=== PATIENT | female | born 1960 | race Hispanic/Latino ===

== ENCOUNTER 2017-12-25 17:50 | Emergency (ER) | payer BC ==
[2017-12-25 19:09] LABS: Absolute Lymphocytes (CBC) 2.1 K/uL (0.7-4.9); Absolute Monocytes 0.5 K/uL (0.1-1.3); Absolute Neutrophil 4.4 K/uL (1.8-8.0); Basophils % 0.9 % (0-1.3); Eosinophils % 3.2 % (0-4.4); Hematocrit 40.1 % (36.0-45.0); MCH 27.9 pg (27.0-35.0); MCV 84.3 fL (80-100); MPV 7.4 fL (7.6-11.3); Monocytes % 6.6 % (3.3-12.3); RBC Red Blood Cell Count 4.76 M/uL (3.86-4.86)
[2017-12-25 19:12] LABS: Protime INR 1.01
[2017-12-25 19:27] LABS: Barbiturates NEGATIVE (NEGATIVE); Benzodiazepines NEGATIVE (NEGATIVE); Cocaine NEGATIVE (NEGATIVE); METHAMPHETAM NEGATIVE (NEGATIVE); Methadone NEGATIVE (NEGATIVE); Opiates NEGATIVE (NEGATIVE); Phencyclidine NEGATIVE (NEGATIVE); THC Cannibis NEGATIVE (NEGATIVE)
[2017-12-25 19:30] LABS: ALT/SGPT 34 U/L (12-78); AST/SGOT 34 U/L (15-37); Albumin 3.7 g/dL (3.4-5.0); Alcohol Serum/Plasma < 3 mg/dL (<3); Alkaline Phosphatase 169 U/L (45-117); BUN Blood Urea Nitrogen 13 mg/dL (7-18); Bicarbonate 25 mmol/L (21-32); Bilirubin Direct < 0.1 mg/dL (0-0.2); Bilirubin Total 0.3 mg/dL (0.2-1.0); Glucose Level 145 mg/dL (74-106); Protein, Total 7.4 g/dL (6.4-8.2); Sodium Level 142 mmol/L (136-145)
[2017-12-25 21:43] LABS: Urine Blood NEGATIVE (NEG); Urine Glucose NEGATIVE (NEG); Urine Protein NEGATIVE (NEG)
--- NOTE | 2017-12-25 22:18 | ER ---
Nurse's Notes [facility] Name: Venice Beltran Age: 57 yrs Sex: Female : 1960 Arrival Date: 12/25/2017 Time: 17:54 Bed 15 Private MD: Kelby Isbell R Diagnosis: Suicide attempt Presentation: 12/25 18:21 Presenting complaint: Patient states: "I took 20, Ambien 10mg since midnight. I just aj wanted to go to sleep. I took myself off my Geodon this week and it gave me insomnia." Patient reports seeing monsters in the tile and gutierres. Patient reports that she was not taking the medication with the intent to kill herself, but that she was okay with dying if she did. Transition of care: patient was not received from another setting of care. Onset of symptoms was December 25, 2017. Risk Assessment: Do you want to hurt yourself or someone else? Patient reports no desire to harm self or others. Initial Sepsis Screen: Does the patient meet any 2 criteria? No. Patient's initial sepsis screen is negative. Does the patient have a suspected source of infection? No. Patient's initial sepsis screen is negative. Care prior to arrival: None. 18:21 Method Of Arrival: Ambulatory aj 18:21 Acuity: JOSE ANGEL 2 aj 18:31 Note Poison control contacted. Instructed to tox work up and observe for 4-6 hours aj after last ingestion (approx 1630 this afternoon). Risk of hypotension and drowsiness. Triage Assessment: 18:28 General: Appears in no apparent distress. comfortable, Behavior is calm, cooperative, aj appropriate for age. Pain: Denies pain. Neuro: Level of Consciousness is awake, alert, obeys commands, Oriented to person, place, time, situation, Appropriate for age Director Of Catering Sales are equal bilaterally Moves all extremities. Full function Gait is steady, Speech is normal, Facial symmetry appears normal, Pupils are PERRLA. Respiratory: Airway is patent Respiratory effort is even, unlabored, Respiratory pattern is regular, symmetrical. GI: No signs and/or symptoms were reported involving the gastrointestinal system. Derm: Skin is intact, is healthy with good turgor, Skin is pink, warm \\T\\ dry. normal. Historical: - Allergies: 18:28 No Known Allergies; aj - Home Meds: 18:28 Cymbalta 60 mg oral cpDR 1 cap once daily [Active]; Adderall XR Oral [Active]; Crestor aj oral oral [Active]; - PMHx: 18:28 Depression; Bipolar disorder; ptsd; aj - PSHx: 18:28 lap band; ; Cholecystectomy; aj - Immunization history:: Adult Immunizations up to date. - Social history:: Smoking status: Patient/guardian denies using tobacco. - Ebola Screening: : Patient negative for fever greater than or equal to 101.5 degrees Fahrenheit, and additional compatible Ebola Virus Disease symptoms Patient denies exposure to infectious person Patient denies travel to an Ebola-affected area in the 21 days before illness onset No symptoms or risks identified at this time. Screenin:37 Abuse screen: Denies threats or abuse. Denies injuries from another. Nutritional aj screening: No deficits noted. Tuberculosis screening: No symptoms or risk factors identified. Fall Risk None identified. Assessment: 19:28 Reassessment: Patient appears in no apparent distress at this time. pt asking for food, ak1 pt informed of wait for food for smokehouse worker to bring something to ER. pt is asking to be discharged, pt informed the ERP will be in to speak with her shortly. 19:32 Reassessment: Mental Health deputy being contacted by Ty angelo . ak1 21:44 Reassessment: Mental Health at bedside with ERP to place prison warrant on pt. pt ak1 informed of prison warrant placed and the wait for acceptance to psychiatric facility. 21:58 Reassessment: Reassessment: nurse [facility] nurse with [facility]. ak1 22:52 Reassessment: poison control file number is: [id number]. ak1 Psych: 18:38 Subjective: Patient's mood is sad, Hallucinations are visual, Having thoughts of Denies aj taking medication with intentions to kill herself, but reports that she knew she may from taking that much medication "and I was okay with it.". Objective: Patient is cooperative, Speech is normal, Affect is appropriate. Interventions: Removed personal items and placed in bag. Patient placed in hospital gown. Suicide Risk Assessment: Sad Person Scale: Sex of patient: Female: Score 0 points. Age of patient: Score 0 point if patient falls outside of specified age parameters. Depression: Score 1 point if signs of depression are present. Previous Attempt: Score 1 point if patient has previously attempted suicide. Substance Abuse: Score 0 point if patient does not abuse alcohol or drugs. Rational Thinking: Score 0 point if patient has rational thinking. Social Support: Score 0 if social support is present/available. Organized Plan: Score 0 if patient did not have an organized plan in place. Relationship: Score 0 point if patient has a spouse or domestic partner. Chronic Sickness: Score 0 point if patient does not have a chronic illness, debilitating, or severe disorder. Pt denies substance abuse. 19:27 Safety Checks: Personal items have been removed. Door is open. Visitors are present. ak1 Commitment:. Overdose: 18:32 Patient took Ambien 10mg X 20 between 0000 and 1630 today. Overdose occurred more than aj 10 hours ago. Vital Signs: 18:28 BP 137 / 92; Pulse 107; Resp 20; Temp 98.4; Pulse Ox 96% on R/A; Weight 87.09 kg; aj Height 5 ft. 3 in. (160.02 cm); 22:55 BP 118 / 78; Pulse 99; Resp 18 S; Pulse Ox 95% on R/A; jd3 18:28 Body Mass Index 34.01 (87.09 kg, 160.02 cm) aj ED Course: 17:54 Patient arrived in ED. sb2 17:54 Kelby Isbell MD is Private Physician. sb2 18:07 Joseph Fischer MD is Attending Physician. ps1 18:20 Patty Chairez, CHACHO is Primary Nurse. aj 18:25 Triage completed. aj 18:28 Arm band placed on left wrist. Patient placed in an exam room. aj 18:51 Inserted saline lock: 20 gauge in right forearm, using aseptic technique. Blood aj collected. 19:15 Safety checks: Items removed: yes. Door open/sign placed on door: yes. Family/friend oe present: no. Sitter present: Yes. 19:27 Patient has correct armband on for positive identification. Placed in gown. Bed in low ak1 position. Call light in reach. Adult w/ patient. 19:27 No provider procedures requiring assistance completed. ak1 19:30 Safety checks: Items removed: yes. Door open/sign placed on door: yes. Family/friend oe present: yes. Family/friends encouraged to stay with patient. Sitter present: Yes. 19:45 Safety checks: Items removed: yes. Door open/sign placed on door: yes. Family/friend oe present: yes. Family/friends encouraged to stay with patient. Sitter present: Yes. 19:59 notified [facility], will call back. rg2 20:00 Safety checks: Items removed: yes. Door open/sign placed on door: yes. Family/friend mw2 present: yes. Sitter present: Yes. 20:15 Safety checks: Items removed: yes. Door open/sign placed on door: yes. Family/friend mw2 present: yes. Sitter present: Yes. 20:30 Safety checks: Items removed: yes. Door open/sign placed on door: yes. Family/friend oe present: yes. Sitter present: Yes. 20:45 Safety checks: Items removed: yes. Door open/sign placed on door: yes. Family/friend oe present: yes. Sitter present: Yes. 21:00 Safety checks: Items removed: yes. Door open/sign placed on door: yes. Family/friend oe present: no. Sitter present: Yes. 21:15 Safety checks: Items removed: yes. Door open/sign placed on door: yes. Family/friend oe present: yes. Sitter present: Yes. 21:30 Safety checks: Items removed: yes. Door open/sign placed on door: yes. Family/friend oe present: no. Sitter present: Yes. 21:45 Safety checks: Items removed: yes. Door open/sign placed on door: yes. Family/friend oe present: no. Sitter present: Yes. 22:00 Safety checks: Items removed: yes. Door open/sign placed on door: yes. Family/friend oe present: no. Sitter present: Yes. 22:15 Safety checks: Items removed: yes. Door open/sign placed on door: yes. Family/friend oe present: no. Sitter present: Yes. 22:30 Safety checks: Items removed: yes. Door open/sign placed on door: yes. Family/friend oe present: no. Sitter present: Yes. 22:45 Safety checks: Items removed: yes. Door open/sign placed on door: yes. Family/friend oe present: no. Sitter present: Yes. 23:00 Safety checks: Items removed: yes. Door open/sign placed on door: yes. Family/friend oe present: no. Sitter present: Yes. 23:09 IV discontinued, intact, bleeding controlled, No redness/swelling at site. Pressure jd3 dressing applied. 23:15 Safety checks: Items removed: yes. Door open/sign placed on door: yes. Family/friend oe present: no. Sitter present: Yes. Administered Medications: No medications were administered Outcome: 22:01 Condition: stable ak1 22:01 Instructed on the need for transfer. 22:18 ER care complete, transfer ordered by . 23:26 Transferred by ground EMS Transfer form completed. Note: report given to [facility] ak1 23:28 Patient left the ED. ak1 Signatures: Carolyne Church rg2 Patty Chairez RN RN aj Krenek, Amber, RN RN ak1 Troy Garcia Gregory, MD MD gs Davies, Jonathon, RN RN jd3 Singer, Phillip, MD MD ps1 Billeau, Sheri 2 Jalen Godinez mw2 Corrections: (The following items were deleted from the chart) 20:46 20:32 Safety checks: Items removed: yes. Door open/sign placed on door: yes. oe Family/friend present: yes. Sitter present: Yes. oe 21:23 21:06 Safety checks: Items removed: yes. Door open/sign placed on door: yes. oe Family/friend present: yes. Sitter present: Yes. oe 22:01 21:58 Reassessment: ak1 ak1 23:09 23:08 BP 118 / 78; Pulse 99bpm; Resp 18bpm; Spontaneous; Pulse Ox 95% RA; jd3 jd3 23:11 22:26 Safety checks: Items removed: yes. Door open/sign placed on door: yes. oe Family/friend present: no. Sitter present: Yes. oe
--- NOTE | 2017-12-25 22:18 | EDPHYS ---
Physician Documentation [facility] Name: Venice Beltran Age: 57 yrs Sex: Female : 1960 Arrival Date: 12/25/2017 Time: 17:54 Bed 15 Private MD: Kelby Isbell R ED Physician Joseph Fischer HPI: 12/25 18:23 This 57 yrs old Female presents to ER via Unassigned with complaints of ps1 Possible Overdose. 18:23 patient states that she has a long history of psych problems. She stopped taking her ps1 geodon and had a bad day yesterday because she was scrapbooking over her estranged daughter. She states that she wanted to go to sleep and she took ambien. They are prescribed from Dr. Bishop in [place]. She reportedly took 20 ambien over the course of several hours from 10pm until 4pm. She is alert and providing a history. She states that she was not attempting to commit suicide however she was lassies faire about if she did in her sleep. On discussion with her she has been upset about not being invited to a birthday republican for her granddaughter and her ex was. She has acted out before in the past like this when it has come to family strife. She has been hospitalized before in the past, she states 10 years ago in [place] and that was not her first admission for psychiatric complaints. . Historical: - Allergies: 18:28 No Known Allergies; aj - Home Meds: 18:28 Cymbalta 60 mg oral cpDR 1 cap once daily [Active]; Adderall XR Oral [Active]; Crestor aj oral oral [Active]; - PMHx: 18:28 Depression; Bipolar disorder; ptsd; aj - PSHx: 18:28 lap band; ; Cholecystectomy; aj - Immunization history:: Adult Immunizations up to date. - Social history:: Smoking status: Patient/guardian denies using tobacco. - Ebola Screening: : Patient negative for fever greater than or equal to 101.5 degrees Fahrenheit, and additional compatible Ebola Virus Disease symptoms Patient denies exposure to infectious person Patient denies travel to an Ebola-affected area in the 21 days before illness onset No symptoms or risks identified at this time. ROS: 18:23 Unable to obtain ROS due to patient presenting with psychiatric complaints. . ps1 Exam: 18:23 Constitutional: This is a well developed, well nourished patient who is awake, alert, ps1 and in no acute distress. Head/Face: Normocephalic, atraumatic. Chest/axilla: Normal chest wall appearance and motion. Nontender with no deformity. No lesions are appreciated. Cardiovascular: Regular rate and rhythm. No gallops, murmurs, or rubs. Normal PMI, no JVD. No pulse deficits. Respiratory: Lungs have equal breath sounds bilaterally, clear to auscultation and percussion. No rales, rhonchi or wheezes noted. No increased work of breathing, no retractions or nasal flaring. Abdomen/GI: Soft, non-tender, with normal bowel sounds. No distension or tympany. No guarding or rebound. No evidence of tenderness throughout. 18:23 Psych: Behavior/mood is cooperative, depressed, Affect is flat, Oriented to person, place, time, Delusions/hallucinations are present and described as auditory as radio or static voices and visual with forms on the wall. . Vital Signs: 18:28 BP 137 / 92; Pulse 107; Resp 20; Temp 98.4; Pulse Ox 96% on R/A; Weight 87.09 kg; aj Height 5 ft. 3 in. (160.02 cm); 22:55 BP 118 / 78; Pulse 99; Resp 18 S; Pulse Ox 95% on R/A; jd3 18:28 Body Mass Index 34.01 (87.09 kg, 160.02 cm) aj MDM: 18:50 Patient medically screened. ps1 21:52 Data reviewed: vital signs, nurses notes, lab test result(s), and as a result, I will ps1 transfer patient to [facility]. After further discussion with myself, RN, and MHO patient verbalized intent to commit suicide with prescriptions and then during the interview with the MHO she verbalized, I wish the doctor would have just discharged me so I could have actually just gone and killed myself. . 12/25 18:43 Order name: Acetaminophen; Complete Time: 19:31 ps1 12/25 18:43 Order name: Basic Metabolic Panel; Complete Time: 19:31 ps1 12/25 18:43 Order name: CBC with Diff; Complete Time: 19:31 ps1 12/25 18:43 Order name: ETOH Level; Complete Time: 19:31 ps1 12/25 18:43 Order name: Hepatic Function; Complete Time: 19:31 ps1 12/25 18:43 Order name: PT-INR; Complete Time: 19:31 ps1 12/25 18:43 Order name: Ptt, Activated; Complete Time: 19:31 ps1 12/25 18:43 Order name: Salicylate; Complete Time: 19:31 ps1 12/25 18:43 Order name: Urine Drug Screen; Complete Time: 19: ps1 12/25 18:43 Order name: EKG; Complete Time: 18:43 ps1 12/25 18:43 Order name: EKG - Nurse/Tech; Complete Time: 19:25 ps1 12/25 18:43 Order name: IV Saline Lock; Complete Time: 19:24 ps1 12/25 18:43 Order name: Labs collected and sent; Complete Time: 19:24 ps1 12/25 21:06 Order name: Urine Dipstick--Ancillary (enter results); Complete Time: 21:51 [facility] 12/25 18:43 Order name: Urine Dipstick-Ancillary (obtain specimen); Complete Time: 19:25 ps1 Administered Medications: No medications were administered Disposition: 12/25/17 22:18 Transfer ordered to Psych Facility. Diagnosis is Suicide attempt. - Reason for transfer: Higher level of care. - Accepting physician is [facility]. - Condition is Stable. - Problem is new. - Symptoms are resolved. Signatures: Dispatcher [employer] Patty Hager RN RN aj Krenek, Amber, RN RN ak1 José England MD MD Joseph Fischer MD MD ps1 Corrections: (The following items were deleted from the chart) 23:28 22:18 12/25/2017 22:18 Transfer ordered to Psych Facility. Diagnosis is Suicide ak1 attempt. Reason for transfer: Higher level of care. Accepting physician is [facility]. Condition is Stable. Problem is new. Symptoms are resolved.
[2017-12-26 01:29] VITALS: TEMP 98.4
[2017-12-26 01:30] VITALS: BP 118/78; O2SAT 95
--- NOTE | 2017-12-26 07:49 | EKG ---
Test Date: 2017-12-25 Test Time: 18:41:34 Bleach Chlorinator: CORI MEASUREMENT RESULTS: Intervals: Rate: 102 IA: 136 QRSD: 80 QT: 338 QTc: 440 [place]: P: 39 IA: 136 QRS: 3 T: 11 INTERPRETIVE STATEMENTS: Sinus tachycardia Nonspecific ST abnormality Abnormal ECG Compared to ECG 12/30/2015 14:50:41 ST (T wave) deviation now present Sinus bradycardia no longer present Left ventricular hypertrophy no longer present Electronically Signed On 12-26-17 07:49:34 CDT by Jorge Ricardo
== END 2017-12-25 23:28 ==
LOC: ER 17:50
DX: T42.6X2A Poisoning by other antiepileptic and sedative-hypnotic drugs, intentional self-harm, initial encounter (principal); F32.9 Major depressive disorder, single episode, unspecified; F43.10 Post-traumatic stress disorder, unspecified
CPT/HCPCS: 36415; 80048; 80076; 80307; 80320; 80329; 81003; 85025; 85610; 85730; 93005; 99285

== ENCOUNTER 2019-04-06 12:25 | Emergency (ER) | payer BC ==
[2019-04-06] MEDS ORDERED: MECLIZINE HCL 12.5 MG TAB ONE (13:31)
--- NOTE | 2019-04-06 13:58 | RAD REPORT ---
EXAM DESCRIPTION: CT - Head Brain Wo Cont - 04/06/2019 1:48 pm CLINICAL HISTORY: vertigo Headache, drowsiness COMPARISON: CTFACIAL BONES W MPR dated 11/29/2014; HEAD BRAIN W O CONTRAST dated 02/12/2012 TECHNIQUE: All CT scans are performed using dose optimization technique as appropriate and may inclu de automated exposure control or mA/KV adjustment according to patient size. FINDINGS: No intracranial hemorrhage, hydrocephalus or extra-axial fluid collection.Mild generalized brain atrophy.No areas of brain edema or evidence of midline shift. Right maxillary is opacified. The paranasal sinuses and mastoids are otherwise clear. The calvarium i s intact. IMPRESSION: No acute intracranial abnormality. Right maxillary chronic sinus opacification.
--- NOTE | 2019-04-06 14:09 | RAD REPORT ---
EXAM DESCRIPTION: RAD - Chest Single View - 04/06/2019 2:04 pm CLINICAL HISTORY: CHEST PAIN Chest pain. COMPARISON: Abdomen 1 View (KUB) dated 01/30/2019; Chest Pa And Lat (2 Views) dated 06/17/2016; CHEST P A AND LAT 2 VIEW dated 05/07/2015; CHEST SINGLE VIEW dated 03/21/2015 FINDINGS: Portable technique limits examination quality. The lungs are grossly clear. The heart is normal in size. No displaced fractures. IMPRESSION: No acute intrathoracic process suspected.
--- NOTE | 2019-04-06 14:19 | EKG ---
Test Date: 2019-04-06 Test Time: 13:38:12 Drink Box Mechanic: YASH MEASUREMENT RESULTS: Intervals: Rate: 78 MN: 150 QRSD: 82 QT: 396 QTc: 451 [place]: P: 43 MN: 150 QRS: -1 T: 20 INTERPRETIVE STATEMENTS: Normal sinus rhythm Minimal voltage criteria for LVH, may be normal variant Borderline ECG Compared to ECG 12/25/2017 18:41:34 Left ventricular hypertrophy now present Sinus tachycardia no longer present ST (T wave) deviation no longer present Electronically Signed On 04-06-19 14:19:09 MANAGER EMS by Ramy [place]
[2019-04-06 14:36] LABS: Absolute Lymphocytes (CBC) 2.3 K/uL (0.7-4.9); Basophils % 1.1 % (0-1.3); Hematocrit 39.3 % (36.0-45.0); Lymphocytes % 35.2 % (15.3-44.8); MPV 7.8 fL (7.6-11.3); RBC Red Blood Cell Count 4.86 M/uL (3.86-4.86)
[2019-04-06 14:37] LABS: Protime INR 1.09
[2019-04-06 14:49] LABS: ALT/SGPT 21 U/L (12-78); AST/SGOT 16 U/L (15-37); Alkaline Phosphatase 161 U/L (45-117); BUN Blood Urea Nitrogen 19 mg/dL (7-18); Bicarbonate 26 mmol/L (21-32); Bilirubin Direct 0.1 mg/dL (0-0.2); Bilirubin Total 0.3 mg/dL (0.2-1.0); Glucose Level 75 mg/dL (74-106); Magnesium 2.5 mg/dL (1.8-2.4); NT PRO-BNP 15 pg/mL (<125); Potassium 3.9 mmol/L (3.5-5.1); Protein, Total 7.7 g/dL (6.4-8.2); Sodium Level 138 mmol/L (136-145); Troponin (Emerg Dept Use Only) < 0.02 ng/mL (0.0-0.045)
--- NOTE | 2019-04-06 15:10 | EDPHYS ---
Physician Documentation [facility] Name: Venice Beltran Age: 58 yrs Sex: Female : 1960 Arrival Date: 04/06/2019 Time: 12:28 Bed 20 Private MD: Kelby Isbell R ED Physician Andre Denny HPI: 04/06 13:38 This 58 yrs old Female presents to ER via Wheelchair with complaints of pm1 Vertigo. 13:38 The patient presents with vertigo. Onset: The symptoms/episode began/occurred this pm1 morning. Context: occurred at home, occurred while the patient was rolling over in bed to the left side and felt sensation that she rolling like a log down a hill. just prior to the episode the patient experienced no apparent symptoms. Modifying factors: The symptoms are alleviated by holding head still, the symptoms are aggravated by movement of head, changing position. Associated signs and symptoms: The patient has no apparent associated signs or symptoms, Pertinent negatives: abdominal pain, chest pain, focal weakness, headache, numbness, shortness of breath, vomiting. Severity of symptoms: in the emergency department the symptoms have resolved. The patient has experienced similar episodes in the past, multiple times, and the symptoms today are exactly the same, to previous vertigo. Historical: - Allergies: 12:58 No Known Allergies; iw - Home Meds: 13:19 atorvastatin 10 mg oral tab [Active]; zolpidem 10 mg Oral tab [Active]; metformin 500 em mg Oral tr24 [Active]; ropinirole 1 mg oral tab [Active]; hydroxyzine HCl 50 mg Oral tab [Active]; Vraylar 9 mg oral cap [Active]; glimepiride 1 mg Oral tab [Active]; Cymbalta 60 mg oral cpDR [Active]; - PMHx: 12:56 Bipolar disorder; Depression; PTSD; iw 12:58 Diabetes - NIDDM; iw - PSHx: 12:56 lap band; ; Cholecystectomy; iw 12:58 neck; Knee surgery; partial hystrerectomy; iw - Immunization history:: Adult Immunizations up to date. - Social history:: Smoking status: Patient uses tobacco products, smokes one pack cigarettes per day. - Ebola Screening: : Patient negative for fever greater than or equal to 101.5 degrees Fahrenheit, and additional compatible Ebola Virus Disease symptoms Patient denies exposure to infectious person Patient denies travel to an Ebola-affected area in the 21 days before illness onset No symptoms or risks identified at this time. ROS: 13:38 Constitutional: Negative for fever, chills, and weight loss, Eyes: Negative for injury, pm1 pain, redness, and discharge, ENT: Negative for injury, pain, and discharge, Neck: Negative for injury, pain, and swelling, Cardiovascular: Negative for chest pain, palpitations, and edema, Respiratory: Negative for shortness of breath, cough, wheezing, and pleuritic chest pain, Abdomen/GI: Negative for abdominal pain, nausea, vomiting, diarrhea, and constipation, Back: Negative for injury and pain, : Negative for injury, bleeding, discharge, and swelling, MS/Extremity: Negative for injury and deformity, Skin: Negative for injury, rash, and discoloration. 13:38 Neuro: Positive for dizziness, Negative for headache, numbness, weakness. Exam: 13:38 Constitutional: This is a well developed, well nourished patient who is awake, alert, pm1 and in no acute distress. Head/Face: Normocephalic, atraumatic. Eyes: Pupils equal round and reactive to light, extra-ocular motions intact. Lids and lashes normal. Conjunctiva and sclera are non-icteric and not injected. Cornea within normal limits. Periorbital areas with no swelling, redness, or edema. ENT: Nares patent. No nasal discharge, no septal abnormalities noted. Tympanic membranes are normal and external auditory canals are clear. Oropharynx with no redness, swelling, or masses, exudates, or evidence of obstruction, uvula midline. Mucous membranes moist. Neck: Trachea midline, no thyromegaly or masses palpated, and no cervical lymphadenopathy. Supple, full range of motion without nuchal rigidity, or vertebral point tenderness. No Meningismus. Chest/axilla: Normal chest wall appearance and motion. Nontender with no deformity. No lesions are appreciated. Cardiovascular: Regular rate and rhythm with a normal S1 and S2. No gallops, murmurs, or rubs. Normal PMI, no JVD. No pulse deficits. Respiratory: Lungs have equal breath sounds bilaterally, clear to auscultation and percussion. No rales, rhonchi or wheezes noted. No increased work of breathing, no retractions or nasal flaring. Abdomen/GI: Soft, non-tender, with normal bowel sounds. No distension or tympany. No guarding or rebound. No evidence of tenderness throughout. Back: No spinal tenderness. No costovertebral tenderness. Full range of motion. Skin: Warm, dry with normal turgor. Normal color with no rashes, no lesions, and no evidence of cellulitis. MS/ Extremity: Pulses equal, no cyanosis. Neurovascular intact. Full, normal range of motion. 13:38 Neuro: Orientation: is normal, Mentation: is normal, Motor: is normal, moves all fours, Gait: is steady, at a normal pace, without difficulty. Vital Signs: 12:58 BP 105 / 67; Pulse 84; Resp 16; Temp 98.9; Pulse Ox 98% on R/A; Weight 81.65 kg; Height iw 5 ft. 4 in. (162.56 cm); 14:13 BP 99 / 75; Pulse 83; Resp 16; Pulse Ox 99% on R/A; Pain 0/10; em 15:21 BP 102 / 68; Pulse 79; Resp 16; Pulse Ox 99% on R/A; em 12:58 Body Mass Index 30.90 (81.65 kg, 162.56 cm) iw MDM: 13:27 Patient medically screened. pm1 15:08 Data reviewed: vital signs. Data interpreted: Pulse oximetry: on room air is 99 %. pm1 Interpretation: normal. Counseling: I had a detailed discussion with the patient and/or guardian regarding: the historical points, exam findings, and any diagnostic results supporting the discharge/admit diagnosis, lab results, radiology results, the need for outpatient follow up, to return to the emergency department if symptoms worsen or persist or if there are any questions or concerns that arise at home. 04/06 13:26 Order name: Basic Metabolic Panel; Complete Time: 15:00 pm1 04/06 13:26 Order name: CBC with Diff; Complete Time: 14:46 pm1 04/06 13:26 Order name: LFT's; Complete Time: 15:00 pm1 04/06 13:26 Order name: Magnesium; Complete Time: 15:00 pm1 04/06 13:26 Order name: NT PRO-BNP; Complete Time: 15:00 pm1 04/06 13:26 Order name: PT-INR; Complete Time: 15:08 pm1 04/06 13:26 Order name: Troponin (emerg Dept Use Only); Complete Time: 15:00 pm1 04/06 13:26 Order name: XRAY Chest (1 view); Complete Time: 14:15 pm1 04/06 13:26 Order name: EKG; Complete Time: 13:28 pm1 04/06 13:26 Order name: Cardiac monitoring; Complete Time: 13:27 pm1 04/06 13:26 Order name: EKG - Nurse/Tech; Complete Time: 13:49 pm1 04/06 13:26 Order name: IV Saline Lock; Complete Time: 14:14 pm1 04/06 13:26 Order name: CT Head Brain wo Cont; Complete Time: 14:15 pm1 04/06 13:26 Order name: Labs collected and sent; Complete Time: 13:27 pm1 04/06 13:26 Order name: O2 Per Protocol; Complete Time: 13:27 pm1 04/06 13:26 Order name: O2 Sat Monitoring; Complete Time: 13:27 pm1 Administered Medications: 13:33 Drug: Meclizine 50 mg Route: PO; em 14:45 Follow up: Response: No adverse reaction; Marked relief of symptoms em Disposition: 16:42 Co-signature as Attending Physician, Andre Denny MD I agree with the assessment and kdr plan of care. Disposition: 04/06/19 15:09 Discharged to Home. Impression: Benign paroxysmal vertigo. - Condition is Stable. - Discharge Instructions: Benign Positional Vertigo. - Prescriptions for Meclizine 25 mg Oral Tablet - take 1 tablet by ORAL route every 8 hours As needed; 30 tablet. - Medication Reconciliation Form, Thank You Letter, Antibiotic Education, Prescription Opioid Use form. - Follow up: Emergency Department; When: As needed; Reason: Worsening of condition. Follow up: Private Physician; When: 2 - 3 days; Reason: Recheck today's complaints, Continuance of care, Re-evaluation by your physician. - Problem is new. - Symptoms have improved. Signatures: Dispatcher [employer] Andre Quintana MD MD kdr Alfredo Brooks, DATA REPORTING ANALYST DATA REPORTING ANALYST em Sonia Howell RN Marino Miller, INTERLOCKER INTERLOCKER pm1 Corrections: (The following items were deleted from the chart) 15:26 15:09 04/06/2019 15:09 Discharged to Home. Impression: Benign paroxysmal vertigo. em Condition is Stable. Forms are Medication Reconciliation Form, Thank You Letter, Antibiotic Education, Prescription Opioid Use. Follow up: Emergency Department; When: As needed; Reason: Worsening of condition. Follow up: Private Physician; When: 2 - 3 days; Reason: Recheck today's complaints, Continuance of care, Re-evaluation by your physician. Problem is new. Symptoms have improved. pm1
--- NOTE | 2019-04-06 15:10 | ER ---
Nurse's Notes [facility] Name: Venice Beltran Age: 58 yrs Sex: Female : 1960 Arrival Date: 04/06/2019 Time: 12:28 Bed 20 Private MD: Kelby Isbell R Diagnosis: Benign paroxysmal vertigo Presentation: 04/06 12:54 Presenting complaint: Patient states: dizziness for about 6 weeks, getting worse, has iw not seen doctor yet, dizziness is worse in morning, lasts all day, worse when lying down. Transition of care: patient was not received from another setting of care. Onset of symptoms was January 2019. Risk Assessment: Do you want to hurt yourself or someone else? Patient reports no desire to harm self or others. Initial Sepsis Screen: Does the patient meet any 2 criteria? No. Patient's initial sepsis screen is negative. Does the patient have a suspected source of infection? No. Patient's initial sepsis screen is negative. Care prior to arrival: None. 12:54 Method Of Arrival: Wheelchair iw 12:54 Acuity: JOSE ANGEL 3 iw 12:56 Note pt also states she has been waking up and feeling like her arms and legs are iw shaking, and her mouth is open, that started 3 months ago. Historical: - Allergies: 12:58 No Known Allergies; iw - Home Meds: 13:19 atorvastatin 10 mg oral tab [Active]; zolpidem 10 mg Oral tab [Active]; metformin 500 em mg Oral tr24 [Active]; ropinirole 1 mg oral tab [Active]; hydroxyzine HCl 50 mg Oral tab [Active]; Vraylar 9 mg oral cap [Active]; glimepiride 1 mg Oral tab [Active]; Cymbalta 60 mg oral cpDR [Active]; - PMHx: 12:56 Bipolar disorder; Depression; PTSD; iw 12:58 Diabetes - NIDDM; iw - PSHx: 12:56 lap band; ; Cholecystectomy; iw 12:58 neck; Knee surgery; partial hystrerectomy; iw - Immunization history:: Adult Immunizations up to date. - Social history:: Smoking status: Patient uses tobacco products, smokes one pack cigarettes per day. - Ebola Screening: : Patient negative for fever greater than or equal to 101.5 degrees Fahrenheit, and additional compatible Ebola Virus Disease symptoms Patient denies exposure to infectious person Patient denies travel to an Ebola-affected area in the 21 days before illness onset No symptoms or risks identified at this time. Screenin:15 Abuse screen: Denies threats or abuse. Nutritional screening: No deficits noted. em Tuberculosis screening: No symptoms or risk factors identified. Fall Risk Secondary diagnosis (15 points) dizziness. Gait- Weak (10 pts.). Total Siu Fall Scale indicates Low Risk Score (25-44 pts). Side Rails Up X 2 Placed close to Nursing Station Frequent Obs/Assesments occuring Family Present and informed to notify staff if they need to leave bedside. Assessment: 13:15 General: Appears in no apparent distress. comfortable, well groomed, well developed, em well nourished, Behavior is calm, cooperative, Reports reports dizziness for about 6 weeks Denies. Pain: Denies pain. Neuro: Level of Consciousness is awake, alert, obeys commands, Oriented to person, place, time, situation, Appropriate for age Rotary Helper are equal bilaterally Speech is normal, Facial symmetry appears normal, Reports dizziness, Denies headache. Cardiovascular: Capillary refill < 3 seconds Patient's skin is warm and dry. Respiratory: Airway is patent Respiratory effort is even, unlabored, Respiratory pattern is regular, symmetrical. GI: Reports nausea, Patient currently denies vomiting. Derm: Skin is intact, is healthy with good turgor, Skin is pink, warm \T\ dry. Musculoskeletal: Capillary refill < 3 seconds, Range of motion: intact in all extremities. 13:45 Reassessment: Patient appears in no apparent distress at this time. wheeled to CT via em wheelchair. 14:45 Reassessment: Patient appears in no apparent distress at this time. Patient and/or em family updated on plan of care and expected duration. Pain level reassessed. Patient is alert, oriented x 3, equal unlabored respirations, skin warm/dry/pink. rates dizziness 2/10 Patient states symptoms have improved. Vital Signs: 12:58 BP 105 / 67; Pulse 84; Resp 16; Temp 98.9; Pulse Ox 98% on R/A; Weight 81.65 kg; Height iw 5 ft. 4 in. (162.56 cm); 14:13 BP 99 / 75; Pulse 83; Resp 16; Pulse Ox 99% on R/A; Pain 0/10; em 15:21 BP 102 / 68; Pulse 79; Resp 16; Pulse Ox 99% on R/A; em 12:58 Body Mass Index 30.90 (81.65 kg, 162.56 cm) ED Course: 12:28 Patient arrived in ED. mr 12:29 Kelby Isbell MD is Private Physician. mr 12:56 Triage completed. iw 12:58 Arm band placed on. iw 13:02 Alfredo Brooks LVN is Primary Nurse. em 13:06 Marino Rios NP is PHCP. pm1 13:06 Andre Denny MD is Attending Physician. pm1 13:24 Patient has correct armband on for positive identification. Placed in gown. Bed in low em position. Call light in reach. Adult w/ patient. Pulse ox on. NIBP on. 13:40 EKG done, by ED staff, reviewed by Marino Rios NP. dh3 13:49 CT Head Brain wo Cont In Process Unspecified. EDMS 13:49 CT completed. Patient tolerated procedure well. Patient moved back from CT. bq 14:04 XRAY Chest (1 view) In Process Unspecified. EDMS 14:14 Initial lab(s) drawn, by me, sent to lab. Inserted saline lock: 20 gauge in right lt1 antecubital area, using aseptic technique. 15:19 No provider procedures requiring assistance completed. IV discontinued, intact, em bleeding controlled, No redness/swelling at site. Pressure dressing applied. Administered Medications: 13:33 Drug: Meclizine 50 mg Route: PO; em 14:45 Follow up: Response: No adverse reaction; Marked relief of symptoms em Outcome: 15:09 Discharge ordered by . pm1 15:19 Discharged to home ambulatory, with family. em 15:19 Condition: good 15:19 Discharge instructions given to patient, family, Instructed on discharge instructions, follow up and referral plans. medication usage, Demonstrated understanding of instructions, follow-up care, medications, Prescriptions given X 1. 15:26 Patient left the ED. em Signatures: Dispatcher [employer] EDIL Myriam Meza Betty Alfredo Brooks LVN COMMERCIAL CARPENTER em Sonia Howell RN RN iw Marino Rios, TREE PRUNER TREE PRUNER pm1 Jaylyn Montejonna dh3 Jara, Jamila lt1
[2019-04-06 15:42] VITALS: TEMP 98.9
[2019-04-06 15:43] VITALS: O2SAT 99
[2019-04-06 15:45] VITALS: BP 102/68
== END 2019-04-06 15:26 | disposition home or self-care (01) ==
LOC: ER 12:25
DX: H81.10 Benign paroxysmal vertigo, unspecified ear (principal); F31.9 Bipolar disorder, unspecified; F43.10 Post-traumatic stress disorder, unspecified; E11.9 Type 2 diabetes mellitus without complications
CPT/HCPCS: 36415; 70450; 71045; 80048; 80076; 83735; 83880; 84484; 85025; 85610; 93005; 99284; J8597

== ENCOUNTER 2021-03-17 07:24 | Emergency (ER) | payer OTHER ==
[2021-03-17] MEDS ORDERED: INSULIN -REGULAR HUMAN 50 UNIT/0.5 ML ML ONE ×2 (07:40→08:28)
[2021-03-17] MEDS ORDERED: NA CHLORIDE 0.9% 1,000 ML ONE (07:40)
[2021-03-17 08:08] LABS: Absolute Lymphocytes (CBC) 1.3 K/uL (0.7-4.9); Basophils % 0.6 % (0-1.3); Hematocrit 39.5 % (36.0-45.0); MPV 8.6 fL (7.6-11.3); RBC Red Blood Cell Count 4.65 M/uL (3.86-4.86)
[2021-03-17 08:21] LABS: BUN Blood Urea Nitrogen 18 mg/dL (7-18); Bicarbonate 23 mmol/L (21-32); Sodium Level 130 mmol/L (136-145)
[2021-03-17 08:22] LABS: Potassium 4.4 mmol/L (3.5-5.1)
[2021-03-17 08:24] LABS: Glucose Level 613 mg/dL (74-106)
[2021-03-17 08:51] LABS: Urine Blood Trace-intact (Negative); Urine Glucose 2+ (Negative); Urine Protein Negative (Negative)
[2021-03-17 09:51] LABS: Urine Bacteria <20 /HPF (<20); Urine RBC <5 /HPF (NONE SEEN)
--- NOTE | 2021-03-17 10:28 | ER ---
Nurse's Notes [facility] Name: Venice Beltran Age: 60 yrs Sex: Female : 1960 Arrival Date: 03/17/2021 Time: 07:26 Bed 5 Private MD: Kelby Isbell R Diagnosis: Hyperglycemia, unspecified;Dehydration Presentation: 03/17 07:37 Chief complaint: Patient states: High blood sugar for 1 month. Has been seeing Dr. ana Isbell for this. Had blood drawn yesterday, blood sugar over 500, was told to come to ED. Also reports "yeast infection". Coronavirus screen: Vaccine status: Patient reports receiving the 2nd dose of the covid vaccine. Client denies travel out of the [place] in the last 14 days. At this time, the client does not indicate any symptoms associated with coronavirus-19. Ebola Screen: Patient denies travel to an Ebola-affected area in the 21 days before illness onset. Initial Sepsis Screen: Does the patient meet any 2 criteria? RR > 20 per min. No. Patient's initial sepsis screen is negative. Does the patient have a suspected source of infection? No. Patient's initial sepsis screen is negative. Risk Assessment: Do you want to hurt yourself or someone else? Patient reports no desire to harm self or others. Onset of symptoms was February 14, 2021. 07:37 Method Of Arrival: Ambulatory [facility] 07:37 Acuity: JOSE ANGEL 2 ll1 Historical: - Allergies: 07:34 No Known Drug Allergies; tw2 - Home Meds: 08:02 Adderall XR 20 mg oral cp24 1 cap once daily [Active]; duloxetine 80 mg oral 1 cap 2 tw2 times per day [Active]; glimepiride 2 mg Oral tab 1 tab two times a day [Active]; zolpidem 10 mg Oral tab [Active]; propranolol 40 mg Oral tab 1 tab 2 times per day [Active]; Geodon 80 mg oral cap 1 cap 2 times per day [Active]; clonidine HCl 0.1 mg Oral tab 1 tab once daily [Active]; clonidine HCl 0.2 mg Oral tab 1 tab once daily [Active]; - PMHx: 07:36 Bipolar disorder; Depression; Diabetes - NIDDM; PTSD; Hypercholesterolemia; ll1 Hypertensive disorder; - PSHx: 07:36 section; Cholecystectomy; knee and neck SX; partial hyst; ll1 - Immunization history:: Client reports receiving the 2nd dose of the Covid vaccine. - Social history:: Smoking status: Patient denies any tobacco usage or history of. - Family history:: not pertinent. - Hospitalizations: : No recent hospitalization is reported. Screenin:34 Abuse screen: Denies threats or abuse. Nutritional screening: No deficits noted. tw2 Tuberculosis screening: No symptoms or risk factors identified. Fall Risk None identified. Assessment: 08:01 General: Appears in no apparent distress. well groomed, Behavior is calm, cooperative, tw2 appropriate for age. Pain: Denies pain. Neuro: Level of Consciousness is awake, alert, obeys commands, Oriented to person, place, time, situation. Cardiovascular: Patient's skin is warm and dry. Respiratory: Airway is patent Respiratory effort is even, unlabored, Respiratory pattern is regular, symmetrical. GI: No signs and/or symptoms were reported involving the gastrointestinal system. GI:. : No signs and/or symptoms were reported regarding the genitourinary system. EENT:. EENT: Reports increased thirst. Musculoskeletal: Range of motion: intact in all extremities. 08:54 Reassessment: Patient appears in no apparent distress at this time. No changes from tw2 previously documented assessment. Patient and/or family updated on plan of care and expected duration. Pain level reassessed. Patient is alert, oriented x 3, equal unlabored respirations, skin warm/dry/pink. 09:36 Reassessment: Patient appears in no apparent distress at this time. No changes from tw2 previously documented assessment. Patient and/or family updated on plan of care and expected duration. Pain level reassessed. Patient is alert, oriented x 3, equal unlabored respirations, skin warm/dry/pink. Vital Signs: 07:37 BP 105 / 53; Pulse 69; Resp 18; Pulse Ox 95% on R/A; tw2 07:37 BP 105 / 53; Pulse 87; Resp 22; Temp 97.6; Pulse Ox 97% on R/A; Weight 83.01 kg; Height ll1 5 ft. 3 in. (160.02 cm); Pain 0/10; 08:48 BP 119 / 74; Pulse 86; Resp 17; Pulse Ox 100% on R/A; ap3 09:36 BP 121 / 89; Pulse 94; Resp 19; Pulse Ox 95% on R/A; tw2 10:11 BP 119 / 78; Pulse 83; Pulse Ox 95% on R/A; ap3 07:37 Body Mass Index 32.42 (83.01 kg, 160.02 cm) ll1 ED Course: 07:26 Patient arrived in ED. as 07:26 Kelby Isbell MD is Private Physician. as 07:27 Jimmy Beltran MD is Attending Physician. rn 07:32 Tiffanie Rankin RN is Primary Nurse. tw2 07:34 Bed in low position. Call light in reach. Pulse ox on. NIBP on. tw2 07:34 Arm band placed on. tw2 07:36 Patient placed in an exam room, on a stretcher. ll1 07:40 Triage completed. ll1 07:49 EKG done, by ED staff, reviewed by Jimmy Beltran MD. em1 07:59 Inserted saline lock: 20 gauge in right forearm, using aseptic technique. Blood tw2 collected. 08:49 ED physician to see patient. ap3 08:54 Urine Microscopic Only Sent. tw2 10:27 Kelby Isbell MD is Referral Physician. rn 10:48 No provider procedures requiring assistance completed. IV discontinued, intact, ap3 bleeding controlled, No redness/swelling at site. Pressure dressing applied. Administered Medications: 07:59 Drug: NS 0.9% 1000 ml Route: IV; Rate: 1000 ml; Site: right forearm; tw2 10:49 Follow up: IV Status: Completed infusion; IV Intake: 1000ml ap3 08:00 Drug: Insulin Regular Human 10 units {Co-Signature: shravan (Patty Ely RN).} Route: tw2 Sub-Q; Site: right upper arm; 10:49 Follow up: Response: No adverse reaction; Blood sugar is lowered ap3 08:31 Drug: Insulin Regular Human 5 units {Co-Signature: shravan (Patty Ely RN).} Route: tw2 IVP; Site: right forearm; 10:49 Follow up: Response: No adverse reaction; Blood sugar is lowered ap3 Point of Care Testing: Blood Glucose: 09:35 Blood Glucose: 357 mg/dL; tw2 09:35 provider notified tw2 Ranges: Intake: 10:49 IV: 1000ml; Total: 1000ml. ap3 Outcome: 10:27 Discharge ordered by . rn 10:48 Discharged to home ambulatory. ap3 10:48 Condition: good 10:48 Discharge instructions given to patient, Instructed on discharge instructions, follow up and referral plans. Demonstrated understanding of instructions, follow-up care. 10:48 Patient left the ED. ap3 Signatures: Diana Simeon Roman, MD MD rn Blanco, Daljit Tiffanie Villalpando RN RN tw2 Patty Ely RN RN ap3 Ana Nunez RN RN 1 Patty Ely RN ap3 Corrections: (The following items were deleted from the chart) 08:11 07:36 Allergies: No Known Drug Allergies; ll1 tw2
--- NOTE | 2021-03-17 10:28 | EDPHYS ---
Physician Documentation [facility] Name: Venice Beltran Age: 60 yrs Sex: Female : 1960 Arrival Date: 03/17/2021 Time: 07:26 Bed 5 Private MD: Kelby Isbell R ED Physician Jimmy Beltran HPI: 03/17 08:02 This 60 yrs old Female presents to ER via Ambulatory with complaints of High rn Blood Sugar - >500. 08:02 The patient or guardian reports hyperglycemia, that was potentially precipitated by no rn particular event. Onset: The symptoms/episode began/occurred 1 month(s) ago. Associated signs and symptoms: Pertinent positives: polydipsia, polyuria, Pertinent negatives: decreased urine output, seizure activity, Current symptoms: In the emergency department the patient's symptoms are unchanged from the initial presentation. The patient has experienced similar episodes in the past. The patient has been recently seen by a physician:. Patient reports high blood sugar for the last month. Sees Dr. Isbell, was taken off of Metformin a while back and placed on glimepiride. Just started insulin yesterday. Sent for routine blood work and was told to come in this morning for blood sugar greater than 500. Patient reports otherwise feels okay other than fatigue and increased urination and thirst. Denies any fever. Denies any strokelike symptoms. Denies chest pain. No abdominal pain or vomiting.. Historical: - Allergies: 07:34 No Known Drug Allergies; tw2 - Home Meds: 08:02 Adderall XR 20 mg oral cp24 1 cap once daily [Active]; duloxetine 80 mg oral 1 cap 2 tw2 times per day [Active]; glimepiride 2 mg Oral tab 1 tab two times a day [Active]; zolpidem 10 mg Oral tab [Active]; propranolol 40 mg Oral tab 1 tab 2 times per day [Active]; Geodon 80 mg oral cap 1 cap 2 times per day [Active]; clonidine HCl 0.1 mg Oral tab 1 tab once daily [Active]; clonidine HCl 0.2 mg Oral tab 1 tab once daily [Active]; - PMHx: 07:36 Bipolar disorder; Depression; Diabetes - NIDDM; PTSD; Hypercholesterolemia; ll1 Hypertensive disorder; - PSHx: 07:36 section; Cholecystectomy; knee and neck SX; partial hyst; ll1 - Immunization history:: Client reports receiving the 2nd dose of the Covid vaccine. - Social history:: Smoking status: Patient denies any tobacco usage or history of. - Family history:: not pertinent. - Hospitalizations: : No recent hospitalization is reported. ROS: 08:02 Constitutional: Negative for fever, chills, and weight loss, Eyes: Negative for injury, rn pain, redness, and discharge, ENT: Negative for injury, pain, and discharge, Neck: Negative for injury, pain, and swelling, Cardiovascular: Negative for chest pain, palpitations, and edema, Respiratory: Negative for shortness of breath, cough, wheezing, and pleuritic chest pain, Abdomen/GI: Negative for abdominal pain, nausea, vomiting, diarrhea, and constipation, Back: Negative for injury and pain, : Negative for injury, bleeding, discharge, and swelling, MS/Extremity: Negative for injury and deformity, Skin: Negative for injury, rash, and discoloration, Neuro: Negative for headache, numbness, tingling, and seizure, Endocrine: Negative for neck swelling, polyphagia, and marked weight changes. Exam: 07:48 ECG was reviewed by the Attending Physician. rn 08:02 Constitutional: This is a well developed, well nourished patient who is awake, alert, rn and in no acute distress. Ambulatory to room without difficulty or requiring assistance Head/Face: Normocephalic, atraumatic. Eyes: Periorbital areas with no swelling, redness, or edema. ENT: Dry mucous membranes Cardiovascular: Regular rate and rhythm. No pulse deficits. Respiratory: Mild tachypnea, no retractions, speaking full sentences Abdomen/GI: Soft, non-tender Skin: Warm, dry MS/ Extremity: Pulses equal, no cyanosis. Neuro: Awake and alert, GCS 15, oriented to person, place, time, and situation. Cranial nerves II-XII grossly intact. Motor strength 5/5 in all extremities. Sensory grossly intact. Cerebellar exam normal. Normal gait. Vital Signs: 07:37 BP 105 / 53; Pulse 69; Resp 18; Pulse Ox 95% on R/A; tw2 07:37 BP 105 / 53; Pulse 87; Resp 22; Temp 97.6; Pulse Ox 97% on R/A; Weight 83.01 kg; Height ll1 5 ft. 3 in. (160.02 cm); Pain 0/10; 08:48 BP 119 / 74; Pulse 86; Resp 17; Pulse Ox 100% on R/A; ap3 09:36 BP 121 / 89; Pulse 94; Resp 19; Pulse Ox 95% on R/A; tw2 10:11 BP 119 / 78; Pulse 83; Pulse Ox 95% on R/A; ap3 07:37 Body Mass Index 32.42 (83.01 kg, 160.02 cm) ll1 MDM: 07:27 Patient medically screened. rn 10:25 Differential diagnosis: diabetes insipidus, DKA, hyperglycemia. Data reviewed: vital rn signs, nurses notes, lab test result(s), EKG, and as a result, I will discharge patient. 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 Interpretation: normal. Counseling: I had a detailed discussion with the patient and/or guardian regarding: the historical points, exam findings, and any diagnostic results supporting the discharge/admit diagnosis, lab results, the need for outpatient follow up, to return to the emergency department if symptoms worsen or persist or if there are any questions or concerns that arise at home. Response to treatment: the patient's symptoms have markedly improved after treatment, and as a result, I will discharge patient. Special discussion: I discussed with the patient/guardian in detail that at this point there is no indication for admission to the hospital. It is understood, however, that if the symptoms persist or worsen the patient needs to return immediately for re-evaluation. Based on the history and exam findings, there is no indication for further emergent testing or inpatient evaluation. I discussed with the patient/guardian the need to see the primary care provider for further evaluation of the symptoms. ED course: Patient with hyperglycemia, no acidosis. Otherwise stable and normal vital signs. Already initiated on insulin yesterday, glucose down to 325 here. Will DC home with close PCP follow-up for diabetes management as no emergent indication for admission found today. Patient feels well and is more hydrated. Return precautions given and understood.. 03/17 07:35 Order name: CBC with Diff; Complete Time: 08:37 rn 03/17 07:35 Order name: Basic Metabolic Panel; Complete Time: 08:37 rn 03/17 07:35 Order name: Ketone, Serum; Complete Time: 08:37 rn 03/17 07:35 Order name: Osmolality, Serum; Complete Time: 08:43 rn 03/17 07:35 Order name: Urine Microscopic Only; Complete Time: 09:59 rn 03/17 07:43 Order name: Glucose, Ancillary Testing EDVA 03/17 07:35 Order name: IV Start; Complete Time: 08:01 rn 03/17 07:35 Order name: EKG; Complete Time: 07:36 rn 03/17 08:51 Order name: Urine Dipstick-Ancillary; Complete Time: 09:31 EDMS 03/17 09:46 Order name: Glucose, Ancillary Testing; Complete Time: 09:59 [facility]VA 03/17 10:32 Order name: Glucose, Ancillary Testing [facility] 03/17 07:35 Order name: Urine Dipstick-Ancillary (obtain specimen); Complete Time: 08:54 rn 03/17 07:35 Order name: EKG - Nurse/Tech; Complete Time: 07:49 rn EC:48 Rate is 81 beats/min. Rhythm is regular. QRS [place] is Normal. [place] interval is normal. QRS rn interval is normal. QT interval is normal. No Q waves. T waves are Normal. No ST changes noted. Clinical impression: Normal ECG. Interpreted by me. Reviewed by me. Administered Medications: 07:59 Drug: NS 0.9% 1000 ml Route: IV; Rate: 1000 ml; Site: right forearm; tw 10:49 Follow up: IV Status: Completed infusion; IV Intake: 1000ml ap3 08:00 Drug: Insulin Regular Human 10 units {Co-Signature: ap3 (Patty Ely RN).} Route: tw2 Sub-Q; Site: right upper arm; 10:49 Follow up: Response: No adverse reaction; Blood sugar is lowered ap3 08:31 Drug: Insulin Regular Human 5 units {Co-Signature: ap3 (Patty lEy RN).} Route: tw2 IVP; Site: right forearm; 10:49 Follow up: Response: No adverse reaction; Blood sugar is lowered ap3 Point of Care Testing: Blood Glucose: 09:35 Blood Glucose: 357 mg/dL; tw2 09:35 provider notified tw2 Ranges: Critical Glucose Levels:Adult <50 mg/dl or >400 mg/dl <40 mg/dl or >180 mg/dl Disposition Summary: 03/17/21 10:27 Discharge Ordered Location: Home rn Problem: new rn Symptoms: have improved rn Condition: Stable rn Diagnosis - Hyperglycemia, unspecified rn - Dehydration rn Followup: rn - With: Kelby Isbell MD - When: 1 - 2 days - Reason: Recheck today's complaints, Re-evaluation by your physician Discharge Instructions: - Dehydration, Adult rn - Hyperglycemia rn - Discharge Summary Sheet tw2 - Blood Glucose Monitoring, Adult rn Forms: - Medication Reconciliation Form rn - Thank You Letter rn - SBAR form tw2 - Antibiotic video editing intern - Prescription Opioid Use rn Signatures: Dispatcher [employer] Jimmy Garcia MD MD rn Wise, Tara, RN RN tw2 Ana Nunez RN RN 1 Patty Ely RN ap3 Patty Ely RN ap3 Corrections: (The following items were deleted from the chart) 08:11 07:36 Allergies: No Known Drug Allergies; ll1 tw2
[2021-03-17 10:59] VITALS: TEMP 97.6
[2021-03-17 11:01] VITALS: O2SAT 95
[2021-03-17 11:03] VITALS: BP 119/78
== END 2021-03-17 10:48 | disposition home or self-care (01) ==
LOC: ER 07:24
DX: E11.65 Type 2 diabetes mellitus with hyperglycemia (principal); E86.0 Dehydration; F31.9 Bipolar disorder, unspecified; I10 Essential (primary) hypertension; Z79.4 Long term (current) use of insulin
CPT/HCPCS: 96361; 93005; 85025; 80048; 36415; 82010; 82947 ×3; 83930; 96372; 96374; 99284; J7030; 81003; 81015

== ENCOUNTER 2022-09-28 12:27 | Emergency (ER) | payer OTHER ==
--- OUTSIDE RECORDS SUMMARY | 2022-09-28 12:37 | XMS REPORT | Continuity of Care Document ---
:1960 Author Organization [facility] t Address [address] [place] [address] [place] [id number] Care Team Providers Name Role Phone Mary MUÑOZ, Kelby Martinez Primary Care Physician [phone] KE ALEXANDER Attending Clinician Unavailable Lab, Ang - Db Attending Clinician Unavailable Unknown, Attending Attending Clinician Unavailable UNKNOWN, ATTENDING Attending Clinician Unavailable Ke Alexander MD Attending Clinician Doctor Unassigned, [place] Attending Clinician Unavailable Armaan Garcia MD Attending Clinician ARMAAN GARCIA Attending Clinician Unavailable Whitley Farrar Attending Clinician Ariel Inman Attending Clinician AKILAH RICHARDSON Attending Clinician Unavailable WHITLEY KATE Attending Clinician Unavailable Bartolo Thomas NP Attending Clinician BARTOLO THOMAS Attending Clinician Unavailable Dominic Martin Attending Clinician Armaan Coello Attending Clinician Jose Gaston Admitting Clinician Payers Payer Name Policy Type Policy Number Effective Date Expiration Date S ource Problems Condition Condition Condition Status Onset Resolution Last Treating Co mments Source Name Details Category Date Date Treatment Clinician Date Encounter Encounter Disease Active Uni vers for for 09-13 [place]ate for for Branch malignant malignant neoplasm neoplasm of breast of breast Decreased Decreased Disease Active Uni vers libido libido 5-02 ity of 00:00: [place] [facility] Uncontroll Uncontroll Disease Active U nivers ed type 2 ed type 2 2-25 ity of diabetes diabetes 00:00: [place] mellitus mellitus 00 Medica l with with Branch hyperglyce hyperglyce anirudh anirudh Dyslipidem Dyslipidem Disease Active U nivers ia ia 2-25 ity of 00:00: [place] [facility] Acquired Acquired Disease Active Unive rs hypothyroi hypothyroi 2-25 it y of dism dism 00:00: [place] [facility] FOLLOW UP FOLLOW UP Diagnosis Active 2014-12-04 Memoria Active 12-01 09:20:00 l 12/01/2014 00:00: Kobi catalan [address] SYNCOPE SYNCOPE Diagnosis Active 2014-11-29 Memoria Active 11-29 11:28:00 l 11/29/2014 00:00: Kobi catalan [address] Depression Depressio Problem Resolve 2021-06-06 Memoria - motion n - motion d 23:18:57 l (qualifier (qualifier He rmann value) value) Resolved Problem 06/06/2021 [facility] Hyperlipid Hyperlipi Problem Active 2022-04-18 Memoria emia demia 12:36:16 l (disorder) (disorder) He rmann Active Problem 04/18/2022 [facility] Depressive Depressiv Problem Active 2022-04-18 Memoria disorder e disorder 12:36:16 l (disorder) (disorder) He rmann Active Problem 04/18/2022 [facility] Hallucinat Hallucina Problem Active 2022-04-18 Memoria ions tions 12:36:16 l (finding) (finding) Herm case Active Problem 04/18/2022 [facility] Seizure Seizure Problem Active 2022-04-18 Me moria (finding) (finding) 12:36:16 l Active Fabricio Problem 04/18/2022 [facility] Tremor Tremor Problem Active 2022-04-18 Mem oria (finding) (finding) 12:36:16 l Active Fabricio Problem 04/18/2022 [facility] Diabetes Diabetes Problem Active 2022-04-18 Memoria mellitus mellitus 12:36:16 l type 2 type 2 [place] (disorder) (disorder) Active Problem 04/18/2022 [facility] Ulnar Ulnar Problem Active 2022-04-18 Memor ia neuropathy neuropathy 12:36:16 l (disorder) (disorder) He rmann Active Problem 04/18/2022 [facility] [place] History of Past Illness Condition Condition Condition Status Onset Resolution Last Treating Co mments Source Name Details Category Date Date Treatment Clinician Date Discharge Discharge Problem 2014-12-02 2014-12-02 Memoria Diagnosis: Diagnosis: 11-29 01:10:55 01:10:55 l Lip Lip 05:00: [place] laceration laceration 00 11/29/2014 5 [facility] Discharge Discharge Problem 2014-12-02 2014-12-02 Memoria Diagnosis: Diagnosis: 11-29 01:10:55 01:10:55 l Syncope Syncope 05:00: [place] 11/29/2014 5 [facility] Discharge Discharge Problem 2014-12-02 2014-12-02 Memoria Diagnosis: Diagnosis: 11-29 01:10:55 01:10:55 l Nasal Nasal 05:00: [place] fracture fracture 00 11/29/2014 5 [facility] Allergies, Adverse Reactions, Alerts Allergy Allergy Status Severity Reaction(s) Onset Inactive Treating Comm ents Source Name Type Date Date Clinician No Known No Known Active Memori a Medicati Medicati l on on [place] Allergie Allergie s s NO KNOWN Drug Active Univers ALLERGIE Class ity of S [facility] Social History Social Habit Start Date Stop Date Quantity Comments Source History of tobacco Cigarette Smoker [facility] use [facility] Exposure to 2022-08-27 2022-09-[address] [facility] [place]-CoV-2 (event) 00:00:00 11:01:00 [facility] Alcohol intake 2022-09-06 2022-09-06 .14 /d [facility] 00:00:00 00:00:00 [facility] Tobacco use and 2022-04-13 2022-04-13 Smokeless Universit y of exposure 00:00:00 00:00:00 tobacco non-user [facility] smoked 2022-04-13 2022-04-13 Univers ity of current (pack per 00:00:00 00:00:00 [facility] ) - Reported Branch Sex [birth year] At [birth year] Universit y of 00:00:00 00:00:00 [facility] Smoking Status Start Date Stop Date Source Tobacco smoking status 2022-03-24 14:10:02 2022-03-24 14:10:02 leonel Regalado Social History 2014-11-29 15:54:16 [facility] Medications Ordered Filled Start Stop Current Ordering Indication Dosage Frequency Signature Comments Components Source Medication Medication Date Date Medication? Clinician (SIG) Name Name insulin Yes [id number] Take 50 Un joel glargine 4-25 units SQ ity of U-300 conc 00:00: daily [place] (TOUJEO MAX 00 E11.65 Medica l U-300 [place] SOLOSTAR) 300 unit/mL (3 mL) InPn insulin Yes [id number] 15U inject 15 Univers lispro 4-25 Units ity of (HUMALOG 00:00: [place] 00 skin in Medical INSULIN) the Branch 100 unit/mL morning pen and 15 injector Units at noon and 15 Units in the evening. inject before meals. metformin Yes [id number] 1500mg Take 2 Univers ER 750 mg 4-25 tablets by ity of 24 hr 00:00: mouth [place] tablet 00 daily with Medical breakfast. Branch levothyroxi Yes [id number] 50ug Take 1 Univers ne 50 mcg 4-25 tablet by ity o f tablet 00:00: mouth [place] 00 every Medical morning. Branch semaglutide Yes [id number] 2mg inject 2 Univers (OZEMPIC) 2 4-25 mg under ity of mg/dose (8 00:00: the skin [place] mg/3 mL) 00 weekly. Medical PnIj Branch flash Yes [id number] 1{kit} 1 Kit Univ ers glucose 4-25 every 14 ity of sensor 00:00: (fourteen) (FREESTYLE 00 days. Medical LASHAY 2 E11.65 Branch SENSOR) Kit insulin Yes [id number] Take 50 Un joel glargine 4-25 units SQ ity of U-300 conc 00:00: daily [place] (TOUJEO MAX 00 E11.65 Medica l U-300 Branch SOLOSTAR) 300 unit/mL (3 mL) InPn insulin Yes [id number] 15U inject 15 Univers lispro 4-25 Units ity of (HUMALOG 00:00: [place] 00 skin in Medical INSULIN) the Branch 100 unit/mL morning pen and 15 injector Units at noon and 15 Units in the evening. inject before meals. metformin Yes [id number] 1500mg Take 2 Univers ER 750 mg 4-25 tablets by ity of 24 hr 00:00: mouth [place] tablet 00 daily with Medical breakfast. Branch levothyroxi Yes [id number] 50ug Take 1 Univers ne 50 mcg 4-25 tablet by ity o f tablet 00:00: mouth [place] 00 every Medical morning. Branch semaglutide Yes [id number] 2mg inject 2 Univers (OZEMPIC) 2 4-25 mg under ity of mg/dose (8 00:00: the skin [place] mg/3 mL) 00 weekly. Medical PnIj Branch flash Yes [id number] 1{kit} 1 Kit Univ ers glucose 4-25 every 14 ity of sensor 00:00: (fourteen) [place] (FREESTYLE days. Medical LASHAY 2 E11.65 Branch SENSOR) Kit insulin Yes [id number] Take 50 Un joel glargine 4-25 units SQ ity of U-300 conc 00:00: daily [place] (TOUJEO MAX 00 E11.65 Medica l U-300 Branch SOLOSTAR) 300 unit/mL (3 mL) InPn insulin Yes [id number] 15U inject 15 Univers lispro 4-25 Units ity of (HUMALOG 00:00: [place] 00 skin in Medical INSULIN) the Branch 100 unit/mL morning pen and 15 injector Units at noon and 15 Units in the evening. inject before meals. metformin Yes [id number] 1500mg Take 2 Univers ER 750 mg 4-25 tablets by ity of 24 hr 00:00: mouth [place] tablet 00 daily with Medical breakfast. Branch levothyroxi Yes [id number] 50ug Take 1 Univers ne 50 mcg 4-25 tablet by ity o f tablet 00:00: mouth [place] 00 every Medical morning. Branch semaglutide Yes [id number] 2mg inject 2 Univers (OZEMPIC) 2 4-25 mg under ity of mg/dose (8 00:00: the skin [place] mg/3 mL) 00 weekly. Medical PnIj Branch flash Yes [id number] 1{kit} 1 Kit Univ ers glucose 4-25 every 14 ity of sensor 00:00: (fourteen) [place] (FREESTYLE 00 days. Medical LASHAY 2 E11.65 Branch SENSOR) Kit insulin 2021-05 Yes [id number] 15U inject 15 Univers lispro 1-22 Units ity of (HUMALOG 00:00: [place] skin in Medical INSULIN) the Branch 100 unit/mL morning pen and 15 injector Units at noon and 15 Units in the evening. inject before meals. insulin 2021-05 Yes [id number] Take 50 Un joel glargine 1-22 units SQ ity of U-300 conc 00:00: daily [place] (TOUJEO MAX 00 E11.65 Medica l U-300 Branch SOLOSTAR) 300 unit/mL (3 mL) InPn fluconazole 2021-05 Yes [id number] Take 1 Univers (DIFLUCAN) 1-22 tablet ity of 150 mg 00:00: today and [place] tablet 00 second Medical tablet in Branch three days. semaglutide 2021-05 Yes [id number] 1mg inject 1 Univers (OZEMPIC) 1 1-22 mg under ity of mg/dose (4 00:00: the skin [place] mg/3 mL) 00 weekly. Medical PnIj Branch Insulin 2021-05 Yes [id number] Use as Uni vers [place], 1-22 directed ity of Disposable, 00:00: 4X per day [place] (PEN 00 E11.65 Medical NEEDLE) 32 Branch gauge x 5/32" Ndle flash 2021-05 Yes [id number] 1{kit} 1 Kit Univ ers glucose 1-22 every 14 ity of sensor 00:00: (fourteen) [place] (FREESTYLE 00 days. Medical LASHAY 2 E11.65 Branch SENSOR) Kit metformin 2021-05 Yes [id number] 1500mg Take 2 Univers ER 750 mg 1-22 tablets by ity of 24 hr 00:00: mouth [place] tablet 00 daily with Medical breakfast. Branch insulin 2021-05 Yes [id number] 15U inject 15 Univers lispro 1-22 Units ity of (HUMALOG 00:00: [place] 00 skin in Medical INSULIN) the Branch 100 unit/mL morning pen and 15 injector Units at noon and 15 Units in the evening. inject before meals. insulin 2021-05 Yes [id number] Take 50 Un joel glargine 1-22 units SQ ity of U-300 conc 00:00: daily [place] (TOUJEO MAX 00 E11.65 Medica l U-300 Branch SOLOSTAR) 300 unit/mL (3 mL) InPn fluconazole 2021-05 Yes [id number] Take 1 Univers (DIFLUCAN) 1-22 tablet ity of 150 mg 00:00: today and [place] tablet 00 second Medical tablet in Branch three days. semaglutide 2021-05 Yes [id number] 1mg inject 1 Univers (OZEMPIC) 1 1-22 mg under ity of mg/dose (4 00:00: the skin [place] mg/3 mL) 00 weekly. Medical PnIj Branch Insulin 2021-05 Yes [id number] Use as Uni vers [place], 1-22 directed ity of Disposable, 00:00: 4X per day [place] (PEN 00 E11.65 Medical NEEDLE) 32 Branch gauge x 5/32" Ndle flash 2021-05 Yes [id number] 1{kit} 1 Kit Univ ers glucose 1-22 every 14 ity of sensor 00:00: (fourteen) [place] (FREESTYLE 00 days. Medical LASHAY 2 E11.65 Branch SENSOR) Kit metformin 2021-05 Yes [id number] 1500mg Take 2 Univers ER 750 mg 1-22 tablets by ity of 24 hr 00:00: mouth [place] tablet 00 daily with Medical breakfast. Branch insulin 2021-05 Yes [id number] 15U inject 15 Univers lispro 1-22 Units ity of (HUMALOG 00:00: [place] 00 skin in Medical INSULIN) the Branch 100 unit/mL morning pen and 15 injector Units at noon and 15 Units in the evening. inject before meals. insulin 2021-05 Yes [id number] Take 50 Un joel glargine 1-22 units SQ ity of U-300 conc 00:00: daily [place] (TOUJEO MAX 00 E11.65 Medica l U-300 Branch SOLOSTAR) 300 unit/mL (3 mL) InPn fluconazole 2021-05 Yes [id number] Take 1 Univers (DIFLUCAN) 1-22 tablet ity of 150 mg 00:00: today and [place] tablet 00 second Medical tablet in Branch three days. semaglutide 2021-05 Yes [id number] 1mg inject 1 Univers (OZEMPIC) 1 1-22 mg under ity of mg/dose (4 00:00: the skin [place] mg/3 mL) 00 weekly. Medical PnIj Branch Insulin 2021-05 Yes [id number] Use as Uni vers [place], 1-22 directed ity of Disposable, 00:00: 4X per day [place] (PEN 00 E11.65 Medical NEEDLE) 32 Branch gauge x 5/32" Ndle flash 2021-05 Yes [id number] 1{kit} 1 Kit Univ ers glucose 1-22 every 14 ity of sensor 00:00: (fourteen) [place] (FREESTYLE 00 days. Medical LASHAY 2 E11.65 Branch SENSOR) Kit metformin 2021-05 Yes [id number] 1500mg Take 2 Univers ER 750 mg 1-22 tablets by ity of 24 hr 00:00: mouth [place] tablet 00 daily with Medical breakfast. Branch insulin 2021-05 Yes [id number] 15U inject 15 Univers lispro 1-22 Units ity of (HUMALOG 00:00: [place] 00 skin in Medical INSULIN) the Branch 100 unit/mL morning pen and 15 injector Units at noon and 15 Units in the evening. inject before meals. insulin 2021-05 Yes [id number] Take 50 Un joel glargine 1-22 units SQ ity of U-300 conc 00:00: daily [place] (TOUJEO MAX 00 E11.65 Medica l U-300 Branch SOLOSTAR) 300 unit/mL (3 mL) InPn fluconazole 2021-05 Yes [id number] Take 1 Univers (DIFLUCAN) 1-22 tablet ity of 150 mg 00:00: today and [place] tablet 00 second Medical tablet in Branch three days. semaglutide 2021-05 Yes [id number] 1mg inject 1 Univers (OZEMPIC) 1 1-22 mg under ity of mg/dose (4 00:00: the skin [place] mg/3 mL) 00 weekly. Medical PnIj Branch Insulin 2021-05 Yes [id number] Use as Uni vers [place], 1-22 directed ity of Disposable, 00:00: 4X per day [place] (PEN 00 E11.65 Medical NEEDLE) 32 Branch gauge x 5/32" Ndle flash 2021-05 Yes [id number] 1{kit} 1 Kit Univ ers glucose 1-22 every 14 ity of sensor 00:00: (fourteen) [place] (FREESTYLE 00 days. Medical LASHAY 2 E11.65 Branch SENSOR) Kit metformin 2021-05 Yes [id number] 1500mg Take 2 Univers ER 750 mg 1-22 tablets by ity of 24 hr 00:00: mouth [place] tablet 00 daily with Medical breakfast. Branch insulin 2021-05 Yes [id number] 15U inject 15 Univers lispro 1-22 Units ity of (HUMALOG 00:00: [place] 00 skin in Medical INSULIN) the Branch 100 unit/mL morning pen and 15 injector Units at noon and 15 Units in the evening. inject before meals. insulin 2021-05 Yes [id number] Take 50 Un joel glargine 1-22 units SQ ity of U-300 conc 00:00: daily [place] (TOUJEO MAX 00 E11.65 Medica l U-300 Branch SOLOSTAR) 300 unit/mL (3 mL) InPn fluconazole 2021-05 Yes [id number] Take 1 Univers (DIFLUCAN) 1-22 tablet ity of 150 mg 00:00: today and [place] tablet 00 second Medical tablet in Branch three days. semaglutide 2021-05 Yes [id number] 1mg inject 1 Univers (OZEMPIC) 1 1-22 mg under ity of mg/dose (4 00:00: the skin [place] mg/3 mL) 00 weekly. Medical PnIj Branch Insulin 2021-05 Yes [id number] Use as Uni vers [place], 1-22 directed ity of Disposable, 00:00: 4X per day [place] (PEN 00 E11.65 Medical NEEDLE) 32 Branch gauge x 5/32" Ndle flash 2021-05 Yes [id number] 1{kit} 1 Kit Univ ers glucose 1-22 every 14 ity of sensor 00:00: (fourteen) [place] (FREESTYLE 00 days. Medical LASHAY 2 E11.65 Branch SENSOR) Kit metformin 2021-05 Yes [id number] 1500mg Take 2 Univers ER 750 mg 1-22 tablets by ity of 24 hr 00:00: mouth [place] tablet 00 daily with Medical breakfast. Branch insulin 2021-05 Yes [id number] 15U inject 15 Univers lispro 1-22 Units ity of (HUMALOG 00:00: [place] 00 skin in Medical INSULIN) the Branch 100 unit/mL morning pen and 15 injector Units at noon and 15 Units in the evening. inject before meals. insulin 2021-05 Yes [id number] Take 50 Un joel glargine 1-22 units SQ ity of U-300 conc 00:00: daily [place] (TOUJEO MAX 00 E11.65 Medica l U-300 Branch SOLOSTAR) 300 unit/mL (3 mL) InPn fluconazole 2021-05 Yes [id number] Take 1 Univers (DIFLUCAN) 1-22 tablet ity of 150 mg 00:00: today and [place] tablet 00 second Medical tablet in Branch three days. semaglutide 2021-05 Yes [id number] 1mg inject 1 Univers (OZEMPIC) 1 1-22 mg under ity of mg/dose (4 00:00: the skin [place] mg/3 mL) 00 weekly. Medical PnIj Branch Insulin 2021-05 Yes [id number] Use as Uni vers [place], 1-22 directed ity of Disposable, 00:00: 4X per day [place] (PEN 00 E11.65 Medical NEEDLE) 32 Branch gauge x 5/32" Ndle flash 2021-05 Yes [id number] 1{kit} 1 Kit Univ ers glucose 1-22 every 14 ity of sensor 00:00: (fourteen) [place] (FREESTYLE 00 days. Medical LASHAY 2 E11.65 Branch SENSOR) Kit metformin 2021-05 Yes [id number] 1500mg Take 2 Univers ER 750 mg 1-22 tablets by ity of 24 hr 00:00: mouth [place] tablet 00 daily with Medical breakfast. Branch insulin 2021-05 Yes [id number] 15U inject 15 Univers lispro 1-22 Units ity of (HUMALOG 00:00: [place] 00 skin in Medical INSULIN) the Branch 100 unit/mL morning pen and 15 injector Units at noon and 15 Units in the evening. inject before meals. insulin 2021-05 Yes [id number] Take 50 Un joel glargine 1-22 units SQ ity of U-300 conc 00:00: daily [place] (TOUJEO MAX 00 E11.65 Medica l U-300 Branch SOLOSTAR) 300 unit/mL (3 mL) InPn fluconazole 2021-05 Yes [id number] Take 1 Univers (DIFLUCAN) 1-22 tablet ity of 150 mg 00:00: today and [place] tablet 00 second Medical tablet in Branch three days. semaglutide 2021-05 Yes [id number] 1mg inject 1 Univers (OZEMPIC) 1 1-22 mg under ity of mg/dose (4 00:00: the skin [place] mg/3 mL) 00 weekly. Medical PnIj Branch Insulin 2021-05 Yes [id number] Use as Uni vers [place], 1-22 directed ity of Disposable, 00:00: 4X per day [place] (PEN 00 E11.65 Medical NEEDLE) 32 Branch gauge x 5/32" Ndle flash 2021-05 Yes [id number] 1{kit} 1 Kit Univ ers glucose 1-22 every 14 ity of sensor 00:00: (fourteen) [place] (FREESTYLE 00 days. Medical LASHAY 2 E11.65 Branch SENSOR) Kit metformin 2021-05 Yes [id number] 1500mg Take 2 Univers ER 750 mg 1-22 tablets by ity of 24 hr 00:00: mouth [place] tablet 00 daily with Medical breakfast. Branch insulin 2021-05 Yes [id number] 15U inject 15 Univers lispro 1-22 Units ity of (HUMALOG 00:00: [place] 00 skin in Medical INSULIN) the Branch 100 unit/mL morning pen and 15 injector Units at noon and 15 Units in the evening. inject before meals. insulin 2021-05 Yes [id number] Take 50 Un joel glargine 1-22 units SQ ity of U-300 conc 00:00: daily [place] (TOUJEO MAX 00 E11.65 Medica l U-300 [place] SOLOSTAR) 300 unit/mL (3 mL) InPn fluconazole 2021-05 Yes [id number] Take 1 Univers (DIFLUCAN) 1-22 tablet ity of 150 mg 00:00: today and [place] tablet 00 second Medical tablet in Branch three days. semaglutide 2021-05 Yes [id number] 1mg inject 1 Univers (OZEMPIC) 1 1-22 mg under ity of mg/dose (4 00:00: the skin [place] mg/3 mL) 00 weekly. Medical PnIj Branch Insulin 2021-05 Yes [id number] Use as Uni vers [place], 1-22 directed ity of Disposable, 00:00: 4X per day [place] (PEN 00 E11.65 Medical NEEDLE) 32 Branch gauge x 5/32" Ndle flash 2021-05 Yes [id number] 1{kit} 1 Kit Univ ers glucose 1-22 every 14 ity of sensor 00:00: (fourteen) [place] (FREESTYLE 00 days. Medical LASHAY 2 E11.65 Branch SENSOR) Kit metformin 2021-05 Yes [id number] 1500mg Take 2 Univers ER 750 mg 1-22 tablets by ity of 24 hr 00:00: mouth [place] tablet 00 daily with Medical breakfast. Branch insulin 2021-05 Yes [id number] 15U inject 15 Univers lispro 1-22 Units ity of (HUMALOG 00:00: [place] 00 skin in Medical INSULIN) the Branch 100 unit/mL morning pen and 15 injector Units at noon and 15 Units in the evening. inject before meals. insulin 2021-05 Yes [id number] Take 50 Un ojel glargine 1-22 units SQ ity of U-300 conc 00:00: daily [place] (TOUJEO MAX 00 E11.65 Medica l U-300 [place] SOLOSTAR) 300 unit/mL (3 mL) InPn fluconazole 2021-05 Yes [id number] Take 1 Univers (DIFLUCAN) 1-22 tablet ity of 150 mg 00:00: today and [place] tablet 00 second Medical tablet in Branch three days. semaglutide 2021-05 Yes [id number] 1mg inject 1 Univers (OZEMPIC) 1 1-22 mg under ity of mg/dose (4 00:00: the skin [place] mg/3 mL) 00 weekly. Medical PnIj Branch Insulin 2021-05 Yes [id number] Use as Uni vers [place], 1-22 directed ity of Disposable, 00:00: 4X per day [place] (PEN 00 E11.65 Medical NEEDLE) 32 Branch gauge x 5/32" Ndle flash 2021-05 Yes [id number] 1{kit} 1 Kit Univ ers glucose 1-22 every 14 ity of sensor 00:00: (fourteen) [place] (FREESTYLE 00 days. Medical LASHAY 2 E11.65 Branch SENSOR) Kit metformin 2021-05 Yes [id number] 1500mg Take 2 Univers ER 750 mg 1-22 tablets by ity of 24 hr 00:00: mouth [place] tablet 00 daily with Medical breakfast. Branch insulin 2021-05 Yes [id number] 15U inject 15 Univers lispro 1-22 Units ity of (HUMALOG 00:00: [place] 00 skin in Medical INSULIN) the Branch 100 unit/mL morning pen and 15 injector Units at noon and 15 Units in the evening. inject before meals. insulin 2021-05 Yes [id number] Take 50 Un joel glargine 1-22 units SQ ity of U-300 conc 00:00: daily [place] (TOUJEO MAX 00 E11.65 Medica l U-300 Branch SOLOSTAR) 300 unit/mL (3 mL) InPn fluconazole 2021-05 Yes [id number] Take 1 Univers (DIFLUCAN) 1-22 tablet ity of 150 mg 00:00: today and [place] tablet 00 second Medical tablet in Branch three days. semaglutide 2021-05 Yes [id number] 1mg inject 1 Univers (OZEMPIC) 1 1-22 mg under ity of mg/dose (4 00:00: the skin [place] mg/3 mL) 00 weekly. Medical PnIj Branch Insulin 2021-05 Yes [id number] Use as Uni vers [place], 1-22 directed ity of Disposable, 00:00: 4X per day [place] (PEN 00 E11.65 Medical NEEDLE) 32 Branch gauge x 5/32" Ndle flash 2021-05 Yes [id number] 1{kit} 1 Kit Univ ers glucose 1-22 every 14 ity of sensor 00:00: (fourteen) [place] (FREESTYLE 00 days. Medical LASHAY 2 E11.65 Branch SENSOR) Kit metformin 2021-05 Yes [id number] 1500mg Take 2 Univers ER 750 mg 1-22 tablets by ity of 24 hr 00:00: mouth [place] tablet 00 daily with Medical breakfast. Branch fluconazole 2021-05 Yes [id number] Take 1 Univers (DIFLUCAN) 1-22 tablet ity of 150 mg 00:00: today and [place] tablet 00 second Medical tablet in Branch three days. Insulin 2021-05 Yes [id number] Use as Uni vers [place], 1-22 directed ity of Disposable, 00:00: 4X per day [place] (PEN 00 E11.65 Medical NEEDLE) 32 Branch gauge x 5/32" Ndle fluconazole 2021-05 Yes [id number] Take 1 Univers (DIFLUCAN) 1-22 tablet ity of 150 mg 00:00: today and [place] tablet 00 second Medical tablet in Branch three days. Insulin 2021-05 Yes [id number] Use as Uni vers [place], 1-22 directed ity of Disposable, 00:00: 4X per day [place] (PEN 00 E11.65 Medical NEEDLE) 32 Branch gauge x 5/32" Ndle fluconazole 2021-05 Yes [id number] Take 1 Univers (DIFLUCAN) 1-22 tablet ity of 150 mg 00:00: today and [place] tablet 00 second Medical tablet in Branch three days. Insulin 2021-05 Yes [id number] Use as Uni vers [place], 1-22 directed ity of Disposable, 00:00: 4X per day [place] (PEN 00 E11.65 Medical NEEDLE) 32 Branch gauge x 5/32" Ndle semaglutide 2021-05 Yes 1mg inject 1 Un joel (OZEMPIC) 1 1-12 mg under ity of mg/dose (4 00:00: the skin [place] mg/3 mL) 00 weekly. Medical PnIj Branch semaglutide 2021-05 1mg inject 1 U nivers (OZEMPIC) 1 1-12 11-22 mg under ity of mg/dose (4 00:00: 00:00 [place] skin [place] mg/3 mL) 00 :00 weekly. Medical PnIj Branch semaglutide 2021-05- No 1mg inject 1 U nivers (OZEMPIC) 1 1-12 11-22 mg under ity of mg/dose (4 00:00: 00:00 [place] mg/3 mL) 00 :00 weekly. Medical PnIj Branch Farxiga 2021-05 Yes TAKE 1 Memor ia mg oral 1-10 TABLET BY l tablet 14:33: MOUTH IN [place] 00 THE MORNING [facility] 2021-05 Yes TAKE 1 Memor ia mg oral 1-10 TABLET BY l tablet 14:33: MOUTH IN [place] 00 [facility] TA[facility] 1 Memor ia mg oral 1-10 TABLET BY l tablet 14:33: MOUTH IN [place] 00 THE MORNING dapaglifloz 2021-05 Yes [id number] 10mg Take 1 Univers in 10 mg 1-02 tablet by ity of tablet 00:00: mouth in [place] 00 the Medical morning. Branch dapaglifloz 2021-05 Yes [id number] 10mg Take 1 [facility] in 10 mg 1-02 tablet by ity of tablet 00:00: mouth in [place] 00 the Medical morning. Branch dapaglifloz 2021-05 Yes [id number] 10mg Take 1 [facility] in 10 mg 1-02 tablet by ity of tablet 00:00: mouth in [place] 00 the Medical morning. Branch dapaglifloz 2021-05 Yes [id number] 10mg Take 1 [facility] in 10 mg 1-02 tablet by ity of tablet 00:00: mouth in [place] 00 the Medical morning. Branch dapaglifloz 2021-05- No [id number] 10mg Take 1 [facility] in 10 mg 1-02 11-22 tablet by ity o f tablet 00:00: 00:00 mouth in [place] 00 :00 the Medical morning. Branch dapaglifloz 2021-05- No [id number] 10mg Take 1 [facility] in 10 mg 1-02 11-22 tablet by ity o f tablet 00:00: 00:00 mouth in [place] 00 :00 the Medical morning. Branch LINZESS 290 2021-05 Yes 1{capsu Take 1 U nivers mcg Cap 0-31 le} capsule by ity of 00:00: mouth [place] 00 daily. Medical Branch LINZESS 290 2021-05 Yes 1{capsu Take 1 U nivers mcg Cap 0-31 le} capsule by ity of 00:00: mouth [place] 00 daily. Medical Branch [facility] 290 2021-05 Yes 1{capsu Take 1 U nivers mcg Cap 0-31 le} capsule by ity of 00:00: mouth [place] 00 daily. Medical Branch [facility] 290 2021-05 Yes 1{capsu Take 1 U nivers mcg Cap 0-31 le} capsule by ity of 00:00: mouth [place] 00 daily. Medical Branch LINZESS 290 2021-05 Yes 1{capsu Take 1 U nivers mcg Cap 0-31 le} capsule by ity of 00:00: mouth [place] 00 daily. Medical Branch [facility] 290 2021-05 Yes 1{capsu Take 1 U nivers mcg Cap 0-31 le} capsule by ity of 00:00: mouth [place] 00 daily. Medical Branch [facility] 290 2021-05 Yes 1{capsu Take 1 U nivers mcg Cap 0-31 le} capsule by ity of 00:00: mouth [place] 00 daily. Medical Branch [facility] 290 2021-05 Yes 1{capsu Take 1 U nivers mcg Cap 0-31 le} capsule by ity of 00:00: mouth [place] 00 daily. Medical Branch [facility] 290 2021-05 Yes 1{capsu Take 1 U nivers mcg Cap 0-31 le} capsule by ity of 00:00: mouth [place] 00 daily. Medical Branch [facility] 290 2021-05 Yes 1{capsu Take 1 U nivers mcg Cap 0-31 le} capsule by ity of 00:00: mouth [place] 00 daily. Medical Branch semaglutide 2021-05 Yes 1mg inject 1 [facility] jo[facility] (OZEMPIC) 1 0-14 mg under ity of mg/dose (4 00:00: the skin [place] mg/3 mL) 00 weekly. Medical PnIj Branch semaglutide 2021-05 Yes 1mg inject 1 [facility] (OZEMPIC) 1 0-14 mg under ity of mg/dose (4 00:00: the skin [place] mg/3 mL) 00 weekly. Medical PnIj Branch semaglutide 2021-05 Yes 1mg inject 1 [facility] (OZEMPIC) 1 0-14 mg under ity of mg/dose (4 00:00: the skin [place] mg/3 mL) [address] [facility] semaglutide 2021-05 Yes 1mg inject 1 [facility] (OZEMPIC) 1 0-14 mg under ity of mg/dose (4 00:00: the skin [place] mg/3 mL) [address] [facility] semaglutide 2021-05 Yes 1mg inject 1 [facility] (OZEMPIC) 1 0-14 mg under ity of mg/dose (4 00:00: the skin [place] mg/3 mL) [address] [facility] semaglutide 2021-05 Yes 1mg inject 1 [facility] (OZEMPIC) 1 0-14 mg under ity of mg/dose (4 00:00: the skin [place] mg/3 mL) [address] [facility] semaglutide 2021-05 Yes 1mg inject 1 [facility] (OZEMPIC) 1 0-14 mg under ity of mg/dose (4 00:00: the skin [place] mg/3 mL) [address] [facility] semaglutide 2021-05- 1mg inject 1 U nivers (OZEMPIC) 1 0-14 11-12 mg under ity of mg/dose (4 00:00: 00:00 the skin [place] mg/3 mL) 00 :[address] [facility] fluconazole Yes [id number] Take 1 U nivers (DIFLUCAN) 9-27 tablet ity of 150 mg 00:00: today and [place] tablet 00 second Medical tablet on Branch day 3 fluconazole Yes [id number] Take 1 U nivers (DIFLUCAN) 9-27 tablet ity of 150 mg 00:00: today and [place] tablet 00 second Medical tablet on Branch day 3 fluconazole 2021- Yes [id number] Take 1 U nivers (DIFLUCAN) 9-27 tablet ity of 150 mg 00:00: today and [place] tablet 00 second Medical tablet on Branch day 3 fluconazole 2021-0 Yes [id number] Take 1 U nivers (DIFLUCAN) 9-27 tablet ity of 150 mg 00:00: today and [place] tablet 00 second Medical tablet on Branch day 3 fluconazole 2021- Yes [id number] Take 1 U nivers (DIFLUCAN) 9-27 tablet ity of 150 mg 00:00: today and [place] tablet 00 second Medical tablet on Branch day 3 fluconazole 0 Yes [id number] Take 1 U nivers (DIFLUCAN) 9-27 tablet ity of 150 mg 00:00: today and [place] tablet 00 second Medical tablet on Branch day 3 fluconazole 2021-0 Yes [id number] Take 1 U nivers (DIFLUCAN) 9-27 tablet ity of 150 mg 00:00: today and [place] tablet 00 second Medical tablet on Branch day 3 fluconazole 2021-0 Yes [id number] Take 1 U nivers (DIFLUCAN) 9-27 tablet ity of 150 mg 00:00: today and [place] tablet 00 second Medical tablet on Branch day 3 fluconazole 0 Yes [id number] Take 1 U nivers (DIFLUCAN) 9-27 tablet ity of 150 mg 00:00: today and [place] tablet 00 second Medical tablet on Branch day 3 fluconazole 2021-0 2021- No [id number] Take 1 [facility] (DIFLUCAN) 9-10 04-22 tablet ity of 150 mg 00:00: 00:00 today and [place] tablet 00 :00 second Medical tablet on Branch day 3 fluconazole 2021-0 2- No [id number] Take 1 [facility] (DIFLUCAN) 9-27 11-22 tablet ity of 150 mg 00:00: 00:00 today and [place] tablet 00 :00 second Medical tablet on Branch day 3 dapaglifloz 2021-0 Yes [id number] 10mg Take 1 [facility] in 10 mg 9-19 tablet by ity of tablet 00:00: mouth in [place] 00 the Medical morning. [place] dapaglifloz 0 Yes [id number] 10mg Take 1 [facility] in 10 mg 9-19 tablet by ity of tablet 00:00: mouth in [place] 00 the Medical morning. Branch dapaglifloz 2021-0 Yes [id number] 10mg Take 1 [facility] in 10 mg 9-19 tablet by ity of tablet 00:00: mouth in [place] 00 the Medical morning. [place] dapaglifloz 0 Yes [id number] 10mg Take 1 [facility] in 10 mg 9-19 tablet by ity of tablet 00:00: mouth in [place] 00 the Medical morning. Branch dapaglifloz 0 Yes [id number] 10mg Take 1 [facility] in 10 mg 9-19 tablet by ity of tablet 00:00: mouth in [place] 00 the Medical morning. Branch dapaglifloz 2021-0 Yes [id number] 10mg Take 1 [facility] in 10 mg 9-19 tablet by ity of tablet 00:00: mouth in [place] 00 the Medical morning. Branch dapaglifloz 2021-0 Yes [id number] 10mg Take 1 [facility] in 10 mg 9-19 tablet by ity of tablet 00:00: mouth in [place] 00 the Medical morning. Branch dapaglifloz 2021-0 2- No [id number] 10mg Take 1 [facility] in 10 mg 9-19 11-02 tablet by ity o f tablet 00:00: 00:00 mouth in [place] 00 :00 the Medical morning. Branch levothyroxi 2021-0 Yes [id number] 50ug Take 1 [facility] ne 50 mcg 7-26 tablet by ity o f tablet 00:00: mouth [place] 00 every Medical morning. Branch levothyroxi 2021-0 Yes [id number] 50ug Take 1 [facility] ne 50 mcg 7-26 tablet by ity o f tablet 00:00: mouth [place] 00 every Medical morning. Branch levothyroxi 2021-0 Yes [id number] 50ug Take 1 [facility] ne 50 mcg 7-26 tablet by ity o f tablet 00:00: mouth [place] 00 every Medical morning. Branch levothyroxi 2021-0 Yes [id number] 50ug Take 1 [facility] ne 50 mcg 7-26 tablet by ity o f tablet 00:00: mouth [place] 00 every Medical morning. Branch levothyroxi 2021-0 Yes [id number] 50ug Take 1 [facility] ne 50 mcg 7-26 tablet by ity o f tablet 00:00: mouth [place] 00 every Medical morning. Branch levothyroxi 2021-0 Yes [id number] 50ug Take 1 [facility] ne 50 mcg 7-26 tablet by ity o f tablet 00:00: mouth [place] 00 every Medical morning. Branch levothyroxi 2021-0 Yes [id number] 50ug Take 1 [facility] ne 50 mcg 7-26 tablet by ity o f tablet 00:00: mouth [place] 00 every Medical morning. Branch levothyroxi 2021-0 Yes [id number] 50ug Take 1 [facility] ne 50 mcg 7-26 tablet by ity o f tablet 00:00: mouth [place] 00 every Medical morning. Branch levothyroxi 2021-0 Yes [id number] 50ug Take 1 [facility] ne 50 mcg 7-26 tablet by ity o f tablet 00:00: mouth [place] 00 every Medical morning. Branch levothyroxi 2021-0 Yes [id number] 50ug Take 1 [facility] ne 50 mcg 7-26 tablet by ity o f tablet 00:00: mouth [place] 00 every Medical morning. Branch levothyroxi 2021-0 Yes [id number] 50ug Take 1 [facility] ne 50 mcg 7-26 tablet by ity o f tablet 00:00: mouth [place] 00 every Medical morning. Branch levothyroxi 2021-0 Yes [id number] 50ug Take 1 [facility] ne 50 mcg 7-26 tablet by ity o f tablet 00:00: mouth [place] 00 every Medical morning. Branch levothyroxi 2021-0 Yes [id number] 50ug Take 1 [facility] ne 50 mcg 7-26 tablet by ity o f tablet 00:00: mouth [place] 00 every Medical morning. Branch levothyroxi 2021-0 Yes [id number] 50ug Take 1 [facility] ne 50 mcg 7-26 tablet by ity o f tablet 00:00: mouth [place] 00 every Medical morning. Branch levothyroxi 2021-0 Yes [id number] 50ug Take 1 [facility] ne 50 mcg 7-26 tablet by ity o f tablet 00:00: mouth [place] 00 every Medical morning. Branch levothyroxi 2021-0 Yes [id number] 50ug Take 1 [facility] ne 50 mcg 7-26 tablet by ity o f tablet 00:00: mouth [place] 00 every Medical morning. Branch levothyroxi 2021-0 Yes [id number] 50ug Take 1 [facility] ne 50 mcg 7-26 tablet by ity o f tablet 00:00: mouth [place] 00 every Medical morning. Branch semaglutide 2021-0 Yes 1mg inject 1 [facility] (OZEMPIC) 1 7-26 mg under ity of mg/dose (4 00:00: the skin [place] mg/3 mL) 00 weekly. Medical PnIj Branch levothyroxi 2021-0 Yes [id number] 50ug Take 1 [facility] ne 50 mcg 7-26 tablet by ity o f tablet 00:00: mouth [place] 00 every Medical morning. Branch semaglutide 2022-0 Yes 1mg inject 1 [facility] (OZEMPIC) 1 7-26 mg under ity of mg/dose (4 00:00: the skin [place] mg/3 mL) 00 weekly. Medical PnIj Branch levothyroxi 2021-0 Yes [id number] 50ug Take 1 [facility] ne 50 mcg 7-26 tablet by ity o f tablet 00:00: mouth [place] 00 every Medical morning. Branch semaglutide 2-0 Yes 1mg inject 1 [facility] (OZEMPIC) 1 7-26 mg under ity of mg/dose (4 00:00: the skin [place] mg/3 mL) 00 weekly. Medical PnIj Branch levothyroxi 2021-0 Yes [id number] 50ug Take 1 [facility] ne 50 mcg 7-26 tablet by ity o f tablet 00:00: mouth [place] 00 every Medical morning. Branch semaglutide 2-0 Yes 1mg inject 1 [facility] (OZEMPIC) 1 7-26 mg under ity of mg/dose (4 00:00: the skin [place] mg/3 mL) 00 weekly. Medical PnIj Branch levothyroxi 2021-0 Yes [id number] 50ug Take 1 [facility] ne 50 mcg 7-26 tablet by ity o f tablet 00:00: mouth [place] 00 every Medical morning. Branch semaglutide 2-0 Yes 1mg inject 1 [facility] (OZEMPIC) 1 7-26 mg under ity of mg/dose (4 00:00: the skin [place] mg/3 mL) 00 weekly. Medical PnIj Branch levothyroxi 2-0 Yes [id number] 50ug Take 1 [facility] ne 50 mcg 7-26 tablet by ity o f tablet 00:00: mouth [place] 00 every Medical morning. Branch semaglutide 2-0 Yes 1mg inject 1 [facility] (OZEMPIC) 1 7-26 mg under ity of mg/dose (4 00:00: the skin [place] mg/3 mL) 00 weekly. Medical PnIj Branch levothyroxi 2-0 Yes [id number] 50ug Take 1 [facility] ne 50 mcg 7-26 tablet by ity o f tablet 00:00: mouth [place] 00 every Medical morning. Branch semaglutide 2022-0 Yes 1mg inject 1 [facility] (OZEMPIC) 1 7-26 mg under ity of mg/dose (4 00:00: the skin [place] mg/3 mL) 00 weekly. Medical PnIj Branch levothyroxi 2021-0 Yes [id number] 50ug Take 1 [facility] ne 50 mcg 7-26 tablet by ity o f tablet 00:00: mouth [place] 00 every Medical morning. Branch semaglutide 0 Yes 1mg inject 1 [facility] (OZEMPIC) 1 7-26 mg under ity of mg/dose (4 00:00: the skin [place] mg/3 mL) 00 weekly. Medical PnIj Branch levothyroxi 2021-0 Yes [id number] 50ug Take 1 [facility] ne 50 mcg 7-26 tablet by ity o f tablet 00:00: mouth [place] 00 every Medical morning. Branch levothyroxi 0 Yes [id number] 50ug Take 1 [facility] ne 50 mcg 7-26 tablet by ity o f tablet 00:00: mouth [place] 00 every Medical morning. Branch levothyroxi 0 Yes [id number] 50ug Take 1 [facility] ne 50 mcg 7-26 tablet by ity o f tablet 00:00: mouth [place] 00 every Medical morning. Branch semaglutide 2021- No 1mg inject 1 U nivers (OZEMPIC) 1 7-26 10-14 mg under ity of mg/dose (4 00:00: 00:00 the skin [place] mg/3 mL) 00 :00 weekly. Medical PnIj Branch flash Yes [id number] 1{each} Apply 1 U nivers glucose 7-22 Each to ity of sensor 00:00: skin every [place] (FREESTYLE 00 14 Medical LASHAY 2 (fourteen) Branch SENSOR) Kit days. Dx E11.65 atorvastati Yes [id number] 10mg Take 1 [facility] n 10 mg 7-22 tablet by ity of tablet 00:00: mouth in [place] 00 the Medical morning. Branch insulin 0 Yes [id number] Take 45 [facility] glargine 7-22 units SQ ity of U-300 conc 00:00: daily [place] (TOUJEO MAX 00 E11.65 Medica l U-300 Branch SOLOSTAR) 300 unit/mL (3 mL) InPn insulin Yes [id number] 15U inject 15 [facility] lispro 7-22 Units ity of (HUMALOG 00:00: [place] KWIKPEN 00 skin in Medical INSULIN) the Branch 100 unit/mL morning pen and 15 injector Units at noon and 15 Units in the evening. inject before meals. fluconazole Yes [id number] Take 1 [facility] (DIFLUCAN) 7-22 tablet ity of 150 mg 00:00: today and [place] tablet 00 second Medical tablet in Branch three days. flash Yes [id number] 1{each} Apply 1 U nivers glucose 7-22 Each to ity of sensor 00:00: skin every [place] (FREESTYLE 00 14 Medical LASHAY 2 (fourteen) Branch SENSOR) Kit days. Dx E11.65 atorvastati Yes [id number] 10mg Take 1 [facility] n 10 mg 7-22 tablet by ity of tablet 00:00: mouth in [place] 00 the Medical morning. Branch insulin Yes [id number] Take 45 [facility] glargine 7-22 units SQ ity of U-300 conc 00:00: daily [place] (TOUJEO MAX 00 E11.65 Medica l U-300 Branch SOLOSTAR) 300 unit/mL (3 mL) InPn insulin Yes [id number] 15U inject 15 [facility] lispro 7-22 Units ity of (HUMALOG 00:00: [place] KW[place] 00 skin in Medical INSULIN) the Branch 100 unit/mL morning pen and 15 injector Units at noon and 15 Units in the evening. inject before meals. fluconazole Yes [id number] Take 1 [facility] (DIFLUCAN) 7-22 tablet ity of 150 mg 00:00: today and [place] tablet 00 second Medical tablet in Branch three days. flash Yes [id number] 1{each} Apply 1 U nivers glucose 7-22 Each to ity of sensor 00:00: skin every [place] (FREESTYLE 00 14 Medical LASHAY 2 (fourteen) Branch SENSOR) Kit days. Dx E11.65 atorvastati Yes [id number] 10mg Take 1 [facility] n 10 mg 7-22 tablet by ity of tablet 00:00: mouth in [place] 00 the Medical morning. Branch insulin Yes [id number] Take 45 [facility] glargine 7-22 units SQ ity of U-300 conc 00:00: daily [place] (TOUJEO MAX 00 E11.65 Medica l U-300 Branch SOLOSTAR) 300 unit/mL (3 mL) InPn insulin Yes [id number] 15U inject 15 [facility] lispro 7-22 Units ity of (HUMALOG 00:00: under [place] KW[place]PEN 00 skin in Medical INSULIN) the Branch 100 unit/mL morning pen and 15 injector Units at noon and 15 Units in the evening. inject before meals. fluconazole Yes [id number] Take 1 [facility] (DIFLUCAN) 7-22 tablet ity of 150 mg 00:00: today and [place] tablet 00 second Medical tablet in Branch three days. flash Yes [id number] 1{each} Apply 1 U nivers glucose 7-22 Each to ity of sensor 00:00: skin every [place] (FREESTYLE 00 14 Medical LASHAY 2 (fourteen) Branch SENSOR) Kit days. Dx E11.65 atorvastati Yes [id number] 10mg Take 1 [facility] n 10 mg 7-22 tablet by ity of tablet 00:00: mouth in [place] 00 the Medical morning. Branch insulin Yes [id number] Take 45 [facility] glargine 7-22 units SQ ity of U-300 conc 00:00: daily [place] (TOUJEO MAX 00 E11.65 Medica l U-300 Branch SOLOSTAR) 300 unit/mL (3 mL) InPn insulin Yes [id number] 15U inject 15 [facility] lispro 7-22 Units ity of (HUMALOG 00:00: under [place] KW[place]PEN 00 skin in Medical INSULIN) the Branch 100 unit/mL morning pen and 15 injector Units at noon and 15 Units in the evening. inject before meals. fluconazole Yes [id number] Take 1 [facility] (DIFLUCAN) 7-22 tablet ity of 150 mg 00:00: today and [place] tablet 00 second Medical tablet in Branch three days. flash Yes [id number] 1{each} Apply 1 U nivers glucose 7-22 Each to ity of sensor 00:00: skin every [place] (FREESTYLE 00 14 Medical LASHAY 2 (fourteen) Branch SENSOR) Kit days. Dx E11.65 atorvastati Yes [id number] 10mg Take 1 [facility] n 10 mg 7-22 tablet by ity of tablet 00:00: mouth in [place] 00 the Medical morning. Branch insulin Yes [id number] Take 45 [facility] glargine 7-22 units SQ ity of U-300 conc 00:00: daily [place] (TOUJEO MAX E11.65 Medica l U-300 Branch SOLOSTAR) 300 unit/mL (3 mL) InPn insulin Yes [id number] 15U inject 15 [facility] lispro 7-22 Units ity of (HUMALOG 00:00: under [place] KW[place]EN 00 skin in Medical INSULIN) the Branch 100 unit/mL morning pen and 15 injector Units at noon and 15 Units in the evening. inject before meals. fluconazole Yes [id number] Take 1 [facility] (DIFLUCAN) 7-22 tablet ity of 150 mg 00:00: today and [place] tablet 00 second Medical tablet in Branch three days. flash Yes [id number] 1{each} Apply 1 U nivers glucose 7-22 Each to ity of sensor 00:00: skin every [place] (FREESTYLE 00 14 Medical LASHAY 2 (fourteen) Branch SENSOR) Kit days. Dx E11.65 atorvastati Yes [id number] 10mg Take 1 [facility] n 10 mg 7-22 tablet by ity of tablet 00:00: mouth in [place] 00 the Medical morning. Branch insulin Yes [id number] Take 45 [facility] glargine 7-22 units SQ ity of U-300 conc 00:00: daily [place] (TOUJEO MAX E11.65 Medica l U-300 Branch SOLOSTAR) 300 unit/mL (3 mL) InPn insulin Yes [id number] 15U inject 15 [facility] lispro 7-22 Units ity of (HUMALOG 00:00: [place] 00 skin in Medical INSULIN) the Branch 100 unit/mL morning pen and 15 injector Units at noon and 15 Units in the evening. inject before meals. fluconazole Yes [id number] Take 1 [facility] (DIFLUCAN) 7-22 tablet ity of 150 mg 00:00: today and [place] tablet 00 second Medical tablet in [place] three days. atorvastati 2021-0 Yes [id number] 10mg Take 1 [facility] n 10 mg 7-22 tablet by ity of tablet 00:00: mouth in [place] 00 the Medical morning. [place] atorvastati 2021-0 Yes [id number] 10mg Take 1 [facility] n 10 mg 7-22 tablet by ity of tablet 00:00: mouth in [place] 00 the Medical morning. [place] atorvastati 2021-0 Yes [id number] 10mg Take 1 [facility] n 10 mg 7-22 tablet by ity of tablet 00:00: mouth in [place] 00 the Medical morning. [place] atorvastati 0 Yes [id number] 10mg Take 1 [facility] n 10 mg 7-22 tablet by ity of tablet 00:00: mouth in [place] 00 the Medical morning. [place] atorvastati 0 Yes [id number] 10mg Take 1 [facility] n 10 mg 7-22 tablet by ity of tablet 00:00: mouth in [place] 00 the Medical morning. [place] atorvastati 0 Yes [id number] 10mg Take 1 [facility] n 10 mg 7-22 tablet by ity of tablet 00:00: mouth in [place] 00 the Medical morning. [place] atorvastati 0 Yes [id number] 10mg Take 1 [facility] n 10 mg 7-22 tablet by ity of tablet 00:00: mouth in [place] 00 the Medical morning. [place] atorvastati 2021-0 Yes [id number] 10mg Take 1 [facility] n 10 mg 7-22 tablet by ity of tablet 00:00: mouth in [place] 00 the Medical morning. [place] atorvastati 2021-0 Yes [id number] 10mg Take 1 [facility] n 10 mg 7-22 tablet by ity of tablet 00:00: mouth in [place] 00 the Medical morning. [place] atorvastati 2021-0 Yes [id number] 10mg Take 1 [facility] n 10 mg 7-22 tablet by ity of tablet 00:00: mouth in [place] 00 the Medical morning. [place] atorvastati 2021-0 Yes [id number] 10mg Take 1 [facility] n 10 mg 7-22 tablet by ity of tablet 00:00: mouth in [place] 00 the Medical morning. Branch atorvastati Yes [id number] 10mg Take 1 [facility] n 10 mg 7-22 tablet by ity of tablet 00:00: mouth in [place] 00 the morning. Branch atorvastati Yes [id number] 10mg Take 1 [facility] n 10 mg 7-22 tablet by ity of tablet 00:00: mouth in [place] 00 the morning. Branch atorvastati Yes [id number] 10mg Take 1 [facility] n 10 mg 7-22 tablet by ity of tablet 00:00: mouth in [place] 00 the morning. Branch flash Yes [id number] 1{each} Apply 1 U nivers glucose 7-22 Each to ity of sensor 00:00: skin every (FREESTYLE 00 14 Medical LASHAY 2 (fourteen) Branch SENSOR) Kit days. Dx E11.65 atorvastati Yes [id number] 10mg Take 1 [facility] n 10 mg 7-22 tablet by ity of tablet 00:00: mouth in [place] the morning. Branch insulin Yes [id number] Take 45 [facility] glargine 7-22 units SQ ity of U-300 conc 00:00: daily [place] (TOUJEO MAX 00 E11.65 Medica l U-300 Branch SOLOSTAR) 300 unit/mL (3 mL) InPn insulin Yes [id number] 15U inject 15 [facility] lispro 7-22 Units ity of (HUMALOG 00:00: [place] 00 skin in Medical INSULIN) the [place] 100 unit/mL morning pen and 15 injector Units at noon and 15 Units in the evening. inject before meals. fluconazole Yes [id number] Take 1 [facility] (DIFLUCAN) 7-22 tablet ity of 150 mg 00:00: today and [place] tablet 00 second Medical tablet in Branch three days. flash Yes [id number] 1{each} Apply 1 U nivers glucose 7-22 Each to ity of sensor 00:00: skin every [place] (FREESTYLE 00 14 Medical LASHAY 2 (fourteen) Branch SENSOR) Kit days. Dx E11.65 atorvastati Yes [id number] 10mg Take 1 [facility] n 10 mg 7-22 tablet by ity of tablet 00:00: mouth in [place] 00 the Medical morning. Branch insulin Yes [id number] Take 45 [facility] glargine 7-22 units SQ ity of U-300 conc 00:00: daily [place] (TOUJEO MAX 00 E11.65 Medica l U-300 Branch SOLOSTAR) 300 unit/mL (3 mL) InPn insulin Yes [id number] 15U inject 15 [facility] lispro 7-22 Units ity of (HUMALOG 00:00: under [place] 00 skin in Medical INSULIN) the Branch 100 unit/mL morning pen and 15 injector Units at noon and 15 Units in the evening. inject before meals. fluconazole Yes [id number] Take 1 [facility] (DIFLUCAN) 7-22 tablet ity of 150 mg 00:00: today and [place] tablet 00 second Medical tablet in Branch three days. flash Yes [id number] 1{each} Apply 1 U nivers glucose 7-22 Each to ity of sensor 00:00: skin every [place] (FREESTYLE 00 14 Medical LASHAY 2 (fourteen) Branch SENSOR) Kit days. Dx E11.65 atorvastati Yes [id number] 10mg Take 1 [facility] n 10 mg 7-22 tablet by ity of tablet 00:00: mouth in [place] 00 the Medical morning. Branch insulin Yes [id number] Take 45 [facility] glargine 7-22 units SQ ity of U-300 conc 00:00: daily [place] (TOUJEO MAX 00 E11.65 Medica l U-300 Branch SOLOSTAR) 300 unit/mL (3 mL) InPn insulin Yes [id number] 15U inject 15 [facility] lispro 7-22 Units ity of (HUMALOG 00:00: under [place] 00 skin in Medical INSULIN) the Branch 100 unit/mL morning pen and 15 injector Units at noon and 15 Units in the evening. inject before meals. fluconazole Yes [id number] Take 1 [facility] (DIFLUCAN) 7-22 tablet ity of 150 mg 00:00: today and [place] tablet 00 second Medical tablet in Branch three days. flash Yes [id number] 1{each} Apply 1 U nivers glucose 7-22 Each to ity of sensor 00:00: skin every (FREESTYLE 00 14 Medical LASHAY 2 (fourteen) Branch SENSOR) Kit days. Dx E11.65 atorvastati 0 Yes [id number] 10mg Take 1 [facility] n 10 mg 7-22 tablet by ity of tablet 00:00: mouth in [place] 00 the Medical morning. Branch insulin Yes [id number] Take 45 [facility] glargine 7-22 units SQ ity of U-300 conc 00:00: daily [place] (TOUJEO MAX 00 E11.65 Medica l U-300 Branch SOLOSTAR) 300 unit/mL (3 mL) InPn insulin Yes [id number] 15U inject 15 [facility] lispro 7-22 Units ity of (HUMALOG 00:00: under [place] K[place] 00 skin in Medical INSULIN) the Branch 100 unit/mL morning pen and 15 injector Units at noon and 15 Units in the evening. inject before meals. fluconazole Yes [id number] Take 1 [facility] (DIFLUCAN) 7-22 tablet ity of 150 mg 00:00: today and [place] tablet 00 second Medical tablet in Branch three days. flash Yes [id number] 1{each} Apply 1 U nivers glucose 7-22 Each to ity of sensor 00:00: skin every (FREESTYLE 00 14 Medical LASHAY 2 (fourteen) Branch SENSOR) Kit days. Dx E11.65 atorvastati 0 Yes [id number] 10mg Take 1 [facility] n 10 mg 7-22 tablet by ity of tablet 00:00: mouth in [place] 00 the Medical morning. Branch insulin Yes [id number] Take 45 [facility] glargine 7-22 units SQ ity of U-300 conc 00:00: daily [place] (TOUJEO MAX 00 E11.65 Medica l U-300 Branch SOLOSTAR) 300 unit/mL (3 mL) InPn insulin Yes [id number] 15U inject 15 [facility] lispro 7-22 Units ity of (HUMALOG 00:00: under [place]IKPEN 00 skin in Medical INSULIN) the Branch 100 unit/mL morning pen and 15 injector Units at noon and 15 Units in the evening. inject before meals. fluconazole Yes [id number] Take 1 [facility] (DIFLUCAN) 7-22 tablet ity of 150 mg 00:00: today and [place] tablet 00 second Medical tablet in Branch three days. flash Yes [id number] 1{each} Apply 1 U nivers glucose 7-22 Each to ity of sensor 00:00: skin every (FREESTYLE 00 14 Medical LASHAY 2 (fourteen) Branch SENSOR) Kit days. Dx E11.65 atorvastati Yes [id number] 10mg Take 1 [facility] n 10 mg 7-22 tablet by ity of tablet 00:00: mouth in [place] 00 the Medical morning. Branch insulin Yes [id number] Take 45 Un joel glargine 7-22 units SQ ity of U-300 conc 00:00: daily [place] (TOUJEO MAX 00 E11.65 Medica l U-300 Branch SOLOSTAR) 300 unit/mL (3 mL) InPn insulin Yes [id number] 15U inject 15 [facility] lispro 7-22 Units ity of (HUMALOG 00:00: [place] skin in Medical INSULIN) the Branch 100 unit/mL morning pen and 15 injector Units at noon and 15 Units in the evening. inject before meals. fluconazole Yes [id number] Take 1 [facility] (DIFLUCAN) 7-22 tablet ity of 150 mg 00:00: today and [place] tablet 00 second Medical tablet in Branch three days. flash Yes [id number] 1{each} Apply 1 U nivers glucose 7-22 Each to ity of sensor 00:00: skin every [place] (FREESTYLE 00 14 Medical LASHAY 2 (fourteen) Branch SENSOR) Kit days. Dx E11.65 atorvastati Yes [id number] 10mg Take 1 [facility] n 10 mg 7-22 tablet by ity of tablet 00:00: mouth in [place] 00 the Medical morning. Branch insulin Yes [id number] Take 45 Un joel glargine 7-22 units SQ ity of U-300 conc 00:00: daily [place] (TOUJEO MAX 00 E11.65 Medica l U-300 Branch SOLOSTAR) 300 unit/mL (3 mL) InPn insulin Yes [id number] 15U inject 15 [facility] lispro 7-22 Units ity of (HUMALOG 00:00: [place] skin in Medical INSULIN) the Branch 100 unit/mL morning pen and 15 injector Units at noon and 15 Units in the evening. inject before meals. fluconazole Yes [id number] Take 1 [facility] (DIFLUCAN) 7-22 tablet ity of 150 mg 00:00: today and [place] tablet 00 second Medical tablet in Branch three days. flash Yes [id number] 1{each} Apply 1 U nivers glucose 7-22 Each to ity of sensor 00:00: skin every (FREESTYLE 00 14 Medical LASHAY 2 (fourteen) Branch SENSOR) Kit days. Dx E11.65 atorvastati Yes [id number] 10mg Take 1 [facility] n 10 mg 7-22 tablet by ity of tablet 00:00: mouth in [place] 00 the Medical morning. Branch insulin Yes [id number] Take 45 Un joel glargine 7-22 units SQ ity of U-300 conc 00:00: daily [place] (TOUJEO MAX 00 E11.65 Medica l U-300 Branch SOLOSTAR) 300 unit/mL (3 mL) InPn insulin Yes [id number] 15U inject 15 [facility] lispro 7-22 Units ity of (HUMALOG 00:00: [place] skin in Medical INSULIN) the Branch 100 unit/mL morning pen and 15 injector Units at noon and 15 Units in the evening. inject before meals. fluconazole Yes [id number] Take 1 [facility] (DIFLUCAN) 7-22 tablet ity of 150 mg 00:00: today and [place] tablet 00 second Medical tablet in Branch three days. flash Yes [id number] 1{each} Apply 1 U nivers glucose 7-22 Each to ity of sensor 00:00: skin every [place] (FREESTYLE 00 14 Medical LASHAY 2 (fourteen) Branch SENSOR) Kit days. Dx E11.65 atorvastati Yes [id number] 10mg Take 1 [facility] n 10 mg 7-22 tablet by ity of tablet 00:00: mouth in [place] 00 the Medical morning. Branch insulin Yes [id number] Take 45 Un joel glargine 7-22 units SQ ity of U-300 conc 00:00: daily [place] (TOUJEO MAX 00 E11.65 Medica l U-300 Branch SOLOSTAR) 300 unit/mL (3 mL) InPn insulin Yes [id number] 15U inject 15 [facility] lispro 7-22 Units ity of (HUMALOG 00:00: [place] skin in Medical INSULIN) the Branch 100 unit/mL morning pen and 15 injector Units at noon and 15 Units in the evening. inject before meals. fluconazole Yes [id number] Take 1 [facility] (DIFLUCAN) 7-22 tablet ity of 150 mg 00:00: today and [place] tablet 00 second Medical tablet in Branch three days. flash Yes [id number] 1{each} Apply 1 U nivers glucose 7-22 Each to ity of sensor 00:00: skin every [place] (FREESTYLE 00 14 Medical LASHAY 2 (fourteen) Branch SENSOR) Kit days. Dx E11.65 atorvastati Yes [id number] 10mg Take 1 [facility] n 10 mg 7-22 tablet by ity of tablet 00:00: mouth in [place] 00 the Medical morning. Branch insulin Yes [id number] Take 45 Un joel glargine 7-22 units SQ ity of U-300 conc 00:00: daily [place] (TOUJEO MAX 00 E11.65 Medica l U-300 Branch SOLOSTAR) 300 unit/mL (3 mL) InPn insulin Yes [id number] 15U inject 15 [facility] lispro 7-22 Units ity of (HUMALOG 00:00: [place] skin in Medical INSULIN) the Branch 100 unit/mL morning pen and 15 injector Units at noon and 15 Units in the evening. inject before meals. fluconazole Yes [id number] Take 1 [facility] (DIFLUCAN) 7-22 tablet ity of 150 mg 00:00: today and [place] tablet 00 second Medical tablet in Branch three days. flash 2021- No [id number] 1{each} Apply 1 [facility] glucose -05 04- Each to ity of sensor 00:00: 00:[place] (FREESTYLE 00 :00 14 Medical LASHAY 2 (fourteen) Branch SENSOR) Kit days. Dx E11.65 insulin 2021- No [id number] Take 45 U nivers glargine 7-22 11-22 units SQ ity of U-300 conc 00:00: 00:00 daily [place] (TOUJEO MAX 00 :00 E11.65 Medica l U-300 Branch SOLOSTAR) 300 unit/mL (3 mL) InPn insulin 2021- No [id number] 15U inject 15 [facility] lispro -05 04-22 Units ity of (HUMALOG 00:00: 00:00 under the [place] KWIKPEN 00 :00 skin in Medical INSULIN) the Branch 100 unit/mL morning pen and 15 injector Units at noon and 15 Units in the evening. inject before meals. fluconazole 2021- No [id number] Take 1 [facility] (DIFLUCAN) 12-03- tablet ity of 150 mg 00:00: 00:00 today and [place] tablet 00 :00 second Medical tablet in Branch three days. flash 2021- No [id number] 1{each} Apply 1 [facility] glucose 12-03- Each to ity of sensor 00:00: 00:[place] (FREESTYLE 00 :00 14 Medical LASHAY 2 (fourteen) Branch SENSOR) Kit days. Dx E11.65 insulin 2021- No [id number] Take 45 U nivers glargine 7-22 11-22 units SQ ity of U-300 conc 00:00: 00:00 daily [place] (TOUJEO MAX 00 :00 E11.65 Medica l U-300 Branch SOLOSTAR) 300 unit/mL (3 mL) InPn insulin 2021- No [id number] 15U inject 15 [facility] lispro 7-22 11-22 Units ity of (HUMALOG 00:00: 00:00 under the [place] KWIKPEN 00 :00 skin in Medical INSULIN) the Branch 100 unit/mL morning pen and 15 injector Units at noon and 15 Units in the evening. inject before meals. fluconazole 2021- No [id number] Take 1 [facility] (DIFLUCAN) 12-03 tablet ity of 150 mg 00:00: 00:00 today and [place] tablet 00 :00 second Medical tablet in Branch three days. zolpidem 10 Yes 10mg Take 10 mg [facility] mg tablet 4-28 by mouth ity of 00:00: at [place] [address] bedtime. [facility] Branch zolpidem 10 Yes 10mg Take 10 mg [facility] mg tablet 4-28 by mouth ity of 00:00: at [place] [address] bedtime. [facility] zolpidem 10 Yes 10mg Take 10 mg [facility] mg tablet 4-28 by mouth ity of 00:00: at [place] [address] bedtime. [facility] zolpidem 10 Yes 10mg Take 10 mg [facility] mg tablet 4-28 by mouth ity of 00:00: at [place] [address] bedtime. [facility] zolpidem 10 Yes 10mg Take 10 mg [facility] mg tablet 4-28 by mouth ity of 00:00: at [place] [address] bedtime. [facility] zolpidem 10 Yes 10mg Take 10 mg [facility] mg tablet 4-28 by mouth ity of 00:00: at [place] [address] bedtime. [facility] zolpidem 10 Yes 10mg Take 10 mg [facility] mg tablet 4-28 by mouth ity of 00:00: at [place] [address] bedtime. [facility] zolpidem 10 Yes 10mg Take 10 mg [facility] mg tablet 4-28 by mouth ity of 00:00: at [place] [address] bedtime. [facility] zolpidem 10 Yes 10mg Take 10 mg [facility] mg tablet 4-28 by mouth ity of 00:00: at [place] [address] bedtime. [facility] zolpidem 10 Yes 10mg Take 10 mg [facility] mg tablet 4-28 by mouth ity of 00:00: at [place] [address] bedtime. [facility] zolpidem 10 Yes 10mg Take 10 mg [facility] mg tablet 4-28 by mouth ity of 00:00: at [place] [address] bedtime. [facility] zolpidem 10 Yes 10mg Take 10 mg [facility] mg tablet 4-28 by mouth ity of 00:00: at [place] [address] bedtime. Medical Branch zolpidem 10 Yes 10mg Take 10 mg [facility] mg tablet 4-28 by mouth ity of 00:00: at [place] [address] bedtime. Medical Branch zolpidem 10 Yes 10mg Take 10 mg [facility] mg tablet 4-28 by mouth ity of 00:00: at [place] [address] bedtime. Medical Branch zolpidem 10 0 Yes 10mg Take 10 mg [facility] mg tablet 4-28 by mouth ity of 00:00: at [place] [address] bedtime. Medical Branch zolpidem 10 0 Yes 10mg Take 10 mg [facility] mg tablet 4-28 by mouth ity of 00:00: at [place] [address] bedtime. Medical Branch zolpidem 10 Yes 10mg Take 10 mg [facility] mg tablet 4-28 by mouth ity of 00:00: at [place] [address] bedtime. Medical Branch zolpidem 10 Yes 10mg Take 10 mg [facility] mg tablet 4-28 by mouth ity of 00:00: at [place] [address] bedtime. Medical Branch zolpidem 10 Yes 10mg Take 10 mg [facility] mg tablet 4-28 by mouth ity of 00:00: at [place] [address] bedtime. Medical Branch zolpidem 10 Yes 10mg Take 10 mg [facility] mg tablet 4-28 by mouth ity of 00:00: at [place] [address] bedtime. Medical Branch zolpidem 10 Yes 10mg Take 10 mg [facility] mg tablet 4-28 by mouth ity of 00:00: at [place] [address] bedtime. Medical Branch zolpidem 10 0 Yes 10mg Take 10 mg [facility] mg tablet 4-28 by mouth ity of 00:00: at [place] [address] bedtime. Medical Branch zolpidem 10 0 Yes 10mg Take 10 mg [facility] mg tablet 4-28 by mouth ity of 00:00: at [place] [address] bedtime. Medical Branch zolpidem 10 0 Yes 10mg Take 10 mg [facility] mg tablet 4-28 by mouth ity of 00:00: at [place] [address] bedtime. Medical Branch zolpidem 10 0 Yes 10mg Take 10 mg [facility] mg tablet 4-28 by mouth ity of 00:00: at [place] bedtime. Medical Branch zolpidem 10 Yes 10mg Take 10 mg [facility] mg tablet 4-28 by mouth ity of 00:00: at [place] bedtime. Medical Branch zolpidem 10 Yes 10mg Take 10 mg [facility] mg tablet 4-28 by mouth ity of 00:00: at [place] bedtime. Medical Branch zolpidem 10 Yes 10mg Take 10 mg [facility] mg tablet 4-28 by mouth ity of 00:00: at [place] bedtime. Medical Branch zolpidem 10 Yes 10mg Take 10 mg [facility] mg tablet 4-28 by mouth ity of 00:00: at [place] bedtime. Medical Branch zolpidem 10 Yes 10mg Take 10 mg [facility] mg tablet 4-28 by mouth ity of 00:00: at [place] bedtime. Medical Branch REXULTI 2 Yes 1{tbl} Take 1 Univ ers mg Tab 4-11 tablet by ity of 00:00: mouth 00 daily. Medical Branch REXULTI 2 Yes 1{tbl} Take 1 Univ ers mg Tab 4-11 tablet by ity of 00:00: mouth 00 daily. Medical Branch REXULTI 2 Yes 1{tbl} Take 1 Univ ers mg Tab 4-11 tablet by ity of 00:00: mouth 00 daily. Medical Branch REXULTI 2 Yes 1{tbl} Take 1 Univ ers mg Tab 4-11 tablet by ity of 00:00: mouth [place] 00 daily. Medical Branch REXULTI 2 Yes 1{tbl} Take 1 Univ ers mg Tab 4-11 tablet by ity of 00:00: mouth 00 daily. Medical Branch REXULTI 2 Yes 1{tbl} Take 1 Univ ers mg Tab 4-11 tablet by ity of 00:00: mouth [place] 00 daily. Medical Branch REXULTI 2 Yes 1{tbl} Take 1 Univ ers mg Tab 4-11 tablet by ity of 00:00: mouth [place] 00 daily. Medical Branch REXULTI 2 Yes 1{tbl} Take 1 Univ ers mg Tab 4-11 tablet by ity of 00:00: mouth [place] 00 daily. Medical Branch REXULTI 2 Yes 1{tbl} Take 1 Univ ers mg Tab 4-11 tablet by ity of 00:00: mouth [place] 00 daily. Medical Branch REXULTI 2 Yes 1{tbl} Take 1 Univ ers mg Tab 4-11 tablet by ity of 00:00: mouth [place] 00 daily. Medical Branch REXULTI 2 Yes 1{tbl} Take 1 Univ ers mg Tab 4-11 tablet by ity of 00:00: mouth [place] 00 daily. Medical Branch REXULTI 2 Yes 1{tbl} Take 1 Univ ers mg Tab 4-11 tablet by ity of 00:00: mouth [place] 00 daily. Medical Branch REXULTI 2 Yes 1{tbl} Take 1 Univ ers mg Tab 4-11 tablet by ity of 00:00: mouth [place] 00 daily. Medical Branch REXULTI 2 Yes 1{tbl} Take 1 Univ ers mg Tab 4-11 tablet by ity of 00:00: mouth [place] 00 daily. Medical Branch REXULTI 2 Yes 1{tbl} Take 1 Univ ers mg Tab 4-11 tablet by ity of 00:00: mouth [place] 00 daily. Medical Branch REXULTI 2 Yes 1{tbl} Take 1 Univ ers mg Tab 4-11 tablet by ity of 00:00: mouth [place] 00 daily. Medical Branch REXULTI 2 Yes 1{tbl} Take 1 Univ ers mg Tab 4-11 tablet by ity of 00:00: mouth [place] 00 daily. Medical Branch REXULTI 2 Yes 1{tbl} Take 1 Univ ers mg Tab 4-11 tablet by ity of 00:00: mouth [place] 00 daily. Medical Branch REXULTI 2 Yes 1{tbl} Take 1 Univ ers mg Tab 4-11 tablet by ity of 00:00: mouth [place] 00 daily. Medical Branch REXULTI 2 Yes 1{tbl} Take 1 Univ ers mg Tab 4-11 tablet by ity of 00:00: mouth [place] 00 daily. Medical Branch REXULTI 2 Yes 1{tbl} Take 1 Univ ers mg Tab 4-11 tablet by ity of 00:00: mouth [place] 00 daily. Medical Branch REXULTI 2 Yes 1{tbl} Take 1 Univ ers mg Tab 4-11 tablet by ity of 00:00: mouth [place] 00 daily. Medical Branch REXULTI 2 Yes 1{tbl} Take 1 Univ ers mg Tab 4-11 tablet by ity of 00:00: mouth [place] 00 daily. Medical Branch REXULTI 2 Yes 1{tbl} Take 1 Univ ers mg Tab 4-11 tablet by ity of 00:00: mouth [place] 00 daily. Medical Branch REXULTI 2 Yes 1{tbl} Take 1 Univ ers mg Tab 4-11 tablet by ity of 00:00: mouth [place] 00 daily. Medical Branch REXULTI 2 Yes 1{tbl} Take 1 Univ ers mg Tab 4-11 tablet by ity of 00:00: mouth [place] 00 daily. Medical Branch REXULTI 2 Yes 1{tbl} Take 1 Univ ers mg Tab 4-11 tablet by ity of 00:00: mouth [place] 00 daily. Medical Branch REXULTI 2 Yes 1{tbl} Take 1 Univ ers mg Tab 4-11 tablet by ity of 00:00: mouth [place] 00 daily. Medical Branch REXULTI 2 Yes 1{tbl} Take 1 Univ ers mg Tab 4-11 tablet by ity of 00:00: mouth [place] 00 daily. Medical Branch REXULTI 2 Yes 1{tbl} Take 1 Univ ers mg Tab 4-11 tablet by ity of 00:00: mouth [place] 00 daily. Medical Branch ACCU-CHEK Yes [id number] Use as U nivers SOFTCLIX 3-29 directed ity of LANCETS 00:00: TIDAC [place] Misc 00 E11.65 Medical Branch ACCU-CHEK 0 Yes [id number] Use as U nivers GUIDE TEST 3-29 directed ity o f STRIPS 00:00: TIDAC [place] strip 00 E11.65 Medical Branch ACCU-CHEK Yes [id number] Use as U nivers SOFTCLIX 3-29 directed ity of LANCETS 00:00: TIDAC [place] Misc 00 E11.65 Medical Branch ACCU-CHEK 2022-0 Yes [id number] Use as U nivers GUIDE TEST 3-29 directed ity o f STRIPS 00:00: TIDAC [place] strip 00 E11.65 Medical Branch ACCU-CHEK 2022-0 Yes [id number] Use as U nivers SOFTCLIX 3-29 directed ity of LANCETS 00:00: TIDAC [place] Misc 00 E11.65 Medical Branch ACCU-CHEK 2022-0 Yes [id number] Use as U nivers GUIDE TEST 3-29 directed ity o f STRIPS 00:00: TIDAC [place] strip 00 E11.65 Medical Branch ACCU-CHEK 2-0 Yes [id number] Use as U nivers SOFTCLIX 3-29 directed ity of LANCETS 00:00: TIDAC [place] Misc 00 E11.65 Medical Branch ACCU-CHEK 2022-0 Yes [id number] Use as U nivers GUIDE TEST 3-29 directed ity o f STRIPS 00:00: TIDAC [place] strip 00 E11.65 Medical Branch ACCU-CHEK 2-0 Yes [id number] Use as U nivers SOFTCLIX 3-29 directed ity of LANCETS 00:00: TIDAC [place] Misc 00 E11.65 Medical Branch ACCU-CHEK 2022-0 Yes [id number] Use as U nivers GUIDE TEST 3-29 directed ity o f STRIPS 00:00: TIDAC [place] strip 00 E11.65 Medical Branch ACCU-CHEK 2-0 Yes [id number] Use as U nivers SOFTCLIX 3-29 directed ity of LANCETS 00:00: TIDAC [place] Misc 00 E11.65 Medical Branch ACCU-CHEK 2022-0 Yes [id number] Use as U nivers GUIDE TEST 3-29 directed ity o f STRIPS 00:00: TIDAC [place] strip 00 E11.65 Medical Branch ACCU-CHEK 2022-0 Yes [id number] Use as U nivers SOFTCLIX 3-29 directed ity of LANCETS 00:00: TIDAC [place] Misc 00 E11.65 Medical Branch ACCU-CHEK 2022-0 Yes [id number] Use as U nivers SOFTCLIX 3-29 directed ity of LANCETS 00:00: TIDAC [place] Misc 00 E11.65 Medical Branch ACCU-CHEK 2022-0 Yes [id number] Use as U nivers SOFTCLIX 3-29 directed ity of LANCETS 00:00: TIDAC [place] Misc 00 E11.65 Medical Branch ACCU-CHEK 2022-0 Yes [id number] Use as U nivers SOFTCLIX 3-29 directed ity of LANCETS 00:00: TIDAC [place] Misc 00 E11.65 Medical Branch ACCU-CHEK 2022-0 Yes [id number] Use as U nivers SOFTCLIX 3-29 directed ity of LANCETS 00:00: TIDAC [place] Misc 00 E11.65 Medical Branch ACCU-CHEK 2-0 Yes [id number] Use as U nivers SOFTCLIX 3-29 directed ity of LANCETS 00:00: TIDAC [place] Misc 00 E11.65 Medical Branch ACCU-CHEK 2022-0 Yes [id number] Use as U nivers SOFTCLIX 3-29 directed ity of LANCETS 00:00: TIDAC [place] Misc 00 E11.65 Medical Branch ACCU-CHEK 2-0 Yes [id number] Use as U nivers SOFTCLIX 3-29 directed ity of LANCETS 00:00: TIDAC [place] Misc 00 E11.65 Medical Branch ACCU-CHEK 2-0 Yes [id number] Use as U nivers SOFTCLIX 3-29 directed ity of LANCETS 00:00: TIDAC [place] Misc 00 E11.65 Medical Branch ACCU-CHEK 2022-0 Yes [id number] Use as U nivers SOFTCLIX 3-29 directed ity of LANCETS 00:00: TIDAC [place] Misc 00 E11.65 Medical Branch ACCU-CHEK 2022-0 Yes [id number] Use as U nivers SOFTCLIX 3-29 directed ity of LANCETS 00:00: TIDAC [place] Misc 00 E11.65 Medical Branch ACCU-CHEK 2022-0 Yes [id number] Use as U nivers SOFTCLIX 3-29 directed ity of LANCETS 00:00: TIDAC [place] Misc 00 E11.65 Medical Branch ACCU-CHEK 2021-0 Yes [id number] Use as U nivers SOFTCLIX 3-29 directed ity of LANCETS 00:00: TIDAC [place] Misc 00 E11.65 Medical Branch ACCU-CHEK 2021-0 Yes [id number] Use as U nivers SOFTCLIX 3-29 directed ity of LANCETS 00:00: TIDAC [place] Misc 00 E11.65 Medical Branch ACCU-CHEK 2021-0 Yes [id number] Use as U nivers SOFTCLIX 3-29 directed ity of LANCETS 00:00: TIDAC [place] Misc 00 E11.65 Medical Branch ACCU-CHEK 2021-0 Yes [id number] Use as U nivers GUIDE TEST 3-29 directed ity o f STRIPS 00:00: TIDAC [place] strip 00 E11.65 Medical Branch ACCU-CHEK 2021-0 Yes [id number] Use as U nivers SOFTCLIX 3-29 directed ity of LANCETS 00:00: TIDAC [place] Misc 00 E11.65 Medical Branch ACCU-CHEK 2021-0 Yes [id number] Use as U nivers GUIDE TEST 3-29 directed ity o f STRIPS 00:00: TIDAC [place] strip 00 E11.65 Medical Branch ACCU-CHEK 2021-0 Yes [id number] Use as U nivers SOFTCLIX 3-29 directed ity of LANCETS 00:00: TIDAC [place] Misc 00 E11.65 Medical Branch ACCU-CHEK 2021-0 Yes [id number] Use as U nivers GUIDE TEST 3-29 directed ity o f STRIPS 00:00: TIDAC [place] strip 00 E11.65 Medical Branch ACCU-CHEK 2021-0 Yes [id number] Use as U nivers SOFTCLIX 3-29 directed ity of LANCETS 00:00: TIDAC [place] Misc 00 E11.65 Medical Branch ACCU-CHEK 2021-0 Yes [id number] Use as U nivers GUIDE TEST 3-29 directed ity o f STRIPS 00:00: TIDAC [place] strip 00 E11.65 Medical Branch ACCU-CHEK 2021-0 Yes [id number] Use as U nivers SOFTCLIX 3-29 directed ity of LANCETS 00:00: TIDAC [place] Misc 00 E11.65 Medical Branch ACCU-CHEK 2022-0 Yes [id number] Use as U nivers GUIDE TEST 3-29 directed ity o f STRIPS 00:00: TIDAC [place] strip 00 E11.65 Medical Branch ACCU-CHEK 2022-0 Yes [id number] Use as U nivers SOFTCLIX 3-29 directed ity of LANCETS 00:00: TIDAC [place] Misc 00 E11.65 Medical Branch ACCU-CHEK 2022-0 Yes [id number] Use as U nivers GUIDE TEST 3-29 directed ity o f STRIPS 00:00: TIDAC [place] strip 00 E11.65 Medical Branch ACCU-CHEK 2022-0 Yes [id number] Use as U nivers SOFTCLIX 3-29 directed ity of LANCETS 00:00: TIDAC [place] Misc 00 E11.65 Medical Branch ACCU-CHEK 2022-0 Yes [id number] Use as U nivers GUIDE TEST 3-29 directed ity o f STRIPS 00:00: TIDAC [place] strip 00 E11.65 Medical Branch ACCU-CHEK 2022-0 Yes [id number] Use as U nivers SOFTCLIX 3-29 directed ity of LANCETS 00:00: TIDAC [place] Misc 00 E11.65 Medical Branch ACCU-CHEK 2022-0 Yes [id number] Use as U nivers GUIDE TEST 3-29 directed ity o f STRIPS 00:00: TIDAC [place] strip 00 E11.65 Medical Branch ACCU-CHEK 2022-0 Yes [id number] Use as U nivers SOFTCLIX 3-29 directed ity of LANCETS 00:00: TIDAC [place] Misc 00 E11.65 Medical Branch ACCU-CHEK 2022-0 Yes [id number] Use as U nivers GUIDE TEST 3-29 directed ity o f STRIPS 00:00: TIDAC [place] strip 00 E11.65 Medical Branch ACCU-CHEK 2022-0 Yes [id number] Use as U nivers SOFTCLIX 3-29 directed ity of LANCETS 00:00: TIDAC [place] Misc 00 E11.65 Medical Branch ACCU-CHEK 2022-0 Yes [id number] Use as U nivers GUIDE TEST 3-29 directed ity o f STRIPS 00:00: TIDAC [place] strip 00 E11.65 Medical Branch ACCU-CHEK 2021-0 2- No [id number] Use as [facility] GUIDE TEST 08-10 directed ity of STRIPS 00:00: 00:00 TIDAC [place] strip 00 :00 E11.65 Medical Branch ACCU-CHEK 2021-0 2- No [id number] Use as [facility] GUIDE TEST 08-10 directed ity of STRIPS 00:00: 00:00 TIDAC [place] strip 00 :00 E11.65 Medical Branch cloNIDine 2022-0 Yes .2mg Take 0.2 Univ ers 0.2 mg 3-17 mg by ity of tablet 00:00: mouth at [place] bedtime. Medical Branch cloNIDine 2022-0 Yes .2mg Take 0.2 Univ ers 0.2 mg 3-17 mg by ity of tablet 00:00: mouth at [place] bedtime. Medical Branch cloNIDine 2022-0 Yes .2mg Take 0.2 Univ ers 0.2 mg 3-17 mg by ity of tablet 00:00: mouth at [place] bedtime. Medical Branch cloNIDine 2022-0 Yes .2mg Take 0.2 Univ ers 0.2 mg 3-17 mg by ity of tablet 00:00: mouth at [place] [address] bedtime. Medical Branch cloNIDine 2022-0 Yes .2mg Take 0.2 Univ ers 0.2 mg 3-17 mg by ity of tablet 00:00: mouth at [place] [address] bedtime. Medical Branch cloNIDine 2022-0 Yes .2mg Take 0.2 Univ ers 0.2 mg 3-17 mg by ity of tablet 00:00: mouth at [place] [address] bedtime. Medical Branch cloNIDine 2022-0 Yes .2mg Take 0.2 [facility] ers 0.2 mg 3-17 mg by ity of tablet 00:00: mouth at [place] bedtime. Medical Branch cloNIDine 2022-0 Yes .2mg Take 0.2 [facility] ers 0.2 mg 3-17 mg by ity of tablet 00:00: mouth at [place] [address] bedtime. Medical Branch cloNIDine 2022-0 Yes .2mg Take 0.2 Univ ers 0.2 mg 3-17 mg by ity of tablet 00:00: mouth at [place] [address] bedtime. Medical Branch cloNIDine 2022-0 Yes .2mg Take 0.2 Univ ers 0.2 mg 3-17 mg by ity of tablet 00:00: mouth at [place] [address] bedtime. Medical Branch cloNIDine 2022-0 Yes .2mg Take 0.2 [facility] ers 0.2 mg 3-17 mg by ity of tablet 00:00: mouth at [place] bedtime. Medical Branch cloNIDine 2022-0 Yes .2mg Take 0.2 [facility] ers 0.2 mg 3-17 mg by ity of tablet 00:00: mouth at [place] bedtime. Medical Branch cloNIDine 2022-0 Yes .2mg Take 0.2 Univ ers 0.2 mg 3-17 mg by ity of tablet 00:00: mouth at [place] bedtime. Medical Branch cloNIDine 2022-0 Yes .2mg Take 0.2 Univ ers 0.2 mg 3-17 mg by ity of tablet 00:00: mouth at [place] bedtime. Medical Branch cloNIDine 2022-0 Yes .2mg Take 0.2 [facility] ers 0.2 mg 3-17 mg by ity of tablet 00:00: mouth at [place] [address] bedtime. Medical Branch cloNIDine 2-0 Yes .2mg Take 0.2 [facility] ers 0.2 mg 3-17 mg by ity of tablet 00:00: mouth at [place] [address] bedtime. Medical Branch cloNIDine 2-0 Yes .2mg Take 0.2 [facility] ers 0.2 mg 3-17 mg by ity of tablet 00:00: mouth at [place] [address] bedtime. Medical Branch cloNIDine 2022-0 Yes .2mg Take 0.2 [facility] ers 0.2 mg 3-17 mg by ity of tablet 00:00: mouth at [place] [address] bedtime. Medical Branch cloNIDine 2022-0 Yes .2mg Take 0.2 [facility] ers 0.2 mg 3-17 mg by ity of tablet 00:00: mouth at [place] [address] bedtime. Medical Branch cloNIDine 2022-0 Yes .2mg Take 0.2 [facility] ers 0.2 mg 3-17 mg by ity of tablet 00:00: mouth at [place] [address] bedtime. Medical Branch cloNIDine 2022-0 Yes .2mg Take 0.2 [facility] ers 0.2 mg 3-17 mg by ity of tablet 00:00: mouth at [place] [address] bedtime. Medical Branch cloNIDine 2022-0 Yes .2mg Take 0.2 [facility] ers 0.2 mg 3-17 mg by ity of tablet 00:00: mouth at [place] [address] bedtime. Medical Branch cloNIDine 2022-0 Yes .2mg Take 0.2 [facility] ers 0.2 mg 3-17 mg by ity of tablet 00:00: mouth at [place] [address] bedtime. Medical Branch cloNIDine 2022-0 Yes .2mg Take 0.2 [facility] ers 0.2 mg 3-17 mg by ity of tablet 00:00: mouth at [place] [address] bedtime. Medical Branch cloNIDine 2022-0 Yes .2mg Take 0.2 Univ ers 0.2 mg 3-17 mg by ity of tablet 00:00: mouth at [place] [address] bedtime. Medical Branch cloNIDine 2022-0 Yes .2mg Take 0.2 [facility] ers 0.2 mg 3-17 mg by ity of tablet 00:00: mouth at [place] [address] bedtime. Medical Branch cloNIDine 2022-0 Yes .2mg Take 0.2 [facility] ers 0.2 mg 3-17 mg by ity of tablet 00:00: mouth at [place] [address] bedtime. Medical Branch cloNIDine 2022-0 Yes .2mg Take 0.2 Univ ers 0.2 mg 3-17 mg by ity of tablet 00:00: mouth at [place] [address] bedtime. Medical Branch cloNIDine 2022-0 Yes .2mg Take 0.2 Univ ers 0.2 mg 3-17 mg by ity of tablet 00:00: mouth at [place] [address] bedtime. Medical Branch cloNIDine 2022-0 Yes .2mg Take 0.2 Univ ers 0.2 mg 3-17 mg by ity of tablet 00:00: mouth at [place] [address] bedtime. Medical Branch propranoloL 2022-0 Yes TAKE 1 [facility] ers 20 mg 3-06 TABLET BY ity of tablet 00:00: MOUTH [place] TWICE Medical DAILY Branch propranoloL 2022-0 Yes TAKE 1 [facility] ers 20 mg 3-06 TABLET BY ity of tablet 00:00: MOUTH [place] TWICE Medical DAILY Branch propranoloL 2022-0 Yes TAKE 1 [facility] ers 20 mg 3-06 TABLET BY ity of tablet 00:00: MOUTH [place] TWICE Medical DAILY Branch propranoloL 2022-0 Yes TAKE 1 [facility] ers 20 mg 3-06 TABLET BY ity of tablet 00:00: MOUTH [place] TWICE Medical DAILY Branch propranoloL 2022-0 Yes TAKE 1 [facility] ers 20 mg 3-06 TABLET BY ity of tablet 00:00: MOUTH TWICE Medical DAILY Branch propranoloL 2022-0 Yes TAKE 1 [facility] 20 mg 3-06 TABLET BY [facility] tablet 00:00: MOUTH TWICE Medical DAILY Branch propranoloL 2022-0 Yes TAKE 1 [facility] 20 mg 3-06 TABLET BY [facility] of tablet 00:00: MOUTH TWICE Medical DAILY Branch propranoloL 2022-0 Yes TAKE 1 [facility] 20 mg 3-06 TABLET BY [facility] tablet 00:00: MOUTH TWICE Medical DAILY Branch propranoloL 2022-0 Yes TAKE 1 [facility] 20 mg 3-06 TABLET BY [facility] tablet 00:00: MOUTH TWICE Medical DAILY Branch propranoloL 2022-0 Yes TAKE 1 [facility] 20 mg 3-06 TABLET BY [facility] tablet 00:00: MOUTH TWICE Medical DAILY Branch propranoloL 2022-0 Yes TAKE 1 [facility] 20 mg 3-06 TABLET BY [facility] tablet 00:00: MOUTH TWICE Medical DAILY Branch propranoloL 2022-0 Yes TAKE 1 [facility] 20 mg 3-06 TABLET BY [facility] tablet 00:00: MOUTH TWICE Medical DAILY Branch propranoloL 2022-0 Yes TAKE 1 [facility] 20 mg 3-06 TABLET BY [facility] of tablet 00:00: MOUTH TWICE Medical DAILY Branch propranoloL 2022-0 Yes TAKE 1 [facility] 20 mg 3-06 TABLET BY [facility] of tablet 00:00: MOUTH TWICE Medical DAILY Branch propranoloL 2022-0 Yes TAKE 1 [facility] 20 mg 3-06 TABLET BY [facility] of tablet 00:00: MOUTH TWICE Medical DAILY Branch propranoloL 2022-0 Yes TAKE 1 [facility] 20 mg 3-06 TABLET BY [facility] of tablet 00:00: MOUTH TWICE Medical DAILY Branch propranoloL 2022-0 Yes TAKE 1 [facility] 20 mg 3-06 TABLET BY [facility] of tablet 00:00: MOUTH TWICE Medical DAILY Branch propranoloL 2022-0 Yes TAKE 1 [facility] 20 mg 3-06 TABLET BY [facility] of tablet 00:00: MOUTH 00 TWICE Medical DAILY Branch propranoloL 2022-0 Yes TAKE 1 [facility] 20 mg 3-06 TABLET BY [facility] tablet 00:00: MOUTH 00 TWICE Medical DAILY Branch propranoloL 2022-0 Yes TAKE 1 [facility] 20 mg 3-06 TABLET BY [facility] of tablet 00:00: MOUTH 00 TWICE Medical DAILY Branch propranoloL 2022-0 Yes TAKE 1 [facility] 20 mg 3-06 TABLET BY [facility] tablet 00:00: MOUTH [place] 00 TWICE Medical DAILY Branch propranoloL 2022-0 Yes TAKE 1 [facility] 20 mg 3-06 TABLET BY [facility] tablet 00:00: MOUTH [place] 00 TWICE Medical DAILY Branch propranoloL 2022-0 Yes TAKE 1 [facility] 20 mg 3-06 TABLET BY [facility] of tablet 00:00: MOUTH 00 TWICE Medical DAILY Branch propranoloL 2022-0 Yes TAKE 1 [facility] 20 mg 3-06 TABLET BY [facility] tablet 00:00: MOUTH [place] 00 TWICE Medical DAILY Branch propranoloL 2022-0 Yes TAKE 1 [facility] 20 mg 3-06 TABLET BY [facility] tablet 00:00: MOUTH 00 TWICE Medical DAILY Branch propranoloL 2022-0 Yes TAKE 1 [facility] 20 mg 3-06 TABLET BY [facility] tablet 00:00: MOUTH 00 TWICE Medical DAILY Branch propranoloL 2022-0 Yes TAKE 1 [facility] 20 mg 3-06 TABLET BY [facility] of tablet 00:00: MOUTH 00 TWICE Medical DAILY Branch propranoloL 2022-0 Yes TAKE 1 [facility] 20 mg 3-06 TABLET BY [facility] of tablet 00:00: MOUTH 00 TWICE Medical DAILY Branch propranoloL 2022-0 Yes TAKE 1 [facility] 20 mg 3-06 TABLET BY [facility] of tablet 00:00: MOUTH 00 TWICE Medical DAILY Branch propranoloL 2022-0 Yes TAKE 1 [facility] 20 mg 3-06 TABLET BY [facility] of tablet 00:00: MOUTH [place] 00 TWICE Medical DAILY Branch Insulin 2022-0 Yes [id number] Use as [facility] [place], 1-25 directed [facility] of Disposable, 00:00: $X per day [place] (PEN 00 E11.65 Medical NEEDLE) 32 Branch gauge x 5/32" Ndle Insulin 2022-0 Yes [id number] Use as [facility] [place], 1-25 directed it[facility] of Disposable, 00:00: $X per day [place] (PEN 00 E11.65 Medical NEEDLE) 32 Branch gauge x 5/32" Ndle Insulin 2021-0 Yes [id number] Use as [facility] [place], 1-25 directed it[facility] of Disposable, 00:00: $X per day [place] (PEN 00 E11.65 Medical NEEDLE) 32 Branch gauge x 5/32" Ndle Insulin 202-0 Yes [id number] Use as [facility] [place], 1-25 directed ity of Disposable, 00:00: $X per day [place] (PEN 00 E11.65 Medical NEEDLE) 32 Branch gauge x 5/32" Ndle Insulin 2021-0 Yes [id number] Use as [facility] [place], 1-25 directed it[facility] of Disposable, 00:00: $X per day [place] (PEN 00 E11.65 Medical NEEDLE) 32 Branch gauge x 5/32" Ndle Insulin 2021-0 Yes [id number] Use as [facility] [place], 1-25 directed [facility] of Disposable, 00:00: $X per day [place] (PEN E11.65 Medical NEEDLE) 32 Branch gauge x 5/32" Ndle Insulin 2021-0 Yes [id number] Use as [facility] [place], 1-25 directed it[facility] of Disposable, 00:00: $X per day [place] (PEN E11.65 Medical NEEDLE) 32 Branch gauge x 5/32" Ndle Insulin 2021-0 Yes [id number] Use as [facility] [place], 1-25 directed it[facility] of Disposable, 00:00: $X per day [place] (PEN E11.65 Medical NEEDLE) 32 Branch gauge x 5/32" Ndle Insulin 2021-0 Yes [id number] Use as [facility] [place], 1-25 directed ity of Disposable, 00:00: $X per day [place] (PEN E11.65 Medical NEEDLE) 32 Branch gauge x 5/32" Ndle Insulin 2021-0 Yes [id number] Use as [facility] [place], 1-25 directed ity of Disposable, 00:00: $X per day [place] (PEN E11.65 Medical NEEDLE) 32 Branch gauge x 5/32" Ndle Insulin 2021-0 Yes [id number] Use as [facility] [place], 1-25 directed ity of Disposable, 00:00: $X per day [place] (PEN E11.65 Medical NEEDLE) 32 Branch gauge x 5/32" Ndle Insulin 2021-0 Yes [id number] Use as [facility] [place], 1-25 directed ity of Disposable, 00:00: $X per day [place] (PEN 00 E11.65 Medical NEEDLE) 32 Branch gauge x 5/32" Ndle Insulin 2021-0 Yes [id number] Use as [facility] [place], 1-25 directed it[facility] of Disposable, 00:00: $X per day [place] (PEN 00 E11.65 Medical NEEDLE) 32 Branch gauge x 5/32" Ndle Insulin 2021-0 Yes [id number] Use as [facility] [place], 06-08 directed it[facility] of Disposable, 00:00: $X per day [place] (PEN 00 E11.65 Medical NEEDLE) 32 Branch gauge x 5/32" Ndle Insulin 2021-0 Yes [id number] Use as [facility] [place], 06-08 directed ity of Disposable, 00:00: $X per day [place] (PEN 00 E11.65 Medical NEEDLE) 32 Branch gauge x 5/32" Ndle Insulin 2021-0 Yes [id number] Use as [facility] [place], 06-08 directed it[facility] of Disposable, 00:00: $X per day [place] (PEN 00 E11.65 Medical NEEDLE) 32 Branch gauge x 5/32" Ndle Insulin 2021-0 2021- No [id number] Use as [facility] [place], 06-08 directed ity of Disposable, 00:00: 00:00 $X per day [place] (PEN 00 :00 E11.65 Medical NEEDLE) 32 Branch gauge x 5/32" Ndle Insulin 2021-0 2021- No [id number] Use as [facility] [place], 06-08 directed ity of Disposable, 00:00: 00:00 $X per day [place] (PEN 00 :00 E11.65 Medical NEEDLE) 32 Branch gauge x 5/32" Ndle ziprasidone 2-0 Yes TAKE 1 [facility] 80 mg 1-12 CAPSULE BY it[facility] of capsule 00:00: MOUTH [place] 00 TWICE Medical DAILY WITH Branch FOOD ziprasidone 2-0 Yes TAKE 1 [facility] 80 mg 1-12 CAPSULE BY ity of capsule 00:00: MOUTH [place] 00 TWICE Medical DAILY WITH Branch FOOD ziprasidone 2-0 Yes TAKE 1 [facility] 80 mg 1-12 CAPSULE BY ity of capsule 00:00: MOUTH [place] 00 TWICE Medical DAILY WITH Branch FOOD ziprasidone 2-0 Yes TAKE 1 [facility] 80 mg 1-12 CAPSULE BY ity of capsule 00:00: MOUTH [place] 00 TWICE Medical DAILY WITH Branch FOOD ziprasidone 2-0 Yes TAKE 1 [facility] 80 mg 1-12 CAPSULE BY ity of capsule 00:00: MOUTH [place] 00 TWICE Medical DAILY WITH Branch FOOD ziprasidone 2-0 Yes TAKE 1 [facility] 80 mg 1-12 CAPSULE BY ity of capsule 00:00: MOUTH [place] 00 TWICE Medical DAILY WITH Branch FOOD ziprasidone 2022-0 Yes TAKE 1 [facility] 80 mg 1-12 CAPSULE BY ity of capsule 00:00: MOUTH 00 TWICE Medical DAILY WITH Branch FOOD ziprasidone 2022-0 Yes TAKE 1 [facility] 80 mg 1-12 CAPSULE BY it[facility] of capsule 00:00: MOUTH 00 TWICE Medical DAILY WITH Branch FOOD ziprasidone 2022-0 Yes TAKE 1 [facility] 80 mg 1-12 CAPSULE BY it[facility] of capsule 00:00: MOUTH 00 TWICE Medical DAILY WITH Branch FOOD ziprasidone 2022-0 Yes TAKE 1 [facility] 80 mg 1-12 CAPSULE BY it[facility] of capsule 00:00: MOUTH 00 TWICE Medical DAILY WITH Branch FOOD ziprasidone 2022-0 Yes TAKE 1 [facility] 80 mg 1-12 CAPSULE BY it[facility] of capsule 00:00: MOUTH 00 TWICE Medical DAILY WITH Branch FOOD ziprasidone 2022-0 Yes TAKE 1 [facility] 80 mg 1-12 CAPSULE BY ity of capsule 00:00: MOUTH 00 TWICE Medical DAILY WITH Branch FOOD ziprasidone 2022-0 Yes TAKE 1 [facility] 80 mg 1-12 CAPSULE BY ity of capsule 00:00: MOUTH 00 TWICE Medical DAILY WITH Branch FOOD ziprasidone 2022-0 Yes TAKE 1 [facility] 80 mg 1-12 CAPSULE BY ity of capsule 00:00: MOUTH 00 TWICE Medical DAILY WITH Branch FOOD ziprasidone 2022-0 Yes TAKE 1 [facility] 80 mg 1-12 CAPSULE BY ity of capsule 00:00: MOUTH 00 TWICE Medical DAILY WITH Branch FOOD ziprasidone 2022-0 Yes TAKE 1 [facility] 80 mg 1-12 CAPSULE BY ity of capsule 00:00: MOUTH 00 TWICE Medical DAILY WITH Branch FOOD ziprasidone 2022-0 Yes TAKE 1 [facility] 80 mg 1-12 CAPSULE BY ity of capsule 00:00: MOUTH 00 TWICE Medical DAILY WITH Branch FOOD ziprasidone 2022-0 Yes TAKE 1 [facility] 80 mg 1-12 CAPSULE BY ity of capsule 00:00: MOUTH 00 TWICE Medical DAILY WITH Branch FOOD ziprasidone 2022-0 Yes TAKE 1 [facility] 80 mg 1-12 CAPSULE BY ity of capsule 00:00: MOUTH 00 TWICE Medical DAILY WITH Branch FOOD ziprasidone 2022-0 Yes TAKE 1 [facility] 80 mg 1-12 CAPSULE BY ity of capsule 00:00: MOUTH [place] 00 TWICE Medical DAILY WITH Branch FOOD ziprasidone 2022-0 Yes TAKE 1 [facility] 80 mg 1-12 CAPSULE BY ity of capsule 00:00: MOUTH 00 TWICE Medical DAILY WITH Branch FOOD ziprasidone 2-0 Yes TAKE 1 [facility] 80 mg 1-12 CAPSULE BY ity of capsule 00:00: MOUTH 00 TWICE Medical DAILY WITH Branch FOOD ziprasidone 2-0 Yes TAKE 1 [facility] 80 mg 1-12 CAPSULE BY ity of capsule 00:00: MOUTH 00 TWICE Medical DAILY WITH Branch FOOD ziprasidone 2-0 Yes TAKE 1 [facility] 80 mg 1-12 CAPSULE BY ity of capsule 00:00: MOUTH 00 TWICE Medical DAILY WITH Branch FOOD ziprasidone 2-0 Yes TAKE 1 [facility] 80 mg 1-12 CAPSULE BY ity of capsule 00:00: MOUTH 00 TWICE Medical DAILY WITH Branch FOOD ziprasidone 2-0 Yes TAKE 1 [facility] 80 mg 1-12 CAPSULE BY ity of capsule 00:00: MOUTH 00 TWICE Medical DAILY WITH Branch FOOD ziprasidone 2-0 Yes TAKE 1 [facility] 80 mg 1-12 CAPSULE BY ity of capsule 00:00: MOUTH 00 TWICE Medical DAILY WITH Branch FOOD ziprasidone 2-0 Yes TAKE 1 [facility] 80 mg 1-12 CAPSULE BY ity of capsule 00:00: MOUTH 00 TWICE Medical DAILY WITH Branch FOOD ziprasidone 2-0 Yes TAKE 1 [facility] 80 mg 1-12 CAPSULE BY ity of capsule 00:00: MOUTH 00 TWICE Medical DAILY WITH Branch FOOD ziprasidone 2-0 Yes TAKE 1 [facility] 80 mg 1-12 CAPSULE BY ity of capsule 00:00: MOUTH 00 TWICE Medical DAILY WITH Branch FOOD REXULTI 1 2021-0 Yes [facility] mg Tab 1-11 ity of 00:00: 00 Medical Branch clonazePAM 2-0 Yes TAKE 1/2 [facility] 1 mg tablet 1-11 TO 1 ity of 00:00: TABLET BY 00 MOUTH Medical DAILY Branch NEEDED REXULTI 1 2021-0 Yes [facility] mg Tab 1-11 ity of 00:00: [place] 00 Medical Branch clonazePAM 2-0 Yes TAKE 1/2 [facility] vers 1 mg tablet 1-11 TO 1 ity of 00:00: TABLET BY [place] 00 MOUTH Medical DAILY Branch NEEDED REXULTI 1 2022-0 Yes [facility] mg Tab -11 ity of 00:00: [place] [facility] clonazePAM 2022-0 Yes TAKE 1/2 [facility] 1 mg tablet 11 TO 1 ity of 00:00: TABLET BY [place] MOUTH Medical DAILY Branch NEEDED REXULTI 1 2022-0 Yes [facility] mg Tab -11 ity of 00:00: [place] [facility] clonazePAM 2022-0 Yes TAKE 1/2 [facility] 1 mg tablet 05-25 TO 1 ity of 00:00: TABLET BY [place] MOUTH Medical DAILY Branch NEEDED REXULTI 1 2022-0 Yes [facility] mg Tab 11 ity of 00:00: [place] [address] Medical Branch clonazePAM 2022-0 Yes TAKE 1/2 [facility] 1 mg tablet 05-25 TO 1 ity of 00:00: TABLET BY [place] MOUTH Medical DAILY Branch NEEDED REXULTI 1 2022-0 Yes [facility] mg Tab 05-25 ity of 00:00: [place] [address] Medical Branch clonazePAM 2022-0 Yes TAKE 1/2 [facility] vers 1 mg tablet 05-25 TO 1 ity of 00:00: TABLET BY [place] MOUTH Medical DAILY Branch NEEDED clonazePAM 2022-0 Yes TAKE 1/2 [facility] vers 1 mg tablet 05-25 TO 1 ity of 00:00: TABLET BY [place] [address] MOUTH [facility] DAILY Branch NEEDED clonazePAM 2022-0 Yes TAKE 1/2 [facility] vers 1 mg tablet 05-25 TO 1 ity of 00:00: TABLET BY [place] MOUTH Medical DAILY Branch NEEDED clonazePAM 2022-0 Yes TAKE 1/2 [facility] vers 1 mg tablet 05-25 TO 1 ity of 00:00: TABLET BY [place] MOUTH Medical DAILY Branch NEEDED clonazePAM 2022-0 Yes TAKE 1/2 [facility] vers 1 mg tablet 05-25 TO 1 ity of 00:00: TABLET BY [place] MOUTH Medical DAILY Branch NEEDED clonazePAM 2022-0 Yes TAKE 1/2 [facility] vers 1 mg tablet 05-25 TO 1 ity of 00:00: TABLET BY [place] MOUTH Medical DAILY Branch NEEDED clonazePAM 2022-0 Yes TAKE 1/2 [facility] 1 mg tablet 05-25 TO 1 ity of 00:00: TABLET BY [place] MOUTH Medical DAILY Branch NEEDED clonazePAM 2022-0 Yes TAKE 1/2 [facility] 1 mg tablet 1-11 TO 1 ity of 00:00: TABLET BY [place] MOUTH Medical DAILY Branch NEEDED clonazePAM 2022-0 Yes TAKE 1/2 [facility] 1 mg tablet 11 TO 1 ity of 00:00: TABLET BY [place] MOUTH Medical DAILY Branch NEEDED clonazePAM 2022-0 Yes TAKE 1/2 [facility] 1 mg tablet 11 TO 1 ity of 00:00: TABLET BY [place] MOUTH Medical DAILY Branch NEEDED clonazePAM 2022-0 Yes TAKE 1/2 [facility] 1 mg tablet 11 TO 1 ity of 00:00: TABLET BY [place] MOUTH Medical DAILY Branch NEEDED clonazePAM 2022-0 Yes TAKE 1/2 [facility] 1 mg tablet 05-25 TO 1 ity of 00:00: TABLET BY [place] MOUTH Medical DAILY Branch NEEDED clonazePAM 2022-0 Yes TAKE 1/2 [facility] vers 1 mg tablet 05-25 TO 1 ity of 00:00: TABLET BY [place] MOUTH Medical DAILY Branch NEEDED clonazePAM 2022-0 Yes TAKE 1/2 [facility] vers 1 mg tablet 05-25 TO 1 ity of 00:00: TABLET BY [place] MOUTH Medical DAILY Branch NEEDED clonazePAM 2022-0 Yes TAKE 1/2 [facility] 1 mg tablet 05-25 TO 1 ity of 00:00: TABLET BY [place] MOUTH Medical DAILY Branch NEEDED REXULTI 1 2022-0 Yes [facility] mg Tab - ity of 00:00: [place] [address] Medical Branch clonazePAM 2022-0 Yes TAKE 1/2 [facility] vers 1 mg tablet 11 TO 1 ity of 00:00: TABLET BY [place] MOUTH Medical DAILY Branch NEEDED REXULTI 1 2022-0 Yes [facility] mg Tab -11 ity of 00:00: [place] [address] Medical Branch clonazePAM 2022-0 Yes TAKE 1/2 [facility] vers 1 mg tablet 11 TO 1 ity of 00:00: TABLET BY [place] MOUTH Medical DAILY Branch NEEDED REXULTI 1 2022-0 Yes [facility] mg Tab 11 ity of 00:00: [place] [address] Medical Branch clonazePAM 2022-0 Yes TAKE 1/2 [facility] vers 1 mg tablet 11 TO 1 ity of 00:00: TABLET BY [place] MOUTH Medical DAILY Branch NEEDED REXULTI 1 2022-0 Yes [facility] mg Tab -11 ity of 00:00: [place] [address] Medical Branch clonazePAM 2021-0 Yes TAKE 1/2 [facility] vers 1 mg tablet 05-25 TO 1 ity of 00:00: TABLET BY [place] MOUTH Medical DAILY Branch NEEDED REXULTI 1 2021-0 Yes [facility] mg Tab 05-25 ity of 00:00: [place] [address] Medical Branch clonazePAM 2021-0 Yes TAKE 1/2 [facility] 1 mg tablet 05-25 TO 1 ity of 00:00: TABLET BY [place] MOUTH Medical DAILY Branch NEEDED REXULTI 1 2021-0 Yes [facility] mg Tab 05-25 ity of 00:00: [place] [address] Medical Branch clonazePAM 2021-0 Yes TAKE 1/2 [facility] 1 mg tablet 05-25 TO 1 ity of 00:00: TABLET BY [place] MOUTH Medical DAILY Branch NEEDED REXULTI 1 2021-0 Yes [facility] mg Tab 05-25 ity of 00:00: [place] [address] Medical Branch clonazePAM 2021-0 Yes TAKE 1/2 [facility] vers 1 mg tablet 05-25 TO 1 ity of 00:00: TABLET BY [place] MOUTH Medical DAILY Branch NEEDED REXULTI 1 2021-0 Yes [facility] mg Tab 05-25 ity of 00:00: [place] [address] Medical Branch clonazePAM 2021-0 Yes TAKE 1/2 [facility] vers 1 mg tablet 05-25 TO 1 ity of 00:00: TABLET BY [place] MOUTH Medical DAILY Branch NEEDED REXULTI 1 2021-0 Yes Univers mg Tab 05-25 ity of 00:00: [place] [address] Medical Branch clonazePAM 2021-0 Yes TAKE 1/2 [facility] vers 1 mg tablet 05-25 TO 1 ity of 00:00: TABLET BY [place] MOUTH Medical DAILY Branch NEEDED REXULTI 1 2021-0 Yes Univers mg Tab 05-25 ity of 00:00: [place] [address] Medical Branch clonazePAM 2021-0 Yes TAKE 1/2 [facility] vers 1 mg tablet 05-25 TO 1 ity of 00:00: TABLET BY [place] MOUTH Medical DAILY Branch NEEDED REXULTI 1 2021-0 2021- No Univers mg Tab 05-25 ity of 00:00: 00:00 [place] 00 :00 Medical Branch REXULTI 1 2021-0 2021- No [facility] mg Tab 05-25 ity of 00:00: 00:00 [place] 00 :00 Medical Branch buPROPion 2021-0 Yes 150mg Take 150 Uni vers XL 150 mg 1-07 mg by ity of 24 hr 00:00: mouth [place] tablet 00 daily. Medical Branch DULoxetine 2021-0 Yes 120mg Take 120 [facility] 60 mg 1-07 mg by ity of capsule 00:00: mouth [place] 00 daily. Medical Branch buPROPion 2021-0 Yes 150mg Take 150 Uni vers XL 150 mg 1-07 mg by ity of 24 hr 00:00: mouth [place] tablet 00 daily. Medical Branch DULoxetine 2021-0 Yes 120mg Take 120 Un [facility] 60 mg 1-07 mg by ity of capsule 00:00: mouth [place] 00 daily. Medical Branch buPROPion 2021-0 Yes 150mg Take 150 Uni vers XL 150 mg 1-07 mg by ity of 24 hr 00:00: mouth [place] tablet 00 daily. Medical Branch DULoxetine 2021-0 Yes 120mg Take 120 Un jo[facility] 60 mg 1-07 mg by ity of capsule 00:00: mouth [place] 00 daily. Medical Branch buPROPion 2021-0 Yes 150mg Take 150 Uni vers XL 150 mg 1-07 mg by ity of 24 hr 00:00: mouth [place] tablet 00 daily. Medical Branch DULoxetine 2021-0 Yes 120mg Take 120 Un [facility] 60 mg 1-07 mg by ity of capsule 00:00: mouth [place] 00 daily. Medical Branch buPROPion 2021-0 Yes 150mg Take 150 Uni vers XL 150 mg 1-07 mg by ity of 24 hr 00:00: mouth [place] tablet 00 daily. Medical Branch DULoxetine 2-0 Yes 120mg Take 120 Un [facility] 60 mg 1-07 mg by ity of capsule 00:00: mouth [place] 00 daily. Medical Branch buPROPion 2021-0 Yes 150mg Take 150 [facility] vers XL 150 mg 1-07 mg by ity of 24 hr 00:00: mouth [place] tablet 00 daily. Medical Branch DULoxetine 2-0 Yes 120mg Take 120 Un [facility] 60 mg 1-07 mg by ity of capsule 00:00: mouth [place] 00 daily. Medical Branch buPROPion 2-0 Yes 150mg Take 150 [facility] vers XL 150 mg 1-07 mg by ity of 24 hr 00:00: mouth [place] tablet 00 daily. Medical Branch DULoxetine 2021-0 Yes 120mg Take 120 Un [facility] 60 mg 1-07 mg by ity of capsule 00:00: mouth [place] 00 daily. Medical Branch buPROPion 2021-0 Yes 150mg Take 150 Uni vers XL 150 mg 1-07 mg by ity of 24 hr 00:00: mouth [place] tablet 00 daily. Medical Branch DULoxetine 2021-0 Yes 120mg Take 120 Un [facility] 60 mg 1-07 mg by ity of capsule 00:00: mouth [place] 00 daily. Medical Branch buPROPion 2021-0 Yes 150mg Take 150 Uni vers XL 150 mg 1-07 mg by ity of 24 hr 00:00: mouth [place] tablet 00 daily. Medical Branch DULoxetine 2021-0 Yes 120mg Take 120 Un [facility] 60 mg 1-07 mg by ity of capsule 00:00: mouth [place] 00 daily. Medical Branch buPROPion 2021-0 Yes 150mg Take 150 [facility] vers XL 150 mg 1-07 mg by ity of 24 hr 00:00: mouth [place] tablet 00 daily. Medical Branch DULoxetine 2021-0 Yes 120mg Take 120 [facility] 60 mg 1-07 mg by ity of capsule 00:00: mouth [place] 00 daily. Medical Branch buPROPion 2021-0 Yes 150mg Take 150 Uni vers XL 150 mg 1-07 mg by ity of 24 hr 00:00: mouth [place] tablet 00 daily. Medical Branch DULoxetine 2021-0 Yes 120mg Take 120 [facility] 60 mg 1-07 mg by ity of capsule 00:00: mouth [place] 00 daily. Medical Branch buPROPion 2021-0 Yes 150mg Take 150 [facility] vers XL 150 mg 1-07 mg by ity of 24 hr 00:00: mouth [place] tablet 00 daily. Medical Branch DULoxetine 2021-0 Yes 120mg Take 120 [facility] 60 mg 1-07 mg by ity of capsule 00:00: mouth [place] 00 daily. Medical Branch buPROPion 2021-0 Yes 150mg Take 150 Uni vers XL 150 mg 1-07 mg by ity of 24 hr 00:00: mouth [place] tablet 00 daily. Medical Branch DULoxetine 2021-0 Yes 120mg Take 120 Un [facility] 60 mg 1-07 mg by ity of capsule 00:00: mouth [place] 00 daily. Medical Branch buPROPion 2021-0 Yes 150mg Take 150 Uni vers XL 150 mg 1-07 mg by ity of 24 hr 00:00: mouth [place] tablet 00 daily. Medical Branch DULoxetine 2-0 Yes 120mg Take 120 Un [facility] 60 mg 1-07 mg by ity of capsule 00:00: mouth [place] 00 daily. Medical Branch buPROPion 2-0 Yes 150mg Take 150 Uni vers XL 150 mg 1-07 mg by ity of 24 hr 00:00: mouth [place] tablet 00 daily. Medical Branch DULoxetine 2-0 Yes 120mg Take 120 [facility] 60 mg 1-07 mg by ity of capsule 00:00: mouth [place] 00 daily. Medical Branch buPROPion 2-0 Yes 150mg Take 150 [facility] vers XL 150 mg 1-07 mg by ity of 24 hr 00:00: mouth [place] tablet 00 daily. Medical Branch DULoxetine 2-0 Yes 120mg Take 120 [facility] 60 mg 1-07 mg by ity of capsule 00:00: mouth [place] 00 daily. Medical Branch buPROPion 2-0 Yes 150mg Take 150 [facility] vers XL 150 mg 1-07 mg by ity of 24 hr 00:00: mouth [place] tablet 00 daily. Medical Branch DULoxetine 2-0 Yes 120mg Take 120 [facility] 60 mg 1-07 mg by ity of capsule 00:00: mouth [place] 00 daily. Medical Branch buPROPion 2-0 Yes 150mg Take 150 Uni vers XL 150 mg 1-07 mg by ity of 24 hr 00:00: mouth [place] tablet 00 daily. Medical Branch DULoxetine 2-0 Yes 120mg Take 120 [facility] 60 mg 1-07 mg by ity of capsule 00:00: mouth [place] 00 daily. Medical Branch buPROPion 2-0 Yes 150mg Take 150 Uni vers XL 150 mg 1-07 mg by ity of 24 hr 00:00: mouth [place] tablet 00 daily. Medical Branch DULoxetine 2-0 Yes 120mg Take 120 [facility] 60 mg 1-07 mg by ity of capsule 00:00: mouth [place] 00 daily. Medical Branch buPROPion 2-0 Yes 150mg Take 150 Uni vers XL 150 mg 1-07 mg by ity of 24 hr 00:00: mouth [place] tablet 00 daily. Medical Branch DULoxetine 2-0 Yes 120mg Take 120 [facility] 60 mg 1-07 mg by ity of capsule 00:00: mouth [place] 00 daily. Medical Branch buPROPion 2022-0 Yes 150mg Take 150 Uni vers XL 150 mg 1-07 mg by ity of 24 hr 00:00: mouth [place] tablet 00 daily. Medical Branch DULoxetine 2021-0 Yes 120mg Take 120 [facility] 60 mg 1-07 mg by ity of capsule 00:00: mouth [place] 00 daily. Medical Branch buPROPion 2021-0 Yes 150mg Take 150 [facility] vers XL 150 mg 1-07 mg by ity of 24 hr 00:00: mouth [place] tablet 00 daily. Medical Branch DULoxetine 2021-0 Yes 120mg Take 120 [facility] 60 mg 1-07 mg by ity of capsule 00:00: mouth [place] 00 daily. Medical Branch buPROPion 2021-0 Yes 150mg Take 150 Uni vers XL 150 mg 1-07 mg by ity of 24 hr 00:00: mouth [place] tablet 00 daily. [facility] Branch DULoxetine 2021-0 Yes 120mg Take 120 [facility] 60 mg 1-07 mg by ity of capsule 00:00: mouth [place] 00 daily. [facility] Branch buPROPion 2021-0 Yes 150mg Take 150 Uni vers XL 150 mg 1-07 mg by ity of 24 hr 00:00: mouth [place] tablet 00 daily. [facility] Branch DULoxetine 2021-0 Yes 120mg Take 120 [facility] 60 mg 1-07 mg by ity of capsule 00:00: mouth [place] 00 daily. Medical Branch buPROPion 2021-0 Yes 150mg Take 150 Uni vers XL 150 mg 1-07 mg by ity of 24 hr 00:00: mouth [place] tablet 00 daily. Medical Branch DULoxetine 2021-0 Yes 120mg Take 120 [facility] 60 mg 1-07 mg by ity of capsule 00:00: mouth [place] 00 daily. Medical Branch buPROPion 2021-0 Yes 150mg Take 150 Uni vers XL 150 mg 1-07 mg by ity of 24 hr 00:00: mouth [place] tablet 00 daily. Medical Branch DULoxetine 2021-0 Yes 120mg Take 120 [facility] 60 mg 1-07 mg by ity of capsule 00:00: mouth [place] 00 daily. Medical Branch buPROPion 2021-0 Yes 150mg Take 150 [facility] vers XL 150 mg 1-07 mg by ity of 24 hr 00:00: mouth [place] tablet 00 daily. Medical Branch DULoxetine 2021-0 Yes 120mg Take 120 [facility] 60 mg 1-07 mg by ity of capsule 00:00: mouth [place] 00 daily. Medical Branch buPROPion 2-0 Yes 150mg Take 150 Uni vers XL 150 mg 1-07 mg by ity of 24 hr 00:00: mouth [place] tablet 00 daily. Medical Branch DULoxetine 2-0 Yes 120mg Take 120 [facility] 60 mg 1-07 mg by ity of capsule 00:00: mouth [place] 00 daily. Medical Branch buPROPion 2-0 Yes 150mg Take 150 Uni vers XL 150 mg 1-07 mg by ity of 24 hr 00:00: mouth [place] tablet 00 daily. Medical Branch DULoxetine 2-0 Yes 120mg Take 120 [facility] 60 mg 1-07 mg by ity of capsule 00:00: mouth [place] 00 daily. Medical Branch buPROPion 2-0 Yes 150mg Take 150 Uni vers XL 150 mg 1-07 mg by ity of 24 hr 00:00: mouth [place] tablet 00 daily. Medical Branch DULoxetine 2021-0 Yes 120mg Take 120 [facility] 60 mg 1-07 mg by ity of capsule 00:00: mouth [place] 00 daily. Medical Branch cloNIDine 2-0 Yes [facility] 0.1 mg 1-04 ity of tablet 00:00: [place] 00 Medical Branch cloNIDine 2022-0 Yes [facility] 0.1 mg 1-04 ity of tablet 00:00: 00 [facility] Branch cloNIDine 2022-0 Yes [facility] 0.1 mg 1-04 ity of tablet 00:00: [place] 00 Medical Branch cloNIDine 2022-0 Yes [facility] 0.1 mg 1-04 ity of tablet 00:00: 00 [facility] Branch cloNIDine 2022-0 Yes [facility] 0.1 mg 1-04 ity of tablet 00:00: 00 [facility] Branch cloNIDine 2022-0 Yes [facility] 0.1 mg 1-04 ity of tablet 00:00: 00 [facility] Branch cloNIDine 2022-0 Yes [facility] 0.1 mg 1-04 ity of tablet 00:00: 00 [facility] Branch cloNIDine 2022-0 Yes [facility] 0.1 mg 1-04 ity of tablet 00:00: 00 [facility] Branch cloNIDine 2022-0 Yes [facility] 0.1 mg 1-04 ity of tablet 00:00: 00 [facility] Branch cloNIDine 2022-0 Yes [facility] 0.1 mg 1-04 ity of tablet 00:00: [place] [facility] cloNIDine 2022-0 Yes [facility] 0.1 mg 1-04 ity of tablet 00:00: [place] [facility] cloNIDine 2022-0 Yes [facility] 0.1 mg 1-04 ity of tablet 00:00: [place] [facility] cloNIDine 2022-0 Yes [facility] 0.1 mg 1-04 ity of tablet 00:00: [place] [facility] cloNIDine 2022-0 Yes [facility] 0.1 mg 1-04 ity of tablet 00:00: [place] [facility] cloNIDine 2022-0 Yes [facility] 0.1 mg 1-04 ity of tablet 00:00: [facility] cloNIDine 2022-0 Yes [facility] 0.1 mg 1-04 ity of tablet 00:00: [facility] cloNIDine 2022-0 Yes Univers 0.1 mg 1-04 ity of tablet 00:00: [facility] cloNIDine 2022-0 Yes Univers 0.1 mg 1-04 ity of tablet 00:00: [facility] cloNIDine 2022-0 Yes Univers 0.1 mg 1-04 ity of tablet 00:00: [facility] [place] [facility] cloNIDine 2022-0 Yes Univers 0.1 mg 1-04 ity of tablet 00:00: [facility] cloNIDine 2022-0 Yes Univers 0.1 mg 1-04 ity of tablet 00:00: [facility] cloNIDine 2022-0 Yes Univers 0.1 mg 1-04 ity of tablet 00:00: [place] [address] [facility] cloNIDine 2022-0 Yes Univers 0.1 mg 1-04 ity of tablet 00:00: [facility] cloNIDine 2022-0 Yes Univers 0.1 mg 1-04 ity of tablet 00:00: [facility] cloNIDine 2022-0 Yes Univers 0.1 mg 1-04 ity of tablet 00:00: [place] [address] [facility] cloNIDine 2022-0 Yes Univers 0.1 mg 1-04 ity of tablet 00:00: [facility] cloNIDine 2022-0 Yes Univers 0.1 mg 1-04 ity of tablet 00:00: [place] [address] [facility] cloNIDine 2022-0 Yes Univers 0.1 mg 1-04 ity of tablet 00:00: [place] [address] [facility] cloNIDine 2022-0 Yes Univers 0.1 mg 1-04 ity of tablet 00:00: [place] 00 [facility] cloNIDine 2022-0 Yes Univers 0.1 mg 1-04 ity of tablet 00:00: [place] 00 [facility] propranoloL 2021-1 Yes 20mg Take 20 mg Univers 20 mg 2-22 by mouth 2 ity of tablet 00:00: (two) [place] 00 times Medical daily. Branch propranoloL 2021-1 Yes 20mg Take 20 mg [facility] 20 mg 2-22 by mouth 2 ity of tablet 00:00: (two) [place] 00 times Medical daily. Branch propranoloL 2021-1 Yes 20mg Take 20 mg [facility] 20 mg 2-22 by mouth 2 ity of tablet 00:00: (two) [place] 00 times Medical daily. Branch propranoloL 2021-1 Yes 20mg Take 20 mg [facility] 20 mg 2-22 by mouth 2 ity of tablet 00:00: (two) [place] 00 times Medical daily. Branch propranoloL 2021-1 Yes 20mg Take 20 mg [facility] 20 mg 2-22 by mouth 2 ity of tablet 00:00: (two) [place] 00 times Medical daily. Branch propranoloL 2021-1 Yes 20mg Take 20 mg [facility] 20 mg 2-22 by mouth 2 ity of tablet 00:00: (two) [place] 00 times Medical daily. Branch propranoloL 2021-1 Yes 20mg Take 20 mg [facility] 20 mg 2-22 by mouth 2 ity of tablet 00:00: (two) [place] 00 times Medical daily. Branch propranoloL 2021-1 Yes 20mg Take 20 mg [facility] 20 mg 2-22 by mouth 2 ity of tablet 00:00: (two) [place] 00 times Medical daily. Branch propranoloL 2021-1 Yes 20mg Take 20 mg [facility] 20 mg 2-22 by mouth 2 ity of tablet 00:00: (two) [place] 00 times Medical daily. Branch propranoloL 2021-1 Yes 20mg Take 20 mg [facility] 20 mg 2-22 by mouth 2 ity of tablet 00:00: (two) [place] 00 times Medical daily. Branch propranoloL 2021-1 Yes 20mg Take 20 mg [facility] 20 mg 2-22 by mouth 2 ity of tablet 00:00: (two) [place] 00 times Medical daily. Branch propranoloL 2021-1 Yes 20mg Take 20 mg [facility] 20 mg 2-22 by mouth 2 ity of tablet 00:00: (two) [place] 00 times Medical daily. Branch propranoloL 2021-1 Yes 20mg Take 20 mg [facility] 20 mg 2-22 by mouth 2 ity of tablet 00:00: (two) [place] 00 times Medical daily. Branch propranoloL 2021-1 Yes 20mg Take 20 mg [facility] 20 mg 2-22 by mouth 2 ity of tablet 00:00: (two) [place] 00 times Medical daily. Branch propranoloL 2021-1 Yes 20mg Take 20 mg [facility] 20 mg 2-22 by mouth 2 ity of tablet 00:00: (two) [place] 00 times Medical daily. Branch propranoloL 2021-1 Yes 20mg Take 20 mg [facility] 20 mg 2-22 by mouth 2 ity of tablet 00:00: (two) [place] 00 times Medical daily. Branch propranoloL 2021-1 Yes 20mg Take 20 mg [facility] 20 mg 2-22 by mouth 2 ity of tablet 00:00: (two) [place] 00 times Medical daily. Branch propranoloL 2021-1 Yes 20mg Take 20 mg [facility] 20 mg 2-22 by mouth 2 ity of tablet 00:00: (two) [place] 00 times Medical daily. Branch propranoloL 2021-1 Yes 20mg Take 20 mg [facility] 20 mg 2-22 by mouth 2 ity of tablet 00:00: (two) [place] 00 times Medical daily. Branch propranoloL 2021-1 Yes 20mg Take 20 mg [facility] 20 mg 2-22 by mouth 2 ity of tablet 00:00: (two) [place] 00 times Medical daily. Branch propranoloL 2021-1 Yes 20mg Take 20 mg [facility] 20 mg 2-22 by mouth 2 ity of tablet 00:00: (two) [place] 00 times Medical daily. Branch propranoloL 2021-1 Yes 20mg Take 20 mg [facility] 20 mg 2-22 by mouth 2 ity of tablet 00:00: (two) [place] 00 times Medical daily. Branch propranoloL 2021-1 Yes 20mg Take 20 mg [facility] 20 mg 2-22 by mouth 2 ity of tablet 00:00: (two) [place] 00 times Medical daily. Branch propranoloL 2021-1 Yes 20mg Take 20 mg [facility] 20 mg 2-22 by mouth 2 ity of tablet 00:00: (two) [place] 00 times Medical daily. Branch propranoloL 2021-1 Yes 20mg Take 20 mg [facility] 20 mg 2-22 by mouth 2 ity of tablet 00:00: (two) [place] 00 times Medical daily. Branch propranoloL 2021-1 Yes 20mg Take 20 mg [facility] 20 mg 2-22 by mouth 2 ity of tablet 00:00: (two) [place] 00 times Medical daily. Branch propranoloL 2020-05 Yes 20mg Take 20 mg [facility] 20 mg 2-22 by mouth 2 ity of tablet 00:00: (two) [place] 00 times Medical daily. Branch dextroamphe 2020-05 Yes Univer s tamine-amph 1-18 ity of etamine 20 00:00: [place] mg tablet 00 Medical Branch dextroamphe 2020-05 Yes Univer s tamine-amph 1-18 ity of etamine 20 00:00: [place] mg tablet 00 Medical Branch dextroamphe 2020-05 Yes Univer s tamine-amph 1-18 ity of etamine 20 00:00: [place] mg tablet 00 Medical Branch dextroamphe 2020-05 Yes Rheaer s tamine-amph 1-18 ity of etamine 20 00:00: [place] mg tablet 00 Medical Branch dextroamphe 2020-05 Yes Ashish s tamine-amph 1-18 ity of etamine 20 00:00: [place] mg tablet 00 [facility] dextroamphe 2020-05 Yes [facility]ama [facility] tamine-amph 1-18 ity of etamine 20 00:00: [place] mg tablet 00 [facility] Branch dextroamphe 2020-05 Yes Ashish s tamine-amph 1-18 ity of etamine 20 00:00: [place] mg tablet 00 [facility] dextroamphe 2020-05 Yes [facility]ama [facility] tamine-amph 1-18 ity of etamine 20 00:00: [place] mg tablet 00 [facility] Branch dextroamphe 2020-05 Yes [facility]ama s tamine-amph 1-18 ity of etamine 20 00:00: [place] mg tablet 00 Medical Branch dextroamphe 2020-05 Yes [facility]ama s tamine-amph 1-18 ity of etamine 20 00:00: [place] mg tablet 00 [facility] Branch dextroamphe 2020-05 Yes Ashish s tamine-amph 1-18 ity of etamine 20 00:00: [place] mg tablet 00 [facility] Branch dextroamphe 2020-05 Yes Ashish s tamine-amph 1-18 ity of etamine 20 00:00: [place] mg tablet 00 [facility] Branch dextroamphe 2020-05 Yes Univer s tamine-amph 1-18 ity of etamine 20 00:00: [place] mg tablet 00 [facility] Branch dextroamphe 2020-05 Yes Univer s tamine-amph 1-18 ity of etamine 20 00:00: [place] mg tablet 00 [facility] Branch dextroamphe 2020-05 Yes Univer s tamine-amph 1-18 ity of etamine 20 00:00: [place] mg tablet 00 Medical Branch dextroamphe 2020-05 Yes Univer s tamine-amph 1-18 ity of etamine 20 00:00: [place] mg tablet 00 Medical Branch dextroamphe 2020-05 Yes Univer s tamine-amph 1-18 ity of etamine 20 00:00: [place] mg tablet 00 Medical Branch dextroamphe 2020-05 Yes Univer s tamine-amph 1-18 ity of etamine 20 00:00: [place] mg tablet Medical Branch dextroamphe 2020-05 Yes Univer s tamine-amph 1-18 ity of etamine 20 00:00: [place] mg tablet 00 Medical Branch dextroamphe 2020-05 Yes Univer s tamine-amph 1-18 ity of etamine 20 00:00: [place] mg tablet 00 [facility] Branch dextroamphe 2020-05 Yes Univer s tamine-amph 1-18 ity of etamine 20 00:00: [place] mg tablet 00 Medical Branch dextroamphe 2020-05 Yes Univer s tamine-amph 1-18 ity of etamine 20 00:00: [place] mg tablet 00 Medical Branch dextroamphe 2020-05 Yes Univer s tamine-amph 1-18 ity of etamine 20 00:00: [place] mg tablet 00 Medical Branch dextroamphe 2020-05 Yes Univer s tamine-amph 1-18 ity of etamine 20 00:00: [place] mg tablet 00 Medical Branch dextroamphe 2020-05 Yes Univer s tamine-amph 1-18 ity of etamine 20 00:00: [place] mg tablet 00 Medical Branch dextroamphe 2020-05 Yes Univer s tamine-amph 1-18 ity of etamine 20 00:00: [place] mg tablet 00 Medical Branch dextroamphe 2020-05 Yes Univer s tamine-amph 1-18 ity of etamine 20 00:00: [place] mg tablet 00 Medical Branch dextroamphe 2020-05 Yes Univer s tamine-amph 1-18 ity of etamine 20 00:00: [place] mg tablet [facility] dextroamphe 2020-05 Yes Univer s tamine-amph 1-18 ity of etamine 20 00:00: [place] mg tablet [facility] dextroamphe 2020-05 Yes Univer s tamine-amph 1-18 ity of etamine 20 00:00: [place] mg tablet [facility] duloxetine Yes 120 mg, Luis paula 7-21 PO, 0 l 20:06: Refill(s) DULoxetine Yes 120 mg, Luis paula 7-21 PO, 0 l 20:06: Refill(s) duloxetine Yes 120 mg, Luis paula 7-21 PO, 0 l 20:06: Refill(s) duloxetine Yes 120 mg, Luis paula 7-21 PO, 0 l 20:06: Refill(s) DULoxetine Yes 120 mg, Luis paula 7-21 PO, 0 l 20:06: Refill(s) DULoxetine Yes 120 mg, Luis paula 7-21 PO, 0 l 20:06: Refill(s) Clonidine Yes 0.2 mg = 1 Me moria Hydrochlori 7-21 tab, PO, l de 0.2 MG 20:05: BID, 0 Kobi n Oral Tablet Refill(s) cloNIDine Yes 0.2 mg = 1 Me moria 0.2 mg oral 7-21 tab, PO, l tablet 20:05: BID, 0 [place] Refill(s) zolpidem 10 Yes 10 mg = 1 M emoria mg oral 7-21 tab, PO, l tablet 20:05: Bedtime, 0 [place] nn Refill(s) Clonidine Yes 0.2 mg = 1 Me moria Hydrochlori 7-21 tab, PO, l de 0.2 MG 20:05: BID, 0 [place] n Oral Tablet 00 Refill(s) cloNIDine Yes 0.2 mg = 1 Me moria 0.2 mg oral 7-21 tab, PO, l tablet 20:05: BID, 0 [place] 00 Refill(s) zolpidem 10 Yes 10 mg = 1 M emoria mg oral 7-21 tab, PO, l tablet 20:05: Bedtime, 0 [place] Refill(s) Clonidine Yes 0.2 mg = 1 Me moria Hydrochlori 7-21 tab, PO, l de 0.2 MG 20:05: BID, 0 [place] n Oral Tablet 00 Refill(s) zolpidem 10 Yes 10 mg = 1 M emoria mg oral 7-21 tab, PO, l tablet 20:05: Bedtime, 0 [place] Refill(s) cloNIDine Yes 0.2 mg = 1 Me moria 0.2 mg oral 7-21 tab, PO, l tablet 20:05: BID, 0 Refill(s) Metformin Yes 2,000 mg, Mem oria 7-21 PO, 0 l 20:04: Refill(s) Bupropion Yes 150 mg, Memor ia 7-21 PO, 0 l 20:04: Refill(s) metFORMIN Yes 2,000 mg, Mem oria 7-21 PO, 0 l 20:04: Refill(s) buPROPion Yes 150 mg, Memor ia 7-21 PO, 0 l 20:04: Refill(s) Metformin Yes 2,000 mg, Mem oria 7-21 PO, 0 l 20:04: Refill(s) Bupropion Yes 150 mg, Memor ia 7-21 PO, 0 l 20:04: Refill(s) metFORMIN Yes 2,000 mg, Mem oria 7-21 PO, 0 l 20:04: Refill(s) buPROPion Yes 150 mg, Memor ia 7-21 PO, 0 l 20:04: Refill(s) Metformin Yes 2,000 mg, Mem oria 7-21 PO, 0 l 20:04: Refill(s) Bupropion Yes 150 mg, Memor ia 7-21 PO, 0 l 20:04: Refill(s) metFORMIN Yes 2,000 mg, Mem oria 7-21 PO, 0 l 20:04: Refill(s) buPROPion Yes 150 mg, Memor ia 7-21 PO, 0 l 20:04: Refill(s) propranolol Yes 20 mg = 1 M emoria 20 mg oral 7-21 tab, PO, l tablet 20:03: BID, 0 [place] 00 Refill(s) ziprasidone Yes 80 mg = 1 M emoria 80 mg oral 7-21 cap, PO, l capsule 20:03: BID, 0 [place] 00 Refill(s) atorvastati Yes 10 mg = 1 M emoria n 10 mg 7-21 tab, PO, l oral tablet 20:03: Daily, 0 [place] 00 Refill(s) propranolol Yes 20 mg = 1 M emoria 20 mg oral 7-21 tab, PO, l tablet 20:03: BID, 0 [place] 00 Refill(s) ziprasidone Yes 80 mg = 1 M emoria 80 mg oral 7-21 cap, PO, l capsule 20:03: BID, 0 [place] 00 Refill(s) atorvastati Yes 10 mg = 1 M emoria n 10 mg 7-21 tab, PO, l oral tablet 20:03: Daily, 0 [place] 00 Refill(s) propranolol Yes 20 mg = 1 M emoria 20 mg oral 7-21 tab, PO, l tablet 20:03: BID, 0 [place] 00 Refill(s) ziprasidone Yes 80 mg = 1 M emoria 80 mg oral 7-21 cap, PO, l capsule 20:03: BID, 0 [place] 00 Refill(s) atorvastati Yes 10 mg = 1 M emoria n 10 mg 7-21 tab, PO, l oral tablet 20:03: Daily, 0 [place] 00 Refill(s) Acetazolami No 500 mg, Mem oria de - Route: IV, l 14:00: Daily, Dosing Weight 79.545, kg, Start date: 11/30/14 9:00:00, Duration: 30 day, Stop date: 12/29/14 9:00:00 Acetazolami 2015-0 No 500 mg, Mem oria de 11-30 Route: IV, l 14:00: Daily, Dosing Weight 79.545, kg, Start date: 11/30/14 9:00:00, Duration: 30 day, Stop date: 12/29/14 9:00:00 Acetazolami 2015-0 No 500 mg, Mem oria de 11-30 Route: IV, l 14:00: Daily, Dosing Weight 79.545, kg, Start date: 11/30/14 9:00:00, Duration: 30 day, Stop date: 12/29/14 9:00:00 dorzolamide 2014-0 No 1 drp, Luis paula 20 MG/ML / -18 Route: l Timolol 5 22:00: BOTH EYES, He r[place] MG/ML 00 BID, Start Ophthalmic date: Solution 11/29/14 [Cosopt] 17:00:00, Duration: 30 day, Stop date: 12/29/14 9:00:00 dorzolamide 2014-0 No 1 drp, Luis paula 20 MG/ML / -18 Route: l Timolol 5 22:00: BOTH EYES, [place] r[place] MG/ML 00 BID, Start Ophthalmic date: Solution 11/29/14 [Cosopt] 17:00:00, Duration: 30 day, Stop date: 12/29/14 9:00:00 dorzolamide 2015-0 No 1 drp, Luis paula 20 MG/ML / 7-18 Route: l Timolol 5 22:00: BOTH EYES, He r[place] MG/ML 00 BID, Start Ophthalmic date: Solution 11/29/14 [Cosopt] 17:00:00, Duration: 30 day, Stop date: 12/29/14 9:00:00 Brimonidine 2015-0 No 1 drp, Luis paula tartrate 1 7-18 Route: l MG/ML 21:00: BOTH EYES, Kobi n Ophthalmic 00 Q8H, Start Solution date: [Alphagan] 11/29/14 16:00:00, Duration: 30 day, Stop date: 12/29/14 8:00:00 Brimonidine No 1 drp, Luis paula tartrate 1 -18 Route: l MG/ML 21:00: BOTH EYES, Kobi n Ophthalmic 00 Q8H, Start Solution date: [Alphagan] 11/29/14 16:00:00, Duration: 30 day, Stop date: 12/29/14 8:00:00 Brimonidine No 1 drp, Luis paula tartrate 1 -18 Route: l MG/ML 21:00: BOTH EYES, Kobi n Ophthalmic 00 Q8H, Start Solution date: [Alphagan] 11/29/14 16:00:00, Duration: 30 day, Stop date: 12/29/14 8:00:00 Acetaminoph No Notes: Luis paula en 325 MG / 11-29 (Same as: l Hydrocodone 19:57: [place] nn Bitartrate 00 325/5) Do 5 MG Oral not exceed Tablet 4gm/day of [[place] acetaminop 5/325] hen. Acetaminoph No Notes: Luis paula en 325 MG / 18 (Same as: l Hydrocodone 19:57: [place] nn Bitartrate 00 325/5) Do 5 MG Oral not exceed Tablet 4gm/day of [[place] acetaminop 5/325] hen. Acetaminoph No Notes: Luis paula en 325 MG / 18 (Same as: l Hydrocodone 19:57: [place] nn Bitartrate 00 325/5) Do 5 MG Oral not exceed Tablet 4gm/day of [[place] acetaminop 5/325] hen. Acetaminoph No 1 - 2 tab, Memoria en 300 MG / 7-18 PO, Q4H, l Codeine 19:54: PRN Pain, [place] nn Phosphate 00 X 2 day, # 30 MG Oral 20 tab, 0 Tablet Refill(s) [Tylenol with Codeine #3] Acetaminoph No 1 - 2 tab, Memoria en 300 MG / 7-18 PO, Q4H, l Codeine 19:54: PRN Pain, [place] nn Phosphate 00 X 2 day, # 30 MG Oral 20 tab, 0 Tablet Refill(s) [Tylenol with Codeine #3] Acetaminoph No 1 - 2 tab, Memoria en 300 MG / 7-18 PO, Q4H, l Codeine 19:54: PRN Pain, [place] Phosphate 00 X 2 day, # 30 MG Oral 20 tab, 0 Tablet Refill(s) [Tylenol with Codeine #3] bacitracin Yes Special Luis paula zinc 0.5 7-18 Instructio l UNT/MG 19:51: ns: Apply Kobi n Topical 00 a thin Ointment layer to affected area chlorhexidi Yes 0.018 gm = Memoria ne 7-18 15 ml, PO, l gluconate 19:51: BID, # 480 He rmann 1.2 MG/ML 00 ml, 0 Mouthwash Refill(s) chlorhexidi Yes 0.018 gm = Memoria ne topical 7-18 15 ml, PO, l 0.12% 19:51: BID, # 480 Kobi n liquid 00 ml, 0 Refill(s) bacitracin Yes Special Luis paula zinc 0.5 7-18 Instructio l UNT/MG 19:51: ns: Apply Kobi n Topical 00 a thin Ointment layer to affected area chlorhexidi Yes 0.018 gm = Memoria ne 7-18 15 ml, PO, l gluconate 19:51: BID, # 480 He rmann 1.2 MG/ML 00 ml, 0 Mouthwash Refill(s) chlorhexidi Yes 0.018 gm = Memoria ne topical 7-18 15 ml, PO, l 0.12% 19:51: BID, # 480 Kobi n liquid 00 ml, 0 Refill(s) bacitracin Yes Special Luis paula zinc 0.5 7-18 Instructio l UNT/MG 19:51: ns: Apply Kobi n Topical 00 a thin Ointment layer to affected area chlorhexidi Yes 0.018 gm = Memoria ne 7-18 15 ml, PO, l gluconate 19:51: BID, # 480 He r[place] 1.2 MG/ML 00 ml, 0 Mouthwash Refill(s) chlorhexidi Yes 0.018 gm = Memoria ne topical 7-18 15 ml, PO, l 0.12% 19:51: BID, # 480 Kobi n liquid 00 ml, 0 Refill(s) Dilaudid No 1 mg, Memoria 718 Route: l 18:10: IVP, ONCE, [place] Dosing Weight 79.545, kg, Priority: STAT, Start date: 11/29/14 13:10:00, Stop date: 11/29/14 13:10:00 Dilaudid No 1 mg, Memoria 718 Route: l 18:10: IVP, ONCE, [place] Dosing Weight 79.545, kg, Priority: STAT, Start date: 11/29/14 13:10:00, Stop date: 11/29/14 13:10:00 Dilaudid No 1 mg, Memoria 11-29 Route: l 18:10: IVP, ONCE, [place] Dosing Weight 79.545, kg, Priority: STAT, Start date: 11/29/14 13:10:00, Stop date: 11/29/14 13:10:00 Zofran No Notes: Memoria -18 (Same as: l 16:05: Zofran) Fabric[place] 00 MEDICATION WASTE Product Size: 4 mg Product Wasted: ___ mg Zofran No Notes: Memoria -18 (Same as: l 16:05: Zofran) [place]ric[place] 00 MEDICATION WASTE Product Size: 4 mg Product Wasted: ___ mg Zofran No Notes: Memoria 7-18 (Same as: l 16:05: Zofran) [place] 00 MEDICATION WASTE Product Size: 4 mg Product Wasted: ___ mg Morphine No Notes: Memoria 7-18 (Same l 16:04: as:MORPhin [place] 00 e Sulfate) Morphine No Notes: Memoria 7-18 (Same l 16:04: as:MORPhin [place] 00 e Sulfate) Morphine No Notes: Memoria 7-18 (Same l 16:04: as:MORPhin [place] 00 e Sulfate) Sodium No 1,000 mL, Memori a Chloride 7-18 1,000 l 0.154 15:59: ml/hr, Fabricio MEQ/ML 00 Infuse Injectable Over: 1 Solution hr, Route: IV, 1,000, Drug form: INJ, ONCE, Priority: STAT, Dosing Weight 79.545 kg, Start date: 11/29/14 10:59:00, Duration: 1 doses or times, Stop date: 11/29/14 10:59:00 Saline No Notes: Memoria Flush 0.9% 7-18 (Same as: l 15:59: BD [place] 00 Posiflush) Sodium No 1,000 mL, Memori a Chloride 7-18 1,000 l 0.154 15:59: ml/hr, Fabricio MEQ/ML 00 Infuse Injectable Over: 1 Solution hr, Route: IV, 1,000, Drug form: INJ, ONCE, Priority: STAT, Dosing Weight 79.545 kg, Start date: 11/29/14 10:59:00, Duration: 1 doses or times, Stop date: 11/29/14 10:59:00 Saline No Notes: Memoria Flush 0.9% 7-18 (Same as: l 15:59: BD [place] 00 Posiflush) Sodium No 1,000 mL, Memori a Chloride 7-18 1,000 l 0.154 15:59: ml/hr, Fabricio MEQ/ML 00 Infuse Injectable Over: 1 Solution hr, Route: IV, 1,000, Drug form: INJ, ONCE, Priority: STAT, Dosing Weight 79.545 kg, Start date: 11/29/14 10:59:00, Duration: 1 doses or times, Stop date: 11/29/14 10:59:00 Saline No Notes: Memoria Flush 0.9% 7-18 (Same as: l 15:59: BD [place] 00 Posiflush) Immunizations Ordered Filled Immunization Date Status Comments Sour e Immunization Name Name SARS-COV-2 COVID-19 2021-08-22 Completed [facility] [place] VACCINE 00:00:00 [facility] SARS-COV-2 COVID-19 2021-08-22 Completed Unive rsity of PFIZER VACCINE 00:00:00 [facility] SARS-COV-2 COVID-19 2021-08-22 Completed Unive rsity of PFIZER VACCINE 00:00:00 [facility] SARS-COV-2 COVID-19 2021-08-22 Completed Unive rsity of PFIZER VACCINE 00:00:00 [facility] SARS-COV-2 COVID-19 2021-08-22 Completed Unive rsity of PFIZER VACCINE 00:00:00 [facility] SARS-COV-2 COVID-19 2021-08-22 Completed Unive rsity of PFIZER VACCINE 00:00:00 [facility] SARS-COV-2 COVID-19 2021-08-22 Completed Unive rsity of PFIZER VACCINE 00:00:00 [facility] SARS-COV-2 COVID-19 2021-08-22 Completed Unive rsity of PFIZER VACCINE 00:00:00 [facility] SARS-COV-2 COVID-19 2021-08-22 Completed Unive rsity of PFIZER VACCINE 00:00:00 [facility] SARS-COV-2 COVID-19 2021-08-22 Completed Unive rsity of PFIZER VACCINE 00:00:00 [facility] SARS-COV-2 COVID-19 2021-08-22 Completed Unive rsity of PFIZER VACCINE 00:00:00 [facility] SARS-COV-2 COVID-19 2021-08-22 Completed Unive rsity of PFIZER VACCINE 00:00:00 [facility] SARS-COV-2 COVID-19 2021-08-22 Completed Unive rsity of PFIZER VACCINE 00:00:00 [facility] SARS-COV-2 COVID-19 2021-08-22 Completed Unive rsity of PFIZER VACCINE 00:00:00 [facility] SARS-COV-2 COVID-19 2021-08-22 Completed Unive rsity of PFIZER VACCINE 00:00:00 [facility] SARS-COV-2 COVID-19 2021-08-22 Completed Unive rsity of PFIZER VACCINE 00:00:00 [facility] SARS-COV-2 COVID-19 2021-08-22 Completed Unive rsity of PFIZER VACCINE 00:00:00 [place] [facility] SARS-COV-2 COVID-19 2021-08-22 Completed Unive rsity of PFIZER VACCINE 00:00:[address] [place] [facility] SARS-COV-2 COVID-19 2021-08-22 Completed Unive rsity of PFIZER VACCINE 00:00:00 [facility] SARS-COV-2 COVID-19 2021-08-22 Completed Unive rsity of PFIZER VACCINE 00:00:00 [facility] SARS-COV-2 COVID-19 2021-08-22 Completed Unive rsity of PFIZER VACCINE 00:00:00 [facility] SARS-COV-2 COVID-19 2021-08-22 Completed Unive rsity of PFIZER VACCINE 00:00:00 [facility] SARS-COV-2 COVID-19 2021-08-22 Completed Unive rsity of PFIZER VACCINE 00:00:00 [facility] SARS-COV-2 COVID-19 2021-08-22 Completed Unive rsity of PFIZER VACCINE 00:00:00 [facility] SARS-COV-2 COVID-19 2021-08-22 Completed Unive rsity of PFIZER VACCINE 00:00:00 [facility] SARS-COV-2 COVID-19 2021-08-22 Completed Unive rsity of PFIZER VACCINE 00:00:00 [facility] SARS-COV-2 COVID-19 2021-08-22 Completed Unive rsity of PFIZER VACCINE 00:00:00 [facility] SARS-COV-2 COVID-19 2021-08-22 Completed Unive rsity of PFIZER VACCINE 00:00:00 [facility] SARS-COV-2 COVID-19 2021-08-22 Completed Unive rsity of PFIZER VACCINE 00:00:00 [facility] SARS-COV-2 COVID-19 2021-08-22 Completed Unive rsity of PFIZER VACCINE 00:00:00 [facility] SARS-COV-2 COVID-19 2020-07-28 Completed Unive rsity of PFIZER VACCINE 00:00:00 [facility] SARS-COV-2 COVID-19 2020-07-28 Completed Unive rsity of PFIZER VACCINE 00:00:00 [facility] SARS-COV-2 COVID-19 2020-07-28 Completed Unive rsity of PFIZER VACCINE 00:00:00 [facility] SARS-COV-2 COVID-19 2020-07-28 Completed Unive rsity of PFIZER VACCINE 00:00:[address] [place] [facility] SARS-COV-2 COVID-19 2020-07-28 Completed Unive rsity of PFIZER VACCINE 00:00:00 [facility] SARS-COV-2 COVID-19 2020-07-28 Completed Unive rsity of PFIZER VACCINE 00:00:00 [facility] SARS-COV-2 COVID-19 2020-07-28 Completed Unive rsity of PFIZER VACCINE 00:00:00 [facility] SARS-COV-2 COVID-19 2020-07-28 Completed Unive rsity of PFIZER VACCINE 00:00:00 [facility] SARS-COV-2 COVID-19 2020-07-28 Completed Unive rsity of PFIZER VACCINE 00:00:00 [facility] SARS-COV-2 COVID-19 2020-07-28 Completed Unive rsity of PFIZER VACCINE 00:00:00 [facility] SARS-COV-2 COVID-19 2020-07-28 Completed Unive rsity of PFIZER VACCINE 00:00:00 [facility] SARS-COV-2 COVID-19 2020-07-28 Completed Unive rsity of PFIZER VACCINE 00:00:00 [facility] SARS-COV-2 COVID-19 2020-07-28 Completed Unive rsity of PFIZER VACCINE 00:00:00 [facility] SARS-COV-2 COVID-19 2020-07-28 Completed Unive rsity of PFIZER VACCINE 00:00:00 [facility] SARS-COV-2 COVID-19 2020-07-28 Completed Unive rsity of PFIZER VACCINE 00:00:00 [facility] SARS-COV-2 COVID-19 2020-07-28 Completed [facility] PFIZER VACCINE 00:00:00 [facility] SARS-COV-2 COVID-19 2020-07-28 Completed [facility] PFIZER VACCINE 00:00:00 [facility] SARS-COV-2 COVID-19 2020-07-28 Completed [facility] PFIZER VACCINE 00:00:00 [facility] SARS-COV-2 COVID-19 2020-07-28 Completed [facility] PFIZER VACCINE 00:00:00 [facility] SARS-COV-2 COVID-19 2020-07-28 Completed [facility] PFIZER VACCINE 00:00:00 [facility] SARS-COV-2 COVID-19 2020-07-28 Completed [facility] PFIZER VACCINE 00:00:00 [facility] SARS-COV-2 COVID-19 2020-07-28 Completed [facility] PFIZER VACCINE 00:00:00 [facility] SARS-COV-2 COVID-19 2020-07-28 Completed [facility] PFIZER VACCINE 00:00:00 [facility] SARS-COV-2 COVID-19 2020-07-28 Completed Unive rsity of PFIZER VACCINE 00:00:00 [facility] SARS-COV-2 COVID-19 2020-07-28 Completed Unive rsity of PFIZER VACCINE 00:00:00 [facility] SARS-COV-2 COVID-19 2020-07-28 Completed Unive rsity of PFIZER VACCINE 00:00:00 [facility] SARS-COV-2 COVID-19 2020-07-28 Completed Unive rsity of PFIZER VACCINE 00:00:00 [facility] SARS-COV-2 COVID-19 2020-07-28 Completed Unive rsity of PFIZER VACCINE 00:00:00 [facility] SARS-COV-2 COVID-19 2020-07-28 Completed Unive rsity of PFIZER VACCINE 00:00:00 [facility] SARS-COV-2 COVID-19 2020-07-28 Completed Unive rsity of PFIZER VACCINE 00:00:00 [facility] SARS-COV-2 COVID-19 2020-07-07 Completed Unive rsity of PFIZER VACCINE 00:00:00 [facility] SARS-COV-2 COVID-19 2020-07-07 Completed Unive rsity of PFIZER VACCINE 00:00:00 [facility] SARS-COV-2 COVID-19 2020-07-07 Completed Unive rsity of PFIZER VACCINE 00:00:00 [facility] SARS-COV-2 COVID-19 2020-07-07 Completed Unive rsity of PFIZER VACCINE 00:00:00 [facility] SARS-COV-2 COVID-19 2020-07-07 Completed Unive rsity of PFIZER VACCINE 00:00:00 [facility] SARS-COV-2 COVID-19 2020-07-07 Completed Unive rsity of PFIZER VACCINE 00:00:00 [facility] SARS-COV-2 COVID-19 2020-07-07 Completed Unive rsity of PFIZER VACCINE 00:00:00 [facility] SARS-COV-2 COVID-19 2020-07-07 Completed Unive rsity of PFIZER VACCINE 00:00:00 [facility] SARS-COV-2 COVID-19 2020-07-07 Completed Unive rsity of PFIZER VACCINE 00:00:00 [facility] SARS-COV-2 COVID-19 2020-07-07 Completed Unive rsity of PFIZER VACCINE 00:00:00 [facility] SARS-COV-2 COVID-19 2020-07-07 Completed Unive rsity of PFIZER VACCINE 00:00:00 [facility] SARS-COV-2 COVID-19 2020-07-07 Completed Unive rsity of PFIZER VACCINE 00:00:00 [facility] SARS-COV-2 COVID-19 2020-07-07 Completed Unive rsity of PFIZER VACCINE 00:00:00 [facility] SARS-COV-2 COVID-19 2020-07-07 Completed Unive rsity of PFIZER VACCINE 00:00:00 [facility] SARS-COV-2 COVID-19 2020-07-07 Completed Unive rsity of PFIZER VACCINE 00:00:00 [facility] SARS-COV-2 COVID-19 2020-07-07 Completed Unive rsity of PFIZER VACCINE 00:00:00 [facility] SARS-COV-2 COVID-19 2020-07-07 Completed Unive rsity of PFIZER VACCINE 00:00:00 [facility] SARS-COV-2 COVID-19 2020-07-07 Completed Unive rsity of PFIZER VACCINE 00:00:00 [facility] SARS-COV-2 COVID-19 2020-07-07 Completed Unive rsity of PFIZER VACCINE 00:00:00 [facility] SARS-COV-2 COVID-19 2020-07-07 Completed Unive rsity of PFIZER VACCINE 00:00:00 [facility] SARS-COV-2 COVID-19 2020-07-07 Completed Unive rsity of PFIZER VACCINE 00:00:00 [facility] SARS-COV-2 COVID-19 2020-07-07 Completed Unive rsity of PFIZER VACCINE 00:00:00 [facility] SARS-COV-2 COVID-19 2020-07-07 Completed Unive rsity of PFIZER VACCINE 00:00:00 [facility] SARS-COV-2 COVID-19 2020-07-07 Completed Unive rsity of PFIZER VACCINE 00:00:00 [facility] SARS-COV-2 COVID-19 2020-07-07 Completed Unive rsity of PFIZER VACCINE 00:00:00 [facility] SARS-COV-2 COVID-19 2020-07-07 Completed Unive rsity of PFIZER VACCINE 00:00:00 [facility] SARS-COV-2 COVID-19 2020-07-07 Completed Unive rsity of PFIZER VACCINE 00:00:00 [facility] SARS-COV-2 COVID-19 2020-07-07 Completed Unive rsity of PFIZER VACCINE 00:00:00 [facility] SARS-COV-2 COVID-19 2020-07-07 Completed Unive rsity of PFIZER VACCINE 00:00:00 [facility] SARS-COV-2 COVID-19 2020-07-07 Completed Unive rsity of PFIZER VACCINE 00:00:00 [facility] Vital Signs Vital Name Observation Time Observation Value Comments Source Systolic blood 2022-04-13 20:55:00 111 mm[Hg] Univer sity of pressure [facility] Diastolic blood 2022-04-13 20:55:00 68 mm[Hg] Unive rsity of pressure [facility] Heart rate 2022-04-13 20:55:00 92 /min [facility] Body temperature 2022-04-13 20:55:00 36.28 Jaymie [facility] height 2022-04-13 20:55:00 160 cm [facility] Body weight 2022-04-13 20:55:00 88.168 kg [facility] BMI 2022-04-13 20:55:00 34.43 kg/m2 Universi ty [facility] Systolic blood 2022-04-05 19:48:00 111 mm[Hg] Univer sity of pressure [facility] Diastolic blood 2022-04-05 19:48:00 64 mm[Hg] Unive rsity of pressure [facility] Heart rate 2022-04-05 19:48:00 98 /min Universi ty [facility] Body weight 2022-04-05 19:48:00 88.587 kg Universi ty [facility] BMI 2022-04-05 19:48:00 34.60 kg/m2 Universi [facility] Oxygen saturation in 2022-04-05 19:48:00 97 /min [facility] Arterial blood by [facility] Pulse oximetry Branch Body height 2021-12-17 15:06:00 160 cm Universi [facility] Body weight 2021-12-17 15:06:00 [facility]317 [facility] 2021-12-17 15:06:00 34.10 kg/m2 [facility] Systolic (mm Hg) 2022-03-24 14:09:00 Luis [facility] [place] Diastolic (mm Hg) 2022-03-24 14:09:00 Mem o[facility] Heart Rate 2022-03-24 14:09:00 [facility] [place] Height 2022-03-24 14:09:00 5 [ft_i] [facility] [place] Weight 2022-03-24 14:09:00 [facility] BMI Calculated 2022-03-24 14:09:00 Memori [facility] Systolic (mm Hg) 2020-12-02 19:59:00 Luis rial [place] Diastolic (mm Hg) 2020-12-02 19:59:00 Mem orial [place] Heart Rate 2020-12-02 19:59:00 [facility] [place] Respitory Rate 2020-12-02 19:59:00 [facility] Height 2020-12-02 19:59:00 167.64 cm [facility] Weight 2020-12-02 19:59:00 [facility] BMI Calculated 2020-12-02 19:59:00 [facility] [place] Temperature Oral (F) 2014-11-29 20:00:00 98.0 F [facility] Systolic (mm Hg) 2014-11-29 20:00:00 Luis [facility] [place] Diastolic (mm Hg) 2014-11-29 20:00:00 Mem [facility] Respitory Rate 2014-11-29 20:00:00 Memori [facility] [place] Systolic (mm Hg) 2014-11-29 19:00:00 Luis [facility] [place] Diastolic (mm Hg) 2014-11-29 19:00:00 Mem orial [place] Systolic (mm Hg) 2014-11-29 18:00:00 Luis rial [place] Diastolic (mm Hg) 2014-11-29 18:00:00 Mem o[facility] [place] Respitory Rate 2014-11-29 18:00:00 Mem[facility] Respitory Rate 2014-11-29 17:00:00 [facility] [place] BMI Calculated 2014-11-29 15:39:00 Memori [facility] [place] Height 2014-11-29 15:39:00 162.56 cm [facility] [place] Weight 2014-11-29 15:39:00 [facility] [place] Temperature Oral (F) 2014-11-29 15:39:00 98.3 F [facility] [place] Heart Rate 2014-11-29 15:39:00 [facility] [place] Procedures Procedure Date / Time Performing Clinician Source Performed ASSIGNMENT OF BENEFITS 2022-09-06 16:02:54 Doctor Unassigned, Un [facility] Name Medical Branch DISCLOSURE AND CONSENT, 2022-04-13 06:01:00 [facility] [place] [facility] PROCEDURES POCT HEMOGLOBIN A1C TEST 2022-04-05 19:57:00 Ke Alexander Uni [facility] Medical [place] DME/SUPPLY JUSTIFICATION 2022-03-16 05:01:00 Doctor Unassigned, [facility] [place] [facility] DME/SUPPLY JUSTIFICATION 2021-12-13 05:01:00 Doctor Unassigned, [facility] Name Medical Branch Cholecystectomy [facility] section [facility] Kobi n Fusion<sup>1</sup> [facility] case Encounters Start End Encounter Admission Attending Care Care Encounter Source Date/Time Date/Time Type Type Clinicians Facility Department ID 2022-09-27 2022-09-27 Mend Worker Lab, Ang - Db [facility] 1.2.840.1 14 [id number] Univers 10:00:00 10:15:00 Visit Unknown, Attending HEALTH 350.1.13.10 [facility] 4.2.7.2.686 [place] as ALON?BLEA [phone] Ok sarah FELIZ [address] [place] MEDICAL OFFICE [facility] 2022-09-27 2022-09-27 Outpatient R HYACINTH, [facility] [id number] Univers 10:00:00 10:00:00 ATTENDING ity of [facility] 2022-09-27 2022-09-27 Telephone Shahram [facility] 1.2.327.106 [id number] Univers 00:00:00 00:00:00 [facility] HEALTH 350.1.13.10 it y [facility] 4.2.7.2.686 [place] as ALON?BLEA [id number] Ok asrah FELIZ [address] OFFICE [facility] 2022-09-12 2022-09-12 Refill Shahram [facility] 1.2.840.114 [id number] Univers 00:00:00 00:00:00 [facility] 350.1.13.10 it y of [place] 4.2.7.2.686 Buck as ALON?BLEA [phone] Ok sarah FELIZ [address] OFFICE [facility] 2022-09-06 2022-09-06 Outpatient R SHAHRAM [facility] [id number] Univers 11:30:00 11:30:00 [facility] ity [facility] 2022-09-06 2022-09-06 Orders Doctor MASON 1.2.840.114 [id number] Univers 00:00:00 00:00:00 Only Unassigned, WILFREDO 350.1.13.10 ity of [place] [facility] 4.2.7.2.686 [place] as [id number] [address] 2022-04-18 2022-04-18 Telephone Jose [facility] 1.2.786.094 [id number] Univers 00:00:00 00:00:00 Armaan ANN 350.1.13.10 it[place] [phone] Ok sarah MUNOZ 201 [facility] 2022-04-14 2022-04-16 Outside MHIE MNA [id number] Memoria 19:56:14 05:59:59 Medical Neurology 00 l Records Erika Regalado 2022-04-14 2022-04-16 Outside MHIE MNA [id number] Memoria 19:56:14 05:59:59 Medical Neurology 00 l Records Erika Regalado 2022-04-14 2022-04-15 Outpatient MHMISCHER MHMISCHER [id number] 13:56:14 23:59:59 00 2022-04-13 2022-04-13 Outpatient R JOSE [facility] [id number] Univers 14:45:00 15:29:28 ARMAAN linares [facility] 2022-04-13 2022-04-13 Office Jose [facility] 1.2.840.114 [id number] Univers 14:45:00 15:29:28 Visit Armaan ANN 350.1.13.10 ity of CARE 4.2.7.2.686 [place] AT [id number] Ok sarah ELDERZaida 201 [facility] 2022-04-13 2022-04-13 Telephone Jose [facility] 1.2.434.978 [id number] Univers 00:00:00 00:00:00 Armaan SPECIALTY 350.1.13.10 [place] [phone] Ok sarah ALEXANDER 201 [facility] 2022-04-13 2022-04-13 Orders Doctor MARLON 1.2.840.114 [id number] Univers 00:00:00 00:00:00 Only Unassigned, WILFREDO 350.1.13.10 ity of [place] [facility] 4.2.7.2.686 [place] as [id number] [address] 2022-04-05 2022-04-05 Office Shahram [facility] 1.2.840.114 [id number] Univers 14:30:00 14:44:57 Visit [facility] 350.1.13.10 it y of [place] 4.2.7.2.686 Buck as ALON?BLEA [id number] Ok sarah FELIZ [address] [place] MEDICAL OFFICE BUILDING 2022-04-05 2022-04-05 Outpatient R SHAHRAM [facility] [id number] Univers 14:30:00 14:44:57 KE [facility] 2022-04-05 2022-04-05 Ady Alexander [facility] [id number] Univers 00:00:00 00:00:00 [facility] 350.1.13.10 it y of [place] 4.2.7.2.686 [place] as ALON?BLEA [id number] [address] 2022-03-26 2022-03-26 [facility] 1.2.840.114 [id number] Univers 00:00:00 00:00:00 [facility] HEALTH 350.1.13.10 it y of [place] 4.2.7.2.686 [place] as ALON?BLEA [id number] [address] 2022-03-24 2022-03-25 Outpatient nullFlavo MNA [id number] Memoria 14:15:00 05:59:59 r Neurology 04 l Erika Regalado 2022-03-24 2022-03-25 Outpatient nullFlavo MNA [id number] Memoria 14:15:00 05:59:59 r Neurology 04 l Erika Regalado 2022-03-24 2022-03-24 Outpatient Henny, MHMISCHER MHMISCHER [id number] 08:15:00 23:59:59 Ariel 04 [place] 2022-03-24 2022-03-24 Outpatient MHIE MHIE [id number] Memoria 08:15:00 08:15:00 04 boo Regalado 2022-03-24 2022-03-24 Ra [facility] 1.2.840.114 [id number] Univers 00:00:00 00:00:00 [place] HEALTH 350.1.13.10 it y of [place] 4.2.7.2.686 Ubck as ALON?BLEA [id number] [address] 2022-03-17 2022-03-17 aR [facility] 1.2.840.114 [id number] Univers 00:00:00 00:00:00 [place] HEALTH 350.1.13.10 it y of [place] 4.2.7.2.686 [place] as ALON?BLEA [id number] [address] OFFICE [facility] 2022-03-16 2022-03-16 [facility] 1.2.840.114 [id number] Univers 00:00:00 00:00:00 [place] HEALTH 350.1.13.10 it y of [place] 4.2.7.2.686 [place] as ALON?BLEA [id number] [address] OFFICE [facility] 2022-03-16 2022-03-16 Orders Doctor MARLON 1.2.840.114 [id number] Univers 00:00:00 00:00:00 Only Unassigned, WILFREDO 350.1.13.10 ity of [place] [facility] 4.2.7.2.686 [place] as [id number] [address] 2022-03-16 2022-03-16 [facility] 1.2.872.645 [id number] Univers 00:00:00 00:00:00 [place] HEALTH 350.1.13.10 it y of [place] 4.2.7.2.686 Buck as ALON?BLEA [id number] [address] 2022-03-14 2022-03-14 [facility] 1.2.840.114 [id number] Univers 00:00:00 00:00:00 [place] HEALTH 350.1.13.10 it y of [place] 4.2.7.2.686 [place] as ALON?BLEA [id number] [address] 2022-03-04 2022-03-04 Ambulatory nullFlavo MNA [id number] Memoria 18:00:00 18:00:00 Pre-Reg r Neurology 03 l Erika Regalado 2022-03-04 2022-03-04 Ambulatory nullFlavo MNA [id number] Memoria 18:00:00 18:00:00 Pre-Reg r Neurology 03 l Erika Regalado 2022-03-04 2022-03-04 Outpatient [facility]IE IE [id number] 13:00:00 03 boo Regalado 2022-03-04 2022-03-04 Outpatient MICHELLE Inman [facility] [id number] 13:00:00 13:00:00 Ariel Garibay 2022-02-25 2022-02-25 Refill Ramon [facility] 1.2.840.114 [id number] Univers 00:00:00 00:00:00 [place]ALTH 350.1.13.10 it y of [place] 4.2.7.2.686 [place] as ALON?BLEA [id number] [address] 2022-01-31 2022-01-31 Patient Ramon [facility] 1.2.840.114 [id number] Univers 00:00:00 00:00:00 Secure Msg [facility] HEALTH 350.1.13.10 ity of [place] 4.2.7.2.686 [place] as ALON?BLEA [id number] [address] 2021-12-28 2021-12-28 Telephone [facility] 1.2.147.065 [id number] Univers 00:00:00 00:00:00 [facility] [place] 350.1.13.10 it y of [place] 4.2.7.2.686 [place] as ALON?BLEA [id number] [address] 2021-12-23 2021-12-23 Telephone [facility] 1.2.407.220 [id number] Univers 00:00:00 00:00:00 [place] 350.1.13.10 it y of [place] 4.2.7.2.686 Buck as ALON?BLEA [id number] [address] 2021-12-17 2021-12-17 Outpatient Juan RICHARDSON [facility] [id number] Univers 10:00:00 10:51:32 AKILAH linares of [facility] 2021-12-17 2021-12-17 Plug Assembler Najma [facility] 1.2.840.114 [id number] Univers 10:00:00 10:51:32 Visit Akilah MULTISPEC 350.1.13.10 it[place] of [place] [id number] [address] [facility] 2021-12-13 2021-12-13 Telephone Ramon [facility] 1.2.765.976 [id number] Univers 00:00:00 00:00:00 [place] [facility]ALTH 350.1.13.10 it y of [place] 4.2.7.2.686 Buck as ALON?BLEA [phone] [address] MEDICAL OFFICE BUILDING 2021-12-13 2021-12-13 Orders Doctor MARLON 1.2.840.114 [id number] Univers 00:00:00 00:00:00 Only Unassigned, WILFREDO 350.1.13.10 ity of [place] [facility] 4.2.7.2.686 [place] as [id number] [address] 2021-12-10 2021-12-10 Telephone [facility] 1.2.165.679 [id number] Univers 00:00:00 00:00:00 [place] MULTISPEC 350.1.13.10 it[place] of [place] [id number] [address] [facility] 2021-12-09 2021-12-09 Telephone [facility] 1.2.126.842 [id number] Univers 00:00:00 00:00:00 [place] [facility] 350.1.13.10 it y of [place] 4.2.7.2.686 Buck as ALON?BLEA [id number] [address] MEDICAL OFFICE BUILDING 2021-12-07 2021-12-07 Patient Ramon [facility] 1.2.840.114 [id number] Univers 00:00:00 00:00:00 Secure Msg [place] [facility] 350.1.13.10 ity of [place] 4.2.7.2.686 Buck as ALON?BLEA [id number] [address] OFFICE BUILDING 2021-12-06 2021-12-06 Refill [facility] 1.2.840.114 [id number] Univers 00:00:00 00:00:00 [facility] 350.1.13.10 it y of [place] 4.2.7.2.686 Buck as ALON?BLEA [phone] [facility] [address] [place] MEDICAL OFFICE [facility] 2021-12-03 2021-12-03 Mend Worker Lab, Ang - Db [facility] 1.2.840.1 [id number] Univers 12:00:00 12:15:00 [facility] 350.1.13.10 ity of [place] 4.2.7.2.686 Buck as ALON?BLEA [id number] [facility] [address] OFFICE [facility] 2021-12-03 2021-12-03 Office [facility] 1.2.840.114 [id number] Univers 11:30:00 12:02:34 Visit [facility] 350.1.13.10 it y of [place] 4.2.7.2.686 Buck as ALON?BLEA [id number] [address] OFFICE [facility] 2021-12-03 2021-12-03 Outpatient R RAMON [facility] [id number] Univers 11:30:00 12:02:34 [facility] 2021-12-03 2021-12-03 [facility] [id number] Univers 12:00:00 12:00:00 [facility] 2021-11-30 2021-11-30 Outpatient R SHAHRAM [facility] [id number] Univers 13:00:00 13:00:00 [facility] 2021-11-30 2021-11-30 [facility] [id number] Univers 13:00:00 13:00:00 [facility] 2021-10-13 2021-10-13 Telephone [facility] 1.2.742.842 [id number] Univers 00:00:00 00:00:00 [facility] 350.1.13.10 it y of [place] 4.2.7.2.686 Buck as ALON?BLEA [id number] [address] OFFICE [facility] 2021-09-13 2021-09-13 Office Lilliam [facility] 1.2.840.114 [id number] Univers 09:00:00 09:45:38 Visit Bartolo SAINZ 350.1.13.10 it y of [place] [id number] [address] 2021-09-13 2021-09-13 Outpatient R [facility]JOANA [facility] [id number] Univers 09:00:00 09:45:38 FAMILIABARTOLO BERNARD [facility] 2021-09-13 2021-09-13 Outpatient R FAMILIAJOANA [facility] [id number] Univers 09:00:00 09:45:38 [facility] zaida [facility] 2021-09-13 2021-09-13 Outpatient R SUMAAMA [facility] B [id number] Univers 09:00:00 09:00:00 [facility] 2021-09-07 2021-09-07 [facility] [id number] Univers 10:30:00 10:30:00 [facility] 2021-08-10 2021-08-10 [facility] [id number] Univers 11:30:00 12:50:07 [facility] 2021-08-10 2021-08-10 Office [facility] 1.2.840.114 [id number] Univers 11:30:00 12:50:07 [facility] 350.1.13.10 it y of [place] 4.2.7.2.686 Buck as ALON?BLEA [id number] [address] MEDICAL OFFICE [facility] 2021-08-10 2021-08-10 [facility] [id number] Univers 11:30:00 11:30:00 [facility] 2021-08-05 2021-08-05 Telephone [facility] 1.2.633.354 [id number] Univers 00:00:00 00:00:00 [place] [facility] 350.1.13.10 it y of [place] 4.2.7.2.686 Buck as ALON?BLEA [id number] [address] OFFICE [facility] 2021-08-04 2021-08-04 Orders Doctor MARLON 1.2.840.114 [id number] Univers 00:00:00 00:00:00 Only Unassigned, WILFREDO 350.1.13.10 ity of [place] [facility] 4.2.7.2.686 [place] as [id number] [address] 2021-08-02 2021-08-02 Telephone Alexander, [facility] 1.2.411.733 [id number] Univers 00:00:00 00:00:00 [place] [facility] 350.1.13.10 it y of [place] 4.2.7.2.686 Buck as ALON?BLEA [id number] [address] OFFICE [facility] 2021-07-22 2021-07-22 Telephone Alexander, [facility] 1.2.492.208 [id number] Univers 00:00:00 00:00:00 [place] [facility] 350.1.13.10 it y of [place] 4.2.7.2.686 Buck as ALON?BLEA [id number] [address] OFFICE [facility] 2021-07-20 2021-07-20 Telephone Alexander, [facility] 1.2.647.878 [id number] Univers 00:00:00 00:00:00 [facility] 350.1.13.10 [place] [id number] [facility] AND [address] DI[facility]ETES CLINIC 2021-07-13 2021-07-13 Orders Doctor MARLON 1.2.840.114 [id number] Univers 00:00:00 00:00:00 Only Unassigned, WILFREDO 350.1.13.10 ity of [place] [facility] 4.2.7.2.686 Buck as [id number] [facility] [address] [place] 2021-06-22 2021-06-22 Telephone Alexander, [facility] 1.2.290.186 [id number] Univers 00:00:00 00:00:00 [facility] 350.1.13.10 it y of [place] 4.2.7.2.686 Buck as ALON?BLEA [id number] [facility] [address] OFFICE [facility] 2021-06-14 2021-06-14 Telephone [facility] 1.2.400.746 [id number] Univers 00:00:00 00:00:00 [facility] 350.1.13.10 it y of [place] 4.2.7.2.686 Buck as ALON?BLEA [id number] Ok sarah THOMSON [address] OFFICE [facility] 2021-06-09 2021-06-09 Telephone [facility] 1.2.704.618 [id number] Univers 00:00:00 00:00:00 [facility] 350.1.13.10 it [facility] 4.2.7.2.686 Buck as ALON?BLEA [id number] [facility] [address] [facility] 2021-06-08 2021-06-08 Mend Worker Lab, Ang - [facility] 1.2.840.1 [id number] Univers 10:45:00 11:00:00 Visit Shahram [facility] [id number] ity of [place] 4.2.7.2.686 Buck as ALON?BLEA [phone] [facility] [address] [facility] OFFICE [facility] 2021-06-08 2021-06-08 Outpatient R [facility] [id number] Univers 09:30:00 10:38:03 [facility] ity [facility] 2021-06-08 2021-06-08 Orders Doctor MASON [id number] Univers 00:00:00 00:00:00 Only Unassigned, WILFREDO 350.1.13.10 ity of [place] [facility] 4.2.7.2.686 Buck as [phone] [address] 2021-06-04 2021-06-04 Ambulatory nullFlavo MNA [id number] Memoria 22:00:00 22:00:00 Pre-Reg r Neurology 02 l [place] Fabricio 2021-06-042021-06-04 Ambulatory nullFlavo MNA [id number] Memoria 22:00:00 22:00:00 Pre-Reg r Neurology 02 l Erika Regalado 2021-06-04 2021-06-04 Outpatient MHIE MHIE [id number] Memoria 16:00:00 16:00:00 02 boo Regalado 2021-06-04 2021-06-04 Outpatient Henny [facility] [id number] 16:00:00 16:00:00 Ariel 02 [place] 2020-12-02 2020-12-03 Outpatient nullFlavo MNA [id number] Memoria 20:00:00 04:59:59 r Neurology 01 boo Regalado 2020-12-02 2020-12-03 Outpatient nullFlavo MNA [id number] Memoria 20:00:00 04:59:59 r Neurology 01 boo Regalado 2020-12-02 2020-12-02 [id number] 15:00:00 23:59:59 Ariel 01 [place] 2020-12-02 2020-12-02 Outpatient MHIE MHIE [id number] Memoria 15:00:00 15:00:00 01 boo Regalado 2020-11-19 2020-11-19 Ambulatory nullFlavo MNA [id number] Memoria 16:15:00 16:15:00 Pre-Reg r Neurology 00 l Erika Regalado 2020-11-19 2020-11-19 Ambulatory nullFlavo MNA [id number] Memoria 16:15:00 16:15:00 Pre-Reg r Neurology 00 l Erika Regalado 2020-11-19 2020-11-19 [facility] [id number] 11:15:00 11:15:00 Ariel 00 [place] 2018-04-20 2018-04-20 Ambulatory nullFlavo MNA [id number] Memoria 20:30:00 20:30:00 Pre-Reg r Neurology 00 boo Regalado 2018-04-20 2018-04-20 Ambulatory nullFlavo MNA [id number] Memoria 20:30:00 20:30:00 Pre-Reg r Neurology 00 l [place] 2018-04-20 2018-04-20 Outpatient Henny, [facility] [id number] 14:30:00 14:30:00 Arielalvin Garibay 2014-12-02 2014-12-03 Outpatient nullFlavo [facility] [id number] Memoria 15:03:00 04:59:00 r Fabricio 00 [facility] 2014-12-02 2014-12-03 Outpatient nullFlavo [facility] [id number] Memoria 15:03:00 04:59:00 r Fabricio 00 [facility] 2014-12-02 2014-12-02 Outpatient Mario, [facility] [id number] 10:03:00 23:59:00 Dominic 00 Mtan[place] 2014-11-29 2014-11-29 nullFlavo [facility] [id number] Memoria 15:38:00 20:20:00 Emergency r [place] 99 [facility] 2014-11-29 2014-11-29 nullFlavo [facility] [id number] Memoria 15:38:00 20:20:00 Emergency r Fabricio 99 [facility] 2014-11-29 2014-11-29 Outpatient Ostemisty, [facility] [id number] 10:38:00 15:20:00 Armaan Salomon Results Test Description Test Time Test Comments Results Result Comments Source POCT HEMOGLOBIN A1C TEST 2022-04-05 20:02:00 Test Item Value Reference Range Interpretation Comme nts POCT HBA1C (test code = 4548-4) 8.9 % 4-6 A Lab Interpretation (test code = 58076-6) Abnormal [facility] HEMOGLOBIN A1C [id number] 20:02:00 Test Item Value Reference Range Interpretation Comments POCT HBA1C (test code = 4548-4) 8.9 % 4-6 A Lab Interpretation (test code = Abnormal 62167-9) [facility] [id number] 17:59:00 Test Item Value Reference Range Interpretation Comments UA WBC (test code = UA None Seen (11/29/14 WBC) 12:59 PM) [facility]2015-07-18 17:59:00 Test Item Value Reference Range Interpretation Comments UA RBC (test code = 0-2 /HPF See_Comment [Automa meghna message] The UA RBC) system which ge nerated this result tra nsmitted reference range : <=2. The reference range was not used to interpr et this result as amy l/abnormal. [facility] AND [id number] 17:59:00 Test Item Value Reference Range Interpretation Comments UA Bacteria (test code = UA Occasional /HPF Bacteria) [facility] AND [id number] 17:59:00 Test Item Value Reference Range Interpretation Comments UA Mucus (test code = UA Mucus) Few /LPF [facility] AND [id number] 17:59:00 Test Item Value Reference Range Interpretation Comments UA Amorph Telma (test code = Occasional /HPF UA Amorph Telma) [facility] AND [id number] 17:59:00 Test Item Value Reference Range Interpretation Comments UA Sq Epi (test code = UA Sq Epi) Few /LPF [facility] AND [id number] 17:59:00 Test Item Value Reference Range Interpretation Comments UA Turbidity (test code Slight Cloudy = UA Turbidity) (11/29/14 12:59 PM) [facility] AND [id number] 17:59:00 Test Item Value Reference Range Interpretation Comments UA Color (test code = Yellow *NA*(11/29/14 UA Color) 12:59 PM) [facility] AND [id number] 17:59:00 Test Item Value Reference Range Interpretation Comments UA pH (test code = UA pH) 5.0 1 5.0-8.0 [facility] AND [id number] 17:59:00 Test Item Value Reference Range Interpretation Comments UA Spec Grav (test code = UA Spec 1.022 1 Grav) [facility] AND [id number] 17:59:00 Test Item Value Reference Range Interpretation Comments UA Bili (test code = Small *ABN*(11/29/14 UA Bili) 12:59 PM) [facility] AND [id number] 17:59:00 Test Item Value Reference Range Interpretation Comments UA Glucose (test code Negative (11/29/14 12:59 = UA Glucose) PM) [facility] AND [id number] 17:59:00 Test Item Value Reference Range Interpretation Comments UA Protein (test code Negative (11/29/14 12:59 = UA Protein) PM) [facility] AND [id number] 17:59:00 Test Item Value Reference Range Interpretation Comments UA Ketones (test code Negative *NA*(11/29/14 = UA Ketones) 12:59 PM) [facility] AND [id number] 17:59:00 Test Item Value Reference Range Interpretation Comments UA Leuk Est (test Negative (11/29/14 12:59 code = UA Leuk Est) PM) [facility] AND [id number] 17:59:00 Test Item Value Reference Range Interpretation Comments UA Blood (test code = Small *ABN*(11/29/14 UA Blood) 12:59 PM) [facility] AND [id number] 17:59:00 Test Item Value Reference Range Interpretation Comments UA Nitrite (test code Negative (11/29/14 12:59 = UA Nitrite) PM) [facility] AND [id number] 17:59:00 Test Item Value Reference Range Interpretation Comments UA Urobilinogen (test code = UA 0.2 0.1-1.0 Urobilinogen) [facility] AND [id number] 17:59:00 Test Item Value Reference Range Interpretation Comments UA WBC (test code = UA None Seen (11/29/14 WBC) 12:59 PM) [facility] AND [id number] 17:59:00 Test Item Value Reference Range Interpretation Comments UA RBC (test code = 0-2 /HPF See_Comment [Automa meghna message] The UA RBC) system which ge nerated this result tra nsmitted reference range : <=2. The reference range was not used to interpr et this result as amy l/abnormal. [facility] AND [id number] 17:59:00 Test Item Value Reference Range Interpretation Comments UA Bacteria (test code = UA Occasional /HPF Bacteria) [facility] AND [id number] 17:59:00 Test Item Value Reference Range Interpretation Comments UA Mucus (test code = UA Mucus) Few /LPF [facility] AND [id number] 17:59:00 Test Item Value Reference Range Interpretation Comments UA Amorph Telma (test code = Occasional /HPF UA Amorph Telma) [facility] AND [id number] 17:59:00 Test Item Value Reference Range Interpretation Comments UA Sq Epi (test code = UA Sq Epi) Few /LPF [facility] AND [id number] 17:59:00 Test Item Value Reference Range Interpretation Comments UA Turbidity (test code Slight Cloudy = UA Turbidity) (11/29/14 12:59 PM) [facility] AND [id number] 17:59:00 Test Item Value Reference Range Interpretation Comments UA Color (test code = Yellow *NA*(11/29/14 UA Color) 12:59 PM) [facility] AND [id number] 17:59:00 Test Item Value Reference Range Interpretation Comments UA pH (test code = UA pH) 5.0 1 5.0-8.0 [facility] AND [id number] 17:59:00 Test Item Value Reference Range Interpretation Comments UA Spec Grav (test code = UA Spec 1.022 1 Grav) [facility] AND [id number] 17:59:00 Test Item Value Reference Range Interpretation Comments UA Bili (test code = Small *ABN*(11/29/14 UA Bili) 12:59 PM) [facility] AND [id number] 17:59:00 Test Item Value Reference Range Interpretation Comments UA Glucose (test code Negative (11/29/14 12:59 = UA Glucose) PM) [facility] AND [id number] 17:59:00 Test Item Value Reference Range Interpretation Comments UA Protein (test code Negative (11/29/14 12:59 = UA Protein) PM) [facility] AND [id number] 17:59:00 Test Item Value Reference Range Interpretation Comments UA Ketones (test code Negative *NA*(11/29/14 = UA Ketones) 12:59 PM) [facility] AND [id number] 17:59:00 Test Item Value Reference Range Interpretation Comments UA Leuk Est (test Negative (11/29/14 12:59 code = UA Leuk Est) PM) [facility] AND [id number] 17:59:00 Test Item Value Reference Range Interpretation Comments UA Blood (test code = Small *ABN*(11/29/14 UA Blood) 12:59 PM) [facility] [id number] 17:59:00 Test Item Value Reference Range Interpretation Comments UA Nitrite (test code Negative (11/29/14 12:59 = UA Nitrite) PM) [facility] AND [id number] 17:59:00 Test Item Value Reference Range Interpretation Comments UA Urobilinogen (test code = UA 0.2 0.1-1.0 Urobilinogen) [facility] AND [id number] 17:59:00 Test Item Value Reference Range Interpretation Comments UA WBC (test code = UA None Seen (11/29/14 WBC) 12:59 PM) [facility] AND [id number] 17:59:00 Test Item Value Reference Range Interpretation Comments UA RBC (test code = 0-2 /HPF See_Comment [Automa meghna message] The UA RBC) system which ge nerated this result tra nsmitted reference range : <=2. The reference range was not used to interpr et this result as amy l/abnormal. [facility] AND [id number] 17:59:00 Test Item Value Reference Range Interpretation Comments UA Bacteria (test code = UA Occasional /HPF Bacteria) [facility] AND [id number] 17:59:00 Test Item Value Reference Range Interpretation Comments UA Mucus (test code = UA Mucus) Few /LPF [facility] AND [id number] 17:59:00 Test Item Value Reference Range Interpretation Comments UA Amorph Telma (test code = Occasional /HPF UA Amorph Telma) [facility] AND [id number] 17:59:00 Test Item Value Reference Range Interpretation Comments UA Sq Epi (test code = UA Sq Epi) Few /LPF [facility] AND [id number] 17:59:00 Test Item Value Reference Range Interpretation Comments UA Turbidity (test code Slight Cloudy = UA Turbidity) (11/29/14 12:59 PM) [facility] AND [id number] 17:59:00 Test Item Value Reference Range Interpretation Comments UA Color (test code = Yellow *NA*(11/29/14 UA Color) 12:59 PM) [facility] AND [id number] 17:59:00 Test Item Value Reference Range Interpretation Comments UA pH (test code = UA pH) 5.0 1 5.0-8.0 [facility] AND [id number] 17:59:00 Test Item Value Reference Range Interpretation Comments UA Spec Grav (test code = UA Spec 1.022 1 Grav) [facility] AND [id number] 17:59:00 Test Item Value Reference Range Interpretation Comments UA Bili (test code = Small *ABN*(11/29/14 UA Bili) 12:59 PM) [facility] AND [id number] 17:59:00 Test Item Value Reference Range Interpretation Comments UA Glucose (test code Negative (11/29/14 12:59 = UA Glucose) PM) [facility] AND [id number] 17:59:00 Test Item Value Reference Range Interpretation Comments UA Protein (test code Negative (11/29/14 12:59 = UA Protein) PM) [facility] AND [id number] 17:59:00 Test Item Value Reference Range Interpretation Comments UA Ketones (test code Negative *NA*(11/29/14 = UA Ketones) 12:59 PM) [facility] AND [id number] 17:59:00 Test Item Value Reference Range Interpretation Comments UA Leuk Est (test Negative (11/29/14 12:59 code = UA Leuk Est) PM) [facility] AND [id number] 17:59:00 Test Item Value Reference Range Interpretation Comments UA Blood (test code = Small *ABN*(11/29/14 UA Blood) 12:59 PM) [facility] AND [id number] 17:59:00 Test Item Value Reference Range Interpretation Comments UA Nitrite (test code Negative (11/29/14 12:59 = UA Nitrite) PM) [facility] AND [id number] 17:59:00 Test Item Value Reference Range Interpretation Comments UA Urobilinogen (test code = UA 0.2 0.1-1.0 Urobilinogen) [id number] 16:13:00 Test Item Value Reference Range Interpretation Comments Glucose Lvl (test code = Glucose Lvl) 117 70-99 [id number] 16:13:00 Test Item Value Reference Range Interpretation Comments Sodium Lvl (test code = Sodium Lvl) 139 135-145 [id number] 16:13:00 Test Item Value Reference Range Interpretation Comments Chloride Lvl (test code = Chloride Lvl) 104 95-109 [id number] 16:13:00 Test Item Value Reference Range Interpretation Comments Potassium Lvl (test code = Potassium 4.3 3.5-5.1 Lvl) [id number] 16:13:00 Test Item Value Reference Range Interpretation Comments Calcium Lvl (test code = Calcium Lvl) 9.3 8.5-10.5 [id number] 16:13:00 Test Item Value Reference Range Interpretation Comments CO2 (test code = CO2) 26 24-32 [id number] 16:13:00 Test Item Value Reference Range Interpretation Comments eGFR (test code = eGFR) 105 [facility] HospitalQxxvpssYKSJMVMITS5150-74-13 16:13:00 Test Item Value Reference Range Interpretation Comments MPV (test code = MPV) 8.2 7.4-10.4 [facility] HospitalGyzqctqECBSAXTPCQ6952-70-25 16:13:00 Test Item Value Reference Range Interpretation Comments MCHC (test code = MCHC) 32.3 32.0-36.0 [facility] HospitalGcqqwhzCHHATKBAWQ3964-03-27 16:13:00 Test Item Value Reference Range Interpretation Comments Platelet (test code = Platelet) 340 133-450 [facility] Ho[id number] 16:13:00 Test Item Value Reference Range Interpretation Comments RDW (test code = RDW) 16.7 11.5-14.5 [facility] Hos[id number] 16:13:00 Test Item Value Reference Range Interpretation Comments MCV (test code = MCV) 84.6 80.0-98.0 [facility] H[id number] 16:13:00 Test Item Value Reference Range Interpretation Comments Hct (test code = Hct) 39.5 36.0-48.0 [facility] H[id number] 16:13:00 Test Item Value Reference Range Interpretation Comments MCH (test code = MCH) 27.4 pg 27.0-31.0 [facility] HospitalIzdotwbMFVVMJEXMS6898-12-57 16:13:00 Test Item Value Reference Range Interpretation Comments RBC (test code = RBC) 4.66 4.20-5.40 [facility] H[id number] 16:13:00 Test Item Value Reference Range Interpretation Comments Hgb (test code = Hgb) 12.7 12.0-16.0 [facility] Hospit[id number] 16:13:00 Test Item Value Reference Range Interpretation Comments WBC (test code = WBC) 13.4 3.7-10.4 [facility] HospitalFoxsvyxNIJWEQNQKR0858-70-18 16:13:00 Test Item Value Reference Range Interpretation Comments INR (test code = INR) 0.95 0.85-1.17 [facility] Hospit[id number] 16:13:00 Test Item Value Reference Range Interpretation Comments PT (test code = PT) 12.7 s 12.0-14.7 [facility] HospitalCpscldmWJQQXFVSOH2563-55-35 16:13:00 Test Item Value Reference Range Interpretation Comments PTT (test code = PTT) 26.0 s 22.9-35.8 [facility] HospitalZbofdcqDPDOVULUWZ6629-49-93 16:13:00 Test Item Value Reference Range Interpretation Comments Segs-Bands # (test code = Segs-Bands #) 11.4 1.5-8.1 [facility] HospitalBqvjecfMDNTUKSYZO4731-27-21 16:13:00 Test Item Value Reference Range Interpretation Comments Basophils # (test code 0.1 See_Comment [Aut omated message] The = Basophils #) system which generated this result tra nsmitted reference range : <=0.2. The reference r humberto was not used to int erpret this result as normal/abnormal . [facility] H[id number] 16:13:00 Test Item Value Reference Range Interpretation Comments Monocytes # (test code 0.4 See_Comment [Aut omated message] The = Monocytes #) system which generated this result tra nsmitted reference range : <=0.8. The reference r humberto was not used to int erpret this result as normal/abnormal . [facility] Hos[id number] 16:13:00 Test Item Value Reference Range Interpretation Comments Lymphocytes # (test code = Lymphocytes 1.5 1.0-5.5 #) [facility] HospitalNypghynKDZYRIOOJR0506-06-04 16:13:00 Test Item Value Reference Range Interpretation Comments Eosinophils # (test code 0.1 See_Comment [A utomated message] The = Eosinophils #) system [employer] generated this result tra nsmitted reference range : <=0.5. The reference r humberto was not used to int erpret this result as normal/abnormal . [facility] HospitalTggridlZDBUTWBGOG6669-60-66 16:13:00 Test Item Value Reference Range Interpretation Comments PT (test code = PT) 12.7 s 12.0-14.7 [facility] HospitalYcwhxywEINQRHYVGP4217-38-05 16:13:00 Test Item Value Reference Range Interpretation Comments PTT (test code = PTT) 26.0 s 22.9-35.8 [facility] HospitalMynajoiNQUPXJFJAP5446-91-44 16:13:00 Test Item Value Reference Range Interpretation Comments Basophils # (test code 0.1 See_Comment [Aut omated message] The = Basophils #) system which generated this result tra nsmitted reference range : <=0.2. The reference r humberto was not used to int erpret this result as normal/abnormal . [facility] HospitalRjcpxwtXMCPQUBSDR4627-10-09 16:13:00 Test Item Value Reference Range Interpretation Comments Monocytes # (test code 0.4 See_Comment [Aut omated message] The = Monocytes #) system which generated this result tra nsmitted reference range : <=0.8. The reference r humberto was not used to int erpret this result as normal/abnormal . [facility] HospitalJkbwsmkNNPPYCJHJZ4567-04-68 16:13:00 Test Item Value Reference Range Interpretation Comments Lymphocytes # (test code = Lymphocytes 1.5 1.0-5.5 #) [facility] HospitalLzbtahzBACLPALQFD5934-84-96 16:13:00 Test Item Value Reference Range Interpretation Comments Eosinophils # (test code 0.1 See_Comment [A utomated message] The = Eosinophils #) system [employer] generated this result tra nsmitted reference range : <=0.5. The reference r humberto was not used to int erpret this result as normal/abnormal . [facility] HospitalNrlxokfGICOSFEGDR3838-83-78 16:13:00 Test Item Value Reference Range Interpretation Comments Segs-Bands # (test code = Segs-Bands #) 11.4 1.5-8.1 [facility] HospitalAzlvpeyXPSNIKDZIN3433-66-93 16:13:00 Test Item Value Reference Range Interpretation Comments Segs (test code = Segs) 85.1 45.0-75.0 [facility]AlqbjptQEVWIVDYIT6673-03-46 16:13:00 Test Item Value Reference Range Interpretation Comments Lymphocytes (test code = Lymphocytes) 10.8 20.0-40.0 [facility] HospitalKpnchleKIGWRJSJZH7607-71-29 16:13:00 Test Item Value Reference Range Interpretation Comments Monocytes (test code = Monocytes) 3.0 2.0-12.[address] [facility], TxJhjywatZLRKHXGCXO8795-00-82 16:13:00 Test Item Value Reference Range Interpretation Comments Eosinophils (test code = 0.4 See_Comment [A utomated message] The Eosinophils) system which ge nerated this result tra nsmitted reference range : <=4.0. The reference r humberto was not used to int erpret this result as normal/abnormal . [facility] HospitalMbmpusgJTNTSLVREB5630-22-10 16:13:00 Test Item Value Reference Range Interpretation Comments Basophils (test code = 0.7 See_Comment [Aut omated message] The Basophils) system which ge nerated this result tra nsmitted reference range : <=1.0. The reference r humberto was not used to int erpret this result as normal/abnormal . [facility], TxOwwmudhOUKAYCQTMW4080-26-17 16:13:00 Test Item Value Reference Range Interpretation Comments CDC HIV 4th GEN (test Negative (11/29/14 11:13 code = CDC HIV 4th AM) GEN) [facility], TxCARDIAC JEJABKH7452-23-05 16:13:00 Test Item Value Reference Range Interpretation Comments Troponin-I (test code no gt See_Comment [Auto mated message] The = Troponin-I) system which g enerated this result transmit meghna reference range : <=0.40. The reference r humberto was not used to interpr et this result as amy l/abnormal. [facility], TxCARDIAC LHFEOCR2895-23-77 16:13:00 Test Item Value Reference Range Interpretation Comments Total CK (test code = Total CK) 146 12-[address] [facility], Txeegoes [id number] 16:13:00 Test Item Value Reference Range Interpretation Comments Phosphorus (test code = Phosphorus) 3.5 2.5-4.5 [facility]annFORMERLY [facility]ENTERRHZVG7673-06-84 16:13:00 Test Item Value Reference Range Interpretation Comments Magnesium Lvl (test code = Magnesium 2.2 1.8-2.4 Lvl) [facility]KoxvekbEUHLWTYEQYIO5635-18-28 16:13:00 Test Item Value Reference Range Interpretation Comments AGAP (test code = AGAP) 13.3 10.0-20.0 [facility]WdhspsrOESJFMQPTBUC3474-34-73 16:13:00 Test Item Value Reference Range Interpretation Comments Creatinine Lvl (test code = Creatinine 0.6 0.5-1.4 Lvl) [facility]awRmectixMSESIMKNCWPL6176-56-18 16:13:00 Test Item Value Reference Range Interpretation Comments BUN (test code = BUN) 17 7-22 [facility]SiihxngWVXEKULSWLXN3729-88-92 16:13:00 Test Item Value Reference Range Interpretation Comments Glucose Lvl (test code = Glucose Lvl) 117 70-99 [facility]RdaggebCYNUITLUPYOR2907-00-58 16:13:00 Test Item Value Reference Range Interpretation Comments Sodium Lvl (test code = Sodium Lvl) 139 135-145 [facility]MvvaurlFFGQYTTNQSBA0464-13-19 16:13:00 Test Item Value Reference Range Interpretation Comments Chloride Lvl (test code = Chloride Lvl) 104 95-109 [facility]QyunyijNVKAHZGBCPGU0820-81-84 16:13:00 Test Item Value Reference Range Interpretation Comments Potassium Lvl (test code = Potassium 4.3 3.5-5.1 Lvl) [facility]awLtgadjeRQDWRTXEGPNF8231-12-81 16:13:00 Test Item Value Reference Range Interpretation Comments Calcium Lvl (test code = Calcium Lvl) 9.3 8.5-10.5 [facility]QtljqvcDAQSSAFUPYHX5237-27-11 16:13:00 Test Item Value Reference Range Interpretation Comments CO2 (test code = CO2) 26 24-32 [facility]QrqmwxmRDMPLCKKWGUF5538-76-46 16:13:00 Test Item Value Reference Range Interpretation Comments eGFR (test code = eGFR) 105 [facility] HospitalXquxoomXNRGXITCJK6780-86-88 16:13:00 Test Item Value Reference Range Interpretation Comments MPV (test code = MPV) 8.2 7.4-10.4 [facility] HospitalHfbpcqlUIFZRPKRBG4702-42-70 16:13:00 Test Item Value Reference Range Interpretation Comments MCHC (test code = MCHC) 32.3 32.0-36.0 [facility] HospitalHdldsjlSIBORRHKDC1642-70-76 16:13:00 Test Item Value Reference Range Interpretation Comments Platelet (test code = Platelet) 340 133-450 [facility] HospitalFfppipcAOHQPRYRBC2653-22-71 16:13:00 Test Item Value Reference Range Interpretation Comments RDW (test code = RDW) 16.7 11.5-14.5 [facility] HospitalWsuiwydBAVQBXVTTG0627-21-42 16:13:00 Test Item Value Reference Range Interpretation Comments MCV (test code = MCV) 84.6 80.0-98.0 [facility] HospitalQxcjgvbDWTSLAGSTZ5688-26-74 16:13:00 Test Item Value Reference Range Interpretation Comments Hct (test code = Hct) 39.5 36.0-48.0 [facility] HospitalCwrycfcAMWPPHDIUC0665-20-93 16:13:00 Test Item Value Reference Range Interpretation Comments MCH (test code = MCH) 27.4 pg 27.0-31.0 [facility] [id number] 16:13:00 Test Item Value Reference Range Interpretation Comments RBC (test code = RBC) 4.66 4.20-5.40 [facility] Hosp[id number] 16:13:00 Test Item Value Reference Range Interpretation Comments Hgb (test code = Hgb) 12.7 12.0-16.0 [facility] Hos[id number] 16:13:00 Test Item Value Reference Range Interpretation Comments WBC (test code = WBC) 13.4 3.7-10.4 [facility] HospitalXamrtjmZWTYAJHSAW2056-99-74 16:13:00 Test Item Value Reference Range Interpretation Comments INR (test code = INR) 0.95 0.85-1.17 [facility] H[id number] 16:13:00 Test Item Value Reference Range Interpretation Comments Segs (test code = Segs) 85.1 45.0-75.0 [facility] HospitalM[id number] 16:13:00 Test Item Value Reference Range Interpretation Comments Lymphocytes (test code = Lymphocytes) 10.8 20.0-40.0 [facility] H[id number] 16:13:00 Test Item Value Reference Range Interpretation Comments Monocytes (test code = Monocytes) 3.0 2.0-12.0 [place] [id number] 16:13:00 Test Item Value Reference Range Interpretation Comments Eosinophils (test code = 0.4 See_Comment [A utomated message] The Eosinophils) system which ge nerated this result tra nsmitted reference range : <=4.0. The reference r humberto was not used to int erpret this result as normal/abnormal . [facility] Hospit[id number] 16:13:00 Test Item Value Reference Range Interpretation Comments Basophils (test code = 0.7 See_Comment [Aut omated message] The Basophils) system which ge nerated this result tra nsmitted reference range : <=1.0. The reference r humberto was not used to int erpret this result as normal/abnormal . [facility] HospitalUsynlczFKUWBGDLCZ8957-31-15 16:13:00 Test Item Value Reference Range Interpretation Comments CDC HIV 4th GEN (test Negative (11/29/14 11:13 code = CDC HIV 4th AM) GEN) [facility] HospitalEverTrueCARDIAC [id number] 16:13:00 Test Item Value Reference Range Interpretation Comments Troponin-I (test code no gt See_Comment [Auto mated message] The = Troponin-I) system which g enerated this result transmit meghna reference range : <=0.40. The reference r humberto was not used to interpr et this result as amy l/abnormal. [facility] HospitalEverTrueCARDIAC [id number] 16:13:00 Test Item Value Reference Range Interpretation Comments Total CK (test code = Total CK) 146 12-191 [facility] HospitalEverTrueCHEM [id number] 16:13:00 Test Item Value Reference Range Interpretation Comments Phosphorus (test code = Phosphorus) 3.5 2.5-4.5 [facility] HospitalEverTrueCHEM [id number] 16:13:00 Test Item Value Reference Range Interpretation Comments Magnesium Lvl (test code = Magnesium 2.2 1.8-2.4 Lvl) [facility] HospitalFjoiovhPVCBFMRNKQSW5523-26-12 16:13:00 Test Item Value Reference Range Interpretation Comments AGAP (test code = AGAP) 13.3 10.0-20.0 [facility] Hospital[id number] 16:13:00 Test Item Value Reference Range Interpretation Comments Creatinine Lvl (test code = Creatinine 0.6 0.5-1.4 Lvl) [id number] 16:13:00 Test Item Value Reference Range Interpretation Comments BUN (test code = BUN) 17 7-22 [facility]Cfq[id number] 16:13:00 Test Item Value Reference Range Interpretation Comments Glucose Lvl (test code = Glucose Lvl) 117 70-99 [facility]DebswulPFDABGKAGPGR9224-74-71 16:13:00 Test Item Value Reference Range Interpretation Comments Sodium Lvl (test code = Sodium Lvl) 139 135-145 [facility][id number] 16:13:00 Test Item Value Reference Range Interpretation Comments Chloride Lvl (test code = Chloride Lvl) 104 95-109 [facility]NvwmsaqVYMAHEAYBTLR2903-99-05 16:13:00 Test Item Value Reference Range Interpretation Comments Potassium Lvl (test code = Potassium 4.3 3.5-5.1 Lvl) [facility]awHyahofcLUREXBMYBQYD2403-75-09 16:13:00 Test Item Value Reference Range Interpretation Comments Calcium Lvl (test code = Calcium Lvl) 9.3 8.5-10.5 [facility]awUcobbpmNOKKBEUVDDMF4920-17-93 16:13:00 Test Item Value Reference Range Interpretation Comments CO2 (test code = CO2) 26 24-32 [facility][id number] 16:13:00 Test Item Value Reference Range Interpretation Comments eGFR (test code = eGFR) 105 [facility] HospitalRkczfcfXSKJWKAXQC5919-27-44 16:13:00 Test Item Value Reference Range Interpretation Comments MPV (test code = MPV) 8.2 7.4-10.4 [facility] HospitalWmringfTTKGZRZFKR8392-06-46 16:13:00 Test Item Value Reference Range Interpretation Comments MCHC (test code = MCHC) 32.3 32.0-36.0 [facility] HospitalKfkfhdqEKBCQPZIWJ7427-72-63 16:13:00 Test Item Value Reference Range Interpretation Comments Platelet (test code = Platelet) 340 133-450 [facility] HospitalJdsazgbODCJUXIIST4527-50-49 16:13:00 Test Item Value Reference Range Interpretation Comments RDW (test code = RDW) 16.7 11.5-14.5 [facility] H[id number] 16:13:00 Test Item Value Reference Range Interpretation Comments MCV (test code = MCV) 84.6 80.0-98.0 [facility] HospitalWgfafokXLHCNGBJMF5914-43-27 16:13:00 Test Item Value Reference Range Interpretation Comments Hct (test code = Hct) 39.5 36.0-48.0 [facility] HospitalPbkudzbGJRKMHMSBS6579-74-83 16:13:00 Test Item Value Reference Range Interpretation Comments MCH (test code = MCH) 27.4 pg 27.0-31.0 [facility] HospitalGkzbbasNHIPHXSYJV7344-53-96 16:13:00 Test Item Value Reference Range Interpretation Comments RBC (test code = RBC) 4.66 4.20-5.40 [facility] HospitalBubhxdxPSGLFZLQBH3362-00-11 16:13:00 Test Item Value Reference Range Interpretation Comments Hgb (test code = Hgb) 12.7 12.0-16.0 [facility] HospitalKtlehwgWTKKZEFGJZ6101-55-29 16:13:00 Test Item Value Reference Range Interpretation Comments WBC (test code = WBC) 13.4 3.7-10.4 [facility] HospitalXxuodaoCNIFGXHVMZ0427-61-79 16:13:00 Test Item Value Reference Range Interpretation Comments INR (test code = INR) 0.95 0.85-1.17 [facility] Ho[id number] 16:13:00 Test Item Value Reference Range Interpretation Comments PT (test code = PT) 12.7 s 12.0-14.7 [facility] HospitalWitrfgiIPPZXMAQGN8244-52-54 16:13:00 Test Item Value Reference Range Interpretation Comments PTT (test code = PTT) 26.0 s 22.9-35.8 [facility] HospitalAfbnwlkWHWEVIRQSG6312-10-00 16:13:00 Test Item Value Reference Range Interpretation Comments Basophils # (test code 0.1 See_Comment [Aut omated message] The = Basophils #) system which generated this result tra nsmitted reference range : <=0.2. The reference r humberto was not used to int erpret this result as normal/abnormal . [facility] HospitalYytqpzaEOIGHDJROQ9238-56-32 16:13:00 Test Item Value Reference Range Interpretation Comments Monocytes # (test code 0.4 See_Comment [Aut omated message] The = Monocytes #) system which generated this result tra nsmitted reference range : <=0.8. The reference r humberto was not used to int erpret this result as normal/abnormal . [facility] HospitalKyeplutGXMBHWEVIS0020-76-64 16:13:00 Test Item Value Reference Range Interpretation Comments Lymphocytes # (test code = Lymphocytes 1.5 1.0-5.5 #) [facility] HospitalBceibbvCFZZUSKUAC9317-92-02 16:13:00 Test Item Value Reference Range Interpretation Comments Eosinophils # (test code 0.1 See_Comment [A utomated message] The = Eosinophils #) system [facility] h generated this result tra nsmitted reference range : <=0.5. The reference r humberto was not used to int erpret this result as normal/abnormal . [facility] HospitalThqctcrBRYPWNVLIF3842-62-25 16:13:00 Test Item Value Reference Range Interpretation Comments Segs-Bands # (test code = Segs-Bands #) 11.4 1.5-8.1 [facility] HospitalQospjqnBLEYXXIMVZ6723-76-98 16:13:00 Test Item Value Reference Range Interpretation Comments Segs (test code = Segs) 85.1 45.0-75.0 [facility] HospitalSgvhnltNLNWVTQMDA9816-83-35 16:13:00 Test Item Value Reference Range Interpretation Comments Lymphocytes (test code = Lymphocytes) 10.8 20.0-40.0 [facility] HospitalHjlilelKUWPCFYOJQ0386-64-39 16:13:00 Test Item Value Reference Range Interpretation Comments Monocytes (test code = Monocytes) 3.0 2.0-12.0 [facility] HospitalAjzptikSNWPUVDDIQ3465-63-73 16:13:00 Test Item Value Reference Range Interpretation Comments Eosinophils (test code = 0.4 See_Comment [A utomated message] The Eosinophils) system which ge nerated this result tra nsmitted reference range : <=4.0. The reference r humberto was not used to int erpret this result as normal/abnormal . [facility] Hospit[id number] 16:13:00 Test Item Value Reference Range Interpretation Comments Basophils (test code = 0.7 See_Comment [Aut omated message] The Basophils) system which ge nerated this result tra nsmitted reference range : <=1.0. The reference r humberto was not used to int erpret this result as normal/abnormal . [facility] [place], [place]xPonhkpnAFECGGHPSG9089-46-46 16:13:00 Test Item Value Reference Range Interpretation Comments CDC HIV 4th GEN (test Negative (7/18/15 11:13 code = CDC HIV 4th AM) GEN) [facility] HospitalGoodThreadsAC [id number] 16:13:00 Test Item Value Reference Range Interpretation Comments Troponin-I (test code no gt See_Comment [Auto mated message] The = Troponin-I) system which g enerated this result transmit meghna reference range : <=0.40. The reference r humberto was not used to interpr et this result as amy l/abnormal. [facility] [place] [id number] 16:13:00 Test Item Value Reference Range Interpretation Comments Total CK (test code = Total CK) 146 12-191 [facility] HospitalS[facility] Nextel [id number] 16:13:00 Test Item Value Reference Range Interpretation Comments Phosphorus (test code = Phosphorus) 3.5 2.5-4.5 [facility] HospitalS[facility] [id number] 16:13:00 Test Item Value Reference Range Interpretation Comments Magnesium Lvl (test code = Magnesium 2.2 1.8-2.4 Lvl) [facility] Hospital[id number] 16:13:00 Test Item Value Reference Range Interpretation Comments AGAP (test code = AGAP) 13.3 10.0-20.0 [facility] HospitalXhcpneqLVBKKFWJDLUC8176-84-09 16:13:00 Test Item Value Reference Range Interpretation Comments Creatinine Lvl (test code = Creatinine 0.6 0.5-1.4 Lvl) [facility] HospitalYnruuqhUJVIGANRNPAV6243-71-28 16:13:00 Test Item Value Reference Range Interpretation Comments BUN (test code = BUN) 17 7-[address] [facility] [place]
--- NOTE | 2022-09-28 13:29 | RAD REPORT ---
EXAM DESCRIPTION: Charles Single View09/28/2022 1:23 pm CLINICAL HISTORY: SOB COMPARISON: Chest Single View dated 04/06/2019; Abdomen 1 View (KUB) dated 01/30/2019; Chest Pa And L at (2 Views) dated 06/17/2016; CHEST PA AND LAT 2 VIEW dated 05/07/2015 TECHNIQUE: Portable AP view of the chest. FINDINGS: The lungs are clear. No pneumothorax or effusion. The cardiomediastinal contours are unrem arkable. IMPRESSION: No acute cardiopulmonary process.
[2022-09-28] MEDS ORDERED: NA CHLORIDE 0.9% 500 ML ONE (13:30)
[2022-09-28 13:51] LABS: Absolute Lymphocytes (CBC) 2.5 K/uL (0.7-4.9); Hematocrit 42.7 % (36.0-45.0); Lymphocytes % 24.6 % (15.3-44.8); MCV 88.6 fL (80-100); MPV 8.5 fL (7.6-11.3); RBC Red Blood Cell Count 4.83 M/uL (3.86-4.86)
[2022-09-28 14:08] LABS: BUN Blood Urea Nitrogen 17 mg/dL (7-18); Bicarbonate 23 mEq/L (21-32); Glomerular Filtration Rate 56 ml/min (=/>90); Glucose Level 157 mg/dL (74-106); Sodium Level 136 mEq/L (136-145); Troponin High Sensitivity < 3.0 pg/mL (<58.9)
[2022-09-28] MEDS ORDERED: LEVALBUTEROL 1.25 MG/3 ML NEB ONE (14:12)
--- NOTE | 2022-09-28 15:34 | RAD REPORT ---
EXAM DESCRIPTION: CT - Chest For Pe Angio - 09/28/2022 2:34 pm CLINICAL HISTORY: SOB COMPARISON: CTANGIO CHEST FOR PE dated 12/06/2012 TECHNIQUE: Thin axial CT images of the chest were obtained following administration of 100 mL Isovue 370 IV contrast. Multiplanar reconstructions, and maximum intensity projection reconstructions were generated and reviewed. Exam utilizes a protocol for optimal evaluation of pulmonary arterial tree. All CT scans are performed using dose optimization technique as appropriate and may include automated exposure control or mA/KV adjustment according to patient size. FINDINGS: Pulmonary arteries are normal. No emboli or other suspicious finding. No acute or signific ant aorta findings. No mass or infiltrate in the lung parenchyma. Small 3 millimeter nodules in the anterior basal right lower lobe, axial image 76/153, in and in the right middle lobe, axial image 89/153, not exceeding 4 millimeter. These are likely benign. No pleural thickening or pleural effusion. No pneumothorax. No abnormal mediastinal or hilar masses or lymphadenopathy seen. No chest wall mass or abnormal axill iary lymphadenopathy. Gastric band in place. Fatty infiltration the pancreas again seen. IMPRESSION: No evidence of acute central pulmonary emboli. No other acute findings in the chest. .
--- NOTE | 2022-09-28 16:15 | EDPHYS ---
Physician Documentation [facility] Name: Venice Beltran Age: 61 yrs Sex: Female : 1960 Arrival Date: 09/28/2022 Time: 12:27 Bed 20 Private MD: Leanne Alexander ED Physician Alvino Cordon Historical: - Allergies: 09/28 12:52 No Known Allergies; nj1 - PMHx: 12:52 Bipolar disorder; Depression; Diabetes - NIDDM; Hypercholesterolemia; Hypertensive nj1 disorder; PTSD; - PSHx: 12:52 section; Cholecystectomy; knee and neck SX; partial hyst; nj1 - Immunization history:: Client reports receiving the 2nd dose of the Covid vaccine. - Social history:: Smoking status: Patient/guardian denies using tobacco, the patient reports quitting approximately 2 years ago. Vital Signs: 12:49 BP 97 / 69; Pulse 94; Resp 20; Temp 97.9(TE); Pulse Ox 99% ; Weight 80.29 kg; Height 5 nj1 ft. 3 in. ; Pain 0/10; 13:50 BP 130 / 82; Pulse 78; Resp 16; Pulse Ox 97% on R/A; sg5 14:50 BP 136 / 86; Pulse 72; Resp 16; Pulse Ox 97% on R/A; sg5 15:50 BP 138 / 84; Pulse 70; Resp 16; Pulse Ox 98% on R/A; sg5 12:49 Body Mass Index 31.35 (80.29 kg, 160.02 cm) [facility] 12:49 Pain Scale: Adult nj1 MDM: 12:54 Patient medically screened. [facility] 09/28 12:55 Order name: Basic Metabolic Panel; Complete Time: 14:12 [facility] 09/28 12:55 Order name: CBC with Diff; Complete Time: 13:55 [facility] 09/28 12:55 Order name: Troponin HS; Complete Time: 14:12 [facility] 09/28 12:55 Order name: XRAY Chest (1 view); Complete Time: 13:33 [facility] 09/28 14:12 Order name: CT Chest For PE Angio; Complete Time: 15:42 [facility] 09/28 12:55 Order name: EKG; Complete Time: 12:56 [facility] 09/28 12:55 Order name: Cardiac monitoring; Complete Time: 13:26 [facility] 09/28 12:55 Order name: EKG - Nurse/Tech; Complete Time: 13:40 [facility] 09/28 12:55 Order name: IV Saline Lock; Complete Time: 13: [facility] 09/28 12:55 Order name: Labs collected and sent; Complete Time: 13: [facility] 09/28 12:55 Order name: O2 Per Protocol; Complete Time: 13: [facility] 09/28 12:55 Order name: O2 Sat Monitoring; Complete Time: : [facility] 09/28 15:50 Order name: Vital Signs [facility] Administered Medications: : Drug: NS 0.9% IV 500 ml Route: IV; Rate: bolus; Site: right forearm; bp 14:08 Drug: Levalbuterol Inhalation 1.25 mg Route: Inhalation; sg5 Disposition Summary: 09/28/22 16:14 Discharge Ordered Location: Home [facility] Condition: Stable [facility] Diagnosis - Dyspnea [facility] Followup: [facility] - With: Private Physician - When: 2 - 3 days - Reason: Recheck today's complaints, Continuance of care, Re-evaluation by your physician Discharge Instructions: - Discharge Summary Sheet [facility] - Shortness of Breath, Adult [facility] Forms: - Medication Reconciliation Form [facility] - Thank You Letter [facility] - Antibiotic Education [facility] - Prescription Opioid Use [facility] Prescriptions: - albuterol sulfate 90 mcg/actuation Inhalation HFA Aerosol Inhaler - inhale 2 inhalation by INHALATION route every 2 to 4 hours as needed for [facility] bronchospasm; administer via ventilator; 1 unit; Refills: 0, Product Selection Permitted - Prednisone 20 mg Oral Tablet - take 3 tablets by ORAL route once daily for 5 days; 15 tablet; Refills: 0, [facility] Product Selection Permitted - Zithromax Z-Benji 250 mg Oral Tablet - take 1 tablet by ORAL route as directed for 5 days Day 1 - take two (2) tablets [facility] one time. Day 2, 3, 4 , 5 take one (1) tablet once daily.; 6 tablet; Refills: 0, Product Selection Permitted Signatures: Dispatcher [employer] Guy Nunez PA PA m Man Venegas RN RN bp Robyn Esquivel RN RN sg5 Carlotta Lo RN RN nj1
--- NOTE | 2022-09-28 16:15 | ER ---
Nurse's Notes [facility] Name: Venice Beltran Age: 61 yrs Sex: Female : 1960 Arrival Date: 09/28/2022 Time: 12:27 Bed 20 Private MD: Leanne Alexander Diagnosis: Dyspnea Presentation: 09/28 12:49 Chief complaint: Patient states: Shortness of breath since May, seems worse over nj1 the last 2 weeks, stopped smoking 2 years ago. Never formally diagnosed with COPD, but patient believes that's what it is. Has also been feeling like she is about to faint. Coronavirus screen: Vaccine status: Patient reports receiving the 2nd dose of the covid vaccine. Ebola Screen: Patient denies travel to an Ebola-affected area in the 21 days before illness onset. Initial Sepsis Screen: Does the patient meet any 2 criteria? HR > 90 bpm. No. Patient's initial sepsis screen is negative. Does the patient have a suspected source of infection? No. Patient's initial sepsis screen is negative. Risk Assessment: Do you want to hurt yourself or someone else? Patient reports no desire to harm self or others. Onset of symptoms was September 14, 2022. 12:49 Method Of Arrival: Ambulatory [facility] 12:49 Acuity: JOSE ANGEL 3 nj1 Triage Assessment: 16:35 General: Behavior is calm, cooperative. sg5 16:35 General: Appears in no apparent distress. comfortable. Respiratory: Reports shortness sg5 of breath pain with movement Onset: The symptoms/episode began/occurred the patient has mild shortness of breath. Historical: - Allergies: 12:52 No Known Allergies; nj1 - PMHx: 12:52 Bipolar disorder; Depression; Diabetes - NIDDM; Hypercholesterolemia; Hypertensive nj1 disorder; PTSD; - PSHx: 12:52 section; Cholecystectomy; knee and neck SX; partial hyst; nj1 - Immunization history:: Client reports receiving the 2nd dose of the Covid vaccine. - Social history:: Smoking status: Patient/guardian denies using tobacco, the patient reports quitting approximately 2 years ago. Screenin:02 [facility] ED Fall Risk Assessment (Adult) History of falling in the last 3 months, sg5 including since admission No falls in past 3 months (0 pts). Abuse screen: Denies threats or abuse. Nutritional screening: No deficits noted. Tuberculosis screening: No symptoms or risk factors identified. Assessment: 16:02 General: Appears in no apparent distress. comfortable, Reports fatigue for 1-2 days, sg5 shortness of breath. Pain: Denies pain. Neuro: Level of Consciousness is awake, alert, obeys commands, Oriented to person, place, time, situation, Appropriate for age. Cardiovascular: Capillary refill < 3 seconds Rhythm is regular. Respiratory: Airway is patent Respiratory effort is even, unlabored, Breath sounds are clear bilaterally. GI: No signs and/or symptoms were reported involving the gastrointestinal system. : No signs and/or symptoms were reported regarding the genitourinary system. EENT: No signs and/or symptoms were reported regarding the EENT system. Derm: No signs and/or symptoms reported regarding the dermatologic system. Musculoskeletal: No signs and/or symptoms reported regarding the musculoskeletal system. Vital Signs: 12:49 BP 97 / 69; Pulse 94; Resp 20; Temp 97.9(TE); Pulse Ox 99% ; Weight 80.29 kg; Height 5 nj1 ft. 3 in. ; Pain 0/10; 13:50 BP 130 / 82; Pulse 78; Resp 16; Pulse Ox 97% on R/A; sg5 14:50 BP 136 / 86; Pulse 72; Resp 16; Pulse Ox 97% on R/A; sg5 15:50 BP 138 / 84; Pulse 70; Resp 16; Pulse Ox 98% on R/A; sg5 12:49 Body Mass Index 31.35 (80.29 kg, 160.02 cm) nj1 12:49 Pain Scale: Adult nj1 ED Course: 12:29 Patient arrived in ED. mr 12:29 Leanne Alexander DO is Private Physician. mr 12:30 Guy Villasenor PA is PHCP. jmm 12:30 Alvino Cordon MD is Attending Physician. jmm 12:52 Triage completed. nj1 12:53 Arm band placed on right wrist. nj1 12:56 Man Venegas, CHACHO is Primary Nurse. bp 13:25 XRAY Chest (1 view) In Process Unspecified. EDMS 13:26 Inserted saline lock: 20 gauge in right forearm, using aseptic technique. Blood bp collected. 14:36 CT Chest For PE Angio In Process Unspecified. EDMS 16:02 Allergy band placed. Bed in low position. Call light in reach. Side rails up X 1. Adult sg5 w/ patient. Valuables Left with patient. 16:02 No provider procedures requiring assistance completed. sg5 16:30 IV discontinued. sg5 Administered Medications: 13:26 Drug: NS 0.9% IV 500 ml Route: IV; Rate: bolus; Site: right forearm; bp 14:08 Drug: Levalbuterol Inhalation 1.25 mg Route: Inhalation; sg5 Medication: 16:02 VIS not applicable for this client. sg5 Outcome: 16:14 Discharge ordered by . bijal 16:35 Discharged to home with significant other. sg5 16:35 Condition: good 16:35 Discharge instructions given to patient, significant other, Instructed on discharge instructions, follow up and referral plans. 16:36 Patient left the ED. sg5 Signatures: Dispatcher [employer] EDPA Guy Villasenor PA PA [facility] Myriam Meza mr Man Venegas, RN RN Robyn Quezada RN RN sg5 Carlotta Lo RN RN nj1
[2022-09-28 17:27] VITALS: TEMP 97.9
[2022-09-28 17:33] VITALS: BP 138/84; O2SAT 98
--- NOTE | 2022-09-29 11:23 | EKG ---
Test Date: 2022-09-28 Test Time: 13:36:05 Arabic Professor: DONYA MEASUREMENT RESULTS: Intervals: Rate: 87 MD: 152 QRSD: 80 QT: 370 QTc: 445 [place]: P: 43 MD: 152 QRS: 31 T: 31 INTERPRETIVE STATEMENTS: Normal sinus rhythm Normal ECG Compared to ECG 03/17/2021 07:45:51 Myocardial infarct finding no longer present Electronically Signed On 09-29-22 11:20:18 CDT by Ramy Montana
== END 2022-09-28 16:36 | disposition home or self-care (01) ==
LOC: ER 12:27
DX: R06.00 Dyspnea, unspecified (principal); Z87.891 Personal history of nicotine dependence; I10 Essential (primary) hypertension
CPT/HCPCS: 85025; 80048; 36415; 84484; 71275; 71045; Q9967; J7614; J7040; 93005

== ENCOUNTER 2023-02-14 15:43 | Emergency (ER) | payer OTHER ==
--- OUTSIDE RECORDS SUMMARY | 2023-02-14 15:53 | XMS REPORT | Continuity of Care Document ---
:1960 Author Organization [facility] t Address [address] [place] [address] [place] [id number] Care Team Providers Name Role Phone Mary MUÑOZ, Kelby Martinez Primary Care Physician [phone] KE ALEXANDER Attending Clinician Unavailable Keisha Buenrostro Attending Clinician Whitley Farrar Attending Clinician Unavailable Jennifer MUÑOZ, Sayda Hayes Attending Clinician [phone] Ke Alexander MD Attending Clinician Corinne FLOR, Latisha Catalan Attending Clinician Unavailable Lab, Ang - Db Attending Clinician Unavailable Unknown, Attending Attending Clinician Unavailable ANGELIQUE KIRAN Attending Clinician Unavailable Doctor Unassigned, [place] Attending Clinician Unavailable Armaan Garcia MD Attending Clinician ARMAAN GARCIA Attending Clinician Unavailable Ariel Inman Attending Clinician AKILAH RICHARDSON Attending Clinician Unavailable WHITLEY KATE Attending Clinician Unavailable Bartolo Thomas NP Attending Clinician BARTOLO THOMAS Attending Clinician Unavailable Dominic Martin Attending Clinician Armaan Coello Attending Clinician Joes Gaston Admitting Clinician Payers Payer Name Policy [...] Decreased Disease Active Uni vers libido libido 09-13 ity of 00:00: [place] 00 [facility] Branch Uncontroll Uncontroll Disease Active U nivers ed type 2 ed type 2 2-25 ity of diabetes diabetes 00:00: [place] mellitus mellitus 00 Medica l with with Branch hyperglyce hyperglyce anirudh anirudh Dyslipidem Dyslipidem Disease Active U nivers ia ia 2- ity of 00:00: [place] 00 Medical Branch Acquired Acquired Disease Active Unive rs hypothyroi hypothyroi 2- it y of dism dism 00:00: [place] 00 [facility] FOLLOW UP FOLLOW UP Diagnosis Active 2014-12-04 Memoria Active 12-01 09:20:00 l 12/01/2014 00:00: Kobi catalan [address] SYNCOPE SYNCOPE Diagnosis Active 2014-11-29 Memoria Active 11-29 11:28:00 l 11/29/2014 00:00: Kobi catalan [address] Depression Problem Resolve 2021-06-06 Memoria - motion Depression d 23:18:57 l (qualifier - motion Herm case value) (qualifier value) Resolved Problem 06/06/2021 [facility] Hyperlipid Hyperlipi Problem Active 2022-04-18 Memoria emia demia 12:36:16 l (disorder) (disorder) He ann Active Problem 04/18/2022 [facility] Depressive Depressiv Problem Active 2022-04-18 Memoria disorder e disorder 12:36:16 l (disorder) (disorder) He ann Active Problem 04/18/2022 [facility] [place] [facility] Hallucinat Hallucina Problem Active 2022-04-18 Memoria ions tions 12:36:16 l (finding) (finding) Herm case Active Problem 04/18/2022 [facility] [place] [facility] Seizure Seizure Problem Active 2022-04-18 Me arta (finding) (finding) 12:36:16 l Active [place] Problem 04/18/2022 [facility] [place] [facility] Tremor Tremor Problem Active 2022-04-18 Luis paula (finding) (finding) 12:36:16 l Active Fabricio Problem 04/18/2022 [facility] [place] [facility] Diabetes Diabetes Problem Active 2022-04-18 Memoria mellitus mellitus 12:36:16 l type 2 type 2 Fabricio (disorder) (disorder) Active Problem 04/18/2022 [facility] [place] [facility] Ulnar Ulnar Problem Active 2022-04-18 Memor ia neuropathy neuropathy 12:36:16 l (disorder) (disorder) He rmann Active Problem 04/18/2022 [facility] History of Past Illness Condition Condition Condition Status Onset Resolution Last Treating Co mments Source Name Details Category Date Date Treatment Clinician Date Discharge Discharge Problem 2014-12-02 2014-12-02 Memoria Diagnosis: Diagnosis: - 01:10:55 01:10:55 l Lip Lip 05:00: [place]ric[place] laceration laceration 00 11/29/2014 5 [facility] Discharge Discharge Problem 2014-12-02 2014-12-02 Memoria Diagnosis: Diagnosis: - 01:10:55 01:10:55 l Syncope Syncope 05:00: [place] 11/29/2014 00 12/02/2014 [facility] Discharge Discharge Problem 2014-12-02 2014-12-02 Memoria Diagnosis: Diagnosis: 11-29 01:10:55 01:10:55 l Nasal Nasal 05:00: Fabric[place] fracture fracture 00 11/29/2014 12/02/2014 [facility] Allergies, Adverse Reactions, Alerts Allergy Allergy Status Severity Reaction(s) Onset Inactive Treating Comm ents Source Name Type Date Date Clinician No Known No Known Active Memori a Medicati Medicati l on on Fabricio Allergie Allergie s s NO KNOWN Drug Active Univers ALLERGIE Class ity of S [facility] Social History Social Habit Start Date Stop Date Quantity Comments Source Gender identity [facility] Sexual orientation Univer [facility] History of tobacco Cigarette Smoker [facility] Exposure to 2022-08-27 2022-09-06 Not sure University SARS-CoV-2 (event) 00:00:00 11:01:00 [facility] Tobacco use and 2021-09-13 2021-09-13 Smokeless Universit y of exposure 00:00:00 00:00:00 tobacco non-user [facility] Cigarettes smoked 2021-09-13 2021-09-13 Univers ity of current (pack per 00:00:00 00:00:00 [facility] ) - Reported Branch Alcohol intake 2021-09-13 2021-09-13 .14 /d University of 00:00:00 00:00:00 [facility] History of Social 2021-06-08 2021-06-08 Univers ity of function 00:00:00 00:00:00 [facility] Sex [birth year] At [birth year] Universit y of 00:00:00 00:00:00 [facility] Smoking Status Start Date Stop Date Source Tobacco smoking status 2022-03-24 14:10:02 2022-03-24 14:10:02 leonel Regalado Social History 2014-11-29 15:54:16 [facility] Medications Ordered Filled Start Stop Current Ordering Indication Dosage Frequency Signature Comments Components Source Medication Medication Date Date Medication? Clinician (SIG) Name Name levothyroxi Yes [id number] 50ug Take 1 Univers ne 50 mcg 9-11 tablet by ity o f tablet 00:00: mouth [place] every Medical morning. Branch atorvastati Yes [id number] 10mg Take 1 Univers n 10 mg 9-11 tablet by ity of tablet 00:00: mouth in [place] [address] the Medical morning. Branch levothyroxi Yes [id number] 50ug Take 1 Univers ne 50 mcg 9-11 tablet by ity o f tablet 00:00: mouth [place] every Medical morning. Branch tirzepatide Yes [id number] 7.5mg inject 7.5 Univers (MOUNJARO) 9-11 mg under ity o f 7.5 mg/0.5 00:00: the skin [place] mL PnIj 00 weekly. Medical Branch levothyroxi Yes [id number] 50ug Take 1 Univers ne 50 mcg 9-11 tablet by ity o f tablet 00:00: mouth [place] 00 every Medical morning. Branch atorvastati Yes [id number] 10mg Take 1 Univers n 10 mg 9-11 tablet by ity of tablet 00:00: mouth in [place] 00 the Medical morning. Branch levothyroxi Yes [id number] 50ug Take 1 Univers ne 50 mcg 9-11 tablet by ity o f tablet 00:00: mouth [place] 00 every Medical morning. Branch atorvastati Yes [id number] 10mg Take 1 Univers n 10 mg 9-11 tablet by ity of tablet 00:00: mouth in [place] 00 the Medical morning. Branch tirzepatide Yes [id number] 7.5mg inject 7.5 Univers (MOUNJARO) 9-11 mg under ity o f 7.5 mg/0.5 00:00: the skin [place] PnIj 00 weekly. Medical Branch levothyroxi Yes [id number] 50ug Take 1 Univers ne 50 mcg 9-11 tablet by ity o f tablet 00:00: mouth [place] 00 every Medical morning. Branch atorvastati Yes [id number] 10mg Take 1 Univers n 10 mg 9-11 tablet by ity of tablet 00:00: mouth in [place] 00 the Medical morning. Branch tirzepatide Yes [id number] 7.5mg inject 7.5 Univers (MOUNJARO) 9-11 mg under ity o f 7.5 mg/0.5 00:00: the skin [place] mL PnIj 00 weekly. Medical Branch atorvastati 2022- No [id number] 10mg Take 1 Univers n 10 mg 9-11 09-11 tablet by ity of tablet 00:00: 00:00 mouth in [place] 00 :00 the Medical morning. Branch levothyroxi 2022- No [id number] 50ug Take 1 Univers ne 50 mcg 9-11 09-11 tablet by ity of tablet 00:00: 00:00 mouth [place] 00 :00 every Medical morning. Branch tirzepatide 2022- No [id number] 7.5mg inject 7.5 Univers (MOUNJARO) 9-11 09-11 mg under ity of 7.5 mg/0.5 00:00: 00:00 [place] skin [place] mL PnIj 00 :00 weekly. Medical Branch tirzepatide 2022- No [id number] 7.5mg inject 7.5 Univers (MOUNJARO) 9-11 09-11 mg under ity of 7.5 mg/0.5 00:00: 00:00 the skin [place] mL PnIj 00 :00 weekly. Medical Branch tirzepatide Yes [id number] 7.5mg inject 7.5 Univers (MOUNJARO) 8-28 mg under ity o f 7.5 mg/0.5 00:00: the [place] mL PnIj 00 weekly. Medical Branch tirzepatide Yes [id number] 7.5mg inject 7.5 Univers (MOUNJARO) 8-28 mg under ity o f 7.5 mg/0.5 00:00: the [place] mL PnIj 00 weekly. Medical Branch tirzepatide Yes [id number] 7.5mg inject 7.5 Univers (MOUNJARO) 8-28 mg under ity o f 7.5 mg/0.5 00:00: the [place] mL PnIj 00 weekly. Medical Branch tirzepatide 2022- No [id number] 7.5mg inject 7.5 Univers (MOUNJARO) 8-28 09-11 mg under ity of 7.5 mg/0.5 00:00: 00:00 the skin [place] mL PnIj 00 :00 weekly. Medical Branch tirzepatide Yes [id number] 5mg inject 5 Univers (MOUNJARO) 7-24 mg under ity o f 5 mg/0.5 mL 00:00: the skin [place] PnIj 00 weekly. Medical Branch tirzepatide Yes [id number] 5mg inject 5 Univers (MOUNJARO) 7-24 mg under ity o f 5 mg/0.5 mL 00:00: the skin [place] PnIj 00 weekly. Medical Branch tirzepatide Yes [id number] 5mg inject 5 Univers (MOUNJARO) 7-24 mg under ity o f 5 mg/0.5 mL 00:00: the skin [place] PnIj 00 weekly. Medical Branch tirzepatide 2022- No [id number] 5mg inject 5 Univers (MOUNJARO) 7-24 09-11 mg under ity of 5 mg/0.5 mL 00:00: 00:00 the skin [place] PnIj 00 :00 weekly. Medical Branch insulin Yes [id number] Take 50 Un joel glargine 4-25 units SQ ity of U-300 conc 00:00: daily [place] (TOUJEO MAX 00 E11.65 Medica l U-300 Branch SOLOSTAR) 300 unit/mL (3 mL) InPn insulin Yes [id number] 15U inject 15 Univers lispro 4-25 Units ity of (HUMALOG 00:00: [place] skin in Medical INSULIN) the Branch 100 unit/mL morning pen and 15 injector Units at noon and 15 Units in the evening. inject before meals. metformin Yes [id number] 1500mg Take 2 Univers ER 750 mg 4-25 tablets by ity of 24 hr 00:00: mouth [place] tablet 00 daily with Medical breakfast. Branch levothyroxi Yes [id number] 50ug Take 1 Univers ne 50 mcg 4-25 tablet by ity o f tablet 00:00: mouth [place] 00 every Medical morning. Branch semaglutide Yes [id number] 2mg inject 2 Univers (OZEMPIC) 2 4-25 mg under ity of mg/dose (8 00:00: the skin [place] mg/3 mL) 00 weekly. Medical PnIj Branch flash Yes [id number] 1{kit} 1 Kit Univ ers glucose 4-25 every 14 ity of sensor 00:00: (fourteen) [place] (FREESTYLE 00 days. Medical LASHAY 2 E11.65 Branch SENSOR) Kit insulin Yes [id number] Take 50 Un joel glargine 4-25 units SQ ity of U-300 conc 00:00: daily [place] (TOUJEO MAX 00 E11.65 Medica l U-300 Branch SOLOSTAR) 300 unit/mL (3 mL) InPn insulin Yes [id number] 15U inject 15 Univers lispro 4-25 Units ity of (HUMALOG 00:00: [place] skin in Medical INSULIN) the Branch 100 unit/mL morning pen and 15 injector Units at noon and 15 Units in the evening. inject before meals. metformin Yes [id number] 1500mg Take 2 Univers ER 750 mg 4-25 tablets by ity of 24 hr 00:00: mouth [place] tablet 00 daily with Medical breakfast. Branch levothyroxi Yes [id number] 50ug Take 1 Univers ne 50 mcg 4-25 tablet by ity o f tablet 00:00: mouth [place] 00 every Medical morning. Branch semaglutide Yes [id number] 2mg inject 2 Univers (OZEMPIC) 2 4-25 mg under ity of mg/dose (8 00:00: the skin [place] mg/3 mL) 00 weekly. Medical PnIj Branch flash Yes [id number] 1{kit} 1 Kit Univ ers glucose 4-25 every 14 ity of sensor 00:00: (fourteen) [place] (FREESTYLE 00 days. Medical LASHAY 2 E11.65 Branch SENSOR) Kit insulin Yes [id number] Take 50 Un joel glargine 4-25 units SQ ity of U-300 conc 00:00: daily [place] (TOUJEO MAX 00 E11.65 Medica l U-300 Branch SOLOSTAR) 300 unit/mL (3 mL) InPn insulin Yes [id number] 15U inject 15 Univers lispro 4-25 Units ity of (HUMALOG 00:00: [place] skin in Medical INSULIN) the Branch 100 unit/mL morning pen and 15 injector Units at noon and 15 Units in the evening. inject before meals. metformin Yes [id number] 1500mg Take 2 Univers ER 750 mg 4-25 tablets by ity of 24 hr 00:00: mouth [place] tablet 00 daily with Medical breakfast. Branch levothyroxi Yes [id number] 50ug Take 1 Univers ne 50 mcg 4-25 tablet by ity o f tablet 00:00: mouth [place] 00 every Medical morning. Branch semaglutide Yes [id number] 2mg inject 2 Univers (OZEMPIC) 2 4-25 mg under ity of mg/dose (8 00:00: the skin [place] mg/3 mL) 00 weekly. Medical PnIj Branch flash Yes [id number] 1{kit} 1 Kit Univ ers glucose 4-25 every 14 ity of sensor 00:00: (fourteen) (FREESTYLE 00 days. Medical LASHAY 2 E11.65 Branch SENSOR) Kit insulin Yes [id number] Take 50 Un joel glargine 4-25 units SQ ity of U-300 conc 00:00: daily [place] (TOUJEO MAX E11.65 Medica l U-300 Branch SOLOSTAR) 300 unit/mL (3 mL) InPn insulin Yes [id number] 15U inject 15 Univers lispro 4-25 Units ity of (HUMALOG 00:00: [place] skin in Medical INSULIN) the Branch 100 unit/mL morning pen and 15 injector Units at noon and 15 Units in the evening. inject before meals. metformin Yes [id number] 1500mg Take 2 Univers ER 750 mg 4-25 tablets by ity of 24 hr 00:00: mouth [place] tablet 00 daily with Medical breakfast. Branch levothyroxi Yes [id number] 50ug Take 1 Univers ne 50 mcg 4-25 tablet by ity o f tablet 00:00: mouth [place] 00 every Medical morning. Branch semaglutide Yes [id number] 2mg inject 2 Univers (OZEMPIC) 2 4-25 mg under ity of mg/dose (8 00:00: the skin [place] mg/3 mL) 00 weekly. Medical PnIj Branch flash Yes [id number] 1{kit} 1 Kit Univ ers glucose 4-25 every 14 ity of sensor 00:00: (fourteen) (FREESTYLE 00 days. Medical LASHAY 2 E11.65 Branch SENSOR) Kit insulin Yes [id number] Take 50 Un joel glargine 4-25 units SQ ity of U-300 conc 00:00: daily [place] (TOUJEO MAX E11.65 Medica l U-300 Branch SOLOSTAR) 300 unit/mL (3 mL) InPn insulin Yes [id number] 15U inject 15 Univers lispro 4-25 Units ity of (HUMALOG 00:00: [place] skin in Medical INSULIN) the Branch 100 unit/mL morning pen and 15 injector Units at noon and 15 Units in the evening. inject before meals. metformin Yes [id number] 1500mg Take 2 Univers ER 750 mg 4-25 tablets by ity of 24 hr 00:00: mouth [place] tablet 00 daily with Medical breakfast. Branch levothyroxi Yes [id number] 50ug Take 1 Univers ne 50 mcg 4-25 tablet by ity o f tablet 00:00: mouth [place] 00 every Medical morning. Branch semaglutide Yes [id number] 2mg inject 2 Univers (OZEMPIC) 2 4-25 mg under ity of mg/dose (8 00:00: the skin [place] mg/3 mL) 00 weekly. Medical PnIj Branch flash Yes [id number] 1{kit} 1 Kit Univ ers glucose 4-25 every 14 ity of sensor 00:00: (fourteen) [place] (FREESTYLE 00 days. Medical LASHAY 2 E11.65 Branch SENSOR) Kit insulin Yes [id number] Take 50 Un joel glargine 4-25 units SQ ity of U-300 conc 00:00: daily [place] (TOUJEO MAX 00 E11.65 Medica l U-300 Branch SOLOSTAR) 300 unit/mL (3 mL) InPn insulin Yes [id number] 15U inject 15 Univers lispro 4-25 Units ity of (HUMALOG 00:00: [place] skin in Medical INSULIN) the Branch 100 unit/mL morning pen and 15 injector Units at noon and 15 Units in the evening. inject before meals. metformin Yes [id number] 1500mg Take 2 Univers ER 750 mg 4-25 tablets by ity of 24 hr 00:00: mouth [place] tablet 00 daily with Medical breakfast. Branch levothyroxi Yes [id number] 50ug Take 1 Univers ne 50 mcg 4-25 tablet by ity o f tablet 00:00: mouth [place] 00 every Medical morning. Branch semaglutide Yes [id number] 2mg inject 2 Univers (OZEMPIC) 2 4-25 mg under ity of mg/dose (8 00:00: the skin [place] mg/3 mL) 00 weekly. Medical PnIj Branch flash Yes [id number] 1{kit} 1 Kit Univ ers glucose 4-25 every 14 ity of sensor 00:00: (fourteen) (FREESTYLE 00 days. Medical LASHAY 2 E11.65 Branch SENSOR) Kit insulin Yes [id number] Take 50 Un joel glargine 4-25 units SQ ity of U-300 conc 00:00: daily [place] (TOUJEO MAX . Medica l U-300 Branch SOLOSTAR) 300 unit/mL (3 mL) InPn insulin Yes [id number] 15U inject 15 Univers lispro 4-25 Units ity of (HUMALOG 00:00: [place] skin in Medical INSULIN) the Branch 100 unit/mL morning pen and 15 injector Units at noon and 15 Units in the evening. inject before meals. metformin Yes [id number] 1500mg Take 2 Univers ER 750 mg 4-25 tablets by ity of 24 hr 00:00: mouth [place] tablet 00 daily with Medical breakfast. Branch levothyroxi Yes [id number] 50ug Take 1 Univers ne 50 mcg 4-25 tablet by ity o f tablet 00:00: mouth [place] 00 every Medical morning. Branch semaglutide Yes [id number] 2mg inject 2 Univers (OZEMPIC) 2 4-25 mg under ity of mg/dose (8 00:00: the skin [place] mg/3 mL) 00 weekly. Medical PnIj Branch flash Yes [id number] 1{kit} 1 Kit Univ ers glucose 4-25 every 14 ity of sensor 00:00: (fourteen) (FREESTYLE 00 days. Medical LASHAY 2 E11.65 Branch SENSOR) Kit insulin Yes [id number] Take 50 Un joel glargine 4-25 units SQ ity of U-300 conc 00:00: daily [place] (TOUJEO MAX .65 Medica l U-300 Branch SOLOSTAR) 300 unit/mL (3 mL) InPn insulin Yes [id number] 15U inject 15 Univers lispro 4-25 Units ity of (HUMALOG 00:00: [place] 00 skin in Medical INSULIN) the Branch 100 unit/mL morning pen and 15 injector Units at noon and 15 Units in the evening. inject before meals. metformin Yes [id number] 1500mg Take 2 Univers ER 750 mg 4-25 tablets by ity of 24 hr 00:00: mouth [place] tablet 00 daily with Medical breakfast. Branch levothyroxi Yes [id number] 50ug Take 1 Univers ne 50 mcg 4-25 tablet by ity o f tablet 00:00: mouth [place] 00 every Medical morning. Branch flash Yes [id number] 1{kit} 1 Kit Univ ers glucose 4-25 every 14 ity of sensor 00:00: (fourteen) (FREESTYLE 00 days. Medical LASHAY 2 E11.65 Branch SENSOR) Kit insulin Yes [id number] Take 50 Un joel glargine 4-25 units SQ ity of U-300 conc 00:00: daily [place] (TOUJEO MAX E11.65 Medica l U-300 Branch SOLOSTAR) 300 unit/mL (3 mL) InPn insulin Yes [id number] 15U inject 15 Univers lispro 4-25 Units ity of (HUMALOG 00:00: [place] 00 skin in Medical INSULIN) the Branch 100 unit/mL morning pen and 15 injector Units at noon and 15 Units in the evening. inject before meals. metformin Yes [id number] 1500mg Take 2 Univers ER 750 mg 4-25 tablets by ity of 24 hr 00:00: mouth [place] tablet 00 daily with Medical breakfast. Branch flash Yes [id number] 1{kit} 1 Kit Univ ers glucose 4-25 every 14 ity of sensor 00:00: (fourteen) (FREESTYLE 00 days. Medical LASHAY 2 E11.65 Branch SENSOR) Kit insulin Yes [id number] Take 50 Un joel glargine 4-25 units SQ ity of U-300 conc 00:00: daily [place] (TOUJEO MAX E11.65 Medica l U-300 Branch SOLOSTAR) 300 unit/mL (3 mL) InPn insulin Yes [id number] 15U inject 15 Univers lispro 4-25 Units ity of (HUMALOG 00:00: under [place] 00 skin in Medical INSULIN) the Branch 100 unit/mL morning pen and 15 injector Units at noon and 15 Units in the evening. inject before meals. metformin Yes [id number] 1500mg Take 2 Univers ER 750 mg 4-25 tablets by ity of 24 hr 00:00: mouth [place] tablet 00 daily with Medical breakfast. Branch flash Yes [id number] 1{kit} 1 Kit Univ ers glucose 4-25 every 14 ity of sensor 00:00: (fourteen) (FREESTYLE days. Medical LASHAY 2 E11.65 Branch SENSOR) Kit insulin Yes [id number] Take 50 Un joel glargine 4-25 units SQ ity of U-300 conc 00:00: daily [place] (TOUJEO MAX E11.65 Medica l U-300 Branch SOLOSTAR) 300 unit/mL (3 mL) InPn insulin Yes [id number] 15U inject 15 Univers lispro 4-25 Units ity of (HUMALOG 00:00: [place] 00 skin in Medical INSULIN) the Branch 100 unit/mL morning pen and 15 injector Units at noon and 15 Units in the evening. inject before meals. metformin Yes [id number] 1500mg Take 2 Univers ER 750 mg 4-25 tablets by ity of 24 hr 00:00: mouth [place] tablet 00 daily with Medical breakfast. Branch flash Yes [id number] 1{kit} 1 Kit Univ ers glucose 4-25 every 14 ity of sensor 00:00: (fourteen) (FREESTYLE 00 days. Medical LASHAY 2 E11.65 Branch SENSOR) Kit insulin Yes [id number] Take 50 Un joel glargine 4-25 units SQ ity of U-300 conc 00:00: daily [place] (TOUJEO MAX E11.65 Medica l U-300 Branch SOLOSTAR) 300 unit/mL (3 mL) InPn insulin Yes [id number] 15U inject 15 Univers lispro 4-25 Units ity of (HUMALOG 00:00: [place] 00 skin in Medical INSULIN) the Branch 100 unit/mL morning pen and 15 injector Units at noon and 15 Units in the evening. inject before meals. metformin Yes [id number] 1500mg Take 2 Univers ER 750 mg 4-25 tablets by ity of 24 hr 00:00: mouth [place] tablet 00 daily with Medical breakfast. Branch flash Yes [id number] 1{kit} 1 Kit Univ ers glucose 4-25 every 14 ity of sensor 00:00: (fourteen) [place] (FREESTYLE 00 days. Medical LASHAY 2 E11.65 Branch SENSOR) Kit insulin Yes [id number] Take 50 Un joel glargine 4-25 units SQ ity of U-300 conc 00:00: daily [place] (TOUJEO MAX 00 E11.65 Medica l U-300 Branch SOLOSTAR) 300 unit/mL (3 mL) InPn insulin Yes [id number] 15U inject 15 Univers lispro 4-25 Units ity of (HUMALOG 00:00: [place] 00 skin in Medical INSULIN) the Branch 100 unit/mL morning pen and 15 injector Units at noon and 15 Units in the evening. inject before meals. metformin Yes [id number] 1500mg Take 2 Univers ER 750 mg 4-25 tablets by ity of 24 hr 00:00: mouth [place] tablet 00 daily with Medical breakfast. Branch flash Yes [id number] 1{kit} 1 Kit Univ ers glucose 4-25 every 14 ity of sensor 00:00: (fourteen) [place] (FREESTYLE 00 days. Medical LASHAY 2 E11.65 Branch SENSOR) Kit levothyroxi 2022- No [id number] 50ug Take 1 Univers ne 50 mcg 4-25 09-11 tablet by ity of tablet 00:00: 00:00 mouth [place] 00 :00 every Medical morning. Branch semaglutide 2022- No [id number] 2mg inject 2 Univers (OZEMPIC) 2 4-25 07-24 mg under ity of mg/dose (8 00:00: 00:00 [place] mg/3 mL) 00 :00 weekly. Medical PnIj Branch insulin 2021-05 Yes [id number] 15U inject 15 Univers lispro 1-22 Units ity of (HUMALOG 00:00: [place] 00 skin in Medical INSULIN) the Branch 100 unit/mL morning pen and 15 injector Units at noon and 15 Units in the evening. inject before meals. insulin 2021-05 Yes [id number] Take 50 Un joel glargine 1-22 units SQ ity of U-300 conc 00:00: daily [place] (TOUJEO MAX 00 E11.65 Medica l U-300 Branch SOLOSTAR) 300 unit/mL (3 mL) InPn fluconazole 2021-05 Yes [id number] Take 1 Univers (DIFLUCAN) 1-22 tablet ity of 150 mg 00:00: today and [place] tablet 00 second Medical tablet in Branch three days. semaglutide 2021-05 Yes [id number] 1mg inject 1 Univers (OZEMPIC) 1 1-22 mg under ity of mg/dose (4 00:00: the skin [place] mg/3 mL) 00 weekly. Medical Ij [place] Insulin 2021-05 Yes [id number] Use as Uni vers Zenda, 1-22 directed ity of Disposable, 00:00: 4X per day [place] (PEN 00 E11.65 Medical NEEDLE) 32 Branch gauge x 5/32" Ndle flash 2021-05 Yes [id number] 1{kit} 1 Kit Univ ers glucose 1-22 every 14 ity of sensor 00:00: (fourteen) [place] (FREESTYLE 00 days. Medical LASHAY 2 E11.65 Branch SENSOR) Kit metformin 2021-05 Yes [id number] 1500mg Take 2 Univers ER 750 mg 1-22 tablets by ity of 24 hr 00:00: mouth [place] tablet 00 daily with Medical breakfast. Branch insulin 2021-05 Yes [id number] 15U inject 15 Univers lispro 1-22 Units ity of (HUMALOG 00:00: [place] 00 skin in Medical INSULIN) the Branch 100 unit/mL morning pen and 15 injector Units at noon and 15 Units in the evening. inject before meals. insulin 2021-05 Yes [id number] Take 50 Un joel glargine 1-22 units SQ ity of U-300 conc 00:00: daily [place] (TOUJEO MAX 00 E11.65 Medica l U-300 [place] SOLOSTAR) 300 unit/mL (3 mL) InPn fluconazole 2021-05 Yes [id number] Take 1 Univers (DIFLUCAN) 1-22 tablet ity of 150 mg 00:00: today and [place] tablet 00 second Medical tablet in Branch three days. semaglutide 2021-05 Yes [id number] 1mg inject 1 Univers (OZEMPIC) 1 1-22 mg under ity of mg/dose (4 00:00: the skin [place] mg/3 mL) 00 weekly. Medical PnIj Branch Insulin 2021-05 Yes [id number] Use as Uni vers Zenda, 1-22 directed ity of Disposable, 00:00: 4X per day [place] (PEN 00 E11.65 Medical NEEDLE) 32 Branch gauge x 5/32" Ndle flash 2021-05 Yes [id number] 1{kit} 1 Kit Univ ers glucose 1-22 every 14 ity of sensor 00:00: (fourteen) [place] (FREESTYLE 00 days. Medical LASHAY 2 E11.65 Branch SENSOR) Kit metformin 2021-05 Yes [id number] 1500mg Take 2 [facility] ER 750 mg 1-22 tablets by ity of 24 hr 00:00: mouth [place] tablet 00 daily with Medical breakfast. Branch insulin 2021-05 Yes [id number] 15U inject 15 [facility] lispro 1-22 Units ity of (HUMALOG 00:00: [place] skin in Medical INSULIN) the Branch 100 unit/mL morning pen and 15 injector Units at noon and 15 Units in the evening. inject before meals. insulin 2021-05 Yes [id number] Take 50 [facility] glargine 1-22 units SQ ity of U-300 conc 00:00: daily [place] (TOUJEO MAX 00 E11.65 Medica l U-300 Branch SOLOSTAR) 300 unit/mL (3 mL) InPn fluconazole 2021-05 Yes [id number] Take 1 Univers (DIFLUCAN) 1-22 tablet ity of 150 mg 00:00: today and [place] tablet 00 second Medical tablet in Branch three days. semaglutide 2021-05 Yes [id number] 1mg inject 1 [facility] (OZEMPIC) 1 1-22 mg under ity of mg/dose (4 00:00: the skin [place] mg/3 mL) 00 weekly. Medical PnIj Branch Insulin 2021-05 Yes [id number] Use as Uni vers Zenda, 1-22 directed ity of Disposable, 00:00: 4X per day [place] (PEN 00 E11.65 Medical NEEDLE) 32 Branch gauge x 5/32" Ndle flash 2021-05 Yes [id number] 1{kit} 1 Kit Univ ers glucose 1-22 every 14 ity of sensor 00:00: (fourteen) [place] (FREESTYLE 00 days. Medical LASHAY 2 E11.65 Branch SENSOR) Kit metformin 2021-05 Yes [id number] 1500mg Take 2 [facility] ER 750 mg 1-22 tablets by ity of 24 hr 00:00: mouth [place] tablet 00 daily with Medical breakfast. Branch insulin 2021-05 Yes [id number] 15U inject 15 [facility] lispro 1-22 Units ity of (HUMALOG 00:00: [place] 00 skin in Medical INSULIN) the Branch 100 unit/mL morning pen and 15 injector Units at noon and 15 Units in the evening. inject before meals. insulin 2021-05 Yes [id number] Take 50 [facility] glargine 1-22 units SQ ity of U-300 conc 00:00: daily [place] (TOUJEO MAX 00 E11.65 Medica l U-300 Branch SOLOSTAR) 300 unit/mL (3 mL) InPn fluconazole 2021-05 Yes [id number] Take 1 [facility] (DIFLUCAN) 1-22 tablet ity of 150 mg 00:00: today and [place] tablet 00 second Medical tablet in Branch three days. semaglutide 2021-05 Yes [id number] 1mg inject 1 [facility] (OZEMPIC) 1 1-22 mg under ity of mg/dose (4 00:00: the skin [place] mg/3 mL) 00 weekly. Medical PnIj Branch Insulin 2021-05 Yes [id number] Use as Uni vers Zenda, 1-22 directed ity of Disposable, 00:00: 4X per day [place] (PEN 00 E11.65 Medical NEEDLE) 32 Branch gauge x 5/32" Ndle flash 2021-05 Yes [id number] 1{kit} 1 Kit Univ ers glucose 1-22 every 14 ity of sensor 00:00: (fourteen) [place] (FREESTYLE 00 days. Medical LASHAY 2 E11.65 Branch SENSOR) Kit metformin 2021-05 Yes [id number] 1500mg Take 2 [facility] ER 750 mg 1-22 tablets by ity of 24 hr 00:00: mouth [place] tablet 00 daily with Medical breakfast. Branch insulin 2021-05 Yes [id number] 15U inject 15 [facility] lispro 1-22 Units ity of (HUMALOG 00:00: [place] skin in Medical INSULIN) the Branch 100 unit/mL morning pen and 15 injector Units at noon and 15 Units in the evening. inject before meals. insulin 2021-05 Yes [id number] Take 50 [facility] glargine 1-22 units SQ ity of U-300 conc 00:00: daily [place] (TOUJEO MAX 00 E11.65 Medica l U-300 Branch SOLOSTAR) 300 unit/mL (3 mL) InPn fluconazole 2021-05 Yes [id number] Take 1 [facility] (DIFLUCAN) 1-22 tablet ity of 150 mg 00:00: today and [place] tablet 00 second Medical tablet in Branch three days. semaglutide 2021-05 Yes [id number] 1mg inject 1 [facility] (OZEMPIC) 1 1-22 mg under ity of mg/dose (4 00:00: the skin [place] mg/3 mL) 00 weekly. Medical PnIj Branch Insulin 2021-05 Yes [id number] Use as Uni vers Zenda, 1-22 directed ity of Disposable, 00:00: 4X per day [place] (PEN 00 E11.65 Medical NEEDLE) 32 Branch gauge x 5/32" Ndle flash 2021-05 Yes [id number] 1{kit} 1 Kit Univ ers glucose 1-22 every 14 ity of sensor 00:00: (fourteen) [place] (FREESTYLE 00 days. Medical LASHAY 2 E11.65 Branch SENSOR) Kit metformin 2021-05 Yes [id number] 1500mg Take 2 [facility] ER 750 mg 1-22 tablets by ity of 24 hr 00:00: mouth [place] tablet 00 daily with Medical breakfast. Branch insulin 2021-05 Yes [id number] 15U inject 15 [facility] lispro 1-22 Units ity of (HUMALOG 00:00: [place] 00 skin in Medical INSULIN) the Branch 100 unit/mL morning pen and 15 injector Units at noon and 15 Units in the evening. inject before meals. insulin 2021-05 Yes [id number] Take 50 [facility] glargine 1-22 units SQ ity of U-300 conc 00:00: daily [place] (TOUJEO MAX 00 E11.65 Medica l U-300 Branch SOLOSTAR) 300 unit/mL (3 mL) InPn fluconazole 2021-05 Yes [id number] Take 1 [facility] (DIFLUCAN) 1-22 tablet ity of 150 mg 00:00: today and [place] tablet 00 second Medical tablet in Branch three days. semaglutide 2021-05 Yes [id number] 1mg inject 1 [facility] (OZEMPIC) 1 1-22 mg under ity of mg/dose (4 00:00: the skin [place] mg/3 mL) 00 weekly. Medical PnIj Branch Insulin 2021-05 Yes [id number] Use as Uni vers Zenda, 1-22 directed ity of Disposable, 00:00: 4X per day [place] (PEN 00 E11.65 Medical NEEDLE) 32 Branch gauge x 5/32" Ndle flash 2021-05 Yes [id number] 1{kit} 1 Kit Univ ers glucose 1-22 every 14 ity of sensor 00:00: (fourteen) [place] (FREESTYLE 00 days. Medical LASHAY 2 E11.65 Branch SENSOR) Kit metformin 2021-05 Yes [id number] 1500mg Take 2 [facility] ER 750 mg 1-22 tablets by ity of 24 hr 00:00: mouth [place] tablet 00 daily with Medical breakfast. Branch insulin 2021-05 Yes [id number] 15U inject 15 [facility] lispro 1-22 Units ity of (HUMALOG 00:00: [place] skin in Medical INSULIN) the Branch 100 unit/mL morning pen and 15 injector Units at noon and 15 Units in the evening. inject before meals. insulin 2021-05 Yes [id number] Take 50 [facility] jo[facility] glargine 1-22 units SQ ity of U-300 conc 00:00: daily [place] (TOUJEO MAX 00 E11.65 Medica l U-300 Branch SOLOSTAR) 300 unit/mL (3 mL) InPn fluconazole 2021-05 Yes [id number] Take 1 [facility] (DIFLUCAN) 1-22 tablet ity of 150 mg 00:00: today and [place] tablet 00 second Medical tablet in Branch three days. semaglutide 2021-05 Yes [id number] 1mg inject 1 [facility] (OZEMPIC) 1 1-22 mg under ity of mg/dose (4 00:00: the skin [place] mg/3 mL) 00 weekly. Medical PnIj Branch Insulin 2021-05 Yes [id number] Use as Uni vers Zenda, 1-22 directed ity of Disposable, 00:00: 4X per day [place] (PEN 00 E11.65 Medical NEEDLE) 32 Branch gauge x 5/32" Ndle flash 2021-05 Yes [id number] 1{kit} 1 Kit Univ ers glucose 1-22 every 14 ity of sensor 00:00: (fourteen) [place] (FREESTYLE 00 days. Medical LASHAY 2 E11.65 Branch SENSOR) Kit metformin 2021-05 Yes [id number] 1500mg Take 2 [facility] ER 750 mg 1-22 tablets by ity of 24 hr 00:00: mouth [place] tablet 00 daily with Medical breakfast. [place] insulin 2021-05 Yes [id number] 15U inject 15 [facility] lispro 1-22 Units ity of (HUMALOG 00:00: [place] 00 skin in Medical INSULIN) the [place] 100 unit/mL morning pen and 15 injector Units at noon and 15 Units in the evening. inject before meals. insulin 2021-05 Yes [id number] Take 50 [facility] jo[facility] glargine 1-22 units SQ ity of U-300 conc 00:00: daily [place] (TOUJEO MAX 00 E11.65 Medica l U-300 Branch SOLOSTAR) 300 unit/mL (3 mL) InPn fluconazole 2021-05 Yes [id number] Take 1 [facility] (DIFLUCAN) 1-22 tablet ity of 150 mg 00:00: today and [place] tablet 00 second Medical tablet in Branch three days. semaglutide 2021-05 Yes [id number] 1mg inject 1 [facility] (OZEMPIC) 1 1-22 mg under ity of mg/dose (4 00:00: the skin [place] mg/3 mL) 00 weekly. Medical PnIj Branch Insulin 2021-05 Yes [id number] Use as Uni vers Zenda, 1-22 directed ity of Disposable, 00:00: 4X per day [place] (PEN 00 E11.65 Medical NEEDLE) 32 Branch gauge x 5/32" Ndle flash 2021-05 Yes [id number] 1{kit} 1 Kit Univ ers glucose 1-22 every 14 ity of sensor 00:00: (fourteen) [place] (FREESTYLE 00 days. Medical LASHAY 2 E11.65 Branch SENSOR) Kit metformin 2021-05 Yes [id number] 1500mg Take 2 [facility] ER 750 mg 1-22 tablets by ity of 24 hr 00:00: mouth [place] tablet 00 daily with Medical breakfast. Branch insulin 2021-05 Yes [id number] 15U inject 15 [facility] lispro 1-22 Units ity of (HUMALOG 00:00: [place] 00 skin in Medical INSULIN) the Branch 100 unit/mL morning pen and 15 injector Units at noon and 15 Units in the evening. inject before meals. insulin 2021-05 Yes [id number] Take 50 [facility] glargine 1-22 units SQ ity of U-300 conc 00:00: daily [place] (TOUJEO MAX 00 E11.65 Medica l U-300 Branch SOLOSTAR) 300 unit/mL (3 mL) InPn fluconazole 2021-05 Yes [id number] Take 1 [facility] (DIFLUCAN) 1-22 tablet ity of 150 mg 00:00: today and [place] tablet 00 second Medical tablet in Branch three days. semaglutide 2021-05 Yes [id number] 1mg inject 1 [facility] (OZEMPIC) 1 1-22 mg under ity of mg/dose (4 00:00: the skin [place] mg/3 mL) 00 weekly. Medical PnIj Branch Insulin 2021-05 Yes [id number] Use as Uni vers Zenda, 1-22 directed ity of Disposable, 00:00: 4X per day [place] (PEN 00 E11.65 Medical NEEDLE) 32 Branch gauge x 5/32" Ndle flash 2021-05 Yes [id number] 1{kit} 1 Kit Univ ers glucose 1-22 every 14 ity of sensor 00:00: (fourteen) [place] (FREESTYLE 00 days. Medical LASHAY 2 E11.65 Branch SENSOR) Kit metformin 2021-05 Yes [id number] 1500mg Take 2 [facility] ER 750 mg 1-22 tablets by ity of 24 hr 00:00: mouth [place] tablet 00 daily with Medical breakfast. Branch insulin 2021-05 Yes [id number] 15U inject 15 [facility] lispro 1-22 Units ity of (HUMALOG 00:00: [place] 00 skin in Medical INSULIN) the Branch 100 unit/mL morning pen and 15 injector Units at noon and 15 Units in the evening. inject before meals. insulin 2021-05 Yes [id number] Take 50 [facility] glargine 1-22 units SQ ity of U-300 conc 00:00: daily [place] (TOUJEO MAX 00 E11.65 Medica l U-300 Branch SOLOSTAR) 300 unit/mL (3 mL) InPn fluconazole 2021-05 Yes [id number] Take 1 [facility] (DIFLUCAN) 1-22 tablet ity of 150 mg 00:00: today and [place] tablet 00 second Medical tablet in Branch three days. semaglutide 2021-05 Yes [id number] 1mg inject 1 [facility] (OZEMPIC) 1 1-22 mg under ity of mg/dose (4 00:00: the skin [place] mg/3 mL) 00 weekly. Medical PnIj Branch Insulin 2021-05 Yes [id number] Use as Uni vers Zenda, 1-22 directed ity of Disposable, 00:00: 4X per day [place] (PEN 00 E11.65 Medical NEEDLE) 32 Branch gauge x 5/32" Ndle flash 2021-05 Yes [id number] 1{kit} 1 Kit Univ ers glucose 1-22 every 14 ity of sensor 00:00: (fourteen) [place] (FREESTYLE 00 days. Medical LASHAY 2 E11.65 Branch SENSOR) Kit metformin 2021-05 Yes [id number] 1500mg Take 2 [facility] ER 750 mg 1-22 tablets by ity of 24 hr 00:00: mouth [place] tablet 00 daily with Medical breakfast. Branch fluconazole 2021-05 Yes [id number] Take 1 [facility] (DIFLUCAN) 1-22 tablet ity of 150 mg 00:00: today and [place] tablet 00 second Medical tablet in Branch three days. Insulin 2021-05 Yes [id number] Use as Uni vers Zenda, 1-22 directed ity of Disposable, 00:00: 4X per day [place] (PEN 00 E11.65 Medical NEEDLE) 32 Branch gauge x 5/32" Ndle fluconazole 2021-05 Yes [id number] Take 1 [facility] (DIFLUCAN) 1-22 tablet ity of 150 mg 00:00: today and [place] tablet 00 second Medical tablet in Branch three days. Insulin 2021-05 Yes [id number] Use as Uni vers Zenda, 1-22 directed ity of Disposable, 00:00: 4X per day [place] (PEN 00 E11.65 Medical NEEDLE) 32 Branch gauge x 5/32" Ndle fluconazole 2021-05 Yes [id number] Take 1 [facility] (DIFLUCAN) 1-22 tablet ity of 150 mg 00:00: today and [place] tablet 00 second Medical tablet in Branch three days. Insulin 2021-05 Yes [id number] Use as Uni vers Zenda, 1-22 directed ity of Disposable, 00:00: 4X per day [place] (PEN 00 E11.65 Medical NEEDLE) 32 Branch gauge x 5/32" Ndle fluconazole 2021-05 Yes [id number] Take 1 [facility] (DIFLUCAN) 1-22 tablet ity of 150 mg 00:00: today and [place] tablet 00 second Medical tablet in Branch three days. Insulin 2021-05 Yes [id number] Use as Uni vers Zenda, 1-22 directed ity of Disposable, 00:00: 4X per day [place] (PEN 00 E11.65 Medical NEEDLE) 32 Branch gauge x 5/32" Ndle fluconazole 2021-05 Yes [id number] Take 1 [facility] (DIFLUCAN) 1-22 tablet ity of 150 mg 00:00: today and [place] tablet 00 second Medical tablet in Branch three days. Insulin 2021-05 Yes [id number] Use as Uni vers Zenda, 1-22 directed ity of Disposable, 00:00: 4X per day [place] (PEN 00 E11.65 Medical NEEDLE) 32 Branch gauge x 5/32" Ndle fluconazole 2021-05 Yes [id number] Take 1 [facility] (DIFLUCAN) 1-22 tablet ity of 150 mg 00:00: today and [place] tablet 00 second Medical tablet in Branch three days. Insulin 2021-05 Yes [id number] Use as Uni vers Zenda, 1-22 directed ity of Disposable, 00:00: 4X per day [place] (PEN 00 E11.65 Medical NEEDLE) 32 Branch gauge x 5/32" Ndle fluconazole 2021-05 Yes [id number] Take 1 [facility] (DIFLUCAN) 1-22 tablet ity of 150 mg 00:00: today and [place] tablet 00 second Medical tablet in Branch three days. Insulin 2021-05 Yes [id number] Use as Uni vers Zenda, 1-22 directed ity of Disposable, 00:00: 4X per day [place] (PEN 00 E11.65 Medical NEEDLE) 32 Branch gauge x 5/32" Ndle fluconazole 2021-05 Yes [id number] Take 1 [facility] (DIFLUCAN) 1-22 tablet ity of 150 mg 00:00: today and [place] tablet 00 second Medical tablet in Branch three days. Insulin 2021-05 Yes [id number] Use as Uni vers Zenda, 1- directed ity of Disposable, 00:00: 4X per day [place] (PEN 00 E11.65 Medical NEEDLE) 32 Branch gauge x 5/32" Ndle fluconazole 2021-05 Yes [id number] Take 1 [facility] (DIFLUCAN) 1-22 tablet ity of 150 mg 00:00: today and [place] tablet 00 second Medical tablet in Branch three days. Insulin 2021-05 Yes [id number] Use as Uni vers Zenda, 1- directed ity of Disposable, 00:00: 4X per day [place] (PEN 00 E11.65 Medical NEEDLE) 32 Branch gauge x 5/32" Ndle fluconazole 2021-05 Yes [id number] Take 1 Univers (DIFLUCAN) 1-22 tablet ity of 150 mg 00:00: today and [place] tablet 00 second Medical tablet in Branch three days. Insulin 2021-05 Yes [id number] Use as Uni vers Zenda, 1- directed ity of Disposable, 00:00: 4X per day [place] (PEN 00 E11.65 Medical NEEDLE) 32 Branch gauge x 5/32" Ndle fluconazole 2021-05 Yes [id number] Take 1 [facility] (DIFLUCAN) 1-22 tablet ity of 150 mg 00:00: today and [place] tablet 00 second Medical tablet in Branch three days. Insulin 2021-05 Yes [id number] Use as Uni vers Zenda, 1-22 directed ity of Disposable, 00:00: 4X per day [place] (PEN 00 E11.65 Medical NEEDLE) 32 Branch gauge x 5/32" Ndle fluconazole 2021-05 Yes [id number] Take 1 [facility] (DIFLUCAN) 1-22 tablet ity of 150 mg 00:00: today and [place] tablet 00 second Medical tablet in Branch three days. Insulin 2021-05 Yes [id number] Use as Uni vers Zenda, 06-05 directed ity of Disposable, 00:00: 4X per day [place] (PEN 00 E11.65 Medical NEEDLE) 32 Branch gauge x 5/32" Ndle fluconazole 2021-05 Yes [id number] Take 1 [facility] (DIFLUCAN) 1-22 tablet ity of 150 mg 00:00: today and [place] tablet 00 second Medical tablet in Branch three days. Insulin 2021-05 Yes [id number] Use as Uni vers Zenda, 06-05 directed ity of Disposable, 00:00: 4X per day [place] (PEN 00 E11.65 Medical NEEDLE) 32 Branch gauge x 5/32" Ndle insulin 2021-05- No [id number] 15U inject 15 [facility] lispro 06-05 04-25 Units ity of (HUMALOG 00:00: 00:00 under [place] KWIKPEN 00 :00 skin in Medical INSULIN) the Branch 100 unit/mL morning pen and 15 injector Units at noon and 15 Units in the evening. inject before meals. insulin 2021-05- No [id number] Take 50 U nivers glargine 06-05 04-25 units SQ ity of U-300 conc 00:00: 00:00 daily [place] (TOUJEO MAX 00 :00 E11.65 Medica l U-300 Branch SOLOSTAR) 300 unit/mL (3 mL) InPn semaglutide 2021-05- No [id number] 1mg inject 1 [facility] (OZEMPIC) 06-05 04-25 mg under ity of mg/dose (4 00:00: 00:00 the skin [place] mg/3 mL) 00 :00 weekly. Medical PnIj Branch flash 2021-05- No [id number] 1{kit} 1 Kit Uni vers glucose 06-05 04-25 every 14 ity of sensor 00:00: 00:[place] ([place]teen[place] (FREEST[place] 00 :00 days. Medical LASHAY 2 E11.65 Branch SENSOR) Kit metformin 2021-05- No [id number] 1500mg Take 2 Univers ER 750 mg 06-05 04-25 tablets by ity of 24 hr 00:00: 00:00 mouth [place] tablet 00 :00 daily with Medical breakfast. Branch insulin 2021-05- No [id number] 15U inject 15 [facility] lispro 06-05-25 Units ity of (HUMALOG 00:00: 00:00 under [place]WIKPEN 00 :00 skin in Medical INSULIN) the Branch 100 unit/mL morning pen and 15 injector Units at noon and 15 Units in the evening. inject before meals. insulin 2021-05- No [id number] Take 50 U nivers glargine 06-05-25 units SQ ity of U-300 conc 00:00: 00:00 daily [place] (TOUJEO MAX 00 :00 E11.65 Medica l U-300 Branch SOLOSTAR) 300 unit/mL (3 mL) In semaglutide 2021-05 No [id number] 1mg inject 1 Univers (OZEMPIC) 1 -03 09-25 mg under ity of mg/dose (4 00:00: 00:00 the skin [place] mg/3 mL) 00 :00 weekly. Medical [facility] flash 2021-05- No [id number] 1{kit} 1 Kit Uni vers glucose 06-05-25 every 14 ity of sensor 00:00: 00:[place] ([place]teen[place] (FREESTYLE 00 :00 days. Medical LASHAY 2 E11.65 Branch SENSOR) Kit metformin 2021-05- No [id number] 1500mg Take 2 Univers ER 750 mg 06-05-25 tablets by ity of 24 hr 00:00: 00:00 mouth [place] tablet 00 :00 daily with Medical breakfast. Branch semaglutide 2021-05 Yes 1mg inject 1 Un joel (OZEMPIC) 1 1-12 mg under ity of mg/dose (4 00:00: the skin [place] mg/3 mL) 00 weekly. Medical [facility] semaglutide 2021-05- No 1mg inject 1 U nivers (OZEMPIC) 1 1-12 11-22 mg under ity of mg/dose (4 00:00: 00:00 the skin [place] mg/3 mL) 00 :00 weekly. Medical [facility] semaglutide 2021-05- No 1mg inject 1 U nivers (OZEMPIC) 1 1-12 11-22 mg under ity of mg/dose (4 00:00: 00:00 the skin [place] mg/3 mL) 00 :00 weekly. Medical PnIj Branch Farxiga 10 2021-05 Yes TAKE 1 [facility] mg oral 1-10 TABLET BY l tablet 14:33: MOUTH IN [place] 00 THE MORNING [facility] 2021-05 Yes TAKE 1 [facility] mg oral 1-10 TABLET BY l tablet 14:33: MOUTH IN [place] 00 [facility]ING [facility] 2021-05 Yes TAKE 1 [facility] mg oral 1-10 TABLET BY l tablet 14:33: MOUTH IN [place] 00 THE MORNING [facility] 2021-05 Yes TAKE 1 [facility] mg oral 1-10 TABLET BY l tablet 14:33: MOUTH IN [place] 00 THE MORNING dapaglifloz 2021-05 Yes [id number] 10mg Take 1 Univers in 10 mg 1-02 tablet by ity of tablet 00:00: mouth in [place] 00 the Medical morning. Branch dapaglifloz 2021-05 Yes [id number] 10mg Take 1 [facility] in 10 mg 1-02 tablet by ity of tablet 00:00: mouth in [place] 00 the Medical morning. Branch dapaglifloz 2021-05 Yes [id number] 10mg Take 1 [facility] in 10 mg 1-02 tablet by ity of tablet 00:00: mouth in [place] 00 the Medical morning. Branch dapaglifloz 2021-05 Yes [id number] 10mg Take 1 [facility] in 10 mg 1-02 tablet by ity of tablet 00:00: mouth in [place] 00 the Medical morning. Branch dapaglifloz 2021-05- No [id number] 10mg Take 1 [facility] in 10 mg 1-02 11-22 tablet by ity o f tablet 00:00: 00:00 mouth in [place] 00 :00 the Medical morning. Branch dapaglifloz 2021-05- No [id number] 10mg Take 1 Univers in 10 mg 1-02 11-22 tablet by ity o f tablet 00:00: 00:00 mouth in [place] 00 :00 the Medical morning. Branch LINZESS [...] 00:00: mouth [place] 00 daily. Medical Branch [facility] 290 2021-05 Yes 1{capsu Take 1 U [...] 00:00: mouth [place] 00 daily. Medical Branch [facility] 290 2021-05 Yes 1{capsu Take 1 U nivers mcg Cap 0-31 le} capsule by ity of 00:00: mouth [place] 00 daily. Medical Branch [facility] 290 2021-05 Yes 1{capsu Take 1 U nivers mcg Cap 0-31 le} capsule by ity of 00:00: mouth [place] 00 daily. Medical Branch [facility] 290 2021-05 Yes 1{capsu Take 1 U nivers mcg Cap 0-31 le} capsule by ity of 00:00: mouth [place] 00 daily. Medical Branch semaglutide 2021-05 Yes 1mg inject 1 Un jeol (OZEMPIC) 1 0-14 mg under ity of mg/dose (4 00:00: the skin [place] mg/3 mL) [address] [facility] Branch semaglutide 2021-05 Yes 1mg inject 1 Un joel (OZEMPIC) 1 0-14 mg under ity of mg/dose (4 00:00: the skin [place] mg/3 mL) [address] [facility] Branch semaglutide 2021-05 Yes 1mg inject 1 Un joel (OZEMPIC) 1 0-14 mg under ity of mg/dose (4 00:00: the skin [place] mg/3 mL) 00 weekly. [facility] Branch semaglutide 2021-05 Yes 1mg inject 1 Un joel (OZEMPIC) 1 0-14 mg under ity of mg/dose (4 00:00: the skin [place] mg/3 mL) 00 weekly. [facility] semaglutide 2021-05 Yes 1mg inject 1 Un joel (OZEMPIC) 1 0-14 mg under ity of mg/dose (4 00:00: the skin [place] mg/3 mL) 00 weekly. [facility] semaglutide 2021-05 Yes 1mg inject 1 Un joel (OZEMPIC) 1 0-14 mg under ity of mg/dose (4 00:00: the skin [place] mg/3 mL) 00 weekly. [facility] semaglutide 2021-05 Yes 1mg inject 1 Un joel (OZEMPIC) 1 0-14 mg under ity of mg/dose (4 00:00: the skin [place] mg/3 mL) 00 weekly. [facility] semaglutide 2021-05 1mg inject 1 U nivers (OZEMPIC) 1 0-14 11-12 mg under ity of mg/dose (4 00:00: 00:00 the skin [place] mg/3 mL) 00 :00 weekly. [facility] fluconazole Yes [id number] Take 1 U nivers (DIFLUCAN) 9-27 tablet ity of 150 mg 00:00: today and [place] tablet 00 second Medical tablet on Branch day 3 fluconazole 2021-0 Yes [id number] Take 1 U nivers (DIFLUCAN) 9-27 tablet ity of 150 mg 00:00: today and [place] tablet 00 second Medical tablet on Branch day 3 fluconazole 2021- Yes [id number] Take 1 U nivers (DIFLUCAN) 9-27 tablet ity of 150 mg 00:00: today and [place] tablet 00 second Medical tablet on Branch day 3 fluconazole 2021-0 Yes [id number] Take 1 U nivers (DIFLUCAN) 9-27 tablet ity of 150 mg 00:00: today and [place] tablet 00 second Medical tablet on Branch day 3 fluconazole 2021-0 Yes [id number] Take 1 U nivers (DIFLUCAN) 9-27 tablet ity of 150 mg 00:00: today and [place] tablet 00 second Medical tablet on Branch day 3 fluconazole 2021-0 Yes [id number] Take 1 U nivers (DIFLUCAN) 9-27 tablet ity of 150 mg 00:00: today and [place] tablet 00 second Medical tablet on Branch day 3 fluconazole 2021-0 Yes [id number] Take 1 U nivers (DIFLUCAN) 9-27 tablet ity of 150 mg 00:00: today and [place] tablet 00 second Medical tablet on Branch day 3 fluconazole 2021-0 Yes [id number] Take 1 U nivers (DIFLUCAN) 9- tablet ity of 150 mg 00:00: today and [place] tablet 00 second Medical tablet on Branch day 3 fluconazole 2021-0 Yes [id number] Take 1 U nivers (DIFLUCAN) 9- tablet ity of 150 mg 00:00: today and [place] tablet 00 second Medical tablet on Branch day 3 fluconazole 2021-0 2021- No [id number] Take 1 Univers (DIFLUCAN) 02-08- tablet ity of 150 mg 00:00: 00:00 today and [place] tablet 00 :00 second Medical tablet on Branch day 3 fluconazole 2021-0 2021- No [id number] Take 1 Univers (DIFLUCAN) 02-08 tablet ity of 150 mg 00:00: 00:00 today and [place] tablet 00 :00 second Medical tablet on Branch day 3 dapaglifloz 2021-0 Yes [id number] 10mg Take 1 [facility] in 10 mg 9-19 tablet by ity of tablet 00:00: mouth in [place] 00 the Medical morning. Branch dapaglifloz 2021-0 Yes [id number] 10mg Take 1 [facility] in 10 mg 9-19 tablet by ity of tablet 00:00: mouth in [place] 00 the Medical morning. Branch dapaglifloz 2-0 Yes [id number] 10mg Take 1 [facility] in 10 mg 9-19 tablet by ity of tablet 00:00: mouth in [place] 00 the Medical morning. Branch dapaglifloz 2-0 Yes [id number] 10mg Take 1 [facility] in 10 mg 9-19 tablet by ity of tablet 00:00: mouth in [place] 00 the Medical morning. Branch dapaglifloz 2-0 Yes [id number] 10mg Take 1 [facility] in 10 mg 9-19 tablet by ity of tablet 00:00: mouth in [place] 00 the Medical morning. Branch dapaglifloz 2-0 Yes [id number] 10mg Take 1 [facility] in 10 mg 9-19 tablet by ity of tablet 00:00: mouth in [place] 00 the Medical morning. Branch dapaglifloz 2021-0 Yes [id number] 10mg Take 1 [facility] in 10 mg 9-19 tablet by ity of tablet 00:00: mouth in [place] 00 the Medical morning. Branch dapaglifloz 2021-0 2021- No [id number] 10mg Take 1 [facility] in 10 mg 9-19 11-02 tablet by ity o f tablet 00:00: 00:00 mouth in [place] 00 :00 the Medical morning. Branch levothyroxi 2021-0 Yes [id number] 50ug Take 1 Univers ne 50 mcg 7-26 tablet by ity o f tablet 00:00: mouth [place] 00 every Medical morning. Branch levothyroxi 2021-0 Yes [id number] 50ug Take 1 [facility] 50 mcg 7-26 tablet by it[facility] o f tablet 00:00: mouth [place] 00 every Medical morning. Branch levothyroxi 2021-0 Yes [id number] 50ug Take 1 [facility] ne 50 mcg 7-26 tablet by ity o f tablet 00:00: mouth [place] 00 every Medical morning. Branch levothyroxi 2021-0 Yes [id number] 50ug Take 1 [facility] ne 50 mcg 7-26 tablet by ity o f tablet 00:00: mouth [place] 00 every Medical morning. Branch levothyroxi 2021-0 Yes [id number] 50ug Take 1 [facility] 50 mcg 7-26 tablet by ity o f tablet 00:00: mouth [place] 00 every Medical morning. Branch levothyroxi 2021-0 Yes [id number] 50ug Take 1 [facility] 50 mcg 7-26 tablet by ity o f tablet 00:00: mouth [place] 00 every Medical morning. Branch levothyroxi 2021-0 Yes [id number] 50ug Take 1 [facility] 50 mcg 7-26 tablet by ity o f tablet 00:00: mouth [place] 00 every Medical morning. Branch levothyroxi 2021-0 Yes [id number] 50ug Take 1 [facility] 50 mcg 7-26 tablet by ity o f tablet 00:00: mouth [place] 00 every Medical morning. Branch levothyroxi 2021-0 Yes [id number] 50ug Take 1 [facility] 50 mcg 7-26 tablet by ity o f tablet 00:00: mouth [place] 00 every Medical morning. Branch levothyroxi 2021-0 Yes [id number] 50ug Take 1 [facility] 50 mcg 7-26 tablet by ity o f tablet 00:00: mouth [place] 00 every Medical morning. Branch levothyroxi 2021-0 Yes [id number] 50ug Take 1 [facility] 50 mcg 7-26 tablet by ity o f tablet 00:00: mouth [place] 00 every Medical morning. Branch levothyroxi 2021-0 Yes [id number] 50ug Take 1 [facility] ne 50 mcg 7-26 tablet by ity o f tablet 00:00: mouth [place] 00 every Medical morning. Branch levothyroxi 2021-0 Yes [id number] 50ug Take 1 [facility] ne 50 mcg 7-26 tablet by ity o f tablet 00:00: mouth [place] 00 every Medical morning. Branch levothyroxi 2021-0 Yes [id number] 50ug Take 1 [facility] 50 mcg 7-26 tablet by ity o f tablet 00:00: mouth [place] 00 every Medical morning. Branch levothyroxi 2021-0 Yes [id number] 50ug Take 1 [facility] 50 mcg 7-26 tablet by ity o f tablet 00:00: mouth [place] 00 every Medical morning. Branch levothyroxi 2021-0 Yes [id number] 50ug Take 1 [facility] ne 50 mcg 7-26 tablet by ity o f tablet 00:00: mouth [place] 00 every Medical morning. Branch levothyroxi 2021-0 Yes [id number] 50ug Take 1 [facility] ne 50 mcg 7-26 tablet by ity o f tablet 00:00: mouth [place] 00 every Medical morning. Branch semaglutide 2021-0 Yes 1mg inject 1 [facility] (OZEMPIC) 1 7-26 mg under ity of mg/dose (4 00:00: the skin [place] mg/3 mL) 00 weekly. Medical PnIj Branch levothyroxi 2021-0 Yes [id number] 50ug Take 1 [facility] ne 50 mcg 7-26 tablet by ity o f tablet 00:00: mouth [place] 00 every Medical morning. Branch semaglutide 2021-0 Yes 1mg inject 1 [facility] (OZEMPIC) 1 7-26 mg under ity of mg/dose (4 00:00: the skin [place] mg/3 mL) 00 weekly. Medical PnIj [facility] levothyroxi 2021-0 Yes [id number] 50ug Take 1 [facility] ne 50 mcg 7-26 tablet by ity o f tablet 00:00: mouth [place] 00 every Medical morning. Branch semaglutide 2021-0 Yes 1mg inject 1 [facility] (OZEMPIC) 1 7-26 mg under ity of mg/dose (4 00:00: the skin [place] mg/3 mL) 00 weekly. Medical PnIj Branch levothyroxi 2021-0 Yes [id number] 50ug Take 1 [facility] ne 50 mcg 7-26 tablet by ity o f tablet 00:00: mouth [place] 00 every Medical morning. Branch semaglutide 2021-0 Yes 1mg inject 1 [facility] (OZEMPIC) 1 7-26 mg under ity of mg/dose (4 00:00: the skin [place] mg/3 mL) 00 weekly. Medical PnIj Branch levothyroxi 2021-0 Yes [id number] 50ug Take 1 [facility] ne 50 mcg 7-26 tablet by ity o f tablet 00:00: mouth [place] 00 every Medical morning. Branch semaglutide 2021-0 Yes 1mg inject 1 [facility] (OZEMPIC) 1 7-26 mg under ity of mg/dose (4 00:00: the skin [place] mg/3 mL) 00 weekly. Medical PnIj Branch levothyroxi 2021-0 Yes [id number] 50ug Take 1 [facility] ne 50 mcg 7-26 tablet by ity o f tablet 00:00: mouth [place] 00 every Medical morning. Branch semaglutide 2021-0 Yes 1mg inject 1 [facility] (OZEMPIC) 1 7-26 mg under ity of mg/dose (4 00:00: the skin [place] mg/3 mL) 00 weekly. Medical PnIj Branch levothyroxi 2021-0 Yes [id number] 50ug Take 1 [facility] ne 50 mcg 7-26 tablet by ity o f tablet 00:00: mouth [place] 00 every Medical morning. Branch semaglutide 2-0 Yes 1mg inject 1 [facility] (OZEMPIC) 1 7-26 mg under ity of mg/dose (4 00:00: the skin [place] mg/3 mL) 00 weekly. Medical PnIj Branch levothyroxi 2021-0 Yes [id number] 50ug Take 1 [facility] ne 50 mcg 7-26 tablet by ity o f tablet 00:00: mouth [place] 00 every Medical morning. Branch semaglutide 0 Yes 1mg inject 1 [facility] (OZEMPIC) 1 7-26 mg under ity of mg/dose (4 00:00: the skin [place] mg/3 mL) 00 weekly. Medical PnIj Branch levothyroxi 0 Yes [id number] 50ug Take 1 [facility] ne 50 mcg 7-26 tablet by ity o f tablet 00:00: mouth [place] 00 every Medical morning. Branch levothyroxi 0 Yes [id number] 50ug Take 1 [facility] ne 50 mcg 7-26 tablet by ity o f tablet 00:00: mouth [place] 00 every Medical morning. Branch levothyroxi 0 Yes [id number] 50ug Take 1 [facility] ne 50 mcg 7-26 tablet by ity o f tablet 00:00: mouth [place] 00 every Medical morning. Branch levothyroxi 0 2022- No [id number] 50ug Take 1 [facility] ne 50 mcg 7-26 04-25 tablet by ity of tablet 00:00: 00:00 mouth [place] 00 :00 every Medical morning. Branch levothyroxi 2021-0 3- No [id number] 50ug Take 1 [facility] ne 50 mcg 7-26 04-25 tablet by ity of tablet 00:00: 00:00 mouth [place] 00 :00 every Medical morning. Branch semaglutide 2- No 1mg inject 1 [facility] (OZEMPIC) 1 7-26 10-14 mg under ity of mg/dose (4 00:00: 00:00 the skin [place] mg/3 mL) 00 :00 weekly. Medical PnIj Branch flash Yes [id number] 1{each} Apply 1 [facility]ivers glucose 7-22 Each to ity of sensor 00:00: skin every [place] (FREESTYLE 14 Medical LASHAY 2 (fourteen) Branch SENSOR) Kit days. Dx E11.65 atorvastati 0 Yes [id number] 10mg Take 1 [facility] n 10 mg 7-22 tablet by ity of tablet 00:00: mouth in [place] 00 the Medical morning. Branch insulin Yes [id number] Take 45 [facility] glargine 7-22 units SQ ity of U-300 conc 00:00: daily [place] (TOUJEO MAX 00 E11.65 Medica l U-300 Branch SOLOSTAR) 300 unit/mL (3 mL) InPn insulin Yes [id number] 15U inject 15 [facility] lispro 7-22 Units ity of (HUMALOG 00:00: [place] KWIKPEN 00 skin in Medical INSULIN) the Branch 100 unit/mL morning pen and 15 injector Units at noon and 15 Units in the evening. inject before meals. fluconazole Yes [id number] Take 1 [facility] (DIFLUCAN) 7-22 tablet ity of 150 mg 00:00: today and [place] tablet 00 second Medical tablet in Branch three days. flash Yes [id number] 1{each} Apply 1 [facility] nivers glucose 7-22 Each to ity of sensor 00:00: skin every (FREESTYLE 00 14 Medical LASHAY 2 (fourteen) Branch SENSOR) Kit days. Dx E11.65 atorvastati Yes [id number] 10mg Take 1 [facility] n 10 mg 7-22 tablet by ity of tablet 00:00: mouth in [place] 00 the Medical morning. Branch insulin Yes [id number] Take 45 [facility] glargine 7-22 units SQ ity of U-300 conc 00:00: daily [place] (TOUJEO MAX 00 E11.65 Medica l U-300 Branch SOLOSTAR) 300 unit/mL (3 mL) InPn insulin Yes [id number] 15U inject 15 [facility] lispro 7-22 Units ity of (HUMALOG 00:00: under [place] 00 skin in Medical INSULIN) the Branch 100 unit/mL morning pen and 15 injector Units at noon and 15 Units in the evening. inject before meals. fluconazole Yes [id number] Take 1 [facility] (DIFLUCAN) 7-22 tablet ity of 150 mg 00:00: today and [place] tablet 00 second Medical tablet in Branch three days. flash Yes [id number] 1{each} Apply 1 [facility] glucose 7-22 Each to ity of sensor 00:00: skin every (FREESTYLE 00 14 Medical LASHAY 2 (fourteen) Branch SENSOR) Kit days. Dx E11.65 atorvastati Yes [id number] 10mg Take 1 [facility] n 10 mg 7-22 tablet by ity of tablet 00:00: mouth in [place] 00 the Medical morning. Branch insulin Yes [id number] Take 45 [facility] glargine 7-22 units SQ ity of U-300 conc 00:00: daily [place] (TOUJEO MAX E11.65 Medica l U-300 Branch SOLOSTAR) 300 unit/mL (3 mL) InPn insulin Yes [id number] 15U inject 15 [facility] lispro 7-22 Units ity of (HUMALOG 00:00: under [place] 00 skin in Medical INSULIN) the Branch 100 unit/mL morning pen and 15 injector Units at noon and 15 Units in the evening. inject before meals. fluconazole Yes [id number] Take 1 [facility] (DIFLUCAN) 7-22 tablet ity of 150 mg 00:00: today and [place] tablet 00 second Medical tablet in Branch three days. flash Yes [id number] 1{each} Apply 1 [facility] glucose 7-22 Each to ity of sensor 00:00: skin every (FREESTYLE 00 14 Medical LASHAY 2 (fourteen) Branch SENSOR) Kit days. Dx E11.65 atorvastati Yes [id number] 10mg Take 1 [facility] n 10 mg 7-22 tablet by ity of tablet 00:00: mouth in [place] 00 the Medical morning. Branch insulin Yes [id number] Take 45 [facility] glargine 7-22 units SQ ity of U-300 conc 00:00: daily [place] (TOUJEO MAX E11.65 Medica l U-300 Branch SOLOSTAR) 300 unit/mL (3 mL) InPn insulin Yes [id number] 15U inject 15 [facility] lispro 7-22 Units ity of (HUMALOG 00:00: under [place] 00 skin in Medical INSULIN) the Branch 100 unit/mL morning pen and 15 injector Units at noon and 15 Units in the evening. inject before meals. fluconazole Yes [id number] Take 1 [facility] (DIFLUCAN) 7-22 tablet ity of 150 mg 00:00: today and [place] tablet 00 second Medical tablet in Branch three days. flash Yes [id number] 1{each} Apply 1 [facility] glucose 7-22 Each to ity of sensor 00:00: skin every [place] (FREESTYLE 00 14 Medical LASHAY 2 (fourteen) Branch SENSOR) Kit days. Dx E11.65 atorvastati Yes [id number] 10mg Take 1 [facility] n 10 mg 7-22 tablet by ity of tablet 00:00: mouth in [place] 00 the Medical morning. Branch insulin Yes [id number] Take 45 [facility] glargine 7-22 units SQ ity of U-300 conc 00:00: daily [place] (TOUJEO MAX 00 E11.65 Medica l U-300 Branch SOLOSTAR) 300 unit/mL (3 mL) InPn insulin Yes [id number] 15U inject 15 [facility] lispro 7-22 Units ity of (HUMALOG 00:00: under [place]WIKP[place] 00 skin in Medical INSULIN) the [place] 100 unit/mL morning pen and 15 injector Units at noon and 15 Units in the evening. inject before meals. fluconazole Yes [id number] Take 1 [facility] (DIFLUCAN) 7-22 tablet ity of 150 mg 00:00: today and [place] tablet 00 second Medical tablet in Branch three days. flash Yes [id number] 1{each} Apply 1 [facility] glucose 7-22 Each to ity of sensor 00:00: skin every (FREESTYLE 00 14 Medical LASHAY 2 (fourteen) Branch SENSOR) Kit days. Dx E11.65 atorvastati Yes [id number] 10mg Take 1 [facility] n 10 mg 7-22 tablet by ity of tablet 00:00: mouth in [place] 00 the Medical morning. Branch insulin Yes [id number] Take 45 [facility] glargine 7-22 units SQ ity of U-300 conc 00:00: daily [place] (TOUJEO MAX 00 E11.65 Medica l U-300 Branch SOLOSTAR) 300 unit/mL (3 mL) InPn insulin Yes [id number] 15U inject 15 [facility] lispro 7-22 Units ity of (HUMALOG 00:00: under [place] 00 skin in Medical INSULIN) the [place] 100 unit/mL morning pen and 15 injector Units at noon and 15 Units in the evening. inject before meals. fluconazole 0 Yes [id number] Take 1 [facility] (DIFLUCAN) 7-22 tablet ity of 150 mg 00:00: today and [place] tablet 00 second Medical tablet in [place] three days. atorvastati 2021-0 Yes [id number] 10mg Take 1 [facility] n 10 mg 7-22 tablet by ity of tablet 00:00: mouth in [place] 00 the Medical morning. [place] atorvastati 2021-0 Yes [id number] 10mg Take 1 [facility] n 10 mg 7-22 tablet by ity of tablet 00:00: mouth in [place] 00 the Medical morning. [place] atorvastati 2021-0 Yes [id number] 10mg Take 1 [facility] n 10 mg 7-22 tablet by ity of tablet 00:00: mouth in [place] 00 the Medical morning. [place] atorvastati 2021-0 Yes [id number] 10mg Take 1 [facility] n 10 mg 7-22 tablet by ity of tablet 00:00: mouth in [place] 00 the Medical morning. [place] atorvastati 2021-0 Yes [id number] 10mg Take 1 [facility] n 10 mg 7-22 tablet by ity of tablet 00:00: mouth in [place] 00 the Medical morning. [place] atorvastati 2021-0 Yes [id number] 10mg Take 1 [facility] n 10 mg 7-22 tablet by ity of tablet 00:00: mouth in [place] 00 the Medical morning. [place] atorvastati 2021-0 Yes [id number] 10mg Take 1 [facility] n 10 mg 7-22 tablet by ity of tablet 00:00: mouth in [place] 00 the Medical morning. [place] atorvastati 2021-0 Yes [id number] 10mg Take 1 [facility] n 10 mg 7-22 tablet by ity of tablet 00:00: mouth in [place] 00 the Medical morning. [place] atorvastati 2021-0 Yes [id number] 10mg Take 1 [facility] n 10 mg 7-22 tablet by ity of tablet 00:00: mouth in [place] 00 the Medical morning. [place] atorvastati 2021-0 Yes [id number] 10mg Take 1 [facility] n 10 mg 7-22 tablet by ity of tablet 00:00: mouth in [place] 00 the Medical morning. Branch atorvastati 2021-0 Yes [id number] 10mg Take 1 [facility] n 10 mg 7-22 tablet by ity of tablet 00:00: mouth in [place] 00 the Medical morning. Branch atorvastati 2021-0 Yes [id number] 10mg Take 1 [facility] n 10 mg 7-22 tablet by ity of tablet 00:00: mouth in [place] 00 the Medical morning. Branch atorvastati 2021-0 Yes [id number] 10mg Take 1 [facility] n 10 mg 7-22 tablet by ity of tablet 00:00: mouth in [place] 00 the Medical morning. Branch atorvastati 2021-0 Yes [id number] 10mg Take 1 [facility] n 10 mg 7-22 tablet by ity of tablet 00:00: mouth in [place] 00 the Medical morning. Branch atorvastati 2021-0 Yes [id number] 10mg Take 1 [facility] n 10 mg 7-22 tablet by ity of tablet 00:00: mouth in [place] the Medical morning. Branch atorvastati 2021-0 Yes [id number] 10mg Take 1 [facility] n 10 mg 7-22 tablet by ity of tablet 00:00: mouth in [place] 00 the Medical morning. Branch atorvastati 2021-0 Yes [id number] 10mg Take 1 [facility] n 10 mg 7-22 tablet by ity of tablet 00:00: mouth in [place] 00 the Medical morning. Branch atorvastati 2021-0 Yes [id number] 10mg Take 1 [facility] n 10 mg 7-22 tablet by ity of tablet 00:00: mouth in [place] the Medical morning. Branch atorvastati 2021-0 Yes [id number] 10mg Take 1 [facility] n 10 mg 7-22 tablet by ity of tablet 00:00: mouth in [place] 00 the Medical morning. Branch atorvastati 2021-0 Yes [id number] 10mg Take 1 [facility] n 10 mg 7-22 tablet by ity of tablet 00:00: mouth in [place] 00 the Medical morning. Branch flash 0 Yes [id number] 1{each} Apply 1 [facility] glucose 7-22 Each to ity of sensor 00:00: skin every [place] (FREESTYLE 14 Medical LASHAY 2 (fourteen) Branch SENSOR) Kit days. Dx E11.65 atorvastati Yes [id number] 10mg Take 1 [facility] n 10 mg 7-22 tablet by ity of tablet 00:00: mouth in [place] 00 the Medical morning. Branch insulin Yes [id number] Take 45 [facility] glargine 7-22 units SQ ity of U-300 conc 00:00: daily [place] (TOUJEO MAX 00 E11.65 Medica l U-300 Branch SOLOSTAR) 300 unit/mL (3 mL) InPn insulin Yes [id number] 15U inject 15 [facility] lispro 7-22 Units ity of (HUMALOG 00:00: under [place] 00 skin in Medical INSULIN) the Branch 100 unit/mL morning pen and 15 injector Units at noon and 15 Units in the evening. inject before meals. fluconazole Yes [id number] Take 1 [facility] (DIFLUCAN) 7-22 tablet ity of 150 mg 00:00: today and [place] tablet 00 second Medical tablet in Branch three days. flash Yes [id number] 1{each} Apply 1 [facility] nivers glucose 7-22 Each to ity of sensor 00:00: skin every [place] (FREESTYLE 00 14 Medical LASHAY 2 (fourteen) Branch SENSOR) Kit days. Dx E11.65 atorvastati Yes [id number] 10mg Take 1 [facility] n 10 mg 7-22 tablet by ity of tablet 00:00: mouth in [place] 00 the Medical morning. Branch insulin Yes [id number] Take 45 [facility] glargine 7-22 units SQ ity of U-300 conc 00:00: daily [place] (TOUJEO MAX 00 E11.65 Medica l U-300 Branch SOLOSTAR) 300 unit/mL (3 mL) InPn insulin Yes [id number] 15U inject 15 [facility] lispro 7-22 Units ity of (HUMALOG 00:00: under [place] 00 skin in Medical INSULIN) the Branch 100 unit/mL morning pen and 15 injector Units at noon and 15 Units in the evening. inject before meals. fluconazole Yes [id number] Take 1 [facility] (DIFLUCAN) 7-22 tablet ity of 150 mg 00:00: today and [place] tablet 00 second Medical tablet in Branch three days. flash Yes [id number] 1{each} Apply 1 [facility] nivers glucose 7-22 Each to ity of sensor 00:00: skin every [place] (FREESTYLE 00 14 Medical LASHAY 2 (fourteen) Branch SENSOR) Kit days. Dx E11.65 atorvastati Yes [id number] 10mg Take 1 [facility] n 10 mg 7-22 tablet by ity of tablet 00:00: mouth in [place] 00 the Medical morning. Branch insulin Yes [id number] Take 45 [facility] glargine 7-22 units SQ ity of U-300 conc 00:00: daily [place] (TOUJEO MAX 00 E11.65 Medica l U-300 Branch SOLOSTAR) 300 unit/mL (3 mL) InPn insulin Yes [id number] 15U inject 15 [facility] lispro 7-22 Units ity of (HUMALOG 00:00: under [place] 00 skin in Medical INSULIN) the [place] 100 unit/mL morning pen and 15 injector Units at noon and 15 Units in the evening. inject before meals. fluconazole Yes [id number] Take 1 [facility] (DIFLUCAN) 7-22 tablet ity of 150 mg 00:00: today and [place] tablet 00 second Medical tablet in Branch three days. flash Yes [id number] 1{each} Apply 1 [facility] nivers glucose 7-22 Each to ity of sensor 00:00: skin every [place] (FREESTYLE 00 14 Medical LASHAY 2 (fourteen) Branch SENSOR) Kit days. Dx E11.65 atorvastati Yes [id number] 10mg Take 1 [facility] n 10 mg 7-22 tablet by ity of tablet 00:00: mouth in [place] 00 the Medical morning. Branch insulin Yes [id number] Take 45 [facility] glargine 7-22 units SQ ity of U-300 conc 00:00: daily [place] (TOUJEO MAX 00 E11.65 Medica l U-300 Branch SOLOSTAR) 300 unit/mL (3 mL) InPn insulin Yes [id number] 15U inject 15 [facility] lispro 7-22 Units ity of (HUMALOG 00:00: under [place] 00 skin in Medical INSULIN) the Branch 100 unit/mL morning pen and 15 injector Units at noon and 15 Units in the evening. inject before meals. fluconazole Yes [id number] Take 1 [facility] (DIFLUCAN) 7-22 tablet ity of 150 mg 00:00: today and [place] tablet 00 second Medical tablet in Branch three days. flash Yes [id number] 1{each} Apply 1 [facility] nivers glucose 7-22 Each to ity of sensor 00:00: skin every (FREESTYLE 00 14 Medical LASHAY 2 (fourteen) Branch SENSOR) Kit days. Dx E11.65 atorvastati Yes [id number] 10mg Take 1 [facility] n 10 mg 7-22 tablet by ity of tablet 00:00: mouth in [place] 00 the Medical morning. Branch insulin Yes [id number] Take 45 [facility] glargine 7-22 units SQ ity of U-300 conc 00:00: daily [place] (TOUJEO MAX 00 E11.65 Medica l U-300 Branch SOLOSTAR) 300 unit/mL (3 mL) InPn insulin Yes [id number] 15U inject 15 [facility] lispro 7-22 Units ity of (HUMALOG 00:00: under [place] 00 skin in Medical INSULIN) the Branch 100 unit/mL morning pen and 15 injector Units at noon and 15 Units in the evening. inject before meals. fluconazole Yes [id number] Take 1 [facility] (DIFLUCAN) 7-22 tablet ity of 150 mg 00:00: today and [place] tablet 00 second Medical tablet in Branch three days. flash Yes [id number] 1{each} Apply 1 [facility] n[facility] glucose 7-22 Each to ity of sensor 00:00: skin every [place] (FREESTYLE 00 14 Medical LASHAY 2 (fourteen) Branch SENSOR) Kit days. Dx E11.65 atorvastati 0 Yes [id number] 10mg Take 1 [facility] n 10 mg 7-22 tablet by ity of tablet 00:00: mouth in [place] 00 the Medical morning. Branch insulin Yes [id number] Take 45 [facility] glargine 7-22 units SQ ity of U-300 conc 00:00: daily [place] (TOUJEO MAX 00 E11.65 Medica l U-300 Branch SOLOSTAR) 300 unit/mL (3 mL) InPn insulin Yes [id number] 15U inject 15 [facility] lispro 7-22 Units ity of (HUMALOG 00:00: under [place] 00 skin in Medical INSULIN) the Branch 100 unit/mL morning pen and 15 injector Units at noon and 15 Units in the evening. inject before meals. fluconazole Yes [id number] Take 1 [facility] (DIFLUCAN) 7-22 tablet ity of 150 mg 00:00: today and [place] tablet 00 second Medical tablet in Branch three days. flash Yes [id number] 1{each} Apply 1 [facility] n[facility] glucose 7-22 Each to ity of sensor 00:00: skin every [place] (FREESTYLE 00 14 Medical LASHAY 2 (fourteen) Branch SENSOR) Kit days. Dx E11.65 atorvastati Yes [id number] 10mg Take 1 [facility] n 10 mg 7-22 tablet by ity of tablet 00:00: mouth in [place] 00 the Medical morning. Branch insulin Yes [id number] Take 45 [facility] glargine 7-22 units SQ ity of U-300 conc 00:00: daily [place] (TOUJEO MAX 00 E11.65 Medica l U-300 Branch SOLOSTAR) 300 unit/mL (3 mL) InPn insulin Yes [id number] 15U inject 15 [facility] lispro 7-22 Units ity of (HUMALOG 00:00: under the [place] 00 skin in Medical INSULIN) the Branch 100 unit/mL morning pen and 15 injector Units at noon and 15 Units in the evening. inject before meals. fluconazole Yes [id number] Take 1 [facility] (DIFLUCAN) 7-22 tablet ity of 150 mg 00:00: today and [place] tablet 00 second Medical tablet in Branch three days. flash Yes [id number] 1{each} Apply 1 [facility] n[facility] glucose 7-22 Each to ity of sensor 00:00: skin every [place] (FREESTYLE 00 14 Medical LASHAY 2 (fourteen) Branch SENSOR) Kit days. Dx E11.65 atorvastati Yes [id number] 10mg Take 1 [facility] n 10 mg 7-22 tablet by ity of tablet 00:00: mouth in [place] 00 the Medical morning. Branch insulin Yes [id number] Take 45 [facility] glargine 7-22 units SQ ity of U-300 conc 00:00: daily [place] (TOUJEO MAX 00 E11.65 Medica l U-300 Branch SOLOSTAR) 300 unit/mL (3 mL) InPn insulin Yes [id number] 15U inject 15 [facility] lispro 7-22 Units ity of (HUMALOG 00:00: under [place] 00 skin in Medical INSULIN) the Branch 100 unit/mL morning pen and 15 injector Units at noon and 15 Units in the evening. inject before meals. fluconazole Yes [id number] Take 1 [facility] (DIFLUCAN) 7-22 tablet ity of 150 mg 00:00: today and [place] tablet 00 second Medical tablet in Branch three days. flash Yes [id number] 1{each} Apply 1 [facility] n[facility] glucose 7-22 Each to ity of sensor 00:00: skin every [place] (FREESTYLE 00 14 Medical LASHAY 2 (fourteen) Branch SENSOR) Kit days. Dx E11.65 atorvastati Yes [id number] 10mg Take 1 [facility] n 10 mg 7-22 tablet by ity of tablet 00:00: mouth in [place] 00 the Medical morning. Branch insulin Yes [id number] Take 45 [facility] glargine 7-22 units SQ ity of U-300 conc 00:00: daily [place] (TOUJEO MAX 00 E11.65 Medica l U-300 Branch SOLOSTAR) 300 unit/mL (3 mL) InPn insulin Yes [id number] 15U inject 15 [facility] lispro 7-22 Units ity of (HUMALOG 00:00: under [place] 00 skin in Medical INSULIN) the Branch 100 unit/mL morning pen and 15 injector Units at noon and 15 Units in the evening. inject before meals. fluconazole Yes [id number] Take 1 [facility] (DIFLUCAN) 7-22 tablet ity of 150 mg 00:00: today and [place] tablet 00 second Medical tablet in Branch three days. flash Yes [id number] 1{each} Apply 1 [facility] n[facility] glucose 7-22 Each to ity of sensor 00:00: skin every [place] (FREESTYLE 00 14 Medical LASHAY 2 (fourteen) Branch SENSOR) Kit days. Dx E11.65 atorvastati Yes [id number] 10mg Take 1 [facility] n 10 mg 7-22 tablet by ity of tablet 00:00: mouth in [place] 00 the Medical morning. Branch insulin Yes [id number] Take 45 [facility] glargine 7-22 units SQ ity of U-300 conc 00:00: daily [place] (TOUJEO MAX 00 E11.65 Medica l U-300 Branch SOLOSTAR) 300 unit/mL (3 mL) InPn insulin Yes [id number] 15U inject 15 [facility] lispro 7-22 Units ity of (HUMALOG 00:00: under the [place] 00 skin in Medical INSULIN) the [place] 100 unit/mL morning pen and 15 injector Units at noon and 15 Units in the evening. inject before meals. fluconazole Yes [id number] Take 1 [facility] (DIFLUCAN) 7-22 tablet ity of 150 mg 00:00: today and [place] tablet 00 second Medical tablet in Branch three days. atorvastati 2022- No [id number] 10mg Take 1 [facility] n 10 mg 7-22 09-11 tablet by ity of tablet 00:00: 00:00 mouth in [place] 00 :00 the Medical morning. Branch flash 2021- No [id number] 1{each} Apply 1 [facility] glucose 7-22 11-22 Each to ity of sensor 00:00: 00:00 skin [place] (FREESTYLE 00 :00 14 Medical LASHAY 2 (fourteen) Branch SENSOR) Kit days. Dx E11.65 insulin 2021- No [id number] Take 45 [facility] glargine 7-22 11-22 units SQ ity of U-300 conc 00:00: 00:00 daily [place] (TOUJEO MAX 00 :00 E11.65 Medica l U-300 Branch SOLOSTAR) 300 unit/mL (3 mL) InPn insulin 2021- No [id number] 15U inject 15 [facility] lispro 12-03 Units ity of (HUMALOG 00:00: 00:00 under the [place]WIKPEN 00 :00 skin in Medical INSULIN) the Branch 100 unit/mL morning pen and 15 injector Units at noon and 15 Units in the evening. inject before meals. fluconazole 2021- No [id number] Take 1 [facility] (DIFLUCAN) 12-03 tablet ity of 150 mg 00:00: 00:00 today and [place] tablet 00 :00 second Medical tablet in Branch three days. flash 2021- No [id number] 1{each} Apply 1 [facility] glucose 12-03 Each to ity of sensor 00:00: 00:[place] (FREESTYLE 00 :00 14 Medical LASHAY 2 (fourteen) Branch SENSOR) Kit days. Dx E11.65 insulin 2021- No [id number] Take 45 U nivers glargine 12-03 units SQ ity of U-300 conc 00:00: 00:00 daily [place] (TOUJEO MAX 00 :00 E11.65 Medica l U-300 Branch SOLOSTAR) 300 unit/mL (3 mL) InPn insulin 2021- No [id number] 15U inject 15 [facility] lispro 12-03 Units ity of (HUMALOG 00:00: 00:00 under the [place] as KWIKPEN 00 :00 skin in Medical INSULIN) the Branch 100 unit/mL morning pen and 15 injector Units at noon and 15 Units in the evening. inject before meals. fluconazole 2021- No [id number] Take 1 [facility] (DIFLUCAN) 12-03 tablet ity of 150 mg 00:00: 00:00 today and [place] tablet 00 :00 second Medical tablet in Branch three days. zolpidem 10 Yes 10mg Take 10 mg [facility] mg tablet 4-28 by mouth ity of 00:00: at [place] 00 bedtime. Medical Branch zolpidem 10 Yes 10mg Take 10 mg [facility] mg tablet 4-28 by mouth ity of 00:00: at [place] [address] bedtime. Medical Branch zolpidem 10 0 Yes 10mg Take 10 mg [facility] mg tablet 4-28 by mouth ity of 00:00: at [place] [address] bedtime. Medical Branch zolpidem 10 0 Yes 10mg Take 10 mg [facility] mg tablet 4-28 by mouth ity of 00:00: at [place] [address] bedtime. Medical Branch zolpidem 10 0 Yes 10mg Take 10 mg [facility] mg tablet 4-28 by mouth ity of 00:00: at [place] [address] bedtime. Medical Branch zolpidem 10 0 Yes 10mg Take 10 mg [facility] mg tablet 4-28 by mouth ity of 00:00: at [place] [address] bedtime. Medical Branch zolpidem 10 0 Yes 10mg Take 10 mg [facility] mg tablet 4-28 by mouth ity of 00:00: at [place] [address] bedtime. Medical Branch zolpidem 10 Yes 10mg Take 10 mg [facility] mg tablet 4-28 by mouth ity of 00:00: at [place] [address] bedtime. Medical Branch zolpidem 10 0 Yes 10mg Take 10 mg [facility] mg tablet 4-28 by mouth ity of 00:00: at [place] [address] bedtime. Medical Branch zolpidem 10 0 Yes 10mg Take 10 mg [facility] mg tablet 4-28 by mouth ity of 00:00: at [place] [address] bedtime. Medical Branch zolpidem 10 0 Yes 10mg Take 10 mg [facility] mg tablet 4-28 by mouth ity of 00:00: at [place] [address] bedtime. Medical Branch zolpidem 10 0 Yes 10mg Take 10 mg [facility] mg tablet 4-28 by mouth ity of 00:00: at [place] [address] bedtime. Medical Branch zolpidem 10 0 Yes 10mg Take 10 mg [facility] mg tablet 4-28 by mouth ity of 00:00: at [place] [address] bedtime. Medical Branch zolpidem 10 0 Yes 10mg Take 10 mg [facility] mg tablet 4-28 by mouth ity of 00:00: at [place] [address] bedtime. Medical Branch zolpidem 10 0 Yes 10mg Take 10 mg [facility] mg tablet 4-28 by mouth ity of 00:00: at [place] [address] bedtime. Medical Branch zolpidem 10 0 Yes 10mg Take 10 mg [facility] mg tablet 4-28 by mouth ity of 00:00: at [place] [address] bedtime. Medical Branch zolpidem 10 0 Yes 10mg Take 10 mg [facility] mg tablet 4-28 by mouth ity of 00:00: at [place] [address] bedtime. Medical Branch zolpidem 10 0 Yes 10mg Take 10 mg [facility] mg tablet 4-28 by mouth ity of 00:00: at [place] [address] bedtime. Medical Branch zolpidem 10 0 Yes 10mg Take 10 mg [facility] mg tablet 4-28 by mouth ity of 00:00: at [place] [address] bedtime. Medical Branch zolpidem 10 0 Yes 10mg Take 10 mg [facility] mg tablet 4-28 by mouth ity of 00:00: at [place] [address] bedtime. Medical Branch zolpidem 10 0 Yes 10mg Take 10 mg [facility] mg tablet 4-28 by mouth ity of 00:00: at [place] [address] bedtime. Medical Branch zolpidem 10 0 Yes 10mg Take 10 mg [facility] mg tablet 4-28 by mouth ity of 00:00: at [place] [address] bedtime. Medical Branch zolpidem 10 0 Yes 10mg Take 10 mg [facility] mg tablet 4-28 by mouth ity of 00:00: at [place] [address] bedtime. Medical Branch zolpidem 10 0 Yes 10mg Take 10 mg [facility] mg tablet 4-28 by mouth ity of 00:00: at [place] [address] bedtime. Medical Branch zolpidem 10 0 Yes 10mg Take 10 mg [facility] mg tablet 4-28 by mouth ity of 00:00: at [place] [address] bedtime. Medical Branch zolpidem 10 0 Yes 10mg Take 10 mg [facility] mg tablet 4-28 by mouth ity of 00:00: at [place] [address] bedtime. Medical Branch zolpidem 10 0 Yes 10mg Take 10 mg [facility] mg tablet 4-28 by mouth ity of 00:00: at [place] [address] bedtime. Medical Branch zolpidem 10 0 Yes 10mg Take 10 mg [facility] mg tablet 4-28 by mouth ity of 00:00: at [place] [address] bedtime. Medical Branch zolpidem 10 Yes 10mg Take 10 mg [facility] mg tablet 4-28 by mouth ity of 00:00: at [place] [address] bedtime. Medical Branch zolpidem 10 0 Yes 10mg Take 10 mg [facility] mg tablet 4-28 by mouth ity of 00:00: at [place] [address] bedtime. Medical Branch zolpidem 10 0 Yes 10mg Take 10 mg [facility] mg tablet 4-28 by mouth ity of 00:00: at [place] [address] bedtime. Medical Branch zolpidem 10 0 Yes 10mg Take 10 mg [facility] mg tablet 4-28 by mouth ity of 00:00: at [place] [address] bedtime. Medical Branch zolpidem 10 Yes 10mg Take 10 mg [facility] mg tablet 4-28 by mouth ity of 00:00: at [place] [address] bedtime. Medical Branch zolpidem 10 Yes 10mg Take 10 mg [facility] mg tablet 4-28 by mouth ity of 00:00: at [place] [address] bedtime. Medical Branch zolpidem 10 Yes 10mg Take 10 mg [facility] mg tablet 4-28 by mouth ity of 00:00: at [place] [address] bedtime. Medical Branch zolpidem 10 Yes 10mg Take 10 mg [facility] mg tablet 4-28 by mouth ity of 00:00: at [place] [address] bedtime. Medical Branch zolpidem 10 Yes 10mg Take 10 mg [facility] mg tablet 4-28 by mouth ity of 00:00: at [place] [address] bedtime. Medical Branch zolpidem 10 Yes 10mg Take 10 mg [facility] mg tablet 4-28 by mouth ity of 00:00: at [place] [address] bedtime. Medical Branch zolpidem 10 0 Yes 10mg Take 10 mg [facility] mg tablet 4-28 by mouth ity of 00:00: at [place] [address] bedtime. Medical Branch zolpidem 10 0 Yes 10mg Take 10 mg [facility] mg tablet 4-28 by mouth ity of 00:00: at [place] [address] bedtime. Medical Branch zolpidem 10 0 Yes 10mg Take 10 mg [facility] mg tablet 4-28 by mouth ity of 00:00: at [place] [address] bedtime. Medical Branch REXULTI 2 Yes 1{tbl} [...] [place] 00 daily. Medical Branch REXULTI 2 2021-0 Yes 1{tbl} Take 1 [facility] ers mg Tab 4-11 tablet by ity of 00:00: mouth [place] 00 daily. Medical Branch REXULTI 2 2021-0 Yes 1{tbl} Take 1 [facility] ers mg Tab 4-11 tablet by ity of 00:00: mouth 00 daily. Medical Branch ACCU-CHEK 2021-0 Yes [id number] Use as U nivers SOFTCLIX 3-29 directed ity of LANCETS 00:00: TIDAC [place] Misc 00 E11.65 Medical Branch ACCU-CHEK 2021-0 Yes [id number] Use as U nivers SOFTCLIX 3-29 directed ity of LANCETS 00:00: TIDAC [place] Misc 00 E11.65 Medical Branch ACCU-CHEK 2021-0 Yes [id number] Use as U nivers SOFTCLIX 3-29 directed ity of LANCETS 00:00: TIDAC [place] Misc 00 E11.65 Medical Branch ACCU-CHEK 2-0 Yes [id number] Use as U nivers SOFTCLIX 3-29 directed ity of LANCETS 00:00: TIDAC [place] Misc 00 E11.65 Medical Branch ACCU-CHEK 2-0 Yes [id number] Use as U nivers SOFTCLIX 3-29 directed ity of LANCETS 00:00: TIDAC [place] Misc 00 E11.65 Medical Branch ACCU-CHEK 2-0 Yes [id number] Use as U nivers SOFTCLIX 3-29 directed ity of LANCETS 00:00: TIDAC [place] Misc 00 E11.65 Medical Branch ACCU-CHEK 2-0 Yes [id number] Use as U nivers SOFTCLIX 3-29 directed ity of LANCETS 00:00: TIDAC [place] Misc 00 E11.65 Medical Branch ACCU-CHEK 2-0 Yes [id number] Use as U nivers SOFTCLIX 3-29 directed ity of LANCETS 00:00: TIDAC [place] Misc 00 E11.65 Medical Branch ACCU-CHEK 2-0 Yes [id number] Use as U nivers SOFTCLIX 3-29 directed ity of LANCETS 00:00: TIDAC [place] Misc 00 E11.65 Medical Branch ACCU-CHEK 2022-0 Yes [id number] Use as U nivers SOFTCLIX 3-29 directed ity of LANCETS 00:00: TIDAC [place] Misc 00 E11.65 Medical Branch ACCU-CHEK 2-0 Yes [id number] Use as U nivers SOFTCLIX 3-29 directed ity of LANCETS 00:00: TIDAC [place] Misc 00 E11.65 Medical Branch ACCU-CHEK 2-0 Yes [id number] Use as U nivers SOFTCLIX 3-29 directed ity of LANCETS 00:00: TIDAC [place] Misc 00 E11.65 Medical Branch ACCU-CHEK 2-0 Yes [id number] Use as U nivers SOFTCLIX 3-29 directed ity of LANCETS 00:00: TIDAC [place] Misc 00 E11.65 Medical Branch ACCU-CHEK 2-0 Yes [id number] Use as U nivers SOFTCLIX 3-29 directed ity of LANCETS 00:00: TIDAC [place] Misc 00 E11.65 Medical Branch ACCU-CHEK 2-0 Yes [id number] Use as U nivers SOFTCLIX 3-29 directed ity of LANCETS 00:00: TIDAC [place] Misc 00 E11.65 Medical Branch ACCU-CHEK 2-0 Yes [id number] Use as U nivers SOFTCLIX 3-29 directed ity of LANCETS 00:00: TIDAC [place] Misc 00 E11.65 Medical Branch ACCU-CHEK 2-0 Yes [id number] Use as U nivers SOFTCLIX 3-29 directed ity of LANCETS 00:00: TIDAC [place] Misc 00 E11.65 Medical Branch ACCU-CHEK 2-0 Yes [id number] Use as U nivers SOFTCLIX 3-29 directed ity of LANCETS 00:00: TIDAC [place] Misc 00 E11.65 Medical Branch ACCU-CHEK 2-0 Yes [id number] Use as U nivers SOFTCLIX 3-29 directed ity of LANCETS 00:00: TIDAC [place] Misc 00 E11.65 Medical Branch ACCU-CHEK 2-0 Yes [id number] Use as U nivers SOFTCLIX 3-29 directed ity of LANCETS 00:00: TIDAC [place] Misc 00 E11.65 Medical Branch ACCU-CHEK 2022-0 Yes [id number] Use as U nivers SOFTCLIX 3-29 directed ity of LANCETS 00:00: TIDAC [place] Misc 00 E11.65 Medical Branch ACCU-CHEK 2-0 Yes [id number] Use as U nivers SOFTCLIX 3-29 directed ity of LANCETS 00:00: TIDAC [place] Misc 00 E11.65 Medical Branch ACCU-CHEK 2-0 Yes [id number] Use as U nivers SOFTCLIX 3-29 directed ity of LANCETS 00:00: TIDAC [place] Misc 00 E11.65 Medical Branch ACCU-CHEK 2-0 Yes [id number] Use as U nivers SOFTCLIX 3-29 directed ity of LANCETS 00:00: TIDAC [place] Misc 00 E11.65 Medical Branch ACCU-CHEK 2-0 Yes [id number] Use as U nivers SOFTCLIX 3-29 directed ity of LANCETS 00:00: TIDAC [place] Misc 00 E11.65 Medical Branch ACCU-CHEK 2-0 Yes [id number] Use as U nivers GUIDE TEST 3-29 directed ity o f STRIPS 00:00: TIDAC [place] strip 00 E11.65 Medical Branch ACCU-CHEK 2-0 Yes [id number] Use as U nivers SOFTCLIX 3-29 directed ity of LANCETS 00:00: TIDAC [place] Misc 00 E11.65 Medical Branch ACCU-CHEK 2-0 Yes [id number] Use as U nivers GUIDE TEST 3-29 directed ity o f STRIPS 00:00: TIDAC [place] strip 00 E11.65 Medical Branch ACCU-CHEK 2-0 Yes [id number] Use as U nivers SOFTCLIX 3-29 directed ity of LANCETS 00:00: TIDAC [place] Misc 00 E11.65 Medical Branch ACCU-CHEK 2-0 Yes [id number] Use as U nivers GUIDE TEST 3-29 directed ity o f STRIPS 00:00: TIDAC [place] strip 00 E11.65 Medical Branch ACCU-CHEK 2022-0 Yes [id number] Use as U nivers SOFTCLIX 3-29 directed ity of LANCETS 00:00: TIDAC [place] Misc 00 E11.65 Medical Branch ACCU-CHEK 2-0 Yes [id number] Use as U nivers GUIDE TEST 3-29 directed ity o f STRIPS 00:00: TIDAC [place] strip 00 E11.65 Medical Branch ACCU-CHEK 2-0 Yes [id number] Use as U nivers SOFTCLIX 3-29 directed ity of LANCETS 00:00: TIDAC [place] Misc 00 E11.65 Medical Branch ACCU-CHEK 2021-0 Yes [id number] Use as U nivers GUIDE TEST 3-29 directed ity o f STRIPS 00:00: TIDAC [place] strip 00 E11.65 Medical Branch ACCU-CHEK 2021-0 Yes [id number] Use as U nivers SOFTCLIX 3-29 directed ity of LANCETS 00:00: TIDAC [place] Misc 00 E11.65 Medical Branch ACCU-CHEK 2021-0 Yes [id number] Use as U nivers GUIDE TEST 3-29 directed ity o f STRIPS 00:00: TIDAC [place] strip 00 E11.65 Medical Branch ACCU-CHEK 2-0 Yes [id number] Use as U nivers SOFTCLIX 3-29 directed ity of LANCETS 00:00: TIDAC [place] Misc 00 E11.65 Medical Branch ACCU-CHEK 2-0 Yes [id number] Use as U nivers GUIDE TEST 3-29 directed ity o f STRIPS 00:00: TIDAC [place] strip 00 E11.65 Medical Branch ACCU-CHEK 2-0 Yes [id number] Use as U nivers SOFTCLIX 3-29 directed ity of LANCETS 00:00: TIDAC [place] Misc 00 E11.65 Medical Branch ACCU-CHEK 2-0 Yes [id number] Use as U nivers GUIDE TEST 3-29 directed ity o f STRIPS 00:00: TIDAC [place] strip 00 E11.65 Medical Branch ACCU-CHEK 2-0 Yes [id number] Use as U nivers SOFTCLIX 3-29 directed ity of LANCETS 00:00: TIDAC [place] Misc 00 E11.65 Medical Branch ACCU-CHEK 2022-0 Yes [id number] Use as U nivers GUIDE TEST 3-29 directed ity o f STRIPS 00:00: TIDAC [place] strip 00 E11.65 Medical Branch ACCU-CHEK 2021-0 Yes [id number] Use as U nivers SOFTCLIX 3-29 directed ity of LANCETS 00:00: TIDAC [place] Misc 00 E11.65 Medical Branch ACCU-CHEK 2021-0 Yes [id number] Use as U nivers GUIDE TEST 3-29 directed ity o f STRIPS 00:00: TIDAC [place] strip 00 E11.65 Medical Branch ACCU-CHEK 2021-0 Yes [id number] Use as U nivers SOFTCLIX 3-29 directed ity of LANCETS 00:00: TIDAC [place] Misc 00 E11.65 Medical Branch ACCU-CHEK 2021-0 Yes [id number] Use as U nivers GUIDE TEST 3-29 directed ity o f STRIPS 00:00: TIDAC [place] strip 00 E11.65 Medical Branch ACCU-CHEK 2021-0 Yes [id number] Use as U nivers SOFTCLIX 3-29 directed ity of LANCETS 00:00: TIDAC [place] Misc 00 E11.65 Medical Branch ACCU-CHEK 2021-0 Yes [id number] Use as U nivers GUIDE TEST 3-29 directed ity o f STRIPS 00:00: TIDAC [place] strip 00 E11.65 Medical Branch ACCU-CHEK 2021-0 Yes [id number] Use as U nivers SOFTCLIX 3-29 directed ity of LANCETS 00:00: TIDAC [place] Misc 00 E11.65 Medical Branch ACCU-CHEK 2-0 Yes [id number] Use as U nivers GUIDE TEST 3-29 directed ity o f STRIPS 00:00: TIDAC [place] strip 00 E11.65 Medical Branch ACCU-CHEK 2-0 Yes [id number] Use as U nivers SOFTCLIX 3-29 directed ity of LANCETS 00:00: TIDAC [place] Misc 00 E11.65 Medical Branch ACCU-CHEK 2-0 Yes [id number] Use as U nivers GUIDE TEST 3-29 directed ity o f STRIPS 00:00: TIDAC [place] strip 00 E11.65 Medical Branch ACCU-CHEK 2022-0 Yes [id number] Use as U nivers SOFTCLIX 3-29 directed ity of LANCETS 00:00: TIDAC [place] Misc 00 E11.65 Medical Branch ACCU-CHEK 2-0 Yes [id number] Use as U nivers GUIDE TEST 08-10 directed ity o f STRIPS 00:00: TIDAC [place] strip 00 E11.65 Medical Branch ACCU-CHEK 2-0 Yes [id number] Use as U nivers SOFTCLIX 3 directed ity of LANCETS 00:00: TIDAC [place] Misc 00 E11.65 Medical Branch ACCU-CHEK 2021-0 Yes [id number] Use as U nivers GUIDE TEST 08-10 directed ity o f STRIPS 00:00: TIDAC [place] strip 00 E11.65 Medical Branch ACCU-CHEK 2-0 Yes [id number] Use as U nivers SOFTCLIX - directed ity of LANCETS 00:00: TIDAC [place] Misc 00 E11.65 Medical Branch ACCU-CHEK 2021-0 2- No [id number] Use as [facility] GUIDE TEST 08-10 directed ity of STRIPS 00:00: 00:00 TIDAC [place] strip 00 :00 E11.65 Medical Branch ACCU-CHEK 2021-0 2021- No [id number] Use as [facility] GUIDE TEST 08-10 directed ity of STRIPS 00:00: 00:00 TIDAC [place] strip 00 :00 E11.65 Medical Branch cloNIDine 2022-0 Yes .2mg Take 0.2 Univ ers 0.2 mg 3-17 mg by ity of tablet 00:00: mouth at [place] [address] bedtime. Medical Branch cloNIDine 2022-0 Yes .2mg Take 0.2 Univ ers 0.2 mg 3-17 mg by ity of tablet 00:00: mouth at [place] [address] bedtime. Medical Branch cloNIDine 2022-0 Yes .2mg Take 0.2 Univ ers 0.2 mg 3-17 mg by ity of tablet 00:00: mouth at [place] [address] bedtime. Medical Branch cloNIDine 2022-0 Yes .2mg Take 0.2 [facility] ers 0.2 mg 3-17 mg by ity of tablet 00:00: mouth at [place] [address] bedtime. Medical Branch cloNIDine 2022-0 Yes .2mg Take 0.2 [facility] ers 0.2 mg 3-17 mg by ity of tablet 00:00: mouth at [place] bedtime. Medical Branch cloNIDine 2022-0 Yes .2mg Take 0.2 [facility] ers 0.2 mg 3-17 mg by ity of tablet 00:00: mouth at [place] [address] bedtime. Medical Branch cloNIDine 2022-0 Yes .2mg Take 0.2 Univ ers 0.2 mg 3-17 mg by ity of tablet 00:00: mouth at [place] bedtime. Medical Branch cloNIDine 2022-0 Yes .2mg Take 0.2 [facility] ers 0.2 mg 3-17 mg by ity of tablet 00:00: mouth at [place] [address] bedtime. Medical Branch cloNIDine 2022-0 Yes .2mg Take 0.2 [facility] ers 0.2 mg 3-17 mg by ity of tablet 00:00: mouth at [place] [address] bedtime. Medical Branch cloNIDine 2022-0 Yes .2mg Take 0.2 [facility] ers 0.2 mg 3-17 mg by ity of tablet 00:00: mouth at [place] [address] bedtime. Medical Branch cloNIDine 2022-0 Yes .2mg Take 0.2 [facility] ers 0.2 mg 3-17 mg by ity of tablet 00:00: mouth at [place] [address] bedtime. Medical Branch cloNIDine 2022-0 Yes .2mg Take 0.2 [facility] ers 0.2 mg 3-17 mg by ity of tablet 00:00: mouth at [place] [address] bedtime. Medical Branch cloNIDine 2022-0 Yes .2mg Take 0.2 [facility] ers 0.2 mg 3-17 mg by ity of tablet 00:00: mouth at [place] [address] bedtime. Medical Branch cloNIDine 2022-0 Yes .2mg Take 0.2 [facility] ers 0.2 mg 3-17 mg by ity of tablet 00:00: mouth at [place] [address] bedtime. Medical Branch cloNIDine 2022-0 Yes .2mg Take 0.2 [facility] ers 0.2 mg 3-17 mg by ity of tablet 00:00: mouth at [place] [address] bedtime. Medical Branch cloNIDine 2022-0 Yes .2mg Take 0.2 [facility] ers 0.2 mg 3-17 mg by ity of tablet 00:00: mouth at [place] [address] bedtime. Medical Branch cloNIDine 2022-0 Yes .2mg Take 0.2 [facility] ers 0.2 mg 3-17 mg by ity of tablet 00:00: mouth at [place] bedtime. Medical Branch cloNIDine 2022-0 Yes .2mg Take 0.2 Univ ers 0.2 mg 3-17 mg by ity of tablet 00:00: mouth at [place] bedtime. Medical Branch cloNIDine 2022-0 Yes .2mg Take 0.2 Univ ers 0.2 mg 3-17 mg by ity of tablet 00:00: mouth at [place] bedtime. Medical Branch cloNIDine 2022-0 Yes .2mg Take 0.2 Univ ers 0.2 mg 3-17 mg by ity of tablet 00:00: mouth at [place] [address] bedtime. Medical Branch cloNIDine 2022-0 Yes .2mg Take 0.2 Univ ers 0.2 mg 3-17 mg by ity of tablet 00:00: mouth at [place] [address] bedtime. Medical Branch cloNIDine 2022-0 Yes .2mg Take 0.2 [facility] ers 0.2 mg 3-17 mg by ity of tablet 00:00: mouth at [place] [address] bedtime. Medical Branch cloNIDine 2022-0 Yes .2mg Take 0.2 Univ ers 0.2 mg 3-17 mg by ity of tablet 00:00: mouth at [place] [address] bedtime. Medical Branch cloNIDine 2022-0 Yes .2mg Take 0.2 Univ ers 0.2 mg 3-17 mg by ity of tablet 00:00: mouth at [place] [address] bedtime. Medical Branch cloNIDine 2022-0 Yes .2mg Take 0.2 Univ ers 0.2 mg 3-17 mg by ity of tablet 00:00: mouth at [place] [address] bedtime. Medical Branch cloNIDine 2022-0 Yes .2mg Take 0.2 Univ ers 0.2 mg 3-17 mg by ity of tablet 00:00: mouth at [place] [address] bedtime. Medical Branch cloNIDine 2022-0 Yes .2mg Take 0.2 [facility] ers 0.2 mg 3-17 mg by ity of tablet 00:00: mouth at [place] [address] bedtime. Medical Branch cloNIDine 2022-0 Yes .2mg Take 0.2 Univ ers 0.2 mg 3-17 mg by ity of tablet 00:00: mouth at [place] [address] bedtime. Medical Branch cloNIDine 2022-0 Yes .2mg Take 0.2 Univ ers 0.2 mg 3-17 mg by ity of tablet 00:00: mouth at [place] [address] bedtime. Medical Branch cloNIDine 2022-0 Yes .2mg Take 0.2 Univ ers 0.2 mg 3-17 mg by ity of tablet 00:00: mouth at [place] bedtime. Medical Branch cloNIDine 2022-0 Yes .2mg Take 0.2 [facility] ers 0.2 mg 3-17 mg by ity of tablet 00:00: mouth at [place] bedtime. Medical Branch cloNIDine 2022-0 Yes .2mg Take 0.2 [facility] ers 0.2 mg 3-17 mg by ity of tablet 00:00: mouth at [place] bedtime. Medical Branch cloNIDine 2022-0 Yes .2mg Take 0.2 [facility] ers 0.2 mg 3-17 mg by ity of tablet 00:00: mouth at [place] bedtime. Medical Branch cloNIDine 2022-0 Yes .2mg Take 0.2 [facility] ers 0.2 mg 3-17 mg by ity of tablet 00:00: mouth at [place] [address] bedtime. Medical Branch cloNIDine 2022-0 Yes .2mg Take 0.2 Univ ers 0.2 mg 3-17 mg by ity of tablet 00:00: mouth at [place] [address] bedtime. Medical Branch cloNIDine 2022-0 Yes .2mg Take 0.2 Univ ers 0.2 mg 3-17 mg by ity of tablet 00:00: mouth at [place] [address] bedtime. Medical Branch cloNIDine 2022-0 Yes .2mg Take 0.2 Univ ers 0.2 mg 3-17 mg by ity of tablet 00:00: mouth at [place] [address] bedtime. Medical Branch cloNIDine 2022-0 Yes .2mg Take 0.2 [facility] ers 0.2 mg 3-17 mg by ity of tablet 00:00: mouth at [place] [address] bedtime. Medical Branch cloNIDine 2022-0 Yes .2mg Take 0.2 [facility] ers 0.2 mg 3-17 mg by ity of tablet 00:00: mouth at [place] [address] bedtime. Medical Branch cloNIDine 2022-0 Yes .2mg Take 0.2 [facility] ers 0.2 mg 3-17 mg by ity of tablet 00:00: mouth at [place] [address] bedtime. Medical Branch cloNIDine 2022-0 Yes .2mg Take 0.2 Univ ers 0.2 mg 3-17 mg by ity of tablet 00:00: mouth at [place] bedtime. Medical Branch propranoloL 2022-0 Yes TAKE [...] 3-06 TABLET BY ity of tablet 00:00: [facility] TWICE Medical DAILY Branch propranoloL 2022-0 Yes TAKE 1 Univ ers 20 mg 3-06 TABLET BY ity of tablet 00:00: MOUTH TWICE Medical DAILY Branch propranoloL 2022-0 Yes TAKE 1 [facility] ers 20 mg 3-06 TABLET BY ity of tablet 00:00: [facility] TWICE Medical DAILY Branch propranoloL 2022-0 Yes TAKE 1 [facility] ers 20 mg 3-06 TABLET BY ity of tablet 00:00: [facility] TWICE Medical DAILY Branch propranoloL 2022-0 Yes TAKE 1 [facility] ers 20 mg 3-06 TABLET BY ity of tablet 00:00: [facility] TWICE Medical DAILY Branch propranoloL 2022-0 Yes TAKE 1 Univ ers 20 mg 3-06 TABLET BY ity of tablet 00:00: [facility] TWICE Medical DAILY Branch propranoloL 2022-0 Yes TAKE 1 Univ ers 20 mg 3-06 TABLET BY ity of tablet 00:00: MOUTH TWICE Medical DAILY Branch propranoloL 2022-0 Yes TAKE 1 [facility] ers 20 mg 3-06 TABLET BY ity of tablet 00:00: [facility] TWICE Medical DAILY Branch propranoloL 2022-0 Yes [...] 3-06 TABLET BY ity of tablet 00:00: TWICE Medical DAILY Branch propranoloL 2022-0 Yes [...] 00:00: MOUTH 00 TWICE Medical DAILY Branch Insulin 2022-0 Yes [id number] Use as Uni vers Zenda, 1-25 directed ity of Disposable, 00:00: $X per day [place] (PEN 00 E11.65 Medical NEEDLE) 32 Branch gauge x 5/32" Ndle Insulin 2022-0 Yes [id number] Use as Uni vers Zenda, 1-25 directed ity of Disposable, 00:00: $X per day [place] (PEN 00 E11.65 Medical NEEDLE) 32 Branch gauge x 5/32" Ndle Insulin 2022-0 Yes [id number] Use as Uni vers Zenda, 1-25 directed ity of Disposable, 00:00: $X per day [place] (PEN 00 E11.65 Medical NEEDLE) 32 Branch gauge x 5/32" Ndle Insulin 2022-0 Yes [id number] Use as Uni vers Zenda, 1-25 directed ity of Disposable, 00:00: $X per day [place] (PEN 00 E11.65 Medical NEEDLE) 32 Branch gauge x 5/32" Ndle Insulin 2021-0 Yes [id number] Use as Uni vers Zenda, 1-25 directed ity of Disposable, 00:00: $X per day [place] (PEN 00 E11.65 Medical NEEDLE) 32 Branch gauge x 5/32" Ndle Insulin 2021-0 Yes [id number] Use as Uni vers Zenda, 1-25 directed ity of Disposable, 00:00: $X per day [place] (PEN E11.65 Medical NEEDLE) 32 Branch gauge x 5/32" Ndle Insulin 2021-0 Yes [id number] Use as Uni vers Zenda, 1-25 directed ity of Disposable, 00:00: $X per day [place] (PEN E11.65 Medical NEEDLE) 32 Branch gauge x 5/32" Ndle Insulin 2021-0 Yes [id number] Use as Uni vers Zenda, 1-25 directed ity of Disposable, 00:00: $X per day [place] (PEN E11.65 Medical NEEDLE) 32 Branch gauge x 5/32" Ndle Insulin 2021-0 Yes [id number] Use as Uni vers Zenda, 1-25 directed ity of Disposable, 00:00: $X per day [place] (PEN E11.65 Medical NEEDLE) 32 Branch gauge x 5/32" Ndle Insulin 2021-0 Yes [id number] Use as Uni vers Zenda, 1-25 directed ity of Disposable, 00:00: $X per day [place] (PEN E11.65 Medical NEEDLE) 32 Branch gauge x 5/32" Ndle Insulin 2021-0 Yes [id number] Use as Uni vers Zenda, 1-25 directed ity of Disposable, 00:00: $X per day [place] (PEN 00 E11.65 Medical NEEDLE) 32 Branch gauge x 5/32" Ndle Insulin 2021-0 Yes [id number] Use as Uni vers Zenda, 1-25 directed ity of Disposable, 00:00: $X per day [place] (PEN 00 E11.65 Medical NEEDLE) 32 Branch gauge x 5/32" Ndle Insulin 202-0 Yes [id number] Use as Uni vers Zenda, 1-25 directed ity of Disposable, 00:00: $X per day [place] (PEN 00 E11.65 Medical NEEDLE) 32 Branch gauge x 5/32" Ndle Insulin 2021-0 Yes [id number] Use as Uni vers Zenda, 06-08 directed ity of Disposable, 00:00: $X per day [place] (PEN 00 E11.65 Medical NEEDLE) 32 Branch gauge x 5/32" Ndle Insulin 2021-0 Yes [id number] Use as Uni vers Zenda, 06-08 directed ity of Disposable, 00:00: $X per day [place] (PEN 00 E11.65 Medical NEEDLE) 32 Branch gauge x 5/32" Ndle Insulin 2021-0 Yes [id number] Use as Uni vers Zenda, 06-08 directed ity of Disposable, 00:00: $X per day [place] (PEN 00 E11.65 Medical NEEDLE) 32 Branch gauge x 5/32" Ndle Insulin 2021-0 2022- No [id number] Use as Un joel [place], 06-08 directed ity of Disposable, 00:00: 00:00 $X per day [place] (PEN 00 :00 E11.65 Medical NEEDLE) 32 Branch gauge x 5/32" Ndle Insulin 2021-0 2021- No [id number] Use as Un joel [place], 06-08 directed ity of Disposable, 00:00: 00:00 $X per day [place] (PEN 00 :00 E11.65 Medical NEEDLE) 32 Branch gauge x 5/32" Ndle ziprasidone 2-0 Yes TAKE 1 Univ ers 80 mg 1-12 CAPSULE BY ity of capsule 00:00: MOUTH [place] 00 TWICE Medical DAILY WITH Branch FOOD ziprasidone 2021-0 Yes TAKE 1 [facility] ers 80 mg [...] CAPSULE BY ity of capsule 00:00: MOUTH TWICE Medical DAILY WITH Branch FOOD ziprasidone 2-0 Yes TAKE 1 [facility] ers 80 mg 1-12 CAPSULE BY ity of capsule 00:00: MOUTH [place] 00 TWICE Medical DAILY WITH Branch FOOD ziprasidone 2021-0 Yes TAKE 1 [facility] 80 mg 1-12 CAPSULE BY ity of capsule 00:00: MOUTH [place] TWICE Medical DAILY WITH Branch FOOD ziprasidone 2-0 Yes TAKE 1 [facility] 80 mg 1-12 CAPSULE BY ity of capsule 00:00: MOUTH [place] 00 TWICE Medical DAILY WITH Branch FOOD ziprasidone 2021-0 Yes TAKE 1 [facility] 80 mg 1-12 CAPSULE BY ity of capsule 00:00: MOUTH [place] TWICE Medical DAILY WITH Branch FOOD ziprasidone 2-0 Yes TAKE 1 [facility] 80 mg 1-12 CAPSULE BY ity of capsule 00:00: [facility] TWICE Medical DAILY WITH Branch FOOD ziprasidone 2021-0 Yes TAKE 1 [facility] ers 80 mg 1-12 CAPSULE BY ity of capsule 00:00: MOUTH [place] TWICE Medical DAILY WITH Branch FOOD ziprasidone 2-0 Yes TAKE 1 [facility] ers 80 mg 1-12 CAPSULE BY ity of capsule 00:00: [facility] TWICE Medical DAILY WITH Branch FOOD REXULTI 1 2021-0 Yes [facility] mg Tab 1-11 ity of 00:00: [place] [facility] clonazePAM 2021-0 Yes TAKE 1/2 Uni vers 1 mg tablet -11 TO 1 ity of 00:00: TABLET BY [place] MOUTH Medical DAILY Branch NEEDED REXULTI 1 2021-0 Yes [facility] mg Tab 1-11 ity of 00:00: [place] [facility] clonazePAM 2021-0 Yes TAKE 1/2 Uni vers 1 mg tablet -11 TO 1 ity of 00:00: TABLET BY [place] MOUTH Medical DAILY Branch NEEDED REXULTI 1 2021-0 Yes [facility] mg Tab 1-11 ity of 00:00: [place] [facility] clonazePAM 2021-0 Yes TAKE 1/2 Uni vers 1 mg tablet -11 TO 1 ity of 00:00: TABLET BY [place] MOUTH Medical DAILY Branch NEEDED REXULTI 1 2021-0 Yes [facility] mg Tab 1-11 ity of 00:00: [place] [address] Medical Branch clonazePAM 2022-0 Yes TAKE 1/2 Uni vers 1 mg tablet 11 TO 1 ity of 00:00: TABLET BY [place] MOUTH Medical DAILY Branch NEEDED REXULTI 1 2022-0 Yes [facility] mg Tab -11 ity of 00:00: [place] [address] Medical Branch clonazePAM 2022-0 Yes TAKE 1/2 Uni vers 1 mg tablet 05-25 TO 1 ity of 00:00: TABLET BY [place] MOUTH Medical DAILY Branch NEEDED REXULTI 1 2022-0 Yes Univers mg Tab 11 ity of 00:00: [place] [address] Medical Branch clonazePAM 2022-0 Yes TAKE 1/2 Uni vers 1 mg tablet 05-25 TO 1 ity of 00:00: TABLET BY [place] MOUTH Medical DAILY Branch NEEDED clonazePAM 2022-0 Yes TAKE 1/2 Uni vers 1 mg tablet 05-25 TO 1 ity of 00:00: TABLET BY [place] MOUTH Medical DAILY Branch NEEDED clonazePAM 2022-0 Yes TAKE 1/2 Uni vers 1 mg tablet 05-25 TO 1 ity of 00:00: TABLET BY [place] MOUTH Medical DAILY Branch NEEDED clonazePAM 2022-0 Yes TAKE 1/2 Uni vers 1 mg tablet 05-25 TO 1 ity of 00:00: TABLET BY [place] MOUTH [facility] DAILY Branch NEEDED clonazePAM 2022-0 Yes TAKE 1/2 Uni vers 1 mg tablet 05-25 TO 1 ity of 00:00: TABLET BY [place] MOUTH Medical DAILY Branch NEEDED clonazePAM 2022-0 Yes TAKE 1/2 Uni vers 1 mg tablet 05-25 TO 1 ity of 00:00: TABLET BY [place] MOUTH Medical DAILY Branch NEEDED clonazePAM 2022-0 Yes TAKE 1/2 Uni vers 1 mg tablet 05-25 TO 1 ity of 00:00: TABLET BY [place] MOUTH Medical DAILY Branch NEEDED clonazePAM 2022-0 Yes TAKE 1/2 [facility] vers 1 mg tablet 05-25 TO 1 ity of 00:00: TABLET BY [place] MOUTH Medical DAILY Branch NEEDED clonazePAM 2022-0 Yes TAKE 1/2 [facility] vers 1 mg tablet 11 TO 1 ity of 00:00: TABLET BY [place] MOUTH Medical DAILY Branch NEEDED clonazePAM 2022-0 Yes TAKE 1/2 [facility] vers 1 mg tablet 1-11 TO 1 ity of 00:00: TABLET BY [place] MOUTH Medical DAILY Branch NEEDED clonazePAM 2022-0 Yes TAKE 1/2 [facility] vers 1 mg tablet -11 TO 1 ity of 00:00: TABLET BY [place] MOUTH Medical DAILY Branch NEEDED clonazePAM 2022-0 Yes TAKE 1/2 [facility] vers 1 mg tablet -11 TO 1 ity of 00:00: TABLET BY [place] MOUTH Medical DAILY Branch NEEDED clonazePAM 2022-0 Yes TAKE 1/2 [facility] vers 1 mg tablet -11 TO 1 ity of 00:00: TABLET BY [place] MOUTH Medical DAILY Branch NEEDED clonazePAM 2022-0 Yes TAKE 1/2 [facility] vers 1 mg tablet -11 TO 1 ity of 00:00: TABLET BY [place] MOUTH Medical DAILY Branch NEEDED clonazePAM 2022-0 Yes TAKE 1/2 [facility] vers 1 mg tablet - TO 1 ity of 00:00: TABLET BY [place] MOUTH Medical DAILY Branch NEEDED clonazePAM 2022-0 Yes TAKE 1/2 [facility] vers 1 mg tablet 05-25 TO 1 ity of 00:00: TABLET BY [place] MOUTH Medical DAILY Branch NEEDED clonazePAM 2022-0 Yes TAKE 1/2 Uni vers 1 mg tablet 11 TO 1 ity of 00:00: TABLET BY [place] MOUTH Medical DAILY Branch NEEDED clonazePAM 2022-0 Yes TAKE 1/2 Uni vers 1 mg tablet 11 TO 1 ity of 00:00: TABLET BY [place] MOUTH Medical DAILY Branch NEEDED clonazePAM 2022-0 Yes TAKE 1/2 Uni vers 1 mg tablet -11 TO 1 ity of 00:00: TABLET BY [place] MOUTH Medical DAILY Branch NEEDED clonazePAM 2022-0 Yes TAKE 1/2 [facility] vers 1 mg tablet -11 TO 1 ity of 00:00: TABLET BY [place] MOUTH Medical DAILY Branch NEEDED clonazePAM 2022-0 Yes TAKE 1/2 Uni vers 1 mg tablet -11 TO 1 ity of 00:00: TABLET BY [place] MOUTH Medical DAILY Branch NEEDED clonazePAM 2022-0 Yes TAKE 1/2 [facility] vers 1 mg tablet -11 TO 1 ity of 00:00: TABLET BY [place] MOUTH Medical DAILY Branch NEEDED clonazePAM 2022-0 Yes TAKE 1/2 [facility] vers 1 mg tablet -11 TO 1 ity of 00:00: TABLET BY [place] [address] MOUTH Medical DAILY Branch NEEDED clonazePAM 2022-0 Yes TAKE 1/2 [facility] vers 1 mg tablet 11 TO 1 ity of 00:00: TABLET BY [place] MOUTH Medical DAILY Branch NEEDED clonazePAM 2022-0 Yes TAKE 1/2 [facility] vers 1 mg tablet 05-25 TO 1 ity of 00:00: TABLET BY [place] MOUTH Medical DAILY Branch NEEDED clonazePAM 2022-0 Yes TAKE 1/2 [facility] vers 1 mg tablet 11 TO 1 ity of 00:00: TABLET BY [place] MOUTH Medical DAILY Branch NEEDED REXULTI 1 2021-0 Yes Univers mg Tab 11 ity of 00:00: [place] [address] Medical Branch clonazePAM 2-0 Yes TAKE 1/2 Uni vers 1 mg tablet 05-25 TO 1 ity of 00:00: TABLET BY [place] MOUTH Medical DAILY Branch NEEDED REXULTI 1 2021-0 Yes Univers mg Tab 05-25 ity of 00:00: [place] [address] Medical Branch clonazePAM 2022-0 Yes TAKE 1/2 Uni vers 1 mg tablet 05-25 TO 1 ity of 00:00: TABLET BY [place] [address] MOUTH [facility] DAILY Branch NEEDED REXULTI 1 2021-0 Yes Univers mg Tab 05-25 ity of 00:00: [place] [address] Medical Branch clonazePAM 2022-0 Yes TAKE 1/2 Uni vers 1 mg tablet 05-25 TO 1 ity of 00:00: TABLET BY [place] MOUTH Medical DAILY Branch NEEDED REXULTI 1 2022-0 Yes Univers mg Tab 05-25 ity of 00:00: [place] [address] Medical Branch clonazePAM 2022-0 Yes TAKE 1/2 Uni vers 1 mg tablet 05-25 TO 1 ity of 00:00: TABLET BY [place] [address] MOUTH Medical DAILY Branch NEEDED REXULTI 1 2-0 Yes Univers mg Tab 11 ity of 00:00: [place] [address] Medical Branch clonazePAM 2022-0 Yes TAKE 1/2 Uni vers 1 mg tablet 11 TO 1 ity of 00:00: TABLET BY [place] [address] MOUTH Medical DAILY Branch NEEDED REXULTI 1 2021-0 Yes [facility] mg Tab -11 ity of 00:00: [place] [address] Medical Branch clonazePAM 2022-0 Yes TAKE 1/2 Uni vers 1 mg tablet 11 TO 1 ity of 00:00: TABLET BY [place] MOUTH Medical DAILY Branch NEEDED REXULTI 1 Yes [facility] mg Tab 05-25 ity of 00:00: [place] [facility] clonazePAM Yes TAKE 1/2 [facility] vers 1 mg tablet 05-25 TO 1 ity of 00:00: TABLET BY [place] MOUTH Medical DAILY Branch NEEDED REXULTI 1 2021-0 Yes [facility] mg Tab 05-25 ity of 00:00: [place] [facility] clonazePAM 2021-0 Yes TAKE 1/2 [facility] vers 1 mg tablet 05-25 TO 1 ity of 00:00: TABLET BY [place] MOUTH Medical DAILY Branch NEEDED REXULTI 1 Yes [facility] mg Tab 05-25 ity of 00:00: [place] [facility] clonazePAM Yes TAKE 1/2 Uni vers 1 mg tablet 05-25 TO 1 ity of 00:00: TABLET BY [place] MOUTH Medical DAILY Branch NEEDED REXULTI 1 Yes [facility] mg Tab 05-25 ity of 00:: [place] [facility] clonazePAM Yes TAKE 1/2 Uni vers 1 mg tablet 05-25 TO 1 ity of 00:00: TABLET BY [place] MOUTH Medical DAILY Branch NEEDED REXULTI 1 2021- No Univers mg Tab 05-25 ity of 00:00: 00:00 [place] 00 :00 Medical Branch REXULTI 1 2021-0 [...] mg by ity of capsule 00:00: mouth [place] 00 daily. Medical Branch buPROPion 0 Yes 150mg Take 150 Uni vers XL 150 mg 1-07 mg by ity of 24 hr 00:00: mouth [place] tablet 00 daily. Medical Branch DULoxetine 0 Yes 120mg Take 120 Un joel 60 [...] DULoxetine 2021-0 Yes 120mg Take 120 Un jeol 60 mg 1-07 mg by ity of [...] DULoxetine 2021-0 Yes 120mg Take 120 Un jole 60 mg 1-07 mg by ity of [...] tablet 00:00: [place] 00 Medical Branch cloNIDine 2-0 Yes Univers 0.1 mg 1-04 ity of tablet 00:00: [place] 00 Medical Branch cloNIDine 2022-0 Yes Univers 0.1 mg 1-04 ity of tablet 00:00: [place] 00 Medical Branch cloNIDine 2022-0 Yes Univers 0.1 mg 1-04 ity of tablet 00:00: [place] [facility] cloNIDine 2022-0 Yes [facility] 0.1 mg 1-04 ity of tablet 00:00: [place] [facility] cloNIDine 2022-0 Yes Univers 0.1 mg 1-04 ity of tablet 00:00: [place] [facility] cloNIDine 2022-0 Yes Univers 0.1 mg 1-04 ity of tablet 00:00: [place] [facility] cloNIDine 2022-0 Yes [facility] 0.1 mg 1-04 ity of tablet 00:00: [place] [facility] cloNIDine 2022-0 Yes [facility] 0.1 mg 1-04 ity of tablet 00:00: [place] [facility] cloNIDine 2022-0 Yes Univers 0.1 mg 1-04 ity of tablet 00:00: [place] [facility] cloNIDine 2022-0 Yes Univers 0.1 mg 1-04 ity of tablet 00:00: [place] [facility] cloNIDine 2022-0 Yes Univers 0.1 mg 1-04 ity of tablet 00:00: [place] [facility] cloNIDine 2022-0 Yes Univers 0.1 mg 1-04 ity of tablet 00:00: [place] [facility] cloNIDine 2022-0 Yes Univers 0.1 mg 1-04 ity of tablet 00:00: [place] [facility] cloNIDine 2022-0 Yes Univers 0.1 mg 1-04 ity of tablet 00:00: [place] [facility] cloNIDine 2022-0 Yes Univers 0.1 mg 1-04 ity of tablet 00:00: [place] [facility] cloNIDine 2022-0 Yes Univers 0.1 mg 1-04 ity of tablet 00:00: [place] [facility] cloNIDine 2022-0 Yes Univers 0.1 mg 1-04 ity of tablet 00:00: [place] [facility] cloNIDine 2022-0 Yes Univers 0.1 mg 1-04 ity of tablet 00:00: [place] [facility] cloNIDine 2022-0 Yes Univers 0.1 mg 1-04 ity of tablet 00:00: [place] [facility] cloNIDine 2022-0 Yes Univers 0.1 mg 1-04 ity of tablet 00:00: [place] [address] Medical Branch cloNIDine 2022-0 Yes Univers 0.1 mg 1-04 ity of tablet 00:00: [place] [facility] cloNIDine 2022-0 Yes Univers 0.1 mg 1-04 ity of tablet 00:00: [place] [facility] cloNIDine 2022-0 Yes Univers 0.1 mg 1-04 ity of tablet 00:00: [place] [facility] cloNIDine 2022-0 Yes Univers 0.1 mg 1-04 ity of tablet 00:00: [place] [facility] cloNIDine 2022-0 Yes Univers 0.1 mg 1-04 ity of tablet 00:00: [place] [facility] cloNIDine 2022-0 Yes Univers 0.1 mg 1-04 ity of tablet 00:00: [place] [facility] cloNIDine 2022-0 Yes Univers 0.1 mg 1-04 ity of tablet 00:00: [place] [facility] cloNIDine 2022-0 Yes Univers 0.1 mg 1-04 ity of tablet 00:00: [place] [facility] cloNIDine 2022-0 Yes Univers 0.1 mg 1-04 ity of tablet 00:00: [place] [facility] cloNIDine 2022-0 Yes Univers 0.1 mg 1-04 ity of tablet 00:00: [place] [facility] cloNIDine 2022-0 Yes Univers 0.1 mg 1-04 ity of tablet 00:00: [place] [facility] cloNIDine 2022-0 Yes Univers 0.1 mg 1-04 ity of tablet 00:00: [place] [facility] cloNIDine 2022-0 Yes Univers 0.1 mg 1-04 ity of tablet 00:00: [place] [facility] cloNIDine 2022-0 Yes Univers 0.1 mg 1-04 ity of tablet 00:00: [place] [facility] cloNIDine 2022-0 Yes Univers 0.1 mg 1-04 ity of tablet 00:00: [place] [facility] cloNIDine 2022-0 Yes Univers 0.1 mg 1-04 ity of tablet 00:00: [place] [facility] cloNIDine 2022-0 Yes Univers 0.1 mg 1-04 ity of tablet 00:00: [place] [facility] cloNIDine 2022-0 Yes Univers 0.1 mg 1-04 ity of tablet 00:00: [place] [facility] cloNIDine 2022-0 Yes Univers 0.1 mg 1-04 ity of tablet 00:00: [place] [address] Medical Branch cloNIDine 2022-0 Yes Univers 0.1 mg 1-04 ity of tablet 00:00: [place] [facility] [place] propranoloL 2021-1 Yes 20mg Take 20 mg [...] mouth 2 ity of tablet 00:00: (two) [place] 00 times Medical daily. Branch propranoloL 2021-1 Yes 20mg Take 20 mg Univers 20 mg 2-22 by mouth 2 ity of tablet 00:00: (two) [place] 00 times Medical daily. Branch propranoloL 2021-1 Yes 20mg Take 20 mg Univers 20 mg 2-22 by mouth 2 ity of tablet 00:00: (two) [place] 00 times Medical daily. Branch propranoloL 2021-1 Yes 20mg Take 20 mg Univers 20 mg 2-22 by mouth 2 ity of tablet 00:00: (two) [place] 00 times Medical daily. Branch propranoloL 2021-1 Yes 20mg Take 20 mg Univers 20 mg 2-22 by mouth 2 ity of tablet 00:00: (two) [place] 00 times Medical daily. Branch propranoloL 2021-1 Yes 20mg Take 20 mg Univers 20 mg 2-22 by mouth 2 ity of tablet 00:00: (two) [place] 00 times Medical daily. Branch propranoloL 2021-1 Yes 20mg Take 20 mg Univers 20 mg 2-22 by mouth 2 ity of tablet 00:00: (two) [place] 00 times Medical daily. Branch propranoloL 2021-1 Yes 20mg Take 20 mg Univers 20 mg 2-22 by mouth 2 ity of tablet 00:00: (two) [place] 00 times Medical daily. Branch propranoloL 2021-1 Yes 20mg Take 20 mg Univers 20 mg 2-22 by mouth 2 ity of tablet 00:00: (two) [place] 00 times Medical daily. Branch propranoloL 2021-1 [...] mouth 2 ity of tablet 00:00: (two) [place] 00 times Medical daily. Branch propranoloL 2021-1 Yes 20mg Take 20 mg Univers 20 mg 2-22 by mouth 2 ity of tablet 00:00: (two) [place] 00 times Medical daily. Branch propranoloL 2021-1 Yes 20mg Take 20 mg Univers 20 mg 2-22 by mouth 2 ity of tablet 00:00: (two) [place] 00 times Medical daily. Branch propranoloL 2021-1 Yes 20mg Take 20 mg Univers 20 mg 2-22 by mouth 2 ity of tablet 00:00: (two) [place] 00 times Medical daily. Branch propranoloL 2021-1 [...] [place] 00 times Medical daily. Branch propranoloL 2020-05- No 20mg Take 20 mg Univers 20 mg 07-06-25 by mouth 2 ity of tablet 00:00: 00:00 (two) [place] 00 :00 times Medical daily. Branch propranoloL 2020-05- No 20mg Take 20 mg Univers 20 mg 07-06-25 by mouth 2 ity of tablet 00:00: 00:00 (two) [place] 00 :00 times Medical daily. Branch dextroamphe 2020-05 Yes [...] tablet 00 Medical Branch dextroamphe 2020-05 Yes [facility] tamine-amph 1-18 ity of etamine 20 00:00: [place] mg tablet 00 Medical Branch dextroamphe 2020-05 Yes [facility] s tamine-amph 1-18 ity of etamine 20 00:00: [place] mg tablet 00 Medical Branch dextroamphe 2020-05 Yes [facility] s tamine-amph 1-18 ity of etamine 20 00:00: [place] mg tablet 00 Medical Branch dextroamphe 2020-05 Yes Univer s tamine-amph 1-18 ity of etamine 20 00:00: [place] mg tablet 00 Medical Branch dextroamphe 2020-05 Yes [facility] s tamine-amph 1-18 ity of etamine 20 00:00: [place] mg tablet 00 Medical Branch dextroamphe 2020-05 Yes [facility] s tamine-amph 1-18 ity of etamine 20 [...] tablet 00 Medical Branch [facility]roamphe 2020-[address] [facility] etamine 20 00:00: [place] mg tablet Medical Branch dextroamphe 2020-[address] [facility] ity of etamine 20 00:00: [place] mg tablet Medical Branch dextroamphe 2020-05 Yes [facility] s tamine-amph 1-18 ity of etamine 20 00:00: [place] mg tablet Medical Branch dextroamphe 2020-[address] [facility] ity of etamine 20 00:00: [place] mg tablet 00 Medical Branch dextroamphe 2020-05 Yes [facility] s tamine-amph 1-18 ity of etamine 20 00:00: [place] mg tablet Medical Branch dextroamphe 2020-05 Yes [facility] s tamine-amph 1-18 ity of etamine 20 00:00: [place] mg tablet 00 Medical Branch dextroamphe 2020-05 Yes [facility] s tamine-amph 1-18 ity of etamine 20 00:00: [place] mg tablet 00 Medical Branch dextroamphe 2020-05 Yes [facility] s tamine-amph 1-18 ity of etamine 20 00:00: [place] mg tablet 00 Medical Branch dextroamphe 2020-05 Yes [facility] s tamine-amph 1-18 ity of etamine 20 00:00: [place] mg tablet 00 Medical Branch dextroamphe 2020-05 Yes [facility] s tamine-amph 1-18 ity of etamine 20 00:00: [place] mg tablet 00 Medical Branch dextroamphe 2020-05 Yes Univ s tamine-amph 1-18 ity of etamine 20 00:00: [place] mg tablet 00 Medical Branch dextroamphe 2020-05 Yes Univer s tamine-amph 1-18 ity of etamine 20 00:00: [place] mg tablet 00 Medical Branch dextroamphe 2020-05 Yes Univer s tamine-amph 1-18 ity of etamine 20 00:00: [place] mg tablet 00 Medical Branch dextroamphe 2020-[address] [facility] of etamine 20 00:00: [place] mg tablet 00 Medical Branch dextroamphe 2020-[address] [facility] ity of etamine 20 00:00: [place] mg tablet 00 Medical Branch dextroamphe 2020-[address] [facility] ity of etamine 20 00:00: [place] mg tablet 00 Medical Branch dextroamphe 2020-05 Yes [facility] s tamine-amph 1-18 ity of etamine 20 00:00: [place] mg tablet 00 Medical Branch dextroamphe 2020-05 Yes [facility] s tamine-amph 1-18 ity of etamine 20 00:00: [place] mg tablet 00 Medical Branch dextroamphe 2020-05 Yes [facility] s tamine-amph 1-18 ity of etamine 20 00:00: [place] mg tablet 00 Medical Branch dextroamphe 2020-05 Yes [facility] s tamine-amph 1-18 ity of etamine 20 00:00: [place] mg tablet 00 Medical Branch dextroamphe 2020-05 Yes [facility] s tamine-amph 1-18 ity of etamine 20 00:00: [place] mg tablet 00 Medical Branch dextroamphe 2020-05 Yes [facility] s tamine-amph 1-18 ity of etamine 20 00:00: [place] mg tablet 00 Medical Branch dextroamphe 2020-05 Yes [facility] s tamine-amph 1-18 ity of etamine 20 00:00: [place] mg tablet 00 Medical Branch dextroamphe 2020-05 Yes [facility] s tamine-amph 1-18 ity of etamine 20 00:00: [place] mg tablet 00 Medical Branch dextroamphe 2020-05 Yes [facility] s tamine-amph 1-18 ity of etamine 20 00:00: [place] mg tablet [facility] dextroamphe 2020-05 Yes Univer s tamine-amph 1-18 ity of etamine 20 00:00: [place] mg tablet [facility] duloxetine Yes 120 mg, Luis paula 7-21 [...] PO, l tablet 20:05: BID, 0 Refill(s) zolpidem 10 Yes 10 mg = [...] PO, l tablet 20:05: BID, 0 [place] 00 Refill(s) zolpidem 10 Yes 10 mg = 1 M emoria mg oral 7-21 tab, PO, l tablet 20:05: Bedtime, 0 [place] nn 00 Refill(s) Clonidine Yes 0.2 mg = 1 Me moria Hydrochlori 7-21 tab, PO, l de 0.2 MG 20:05: BID, 0 Kobi n Oral Tablet 00 Refill(s) cloNIDine Yes 0.2 mg = 1 Me moria 0.2 mg oral 7-21 tab, PO, l tablet 20:05: BID, 0 [place] 00 Refill(s) zolpidem 10 Yes 10 mg = 1 M emoria mg oral 7-21 tab, PO, l tablet 20:05: Bedtime, 0 [place] nn 00 Refill(s) Clonidine Yes 0.2 mg = 1 Me moria Hydrochlori 7-21 tab, PO, l de 0.2 MG 20:05: BID, 0 [place]obi n Oral Tablet 00 Refill(s) zolpidem 10 Yes 10 mg = 1 M emoria mg oral 7-21 tab, PO, l tablet 20:05: Bedtime, 0 [place] nn 00 Refill(s) cloNIDine 0 Yes 0.2 mg = 1 Me moria 0.2 mg oral 7-21 tab, PO, l tablet 20:05: BID, 0 [place] 00 Refill(s) Metformin Yes 2,000 mg, Mem oria [...] tab, PO, l tablet 20:03: BID, 0 Refill(s) ziprasidone Yes 80 mg = 1 M emoria 80 mg oral 7-21 cap, PO, l capsule 20:03: BID, 0 [place] 00 Refill(s) atorvastati Yes 10 mg = 1 M emoria n 10 mg 7-21 tab, PO, l oral tablet 20:03: Daily, 0 He rm Refill(s) propranolol 2020-0 Yes 20 mg = 1 M emoria 20 mg oral 7-21 tab, PO, l tablet 20:03: BID, 0 [place] 00 Refill(s) ziprasidone 2020-0 Yes 80 mg = 1 M emoria 80 mg oral 7-21 cap, PO, l capsule 20:03: BID, 0 [place] 00 Refill(s) atorvastati 2020-0 Yes 10 mg = 1 M emoria n 10 mg 7-21 tab, PO, l oral tablet 20:03: Daily, 0 [place] 00 Refill(s) propranolol 2020-0 Yes 20 mg = 1 M emoria 20 mg oral 7-21 tab, PO, l tablet 20:03: BID, 0 [place] 00 Refill(s) ziprasidone 2020-0 Yes 80 mg = 1 M emoria 80 mg oral 7-21 cap, PO, l capsule 20:03: BID, 0 [place] 00 Refill(s) atorvastati 2020-0 Yes 10 mg = 1 M emoria n 10 mg 7-21 tab, PO, l oral tablet 20:03: Daily, 0 [place] 00 Refill(s) propranolol 2020-0 Yes 20 mg = 1 M emoria 20 mg oral 7-21 tab, PO, l tablet 20:03: BID, 0 [place] 00 Refill(s) ziprasidone 2020-0 Yes 80 mg = 1 M emoria 80 mg oral 7-21 cap, PO, l capsule 20:03: BID, 0 [place] 00 Refill(s) atorvastati 2020-0 Yes 10 mg = 1 M emoria n 10 mg 7-21 tab, PO, l oral tablet 20:03: Daily, 0 [place] 00 Refill(s) Acetazolami 0 No 500 mg, Mem oria de 11-30 Route: IV, l 14:00: Daily, Dosing Weight 79.545, kg, Start date: 11/30/14 9:00:00, Duration: 30 day, Stop date: 12/29/14 9:00:00 Acetazolami 2014-0 No 500 mg, Mem oria de 11-30 Route: IV, l 14:00: Daily, Dosing Weight 79.545, kg, Start date: 11/30/14 9:00:00, Duration: 30 day, Stop date: 12/29/14 9:00:00 Acetazolami 2015-0 No 500 mg, Mem oria de - Route: IV, l 14:00: Daily, Dosing Weight 79.545, kg, Start date: 11/30/14 9:00:00, Duration: 30 day, Stop date: 12/29/14 9:00:00 Acetazolami 2015-0 No 500 mg, Mem oria de 7- Route: IV, l 14:00: Daily, Dosing Weight [...] 30 day, Stop date: 12/29/14 9:00:00 Brimonidine No 1 drp, [place] pa[place] tartrate [...] / 11-29 (Same as: l Hydrocodone 19:57: Barney [place] nn Bitartrate 00 325/5) Do 5 MG Oral not exceed Tablet 4gm/day of [Barney acetaminop 5/325] hen. Acetaminoph No Notes: [place] paula en 325 MG / 11-29 (Same as: l Hydrocodone 19:57: [place] nn Bitartrate 00 325/5) Do 5 MG Oral not exceed Tablet 4gm/day of [Barney acetaminop 5/325] hen. Acetaminoph No Notes: [place] pa[place] en 325 MG / 11-29 (Same as: l Hydrocodone 19:57: [place] nn Bitartrate 00 325/5) Do 5 MG Oral not exceed Tablet 4gm/day of [[place]ney acetaminop 5/325] hen. Acetaminoph No Notes: [place] paula en 325 MG / 7-18 (Same as: l Hydrocodone 19:57: [place] nn Bitartrate 00 325/5) Do 5 MG Oral not exceed Tablet 4gm/day of [Barney acetaminop 5/325] hen. Acetaminoph No 1 - [...] 0 Tablet Refill(s) [Tylenol with Codeine #3] chlorhexidi Yes 0.018 gm = Memoria ne topical -18 15 ml, PO, l 0.12% 19:51: BID, # 480 Kobi n liquid 00 ml, 0 Refill(s) bacitracin Yes Special [place] pa[place] zinc 0.5 18 Instructio l UNT/MG 19:51: ns: Apply Kobi n Topical 00 a thin Ointment layer to affected area chlorhexidi Yes 0.018 gm = Memoria ne 7-18 15 ml, PO, l gluconate 19:51: BID, # 480 He rmann 1.2 MG/ML 00 ml, 0 Mouthwash Refill(s) bacitracin Yes Special [place] pa[place] zinc [...] n liquid 00 ml, 0 Refill(s) Dilaudid 2015-0 No 1 mg, Memoria 7-18 Route: l 18:10: IVP, ONCE, [place] Dosing Weight 79.545, kg, Priority: STAT, Start date: 11/29/14 13:10:00, Stop date: 11/29/14 13:10:00 Dilaudid 2014-0 No 1 mg, Memoria 7-18 Route: l 18:10: IVP, ONCE, [place] Dosing Weight 79.545, kg, Priority: STAT, Start date: 11/29/14 13:10:00, Stop date: 11/29/14 13:10:00 Dilaudid 2014-0 No 1 mg, Memoria 7-18 Route: l 18:10: IVP, ONCE, [place] 00 Dosing Weight 79.545, kg, Priority: STAT, Start date: 11/29/14 13:10:00, Stop date: 11/29/14 13:10:00 Dilaudid 2014-0 No 1 mg, Memoria 718 Route: l 18:10: IVP, ONCE, [place] 00 Dosing Weight 79.545, kg, Priority: STAT, Start date: 11/29/14 13:10:00, Stop date: 11/29/14 13:10:00 Zofran No Notes: Memoria 11-29 (Same as: l 16:05: Zofran) Fabricio 00 MEDICATION WASTE Product Size: 4 mg Product Wasted: ___ mg Zofran No Notes: [facility] 11-29 (Same as: l 16:05: Zofran) [place] 00 MEDICATION WASTE Product Size: 4 mg Product Wasted: ___ mg Zofran No Notes: Memoria - (Same as: l 16:05: Zofran) [place] 00 MEDICATION WASTE Product Size: 4 mg Product Wasted: ___ mg Zofran No Notes: [facility]oria - (Same as: l 16:05: Zofran) [place] 00 MEDICATION WASTE Product Size: 4 mg Product Wasted: ___ mg Morphine 0 No Notes: Memoria 11-29 (Same l 16:04: as:MORPhin [place] 00 e Sulfate) Morphine No Notes: [facility] 7-18 (Same l 16:04: as:MORPhin [place] 00 e Sulfate) Morphine No Notes: [facility]oria 7-18 (Same l 16:04: as:MORPhin [place] 00 e Sulfate) Morphine No Notes: Memoria [...] 0.9% 7-18 (Same as: l 15:59: [place] 00 Posiflush) Sodium No 1,000 mL, Memori [...] l 15:59: BD Fabricio 00 Posiflush) Sodium 2015-0 No 1,000 mL, Memori a Chloride 7-18 1,000 l 0.154 15:59: ml/hr, Fabricio MEQ/ML 00 Infuse Injectable Over: 1 Solution hr, Route: IV, 1,000, Drug form: INJ, ONCE, Priority: STAT, Dosing Weight 79.545 kg, Start date: 11/29/14 10:59:00, Duration: 1 doses or times, Stop date: 11/29/14 10:59:00 Saline 2014- No Notes: Memoria Flush 0.9% 7-18 (Same as: l 15:59: BD Fabricio 00 Posiflush) Immunizations Ordered Filled Date Status Comments Source Immunization Name Immunization Name SARS-COV-2 COVID-19 2021-08-22 Completed Unive rsity of PFIZER VACCINE 00:00:00 [facility] SARS-COV-2 COVID-19 2021-08-22 Completed Unive rsity of PFIZER VACCINE 00:00:00 [facility] SARS-COV-2 COVID-19 2021-08-22 Completed Unive rsity of PFIZER VACCINE 00:00:00 [facility] SARS-COV-2 COVID-19 2021-08-22 Completed Unive rsity of PFIZER VACCINE 00:00:00 [facility] SARS-COV-2 COVID-19 2021-08-22 Completed Unive rsity of PFIZER VACCINE 00:00:00 [facility] SARS-COV-2 COVID-19 2021-08-22 Completed Unive rsity of PFIZER VACCINE 00:00:00 [facility] SARS-COV-2 COVID-19 2021-08-22 Completed Unive rsity of PFIZER VACCINE 00:00:00 [facility] SARS-COV-2 COVID-19 2021-08-22 Completed Unive rsity of PFIZER VACCINE 00:00:00 [facility] SARS-COV-2 COVID-19 2021-08-22 Completed Unive rsity of PFIZER VACCINE 00:00:00 [facility] SARS-COV-2 COVID-19 2021-08-22 Completed Unive rsity of PFIZER VACCINE 00:00:00 [facility] SARS-COV-2 COVID-19 2021-08-22 Completed Unive rsity of PFIZER VACCINE 00:00:00 [facility] SARS-COV-2 COVID-19 2021-08-22 Completed Unive rsity of PFIZER VACCINE 00:00:00 [facility] SARS-COV-2 COVID-19 2021-08-22 Completed Unive rsity of PFIZER VACCINE 00:00:00 [facility] SARS-COV-2 COVID-19 2021-08-22 Completed Unive rsity of PFIZER VACCINE 00:00:00 [facility] SARS-COV-2 COVID-19 2021-08-22 Completed Unive rsity of PFIZER VACCINE 00:00:00 [facility] SARS-COV-2 COVID-19 2021-08-22 Completed Unive rsity of PFIZER VACCINE 00:00:00 [facility] SARS-COV-2 COVID-19 2021-08-22 Completed Unive rsity of PFIZER VACCINE 00:00:00 [facility] SARS-COV-2 COVID-19 2021-08-22 Completed Unive rsity of PFIZER VACCINE 00:00:00 [facility] SARS-COV-2 COVID-19 2021-08-22 Completed Unive rsity of PFIZER VACCINE 00:00:00 [facility] SARS-COV-2 COVID-19 2021-08-22 Completed Unive rsity of PFIZER VACCINE 00:00:00 [facility] SARS-COV-2 COVID-19 2021-08-22 Completed Unive rsity of PFIZER VACCINE 00:00:00 [facility] SARS-COV-2 COVID-19 2021-08-22 Completed Unive rsity of PFIZER VACCINE 00:00:00 [facility] SARS-COV-2 COVID-19 2021-08-22 Completed Unive rsity of PFIZER VACCINE 00:00:00 [facility] SARS-COV-2 COVID-19 2021-08-22 Completed Unive rsity of PFIZER VACCINE 00:00:00 [facility] SARS-COV-2 COVID-19 2021-08-22 Completed Unive rsity of PFIZER VACCINE 00:00:00 [facility] SARS-COV-2 COVID-19 2021-08-22 Completed Unive rsity of PFIZER VACCINE 00:00:00 [facility] SARS-COV-2 COVID-19 2021-08-22 Completed Unive rsity of PFIZER VACCINE 00:00:00 [facility] SARS-COV-2 COVID-19 2021-08-22 Completed Unive rsity of PFIZER VACCINE 00:00:00 [facility] SARS-COV-2 COVID-19 2021-08-22 Completed Unive rsity of PFIZER VACCINE 00:00:00 [facility] SARS-COV-2 COVID-19 2021-08-22 Completed Unive rsity of PFIZER VACCINE 00:00:00 [facility] SARS-COV-2 COVID-19 2021-08-22 Completed Unive rsity of PFIZER VACCINE 00:00:00 [facility] SARS-COV-2 COVID-19 2021-08-22 Completed Unive rsity of PFIZER VACCINE 00:00:00 [facility] SARS-COV-2 COVID-19 2021-08-22 Completed Unive rsity of PFIZER VACCINE 00:00:00 [facility] SARS-COV-2 COVID-19 2021-08-22 Completed Unive rsity of PFIZER VACCINE 00:00:00 [facility] SARS-COV-2 COVID-19 2021-08-22 Completed Unive rsity of PFIZER VACCINE 00:00:00 [facility] SARS-COV-2 COVID-19 2021-08-22 Completed Unive rsity of PFIZER VACCINE 00:00:00 [facility] SARS-COV-2 COVID-19 2021-08-22 Completed Unive rsity of PFIZER VACCINE 00:00:00 [facility] SARS-COV-2 COVID-19 2021-08-22 Completed Unive rsity of PFIZER VACCINE 00:00:00 [facility] SARS-COV-2 COVID-19 2021-08-22 Completed Unive rsity of PFIZER VACCINE 00:00:00 [facility] SARS-COV-2 COVID-19 2021-08-22 Completed Unive rsity of PFIZER VACCINE 00:00:00 [facility] SARS-COV-2 COVID-19 2020-07-28 Completed Unive rsity of PFIZER VACCINE 00:00:00 [facility] SARS-COV-2 COVID-19 2020-07-28 Completed Unive rsity of PFIZER VACCINE 00:00:00 [facility] SARS-COV-2 COVID-19 2020-07-28 Completed Unive rsity of PFIZER VACCINE 00:00:00 [facility] SARS-COV-2 COVID-19 2020-07-28 Completed Unive rsity of PFIZER VACCINE 00:00:00 [facility] SARS-COV-2 COVID-19 2020-07-28 Completed Unive rsity of PFIZER VACCINE 00:00:00 [facility] SARS-COV-2 COVID-19 2020-07-28 Completed Unive rsity of PFIZER VACCINE 00:00:00 [facility] SARS-COV-2 COVID-19 2020-07-28 Completed Unive rsity of PFIZER VACCINE 00:00:00 [facility] SARS-COV-2 COVID-19 2020-07-28 Completed Unive rsity of PFIZER VACCINE 00:00:00 [facility] SARS-COV-2 COVID-19 2020-07-28 Completed Unive rsity of PFIZER VACCINE 00:00:00 [facility] SARS-COV-2 COVID-19 2020-07-28 Completed Unive rsity of PFIZER VACCINE 00:00:00 [facility] SARS-COV-2 COVID-19 2020-07-28 Completed Unive rsity of PFIZER VACCINE 00:00:00 [facility] SARS-COV-2 COVID-19 2020-07-28 Completed Unive rsity of PFIZER VACCINE 00:00:00 [facility] SARS-COV-2 COVID-19 2020-07-28 Completed Unive rsity of PFIZER VACCINE 00:00:00 [facility] SARS-COV-2 COVID-19 2020-07-28 Completed Unive rsity of PFIZER VACCINE 00:00:00 [facility] SARS-COV-2 COVID-19 2020-07-28 Completed Unive rsity of PFIZER VACCINE 00:00:00 [facility] SARS-COV-2 COVID-19 2020-07-28 Completed Unive rsity of PFIZER VACCINE 00:00:00 [facility] SARS-COV-2 COVID-19 2020-07-28 Completed Unive rsity of PFIZER VACCINE 00:00:00 [facility] SARS-COV-2 COVID-19 2020-07-28 Completed Unive rsity of PFIZER VACCINE 00:00:00 [facility] SARS-COV-2 COVID-19 2020-07-28 Completed Unive rsity of PFIZER VACCINE 00:00:00 [facility] SARS-COV-2 COVID-19 2020-07-28 Completed Unive rsity of PFIZER VACCINE 00:00:00 [facility] SARS-COV-2 COVID-19 2020-07-28 Completed Unive rsity of PFIZER VACCINE 00:00:00 [facility] SARS-COV-2 COVID-19 2020-07-28 Completed Unive rsity of PFIZER VACCINE 00:00:00 [facility] SARS-COV-2 COVID-19 2020-07-28 Completed Unive rsity of PFIZER VACCINE 00:00:00 [facility] SARS-COV-2 COVID-19 2020-07-28 Completed Unive rsity of PFIZER VACCINE 00:00:00 [facility] SARS-COV-2 COVID-19 2020-07-28 Completed Unive rsity of PFIZER VACCINE 00:00:00 [facility] SARS-COV-2 COVID-19 2020-07-28 Completed Unive rsity of PFIZER VACCINE 00:00:00 [facility] SARS-COV-2 COVID-19 2020-07-28 Completed Unive rsity of PFIZER VACCINE 00:00:00 [facility] SARS-COV-2 COVID-19 2020-07-28 Completed Unive rsity of PFIZER VACCINE 00:00:00 [facility] SARS-COV-2 COVID-19 2020-07-28 Completed Unive rsity of PFIZER VACCINE 00:00:00 [facility] SARS-COV-2 COVID-19 2020-07-28 Completed Unive rsity of PFIZER VACCINE 00:00:00 [facility] SARS-COV-2 COVID-19 2020-07-28 Completed Unive rsity of PFIZER VACCINE 00:00:00 [facility] SARS-COV-2 COVID-19 2020-07-28 Completed Unive rsity of PFIZER VACCINE 00:00:00 [facility] SARS-COV-2 COVID-19 2020-07-28 Completed Unive rsity of PFIZER VACCINE 00:00:00 [facility] SARS-COV-2 COVID-19 2020-07-28 Completed Unive rsity of PFIZER VACCINE 00:00:00 [facility] SARS-COV-2 COVID-19 2020-07-28 Completed Unive rsity of PFIZER VACCINE 00:00:00 [facility] SARS-COV-2 COVID-19 2020-07-28 Completed Unive rsity of PFIZER VACCINE 00:00:00 [facility] SARS-COV-2 COVID-19 2020-07-28 Completed Unive rsity of PFIZER VACCINE 00:00:00 [facility] SARS-COV-2 COVID-19 2020-07-28 Completed Unive rsity of PFIZER VACCINE 00:00:00 [facility] SARS-COV-2 COVID-19 2020-07-28 Completed Unive rsity of PFIZER VACCINE 00:00:00 [facility] SARS-COV-2 COVID-19 2020-07-28 Completed Unive rsity of PFIZER VACCINE 00:00:00 [facility] SARS-COV-2 COVID-19 2020-07-07 Completed Unive rsity of PFIZER VACCINE 00:00:00 [facility] SARS-COV-2 COVID-19 2020-07-07 Completed Unive rsity of PFIZER VACCINE 00:00:00 [facility] SARS-COV-2 COVID-19 2020-07-07 Completed Unive rsity of PFIZER VACCINE 00:00:00 [facility] SARS-COV-2 COVID-19 2020-07-07 Completed Unive rsity of PFIZER VACCINE 00:00:00 [facility] SARS-COV-2 COVID-19 2020-07-07 Completed Unive rsity of PFIZER VACCINE 00:00:00 [facility] SARS-COV-2 COVID-19 2020-07-07 Completed Unive rsity of PFIZER VACCINE 00:00:00 [facility] SARS-COV-2 COVID-19 2020-07-07 Completed Unive rsity of PFIZER VACCINE 00:00:00 [facility] SARS-COV-2 COVID-19 2020-07-07 Completed Unive rsity of PFIZER VACCINE 00:00:00 [facility] SARS-COV-2 COVID-19 2020-07-07 Completed Unive rsity of PFIZER VACCINE 00:00:00 [facility] SARS-COV-2 COVID-19 2020-07-07 Completed Unive rsity of PFIZER VACCINE 00:00:00 [facility] SARS-COV-2 COVID-19 2020-07-07 Completed Unive rsity of PFIZER VACCINE 00:00:00 [facility] SARS-COV-2 COVID-19 2020-07-07 Completed Unive rsity of PFIZER VACCINE 00:00:00 [facility] SARS-COV-2 COVID-19 2020-07-07 Completed Unive rsity of PFIZER VACCINE 00:00:00 [facility] SARS-COV-2 COVID-19 2020-07-07 Completed Unive rsity of PFIZER VACCINE 00:00:00 [facility] SARS-COV-2 COVID-19 2020-07-07 Completed Unive rsity of PFIZER VACCINE 00:00:00 [facility] SARS-COV-2 COVID-19 2020-07-07 Completed Unive rsity of PFIZER VACCINE 00:00:00 [facility] SARS-COV-2 COVID-19 2020-07-07 Completed Unive rsity of PFIZER VACCINE 00:00:00 [facility] SARS-COV-2 COVID-19 2020-07-07 Completed Unive rsity of PFIZER VACCINE 00:00:00 [facility] SARS-COV-2 COVID-19 2020-07-07 Completed Unive rsity of PFIZER VACCINE 00:00:00 [facility] SARS-COV-2 COVID-19 2020-07-07 Completed Unive rsity of PFIZER VACCINE 00:00:00 [facility] SARS-COV-2 COVID-19 2020-07-07 Completed Unive rsity of PFIZER VACCINE 00:00:00 [facility] SARS-COV-2 COVID-19 2020-07-07 Completed Unive rsity of PFIZER VACCINE 00:00:00 [facility] SARS-COV-2 COVID-19 2020-07-07 Completed Unive rsity of PFIZER VACCINE 00:00:00 [facility] SARS-COV-2 COVID-19 2020-07-07 Completed Unive rsity of PFIZER VACCINE 00:00:00 [facility] SARS-COV-2 COVID-19 2020-07-07 Completed Unive rsity of PFIZER VACCINE 00:00:00 [facility] SARS-COV-2 COVID-19 2020-07-07 Completed Unive rsity of PFIZER VACCINE 00:00:00 [facility] SARS-COV-2 COVID-19 2020-07-07 Completed Unive rsity of PFIZER VACCINE 00:00:00 [facility] SARS-COV-2 COVID-19 2020-07-07 Completed Unive rsity of PFIZER VACCINE 00:00:00 [facility] SARS-COV-2 COVID-19 2020-07-07 Completed Unive rsity of PFIZER VACCINE 00:00:00 [facility] SARS-COV-2 COVID-19 2020-07-07 Completed Unive rsity of PFIZER VACCINE 00:00:00 [facility] SARS-COV-2 COVID-19 2020-07-07 Completed Unive rsity of PFIZER VACCINE 00:00:00 [facility] SARS-COV-2 COVID-19 2020-07-07 Completed Unive rsity of PFIZER VACCINE 00:00:00 [facility] SARS-COV-2 COVID-19 2020-07-07 Completed Unive rsity of PFIZER VACCINE 00:00:00 [facility] SARS-COV-2 COVID-19 2020-07-07 Completed Unive rsity of PFIZER VACCINE 00:00:00 [facility] SARS-COV-2 COVID-19 2020-07-07 Completed Unive rsity of PFIZER VACCINE 00:00:00 [facility] SARS-COV-2 COVID-19 2020-07-07 Completed Unive rsity of PFIZER VACCINE 00:00:00 [facility] SARS-COV-2 COVID-19 2020-07-07 Completed Unive rsity of PFIZER VACCINE 00:00:00 [facility] SARS-COV-2 COVID-19 2020-07-07 Completed Unive rsity of PFIZER VACCINE 00:00:00 [facility] SARS-COV-2 COVID-19 2020-07-07 Completed Unive rsity of PFIZER VACCINE 00:00:00 [facility] SARS-COV-2 COVID-19 2020-07-07 Completed Unive rsity of PFIZER VACCINE 00:00:00 [facility] SARS-COV-2 COVID-19 Unknown Completed Unive rsity of PFIZER VACCINE [facility] SARS-COV-2 COVID-19 Unknown Completed Unive rsity of PFIZER VACCINE [facility] SARS-COV-2 COVID-19 Unknown Completed Unive rsity of PFIZER VACCINE [facility] Vital Signs Vital Name Observation Time Observation Value Comments Source Systolic blood 2022-09-06 16:19:00 104 mm[Hg] Univer sity of pressure [facility] Diastolic blood 2022-09-06 16:19:00 72 mm[Hg] Unive rsity of pressure [facility] Heart rate 2022-09-06 16:19:00 91 /min [facility] Body height 2022-09-06 16:19:00 162.6 cm [facility] Body weight 2022-09-06 16:19:00 81.511 kg [facility] BMI 2022-09-06 16:19:00 30.85 kg/m2 [facility] Systolic blood 2022-04-13 20:55:00 111 mm[Hg] Univer sity of pressure [facility] Diastolic blood 2022-04-13 20:55:00 68 mm[Hg] Unive rsity of pressure [facility] Heart rate 2022-04-13 20:55:00 92 /min [facility] Body temperature 2022-04-13 20:55:00 36.28 Jaymie Univ ersity of [facility] Body height 2022-04-13 20:55:00 160 cm [facility] Body weight 2022-04-13 20:55:00 88.168 kg [facility] BMI 2022-04-13 20:55:00 34.43 kg/m2 [facility] Systolic blood 2022-04-05 19:48:00 111 mm[Hg] Univer sity of pressure [facility] Diastolic blood 2022-04-05 19:48:00 64 mm[Hg] Unive rsity of pressure [facility] Heart rate 2022-04-05 19:48:00 98 /min [facility]i [facility] of [facility] Body weight 2022-04-05 19:48:00 88.587 kg [facility] BMI 2022-04-05 19:48:00 34.60 kg/m2 [facility] Oxygen saturation in 2022-04-05 19:48:00 97 /min [facility] Arterial blood by [facility] Pulse oximetry [place] Body height 2021-12-17 15:06:00 160 cm [facility] Body weight 2021-12-17 15:06:00 87.317 kg [facility] BMI 2021-12-17 15:06:00 34.10 kg/m2 [facility] Systolic (mm Hg) 2022-03-24 14:09:00 Luis rial Fabricio Diastolic (mm Hg) 2022-03-24 14:09:00 Mem orial [place] Heart Rate 2022-03-24 14:09:00 [facility] [place] Height 2022-03-24 14:09:00 5 [ft_i] [facility] [place] Weight 2022-03-24 14:09:00 [facility] [place] BMI Calculated 2022-03-24 14:09:00 Memori [facility] [place] Systolic (mm Hg) 2020-12-02 19:59:00 Luis rial [place] Diastolic (mm Hg) 2020-12-02 19:59:00 Mem orial [facility] Heart Rate 2020-12-02 19:59:00 [facility] [place] Respitory Rate 2020-12-02 19:59:00 [facility] [place] Height 2020-12-02 19:59:00 167.64 cm [facility] Weight 2020-12-02 19:59:00 [facility] [place] BMI Calculated 2020-12-02 19:59:00 Memori al [place] Temperature Oral (F) 2014-11-29 20:00:00 98.0 F [facility] Systolic (mm Hg) 2014-11-29 20:00:00 Luis rial [place] Diastolic (mm Hg) 2014-11-29 20:00:00 Mem orial [place] Respitory Rate 2014-11-29 20:00:00 Memori al [place] Systolic (mm Hg) 2014-11-29 19:00:00 Luis rial [place] Diastolic (mm Hg) 2014-11-29 19:00:00 Mem orial [place] Systolic (mm Hg) 2014-11-29 18:00:00 Luis Regalado Diastolic (mm Hg) 2014-11-29 18:00:00 Mem [facility] [place] Respitory Rate 2014-11-29 18:00:00 Arnulfo castro Fabricio Respitory Rate 2014-11-29 17:00:00 Arnulfo Pandya BMI Calculated 2014-11-29 15:39:00 Jessecamila castro Fabric[facility] Height 2014-11-29 15:39:00 162.56 cm Aubree Fabricio Weight 2014-11-29 15:39:00 Aubree Barfieldann Temperature Oral (F) 2014-11-29 15:39:00 98.3 F Aubree Barfieldann Heart Rate 2014-11-29 15:39:00 Aubree Regalado Procedures Procedure Date / Time Performing Clinician Source Performed POCT HEMOGLOBIN A1C TEST 2022-09-06 16:21:[address] [facility] ASSIGNMENT OF BENEFITS 2022-09-06 16:02:54 [facility] AND CONSENT, 2022-04-13 06:01:00 [facility] PROCEDURES POCT HEMOGLOBIN A1C TEST 2022-04-05 19:57:[address] [facility] DME/SUPPLY JUSTIFICATION 2022-03-16 05:01:00 Doctor Unassigned, [facility] DME/SUPPLY JUSTIFICATION 2021-12-13 05:01:00 Doctor Unassigned, [facility] Name [facility] Cholecystectomy [facility] Fabricio section Aubree Peace n Fusion<sup>1</sup> Aubree willoughby Encounters Start End Encounter Admission Attending Care Care Encounter Source Date/Time Date/Time Type Type Clinicians Facility Department ID 2023-01-23 2023-01-23 Refill BERNARDO Reyes [id number] Univers 00:00:00 00:00:00 Keisha BLOUNTPEC [id number] ity of [place] [id number] [facility] [id number] [facility] AND [place] [address] [facility] 2023-01-23 2023-01-23 Refill BERNARDO Kate [id number] Univers 00:00:00 00:00:00 Whitley HEALTH [id number] it y of [place] [id number] Buck as ALON?BLEA [id number] [address] MEDICAL OFFICE [facility] 2023-01-23 2023-01-23 Ra Leongeorgi [facility] [id number] Univers 00:00:00 00:00:00 Sayda MULTISPEC [id number] ity of [place] [id number] [facility] [phone] [facility] AND [address] [facility] 2023-01-23 2023-01-23 Patient Shahram [facility] [id number] Univers 00:00:00 00:00:00 Secure Msg [facility] HEALTH [id number] ity of [place] [id number] [place] as ALON?BLEA [phone] [address] OFFICE [facility] 2022-12-04 2022-12-04 Telephone MARLON Sun [id number] Univers 00:00:00 00:00:00 Latisha VILLALOBOS [id number] i ty of [facility] [id number] [place] as [id number] [place] [address] Branch 2022-10-17 2022-10-17 Telephone Shahram [facility] [id number] Univers 00:00:00 00:00:00 [facility] HEALTH [id number] it y of [place] [id number] Buck as ALON?BLEA [id number] [address] OFFICE [facility] 2022-10-05 2022-10-05 Telephone Shahram [facility] [id number] Univers 00:00:00 00:00:00 Wentong HEALTH [id number] it y of [place] [id number] [place] as ALON?BLEA [id number] [address] MEDICAL OFFICE [facility] 2022-09-27 2022-09-27 Rn Support Services Lab, Ang - Db [facility] [id number] Univers 10:00:00 10:15:00 Visit Unknown, [facility] HEALTH [id number] ity of [place] [id number] [place] as ALON?BLEA [id number] [facility] [address] [facility] OFFICE [facility] 2022-09-27 2022-09-27 Outpatient R MAGNO [facility] [id number] Univers 10:00:00 09:44:05 ANGELIQUE itzaida [facility] 2022-09-27 2022-09-27 Telephone Shahram [facility] [id number] Univers 00:00:00 00:00:00 [facility] [id number] it [place] [facility] [id number] [place] as ALON?BLEA [phone] [address] 2022-09-12 2022-09-12 [facility] [id number] Univers 00:00:00 00:00:00 [facility] [id number] it y of [place] [facility] [id number] [place] as ALON?BLEA [id number] [address] 2022-09-06 2022-09-06 Outpatient R SHAHRAM [facility] [id number] Univers 11:30:00 12:40:20 [facility] 2022-09-06 2022-09-06 Office [facility] [id number] Univers 11:30:00 12:40:20 Visit [facility] [id number] it y of [place] [id number] Buck as ALON?BLEA [phone] [address] 2022-09-06 2022-09-06 Orders Doctor MASON [id number] Univers 00:00:00 00:00:00 Only Unassigned, WILFREDO [id number] ity of [place] [facility] [id number] Buck as [id number] [address] 2022-04-18 2022-04-18 Telephone [facility] [id number] Univers 00:00:00 00:00:00 Armaan SPECIALTY [id number] ity of [id number] [id number] [place] sarah MUNOZ [address] [place] [address] 2022-04-14 2022-04-16 Outside [facility] [id number] Memoria 19:56:14 05:59:59 Medical Neurology 00 l Records Erika Barfieldann 2022-04-14 2022-04-16 Outside [facility] [id number] Memoria 19:56:14 05:59:59 Medical Neurology 00 l Records Erika Barfieldann 2022-04-14 2022-04-15 Outpatient MHMISCHER MISCHER [id number] 13:56:14 23:59:59 00 2022-04-13 2022-04-13 [facility] [id number] Univers 14:45:00 15:29:28 [facility] 2022-04-13 2022-04-13 Office [facility] 1.2.840.114 [id number] Univers 14:45:00 15:29:28 Visit Armaan ANN 350.1.13.10 ity of CARE 4.2.7.2.686 [facility] AT [phone] Il sarah MUNOZ [address] [place] [address] 2022-04-13 2022-04-13 Telephone [facility] 1.2.517.892 [id number] Univers 00:00:00 00:00:00 Armaan SPECIALTY 350.1.13.10 ity of CARE 4.2.7.2.686 [facility] s CENTER AT [phone] Il sarah MUNOZ [address] [place] [address] 2022-04-13 2022-04-13 Orders Doctor MASON 1.2.840.114 [id number] Univers 00:00:00 00:00:00 Only Unassigned, WILFREDO 350.1.13.10 ity of [place] [facility] 4.2.7.2.686 Buck as [phone] [address] 2022-04-05 2022-04-05 [facility] 1.2.840.114 [id number] Univers 14:30:00 14:44:57 Visit [facility] 350.1.13.10 it y of [place] 4.2.7.2.686 Buck as ALON?BLEA [id number] [address] OFFICE [facility] 2022-04-05 2022-04-05 Out[facility] [id number] Univers 14:30:00 14:44:57 [facility] ity [facility] 2022-04-05 2022-04-05 Telephone [facility] 1.2.038.622 [id number] Univers 00:00:00 00:00:00 [facility] 350.1.13.10 it y of [place] [facility] 4.2.7.2.686 Buck as ALON?BLEA [id number] [address] OFFICE [facility] 2022-03-26 2022-03-26 Refrom [facility] 1.2.840.114 [id number] Univers 00:00:00 00:00:00 [facility] 350.1.13.10 it y of [place] 4.2.7.2.686 Buck as ALON?BLEA [id number] [address] OFFICE [facility] 2022-03-24 2022-03-25 Outpatient nullFlavo MNA [id number] Memoria 14:15:00 05:59:59 r Neurology 04 l Erika Regalado 2022-03-24 2022-03-25 Outpatient nullFlavo MNA [id number] Memoria 14:15:00 05:59:59 r Neurology 04 l Erika Regalado 2022-03-24 2022-03-24 Outpatient MICHELLE Inman [id number] 08:15:00 23:59:59 Ariel Suzy Garibay 2022-03-24 2022-03-24 Outpatient MHIE ALEXIS [id number] Memoria 08:15:00 08:15:00 04 boo Regalado 2022-03-24 2022-03-24 [facility] 1.2.840.114 [id number] Univers 00:00:00 00:00:00 Whitley HEALTH 350.1.13.10 it y of [place] 4.2.7.2.686 Buck as ALON?BLEA [id number] [address] MEDICAL OFFICE [facility] 2022-03-17 2022-03-17 [facility] 1.2.840.114 [id number] Univers 00:00:00 00:00:00 Whitley HEALTH 350.1.13.10 it y of [place] 4.2.7.2.686 Buck as ALON?BLEA [id number] [address] 2022-03-16 2022-03-16 [facility] 1.2.840.114 [id number] Univers 00:00:00 00:00:00 Whitley HEALTH 350.1.13.10 it y of [place] 4.2.7.2.686 Buck as ALON?BLEA [id number] [address] 2022-03-16 2022-03-16 Orders Doctor MARLON 1.2.840.114 [id number] Univers 00:00:00 00:00:00 Only Unassigned, WILFREDO 350.1.13.10 ity of [place] [facility] 4.2.7.2.686 Buck as [phone] [address] 2022-03-16 2022-03-16 [facility] 1.2.395.095 [id number] Univers 00:00:00 00:00:00 Whitley HEALTH 350.1.13.10 it y of [place] 4.2.7.2.686 Buck as ALON?BLEA [id number] [address] 2022-03-14 2022-03-14 [facility] 1.2.840.114 [id number] Univers 00:00:00 00:00:00 Whitley HEALTH 350.1.13.10 it y of [place] 4.2.7.2.686 Buck as ALON?BLEA [phone] [address] 2022-03-04 2022-03-04 Ambulatory nullFlavo MNA [id number] Memoria 18:00:00 18:00:00 Pre-Reg r Neurology 03 l Erika Regalado 2022-03-04 2022-03-04 Ambulatory nullFlavo MNA [id number] Memoria 18:00:00 18:00:00 Pre-Reg r Neurology 03 l Erika Regalado 2022-03-04 2022-03-04 Outpatient MHIE MHIE [id number] [facility] 13:00:00 13:00:00 03 l Fabricio 2022-03-04 2022-03-04 Outpatient [facility] [id number] 13:00:00 13:00:00 Ariel 03 [place] 2022-02-25 2022-02-25 Refill Ramon [facility] 1.2.840.114 [id number] Univers 00:00:00 00:00:00 Whitley iSoccer 350.1.13.10 it y of [place] 4.2.7.2.686 Buck as ALON?BLEA [id number] [address] 2022-01-31 2022-01-31 Patient Ramon [facility] 1.2.840.114 [id number] Univers 00:00:00 00:00:00 Secure Msg [place] i[employer]cer 350.1.13.10 ity of [place] 4.2.7.2.686 Buck as ALON?BLEA [id number] [address] 2021-12-28 2021-12-28 Telephone [facility] 1.2.157.242 [id number] Univers 00:00:00 00:00:00 [employer] HEALTH 350.1.13.10 it y of [place] 4.2.7.2.686 Buck as ALON?BLEA [phone] [address] 2021-12-23 2021-12-23 Telephone Shahram, [facility] 1.2.058.705 [id number] Univers 00:00:00 00:00:00 [employer] HEALTH 350.1.13.10 it y of [place] 4.2.7.2.686 Buck as ALON?BLEA [id number] [address] MEDICAL OFFICE [facility] 2021-12-17 2021-12-17 Outpatient R NAJMA [facility] [id number] Univers 10:00:00 10:51:32 AKILAH ity of [facility] 2021-12-17 2021-12-17 Nutrition Technician Najma [facility] 1.2.840.114 [id number] Univers 10:00:00 10:51:32 Visit Akilah [facility] 350.1.13.10 [place] of [place].2.[place] [id number] [address] [facility] 2021-12-14 2021-12-14 Patient Doctor MARLON 1.2.840.114 [id number] Univers 00:00:00 00:00:00 Secure Msg Unassigned, WILFREDO 350.1.13.10 ity of [place] [facility] 4.2.7.2.686 Buck as [phone] [facility] [address] [place] 2021-12-13 2021-12-13 Telephone [facility] 1.2.292.410 [id number] Univers 00:00:00 00:00:00 [facility] 350.1.13.10 it y of [place] 4.2.7.2.686 Buck as ALON?BLEA [phone] [address] OFFICE [facility] 2021-12-13 2021-12-13 Orders Doctor MARLON 1.2.840.114 [id number] Univers 00:00:00 00:00:00 Only Unassigned, WILFREDO 350.1.13.10 ity of [place] [facility] 4.2.7.2.686 Buck as [phone] [facility] [address] [place] 2021-12-10 2021-12-10 Telephone [facility] 1.2.635.040 [id number] Univers 00:00:00 00:00:00 Whitley MULTISPEC 350.1.13.10 ity of [place]2.7.2.686 [place] [phone] [address] [facility] 2021-12-09 2021-12-09 Telephone [facility] 1.2.808.470 [id number] Univers 00:00:00 00:00:00 Whitley HEALTH 350.1.13.10 it y of [place] 4.2.7.2.686 Buck as ALON?BLEA [phone] [facility] [address] [facility] OFFICE [facility] 2021-12-07 2021-12-07 Patient [facility] 1.2.840.114 [id number] Univers 00:00:00 00:00:00 Secure Msg [place] HEALTH 350.1.13.10 ity of [place] 4.2.7.2.686 Buck as ALON?BLEA [phone] [facility] [address] [facility] OFFICE [facility] 2021-12-06 2021-12-06 Refill [facility] 1.2.840.114 [id number] Univers 00:00:00 00:00:00 Whitley HEALTH 350.1.13.10 it y of [place] 4.2.7.2.686 Buck as ALON?BLEA [phone] [facility] [address] [facility] OFFICE [facility] 2021-12-03 2021-12-03 Rn Support Services Lab, Ang - Db [facility] 1.2.840.1 14 [id number] Univers 12:00:00 12:15:00 Visit Whitley Kate 350.1.13.10 ity of [place] 4.2.7.2.686 Buck as ALON?BLEA [id number] [facility] [address] [facility] OFFICE [facility] 2021-12-03 2021-12-03 Office [facility] 1.2.840.114 [id number] Univers 11:30:00 12:02:34 Visit Whitley HEALTH 350.1.13.10 it y of [place] 4.2.7.2.686 Buck as ALON?BLEA [phone] [facility] [address] [facility] OFFICE [facility] 2021-12-03 2021-12-03 [facility] [id number] Univers 11:30:00 12:02:34 WHITLEY ity of [facility] 2021-12-03 2021-12-03 Outpatient R RAMON [facility] [id number] Univers 12:00:00 12:00:00 WHITLEY itzaida [facility] 2021-11-30 2021-11-30 Outpatient R SHAHRAM [facility] [id number] Univers 13:00:00 13:00:00 KE itzaida [facility] 2021-11-30 2021-11-30 Outpatient R SHAHRAM [facility] [id number] Univers 13:00:00 13:00:00 [facility]ORTHWOOD [facility] 2021-10-13 2021-10-13 Telephone [facility] 1.2.861.476 [id number] Univers 00:00:00 00:00:00 [facility] 350.1.13.10 it y of [place] 4.2.7.2.686 Buck as ALON?BLEA [id number] [address] MEDICAL OFFICE [facility] 2021-09-13 2021-09-13 Office Lilliam [facility] 1.2.840.114 [id number] Univers 09:00:00 09:45:38 Visit Elianepaty SAINZ 350.1.13.10 it y of [place] [id number] [address] 2021-09-13 2021-09-13 Outpatient R [facility] B [id number] Univers 09:00:00 09:45:38 BARTOLO THOMAS [facility] 2021-09-13 2021-09-13 Outpatient R [facility] B [id number] Univers 09:00:00 09:45:38 BARTOLO THOMAS [facility] 2021-09-13 2021-09-13 Outpatient R [facility] B [id number] Univers 09:00:00 09:00:00 BARTOLO THOMAS [facility] 2021-09-07 2021-09-07 Outpatient R SHAHRAM [facility] [id number] Univers 10:30:00 10:30:00 [facility] 2021-08-10 2021-08-10 Outpatient [facility] [id number] Univers 11:30:00 12:50:07 [facility] 2021-08-10 2021-08-10 Office [facility] 1.2.840.114 [id number] Univers 11:30:00 12:50:07 Visit [facility] 350.1.13.10 it y of [place] 4.2.7.2.686 Buck as ALON?BLEA [id number] [address] MEDICAL OFFICE [facility] 2021-08-10 2021-08-10 Outpatient [facility] [id number] Univers 11:30:00 11:30:00 [facility] 2021-08-05 2021-08-05 Telephone [facility] 1.2.814.279 [id number] Univers 00:00:00 00:00:00 [facility] iSoccer 350.1.13.10 it y of [place] 4.2.7.2.686 Buck as ALON?BLEA [id number] [address] MEDICAL OFFICE [facility] 2021-08-04 2021-08-04 Orders Doctor MARLON 1.2.840.114 [id number] Univers 00:00:00 00:00:00 Only Unassigned, WILFREDO 350.1.13.10 ity of [place] [facility] 4.2.7.2.686 Buck as [id number] [address] 2021-08-02 2021-08-02 Telephone [facility] 1.2.741.995 [id number] Univers 00:00:00 00:00:00 [employer]Soccer 350.1.13.10 it y of [place] 4.2.7.2.686 Buck as ALON?BLEA [phone] [address] MEDICAL OFFICE [facility] 2021-07-22 2021-07-22 Telephone [facility] 1.2.669.152 [id number] Univers 00:00:00 00:00:00 [employer] HEALTH 350.1.13.10 it y of [place] 4.2.7.2.686 Buck as ALON?BLEA [id number] [address] MEDICAL OFFICE BUILDING 2021-07-20 2021-07-20 Telephone Alexander, [facility] 1.2.072.783 [id number] Univers 00:00:00 00:00:00 Wentong MULTISPEC 350.1.13.10 it[place].2.[place] [phone] [facility] AND [facility] [address] [place] [facility] 2021-07-13 2021-07-13 Orders Doctor MARLON 1.2.840.114 [id number] Univers 00:00:00 00:00:00 Only Unassigned, WILFREDO 350.1.13.10 ity of [place] [facility] 4.2.7.2.686 Buck as [id number] [facility] [address] 2021-06-22 2021-06-22 Telephone Alexander, [facility] 1.2.018.742 [id number] Univers 00:00:00 00:00:00 [employer] HEALTH 350.1.13.10 it y of [place] 4.2.7.2.686 Buck as ALON?BLEA [phone] [address] MEDICAL OFFICE [facility] 2021-06-14 2021-06-14 Telephone Alexander, [facility] 1.2.819.444 [id number] Univers 00:00:00 00:00:00 [employer] HEALTH 350.1.13.10 it y of [place] 4.2.7.2.686 Buck as ALON?BLEA [id number] [address] MEDICAL OFFICE [facility] 2021-06-09 2021-06-09 Telephone Alexander, [facility] 1.2.414.884 [id number] Univers 00:00:00 00:00:00 [employer] HEALTH 350.1.13.10 it y of [place] 4.2.7.2.686 Buck as ALON?BLEA [id number] [address] MEDICAL OFFICE BUILDING 2021-06-08 2021-06-08 Rn Support Services Lab, Ang - Db [facility] 1.2.840.1 14 [id number] Univers 10:45:00 11:00:00 Visit Shahram, [employer] 350.1.13.10 ity of [place] 4.2.7.2.686 Buck as ALON?BLEA [phone] Il sarah [address] MEDICAL OFFICE BUILDING 2021-06-08 2021-06-08 Outpatient R SHAHRAM, [facility] [id number] Univers 09:30:00 10:38:03 WENTONG ity of [facility] 2021-06-08 2021-06-08 Orders Doctor MARLON 1.2.840.114 [id number] Univers 00:00:00 00:00:00 Only Unassigned, WILFREDO 350.1.13.10 ity of [place] [facility] 4.2.7.2.686 Buck as [id number] [address] 2021-06-04 2021-06-04 Ambulatory nullFlavo MNA [id number] Memoria 22:00:00 22:00:00 Pre-Reg r Neurology 02 l Erika Regalado 2021-06-04 2021-06-04 Ambulatory nullFlavo MNA [id number] Memoria 22:00:00 22:00:00 Pre-Reg r Neurology 02 l Erika Regalado 2021-06-04 2021-06-04 Outpatient MHIE MHIE [id number] Memoria 16:00:00 16:00:00 02 boo Regalado 2021-06-04 2021-06-04 Outpatient JYOTI InmanSCHER MHMISCHER [id number] 16:00:00 16:00:00 Ariel Gerald Garibay 2020-12-02 2020-12-03 Outpatient nullFlavo MNA [id number] Memoria 20:00:00 04:59:59 r Neurology 01 boo Regalado 2020-12-02 2020-12-03 Outpatient nullFlavo MNA [id number] Memoria 20:00:00 04:59:59 r Neurology 01 boo Regalado 2020-12-02 2020-12-02 Outpatient JYOTI InmanSCHER MHMISCHER [id number] 15:00:00 23:59:59 Ariel Joaquim Garibay 2020-12-02 2020-12-02 Outpatient MHIE MHIE [id number] Memoria 15:00:00 15:00:00 01 boo Regalado 2020-11-19 2020-11-19 Ambulatory nullFlavo MNA [id number] Memoria 16:15:00 16:15:00 Pre-Reg r Neurology 00 l [place] 2020-11-19 2020-11-19 Ambulatory nullFlavo MNA [id number] Memoria 16:15:00 16:15:00 Pre-Reg r Neurology 00 l [place] Fabricio 2020-11-19 2020-11-19 Outpatient Henny [facility] [id number] 11:15:00 11:15:00 Ariel 00 [place] 2018-04-20 2018-04-20 Ambulatory nullFlavo MNA [id number] Memoria 20:30:00 20:30:00 Pre-Reg r Neurology 00 l Erika Fabricio 2018-04-20 2018-04-20 Ambulatory nullFlavo MNA [id number] Memoria 20:30:00 20:30:00 Pre-Reg r Neurology 00 l [place] 2018-04-20 2018-04-20 Outpatient Henny [facility] [id number] 14:30:00 14:30:00 Ariel 00 [place] 2014-12-02 2014-12-03 Outpatient nullFlavo [facility] [id number] Memoria 15:03:00 04:59:00 [place] 00 [facility] 2014-12-02 2014-12-03 Outpatient nullFlavo [facility] [id number] Memoria 15:03:00 04:59:00 r [place] 00 [facility] 2014-12-02 2014-12-02 Outpatient Mario [facility] [id number] 10:03:00 23:59:00 Dominic 00 [place] 2014-11-29 2014-11-29 EC nullFlavo [facility] [id number] Memoria 15:38:00 20:20:00 Emergency r Fabricio 99 [facility] 2014-11-29 2014-11-29 EC nullFlavo [facility] [id number] Memoria 15:38:00 20:20:00 Emergency r Fabricio 99 [facility] 2014-11-29 2014-11-29 Outpatient Oumou [facility] [id number] 10:38:00 15:20:00 Armaan Salomon Results Test Description Test Time Test Comments Results Result Comments Source POCT HEMOGLOBIN A1C TEST 2022-09-06 16:21:00 Test Item Value Reference Range Interpretation Comme nts POCT HBA1C (test code = 4548-4) 6.2 % 4-6 A Lab Interpretation (test code = 25617-6) Abnormal [facility] HEMOGLOBIN A1C [id number] 16:21:00 Test Item Value Reference Range Interpretation Comments POCT HBA1C (test code = 4548-4) 6.2 % 4-6 A Lab Interpretation (test code = Abnormal 21971-0) [facility] HEMOGLOBIN A1C [id number] 20:02:00 Test Item Value Reference Range Interpretation Comments POCT HBA1C (test code = 4548-4) 8.9 % 4-6 A Lab Interpretation (test code = Abnormal 01049-3) [facility] HEMOGLOBIN A1C [id number] 20:02:00 Test Item Value Reference Range Interpretation Comments POCT HBA1C (test code = 4548-4) 8.9 % 4-6 A Lab Interpretation (test code = Abnormal 38056-9) [facility] AND [id number] 17:59:00 Test Item Value Reference Range Interpretation Comments UA WBC (test code = UA None Seen (11/29/14 WBC) 12:59 PM) [facility] AND [id number] 17:59:00 Test Item Value Reference Range Interpretation Comments UA RBC (test code = 0-2 /HPF See_Comment [Automa meghna message] The UA RBC) system which ge nerated this result tra nsmitted reference range : <=2. The reference range was not used to interpr et this result as amy l/abnormal. [facility] AND [id number] 17:59:00 Test Item Value Reference Range Interpretation Comments UA Bacteria (test code = UA Occasional /HPF Bacteria) [facility] AND [id number] 17:59:00 Test Item Value Reference Range Interpretation Comments UA Mucus (test code = UA Mucus) Few /LPF [facility] AND [id number] 17:59:00 Test Item Value Reference Range Interpretation Comments UA Amorph Telma (test code = Occasional /HPF UA Amorph Telma) [facility] AND [id number] 17:59:00 Test Item Value Reference Range Interpretation Comments UA Sq Epi (test code = UA Sq Epi) Few /LPF [facility] AND [id number] 17:59:00 Test Item Value Reference Range Interpretation Comments UA Turbidity (test code Slight Cloudy = UA Turbidity) (11/29/14 12:59 PM) [facility] AND [id number] 17:59:00 Test Item Value Reference Range Interpretation Comments UA Color (test code = Yellow *NA*(11/29/14 UA Color) 12:59 PM) [facility] AND [id number] 17:59:00 Test Item Value Reference Range Interpretation Comments UA pH (test code = UA pH) 5.0 1 5.0-8.0 [facility] AND [id number] 17:59:00 Test Item Value Reference Range Interpretation Comments UA Spec Grav (test code = UA Spec 1.022 1 Grav) [facility] AND [id number] 17:59:00 Test Item Value Reference Range Interpretation Comments UA Bili (test code = Small *ABN*(11/29/14 UA Bili) 12:59 PM) [facility] AND [id number] 17:59:00 Test Item Value Reference Range Interpretation Comments UA Glucose (test code Negative (11/29/14 12:59 = UA Glucose) PM) [facility] AND [id number] 17:59:00 Test Item Value Reference Range Interpretation Comments UA Protein (test code Negative (11/29/14 12:59 = UA Protein) PM) [facility] AND [id number] 17:59:00 Test Item Value Reference Range Interpretation Comments UA Ketones (test code Negative *NA*(11/29/14 = UA Ketones) 12:59 PM) [facility] AND [id number] 17:59:00 Test Item Value Reference Range Interpretation Comments UA Leuk Est (test Negative (11/29/14 12:59 code = UA Leuk Est) PM) [facility] AND [id number] 17:59:00 Test Item Value Reference Range Interpretation Comments UA Blood (test code = Small *ABN*(11/29/14 UA Blood) 12:59 PM) [facility] AND [id number] 17:59:00 Test Item Value Reference Range Interpretation Comments UA Nitrite (test code Negative (11/29/14 12:59 = UA Nitrite) PM) [facility] AND [id number] 17:59:00 Test Item Value Reference Range Interpretation Comments UA Urobilinogen (test code = UA 0.2 0.1-1.0 Urobilinogen) [facility] AND [id number] 17:59:00 Test Item Value Reference Range Interpretation Comments UA WBC (test code = UA None Seen (11/29/14 WBC) 12:59 PM) [facility] AND [id number] 17:59:00 Test Item Value Reference Range Interpretation Comments UA RBC (test code = UA RBC) 0-2 /HPF <=2 [facility] AND [id number] 17:59:00 Test Item Value Reference Range Interpretation Comments UA Bacteria (test code = UA Occasional /HPF Bacteria) [facility] AND [id number] 17:59:00 Test Item Value Reference Range Interpretation Comments UA Mucus (test code = UA Mucus) Few /LPF [facility] AND [id number] 17:59:00 Test Item Value Reference Range Interpretation Comments UA Amorph Telma (test code = Occasional /HPF UA Amorph Telma) [facility] AND [id number] 17:59:00 Test Item Value Reference Range Interpretation Comments UA Sq Epi (test code = UA Sq Epi) Few /LPF [facility] AND [id number] 17:59:00 Test Item Value Reference Range Interpretation Comments UA Turbidity (test code Slight Cloudy = UA Turbidity) (11/29/14 12:59 PM) [facility] AND [id number] 17:59:00 Test Item Value Reference Range Interpretation Comments UA Color (test code = Yellow *NA*(11/29/14 UA Color) 12:59 PM) [facility] AND [id number] 17:59:00 Test Item Value Reference Range Interpretation Comments UA pH (test code = UA pH) 5.0 1 5.0-8.0 [facility] AND [id number] 17:59:00 Test Item Value Reference Range Interpretation Comments UA Spec Grav (test code = UA Spec 1.022 1 Grav) [facility] AND [id number] 17:59:00 Test Item Value Reference Range Interpretation Comments UA Bili (test code = Small *ABN*(11/29/14 UA Bili) 12:59 PM) [facility] [id number] 17:59:00 Test Item Value Reference Range Interpretation Comments UA Glucose (test code Negative (11/29/14 12:59 = UA Glucose) PM) [facility] AND [id number] 17:59:00 Test Item Value Reference Range Interpretation Comments UA Protein (test code Negative (11/29/14 12:59 = UA Protein) PM) [facility] [id number] 17:59:00 Test Item Value Reference Range Interpretation Comments UA Ketones (test code Negative *NA*(11/29/14 = UA Ketones) 12:59 PM) [facility] AND [id number] 17:59:00 Test Item Value Reference Range Interpretation Comments UA Leuk Est (test Negative (11/29/14 12:59 code = UA Leuk Est) PM) [facility] AND [id number] 17:59:00 Test Item Value Reference Range Interpretation Comments UA Blood (test code = Small *ABN*(11/29/14 UA Blood) 12:59 PM) [facility] AND [id number] 17:59:00 Test Item Value Reference Range Interpretation Comments UA Nitrite (test code Negative (11/29/14 12:59 = UA Nitrite) PM) [facility] AND [id number] 17:59:00 Test Item Value Reference Range Interpretation Comments UA Urobilinogen (test code = UA 0.2 0.1-1.0 Urobilinogen) [facility] AND [id number] 17:59:00 Test Item Value Reference Range Interpretation Comments UA WBC (test code = UA None Seen (11/29/14 WBC) 12:59 PM) [facility] AND [id number] 17:59:00 Test Item Value Reference Range Interpretation Comments UA RBC (test code = 0-2 /HPF See_Comment [Automa meghna message] The UA RBC) system which ge nerated this result tra nsmitted reference range : <=2. The reference range was not used to interpr et this result as amy l/abnormal. [facility] AND [id number] 17:59:00 Test Item Value Reference Range Interpretation Comments UA Bacteria (test code = UA Occasional /HPF Bacteria) [facility] AND [id number] 17:59:00 Test Item Value Reference Range Interpretation Comments UA Mucus (test code = UA Mucus) Few /LPF [facility] AND [id number] 17:59:00 Test Item Value Reference Range Interpretation Comments UA Amorph Telma (test code = Occasional /HPF UA Amorph Telma) [facility] AND [id number] 17:59:00 Test Item Value Reference Range Interpretation Comments UA Sq Epi (test code = UA Sq Epi) Few /LPF [facility] AND [id number] 17:59:00 Test Item Value Reference Range Interpretation Comments UA Turbidity (test code Slight Cloudy = UA Turbidity) (11/29/14 12:59 PM) [facility] AND [id number] 17:59:00 Test Item Value Reference Range Interpretation Comments UA Color (test code = Yellow *NA*(11/29/14 UA Color) 12:59 PM) [facility] AND [id number] 17:59:00 Test Item Value Reference Range Interpretation Comments UA pH (test code = UA pH) 5.0 1 5.0-8.0 [facility] AND [id number] 17:59:00 Test Item Value Reference Range Interpretation Comments UA Spec Grav (test code = UA Spec 1.022 1 Grav) [facility] AND [id number] 17:59:00 Test Item Value Reference Range Interpretation Comments UA Bili (test code = Small *ABN*(11/29/14 UA Bili) 12:59 PM) [facility] AND [id number] 17:59:00 Test Item Value Reference Range Interpretation Comments UA Glucose (test code Negative (11/29/14 12:59 = UA Glucose) PM) [facility] AND [id number] 17:59:00 Test Item Value Reference Range Interpretation Comments UA Protein (test code Negative (11/29/14 12:59 = UA Protein) PM) [facility] AND [id number] 17:59:00 Test Item Value Reference Range Interpretation Comments UA Ketones (test code Negative *NA*(11/29/14 = UA Ketones) 12:59 PM) [facility] [id number] 17:59:00 Test Item Value Reference Range Interpretation Comments UA Leuk Est (test Negative (11/29/14 12:59 code = UA Leuk Est) PM) [facility] AND [id number] 17:59:00 Test Item Value Reference Range Interpretation Comments UA Blood (test code = Small *ABN*(11/29/14 UA Blood) 12:59 PM) [facility] AND [id number] 17:59:00 Test Item Value Reference Range Interpretation Comments UA Nitrite (test code Negative (11/29/14 12:59 = UA Nitrite) PM) [facility] AND [id number] 17:59:00 Test Item Value Reference Range Interpretation Comments UA Urobilinogen (test code = UA 0.2 0.1-1.0 Urobilinogen) [facility] AND [id number] 17:59:00 Test Item Value Reference Range Interpretation Comments UA WBC (test code = UA None Seen (11/29/14 WBC) 12:59 PM) [facility] AND [id number] 17:59:00 Test Item Value Reference Range Interpretation Comments UA RBC (test code = 0-2 /HPF See_Comment [Automa meghna message] The UA RBC) system which ge nerated this result tra nsmitted reference range : <=2. The reference range was not used to interpr et this result as amy l/abnormal. [facility] AND [id number] 17:59:00 Test Item Value Reference Range Interpretation Comments UA Bacteria (test code = UA Occasional /HPF Bacteria) [facility] AND [id number] 17:59:00 Test Item Value Reference Range Interpretation Comments UA Mucus (test code = UA Mucus) Few /LPF [facility] AND [id number] 17:59:00 Test Item Value Reference Range Interpretation Comments UA Amorph Telma (test code = Occasional /HPF UA Amorph Telma) [facility] AND [id number] 17:59:00 Test Item Value Reference Range Interpretation Comments UA Sq Epi (test code = UA Sq Epi) Few /LPF [facility] AND [id number] 17:59:00 Test Item Value Reference Range Interpretation Comments UA Turbidity (test code Slight Cloudy = UA Turbidity) (11/29/14 12:59 PM) [facility] AND [id number] 17:59:00 Test Item Value Reference Range Interpretation Comments UA Color (test code = Yellow *NA*(11/29/14 UA Color) 12:59 PM) [facility] AND [id number] 17:59:00 Test Item Value Reference Range Interpretation Comments UA pH (test code = UA pH) 5.0 1 5.0-8.0 [facility] AND [id number] 17:59:00 Test Item Value Reference Range Interpretation Comments UA Spec Grav (test code = UA Spec 1.022 1 Grav) [facility] AND [id number] 17:59:00 Test Item Value Reference Range Interpretation Comments UA Bili (test code = Small *ABN*(11/29/14 UA Bili) 12:59 PM) [facility] AND [id number] 17:59:00 Test Item Value Reference Range Interpretation Comments UA Glucose (test code Negative (11/29/14 12:59 = UA Glucose) PM) [facility] AND [id number] 17:59:00 Test Item Value Reference Range Interpretation Comments UA Protein (test code Negative (11/29/14 12:59 = UA Protein) PM) [facility] AND [id number] 17:59:00 Test Item Value Reference Range Interpretation Comments UA Ketones (test code Negative *NA*(11/29/14 = UA Ketones) 12:59 PM) [facility] AND [id number] 17:59:00 Test Item Value Reference Range Interpretation Comments UA Leuk Est (test Negative (11/29/14 12:59 code = UA Leuk Est) PM) [facility] AND [id number] 17:59:00 Test Item Value Reference Range Interpretation Comments UA Blood (test code = Small *ABN*(11/29/14 UA Blood) 12:59 PM) [facility] AND [id number] 17:59:00 Test Item Value Reference Range Interpretation Comments UA Nitrite (test code Negative (11/29/14 12:59 = UA Nitrite) PM) [facility] AND [id number] 17:59:00 Test Item Value Reference Range Interpretation Comments UA Urobilinogen (test code = UA 0.2 0.1-1.0 Urobilinogen) [id number] 16:13:00 Test Item Value Reference Range Interpretation Comments Glucose Lvl (test code = Glucose Lvl) 117 70-99 [facility] HospitalLzytcodGXDRTEGHTJBS0289-77-35 16:13:00 Test Item Value Reference Range Interpretation Comments Sodium Lvl (test code = Sodium Lvl) 139 135-145 [facility] HospitalWcvfhllOQABPONIZCHI8328-41-74 16:13:00 Test Item Value Reference Range Interpretation Comments Chloride Lvl (test code = Chloride Lvl) 104 95-109 [facility] HospitalOmtuvfcPELAZQILVGJM1751-37-88 16:13:00 Test Item Value Reference Range Interpretation Comments Potassium Lvl (test code = Potassium 4.3 3.5-5.1 Lvl) [facility] HospitalXqwfzvgHSSJZOOGNNQX2849-98-77 16:13:00 Test Item Value Reference Range Interpretation Comments Calcium Lvl (test code = Calcium Lvl) 9.3 8.5-10.5 [facility] HospitalHhjdyrgIEPFSPKHCAPN0586-85-81 16:13:00 Test Item Value Reference Range Interpretation Comments CO2 (test code = CO2) 26 24-32 [facility] HospitalHijgorfLXLLCVQYICPR0832-34-07 16:13:00 Test Item Value Reference Range Interpretation Comments eGFR (test code = eGFR) 105 [facility]AgzvynfCTCTYFFWLD7683-67-49 16:13:00 Test Item Value Reference Range Interpretation Comments MPV (test code = MPV) 8.2 7.4-10.4 [facility] H[id number] 16:13:00 Test Item Value Reference Range Interpretation Comments MCHC (test code = MCHC) 32.3 32.0-36.0 [facility] HospitalRxwraqqULUEWYRQOY7773-99-75 16:13:00 Test Item Value Reference Range Interpretation Comments Platelet (test code = Platelet) 340 133-450 [facility] HospitalDsexaqxLXVFBABERJ1177-23-72 16:13:00 Test Item Value Reference Range Interpretation Comments RDW (test code = RDW) 16.7 11.5-14.5 [facility] HospitalLnmgvotMOBDLREWMA0710-56-94 16:13:00 Test Item Value Reference Range Interpretation Comments MCV (test code = MCV) 84.6 80.0-98.0 [facility] HospitalVmqqvijTNBMOSSKUY2260-61-25 16:13:00 Test Item Value Reference Range Interpretation Comments Hct (test code = Hct) 39.5 36.0-48.0 [facility] HospitalPulibuqDDTSLHISXF4809-49-58 16:13:00 Test Item Value Reference Range Interpretation Comments MCH (test code = MCH) 27.4 pg 27.0-31.0 [facility] HospitalChnggjcKWGUAIMEPV8500-15-26 16:13:00 Test Item Value Reference Range Interpretation Comments RBC (test code = RBC) 4.66 4.20-5.40 [facility] HospitalBsrhfedUXCDZEOVJR5561-64-05 16:13:00 Test Item Value Reference Range Interpretation Comments Hgb (test code = Hgb) 12.7 12.0-16.0 [facility] HospitalOnqqhydNWRHKMYMZJ6189-41-69 16:13:00 Test Item Value Reference Range Interpretation Comments WBC (test code = WBC) 13.4 3.7-10.4 [facility] HospitalXwhghcqIHNXNUASGT5536-30-86 16:13:00 Test Item Value Reference Range Interpretation Comments INR (test code = INR) 0.95 0.85-1.17 [facility] HospitalDufaepcYENNVCNKRF6766-63-36 16:13:00 Test Item Value Reference Range Interpretation Comments PT (test code = PT) 12.7 s 12.0-14.7 [facility] HospitalJbwgnheQOFRTQEPDU3805-42-68 16:13:00 Test Item Value Reference Range Interpretation Comments PTT (test code = PTT) 26.0 s 22.9-35.8 [facility] HospitalOiaqjdaRTZUKPCFPU9200-04-69 16:13:00 Test Item Value Reference Range Interpretation Comments Segs-Bands # (test code = Segs-Bands #) 11.4 1.5-8.1 [facility] HospitalYemwwlyOVZMRJOTYM7945-18-44 16:13:00 Test Item Value Reference Range Interpretation Comments Basophils # (test code 0.1 See_Comment [Aut omated message] The = Basophils #) system which generated this result tra nsmitted reference range : <=0.2. The reference r humberto was not used to int erpret this result as normal/abnormal . [facility] HospitalJlkxcohYTTJRCSZSP1732-13-24 16:13:00 Test Item Value Reference Range Interpretation Comments Monocytes # (test code 0.4 See_Comment [Aut omated message] The = Monocytes #) system which generated this result tra nsmitted reference range : <=0.8. The reference r humberto was not used to int erpret this result as normal/abnormal . [facility] HospitalKtibatgIODTNNWPWK3609-04-66 16:13:00 Test Item Value Reference Range Interpretation Comments Lymphocytes # (test code = Lymphocytes 1.5 1.0-5.5 #) [facility] HospitalOmnybhySNEBUEQWIF2428-78-67 16:13:00 Test Item Value Reference Range Interpretation Comments Eosinophils # (test code 0.1 See_Comment [A utomated message] The = Eosinophils #) system whic h generated this result tra nsmitted reference range : <=0.5. The reference r humberto was not used to int erpret this result as normal/abnormal . [facility] HospitalLycdopgWESWXDEFGT5048-93-45 16:13:00 Test Item Value Reference Range Interpretation Comments Segs-Bands # (test code = Segs-Bands #) 11.4 1.5-8.1 [facility] HospitalQcozwbmGQIOJGDHIT3782-55-89 16:13:00 Test Item Value Reference Range Interpretation Comments Segs (test code = Segs) 85.1 45.0-75.0 [facility] HospitalMmghcotLCNLOIFTVX4743-55-59 16:13:00 Test Item Value Reference Range Interpretation Comments Lymphocytes (test code = Lymphocytes) 10.8 20.0-40.0 [facility] HospitalJgcebrpKVPDKEXKVX1137-55-56 16:13:00 Test Item Value Reference Range Interpretation Comments Monocytes (test code = Monocytes) 3.0 2.0-12.0 [facility] HospitalJjcevtwFFFAFAYNAL3514-98-14 16:13:00 Test Item Value Reference Range Interpretation Comments Eosinophils (test code = 0.4 See_Comment [A utomated message] The Eosinophils) system which ge nerated this result tra nsmitted reference range : <=4.0. The reference r humberto was not used to int erpret this result as normal/abnormal . [facility] HospitalRxezkqvYEPSFBCBYA5505-58-51 16:13:00 Test Item Value Reference Range Interpretation Comments Basophils (test code = 0.7 See_Comment [Aut omated message] The Basophils) system which ge nerated this result tra nsmitted reference range : <=1.0. The reference r humberto was not used to int erpret this result as normal/abnormal . [facility] QeoztmkPRFBNTTKVB6426-96-38 16:13:00 Test Item Value Reference Range Interpretation Comments Segs (test code = Segs) 85.1 45.0-75.0 [facility] TexasSzsqltvRAJFLNXOIQ7589-93-04 16:13:00 Test Item Value Reference Range Interpretation Comments CDC HIV 4th GEN (test Negative (11/29/14 11:13 code = CDC HIV 4th AM) GEN) [facility] TexasCimiqdcREQFQWFIKK5800-21-76 16:13:00 Test Item Value Reference Range Interpretation Comments Lymphocytes (test code = Lymphocytes) 10.8 20.0-40.0 [facility] TexasannCARDIAC XXAHOQB1144-32-05 16:13:00 Test Item Value Reference Range Interpretation Comments Troponin-I (test code no gt See_Comment [Auto mated message] The = Troponin-I) system which g enerated this result transmit meghna reference range : <=0.40. The reference r humberto was not used to interpr et this result as amy l/abnormal. [facility] KsnrutvITWBSUSJET6096-94-54 16:13:00 Test Item Value Reference Range Interpretation Comments Monocytes (test code = Monocytes) 3.0 2.0-12.0 [facility] TexasannCARDIAC [id number] 16:13:00 Test Item Value Reference Range Interpretation Comments Total CK (test code = Total CK) 146 12-191 [facility] TexasExacterCHEM [id number] 16:13:00 Test Item Value Reference Range Interpretation Comments Phosphorus (test code = Phosphorus) 3.5 2.5-4.5 [facility] HilosoftannCHEM [id number] 16:13:00 Test Item Value Reference Range Interpretation Comments Magnesium Lvl (test code = Magnesium 2.2 1.8-2.4 Lvl) [facility] TexasUofszseQSNQFOHSPZLO9827-10-83 16:13:00 Test Item Value Reference Range Interpretation Comments AGAP (test code = AGAP) 13.3 10.0-20.0 [facility] TexasTwkiloyWJREFOQHJMFT2844-50-48 16:13:00 Test Item Value Reference Range Interpretation Comments Creatinine Lvl (test code = Creatinine 0.6 0.5-1.4 Lvl) [facility] TexasLfsgwgxRMGBXTDUQCZU2570-40-15 16:13:00 Test Item Value Reference Range Interpretation Comments BUN (test code = BUN) 17 7-22 [facility] HospitalEiinesgGLFHVDHYGXSW3144-94-76 16:13:00 Test Item Value Reference Range Interpretation Comments Glucose Lvl (test code = Glucose Lvl) 117 70-99 [facility] HospitalOhecsjfVPSNRCGAHNZQ2210-20-37 16:13:00 Test Item Value Reference Range Interpretation Comments Sodium Lvl (test code = Sodium Lvl) 139 135-145 [facility] HospitalHrksuscDPANAKDMWQYA5088-51-87 16:13:00 Test Item Value Reference Range Interpretation Comments Chloride Lvl (test code = Chloride Lvl) 104 95-109 [facility] HospitalPgcteqeGUJHWZVLLWVK9344-21-21 16:13:00 Test Item Value Reference Range Interpretation Comments Potassium Lvl (test code = Potassium 4.3 3.5-5.1 Lvl) [facility] HospitalRebuavqFKPJLZIKLC1788-46-15 16:13:00 Test Item Value Reference Range Interpretation Comments Eosinophils (test code = 0.4 See_Comment [A utomated message] The Eosinophils) system which ge nerated this result tra nsmitted reference range : <=4.0. The reference r humberto was not used to int erpret this result as normal/abnormal . [facility] HospitalWooxvlkFKMIGXRCGALM3426-70-53 16:13:00 Test Item Value Reference Range Interpretation Comments Calcium Lvl (test code = Calcium Lvl) 9.3 8.5-10.5 [facility] HospitalLfhzequWMTXSDFAMQJN8583-69-02 16:13:00 Test Item Value Reference Range Interpretation Comments CO2 (test code = CO2) 26 24-32 [facility] HospitalLygjzqsEPOTYEGCMRLK0374-95-96 16:13:00 Test Item Value Reference Range Interpretation Comments eGFR (test code = eGFR) 105 [facility] HospitalIadhluiJTRUHYOGWL9754-82-22 16:13:00 Test Item Value Reference Range Interpretation Comments MPV (test code = MPV) 8.2 7.4-10.4 [facility] HospitalSsmsubwEJDHSOYYUD1313-20-90 16:13:00 Test Item Value Reference Range Interpretation Comments MCHC (test code = MCHC) 32.3 32.0-36.0 [facility] HospitalUtrmkwuSYEFNMPBUT8470-25-18 16:13:00 Test Item Value Reference Range Interpretation Comments PT (test code = PT) 12.7 s 12.0-14.7 [facility] HospitalDotntzwLPIVYBTBAG5992-22-90 16:13:00 Test Item Value Reference Range Interpretation Comments PTT (test code = PTT) 26.0 s 22.9-35.8 [facility] HospitalIozpqtvTQSZFKHNRG0000-71-95 16:13:00 Test Item Value Reference Range Interpretation Comments Basophils # (test code = Basophils #) 0.1 <=0.2 [facility] HospitalLbwckabBCLOJIPMUB2436-26-04 16:13:00 Test Item Value Reference Range Interpretation Comments Monocytes # (test code = Monocytes #) 0.4 <=0.8 [facility] HospitalVtpgikyBUNXPTEDXX2817-90-75 16:13:00 Test Item Value Reference Range Interpretation Comments Lymphocytes # (test code = Lymphocytes 1.5 1.0-5.5 #) [facility] HospitalRzhobsjGBRPJATIGW1370-87-35 16:13:00 Test Item Value Reference Range Interpretation Comments Eosinophils # (test code = Eosinophils 0.1 <=0.5 #) [facility] HospitalIyjemldXMWBCKBYLM3309-16-28 16:13:00 Test Item Value Reference Range Interpretation Comments Segs-Bands # (test code = Segs-Bands #) 11.4 1.5-8.1 [facility] HospitalKwaohxaLKYFQKCZHK8457-61-35 16:13:00 Test Item Value Reference Range Interpretation Comments Segs (test code = Segs) 85.1 45.0-75.0 [facility] HospitalDxnpuwrEQUYNKBCQP0866-51-83 16:13:00 Test Item Value Reference Range Interpretation Comments Lymphocytes (test code = Lymphocytes) 10.8 20.0-40.0 [facility] HospitalRibahrgECKJIMNGAT6532-25-32 16:13:00 Test Item Value Reference Range Interpretation Comments Platelet (test code = Platelet) 340 133-450 [facility] HospitalCqfwhpuRGOFVIKZMN7274-46-85 16:13:00 Test Item Value Reference Range Interpretation Comments Monocytes (test code = Monocytes) 3.0 2.0-12.0 [facility] HospitalPpysiylRLWYXPRRTJ7163-99-15 16:13:00 Test Item Value Reference Range Interpretation Comments Eosinophils (test code = Eosinophils) 0.4 <=4.0 [facility] HospitalLzwuqynEKWJTNBSCF9033-25-33 16:13:00 Test Item Value Reference Range Interpretation Comments Basophils (test code = Basophils) 0.7 <=1.0 [facility] ClubUvqkmwdKRGVOYAZJM0676-31-18 16:13:00 Test Item Value Reference Range Interpretation Comments CDC HIV 4th GEN (test Negative (11/29/14 11:13 code = CDC HIV 4th AM) GEN) [facility]UhsngvqQHMHIFSSOD4522-39-16 16:13:00 Test Item Value Reference Range Interpretation Comments RDW (test code = RDW) 16.7 11.5-14.5 [facility] HospitalLaviropLSKBLGJIDG1282-72-06 16:13:00 Test Item Value Reference Range Interpretation Comments MCV (test code = MCV) 84.6 80.0-98.0 [facility] GKDNEKY8766-77-41 16:13:00 Test Item Value Reference Range Interpretation Comments Troponin-I (test code = Troponin-I) no gt <=0.40 [facility] KANQRNK8189-02-84 16:13:00 Test Item Value Reference Range Interpretation Comments Total CK (test code = Total CK) 146 12-191 [facility] CenterIcon[facility] ERDVA1051-97-00 16:13:00 Test Item Value Reference Range Interpretation Comments Phosphorus (test code = Phosphorus) 3.5 2.5-4.5 [facility] XFCUU4472-37-92 16:13:00 Test Item Value Reference Range Interpretation Comments Magnesium Lvl (test code = Magnesium 2.2 1.8-2.4 Lvl) [facility]IsehenzIXWDBUGHLDBF4895-70-08 16:13:00 Test Item Value Reference Range Interpretation Comments AGAP (test code = AGAP) 13.3 10.0-20.0 [facility] TexasCnwpnwyAXUUWAZWAJBV7050-21-71 16:13:00 Test Item Value Reference Range Interpretation Comments Creatinine Lvl (test code = Creatinine 0.6 0.5-1.4 Lvl) [facility] TexasEkecrrqAHPMSBXAJCXS5015-47-32 16:13:00 Test Item Value Reference Range Interpretation Comments BUN (test code = BUN) 17 7-22 [facility] CenterRoxivasCCPDIKEHONCX2723-87-25 16:13:00 Test Item Value Reference Range Interpretation Comments Glucose Lvl (test code = Glucose Lvl) 117 70-99 [facility] HospitalMhndpctYZICGBQSHJ5422-77-35 16:13:00 Test Item Value Reference Range Interpretation Comments Hct (test code = Hct) 39.5 36.0-48.0 [facility] TexasLpnavxmNKWCIIYHLDTN7162-24-73 16:13:00 Test Item Value Reference Range Interpretation Comments Sodium Lvl (test code = Sodium Lvl) 139 135-145 [facility] HospitalXqaivzgCUZDYMWFARVZ8373-84-59 16:13:00 Test Item Value Reference Range Interpretation Comments Chloride Lvl (test code = Chloride Lvl) 104 95-109 [facility] HospitalMmmxmuiPILIHLCZVGQL3189-24-80 16:13:00 Test Item Value Reference Range Interpretation Comments Potassium Lvl (test code = Potassium 4.3 3.5-5.1 Lvl) [facility] HospitalMlaepqzVJXNVYLTJQGX7047-75-97 16:13:00 Test Item Value Reference Range Interpretation Comments Calcium Lvl (test code = Calcium Lvl) 9.3 8.5-10.5 [facility] HospitalIbfcmyvZEWVFSAESQEJ4529-09-66 16:13:00 Test Item Value Reference Range Interpretation Comments CO2 (test code = CO2) 26 24-32 [facility] HospitalBhldmpwPBKHSJGFLJRW9013-88-91 16:13:00 Test Item Value Reference Range Interpretation Comments eGFR (test code = eGFR) 105 [facility] HospitalZausklaOPFJWJQKKM0399-24-31 16:13:00 Test Item Value Reference Range Interpretation Comments MPV (test code = MPV) 8.2 7.4-10.4 [facility] HospitalOthjnnuCCGOVSOYIR5540-73-52 16:13:00 Test Item Value Reference Range Interpretation Comments MCHC (test code = MCHC) 32.3 32.0-36.0 [facility] HospitalRivdcluJUKPJMHPMW2080-63-13 16:13:00 Test Item Value Reference Range Interpretation Comments Platelet (test code = Platelet) 340 133-450 [facility] HospitalUefsnuxLTIFAYXSCV3054-24-37 16:13:00 Test Item Value Reference Range Interpretation Comments RDW (test code = RDW) 16.7 11.5-14.5 [facility] HospitalMbtbzsuOAKGXZMUYP1684-02-08 16:13:00 Test Item Value Reference Range Interpretation Comments MCH (test code = MCH) 27.4 pg 27.0-31.0 [facility] HospitalGmtnypjPTARRNNFHL2183-19-88 16:13:00 Test Item Value Reference Range Interpretation Comments MCV (test code = MCV) 84.6 80.0-98.0 [facility] HospitalYyxkhmlXXUSCDUAVU5342-99-84 16:13:00 Test Item Value Reference Range Interpretation Comments Hct (test code = Hct) 39.5 36.0-48.0 [facility] HospitalIubbfbuLNIWCNQOEJ0880-11-68 16:13:00 Test Item Value Reference Range Interpretation Comments MCH (test code = MCH) 27.4 pg 27.0-31.0 [facility] HospitalPzrhjjzJNSEUKWRCD9250-15-73 16:13:00 Test Item Value Reference Range Interpretation Comments RBC (test code = RBC) 4.66 4.20-5.40 [facility] HospitalEerziiaWAZXJRBKRD1585-35-35 16:13:00 Test Item Value Reference Range Interpretation Comments Hgb (test code = Hgb) 12.7 12.0-16.0 [facility] HospitalSayudtoNSBYPVSDJA3654-80-22 16:13:00 Test Item Value Reference Range Interpretation Comments WBC (test code = WBC) 13.4 3.7-10.4 [facility] HospitalTjyiuzaTJHDPXBLKX0262-75-99 16:13:00 Test Item Value Reference Range Interpretation Comments INR (test code = INR) 0.95 0.85-1.17 [facility] HospitalGkmopxsJWTLKUQFEZ0776-71-46 16:13:00 Test Item Value Reference Range Interpretation Comments Basophils (test code = 0.7 See_Comment [Aut omated message] The Basophils) system which ge nerated this result tra nsmitted reference range : <=1.0. The reference r humberto was not used to int erpret this result as normal/abnormal . [facility] HospitalJfsnhagJLSPNYHULJ4449-32-01 16:13:00 Test Item Value Reference Range Interpretation Comments RBC (test code = RBC) 4.66 4.20-5.40 [facility] [id number] 16:13:00 Test Item Value Reference Range Interpretation Comments Hgb (test code = Hgb) 12.7 12.0-16.0 [facility]QpdzgchWNPSQQIACP1377-20-80 16:13:00 Test Item Value Reference Range Interpretation Comments WBC (test code = WBC) 13.4 3.7-10.4 [facility]PzhefguGFKGNJATUP7108-46-00 16:13:00 Test Item Value Reference Range Interpretation Comments INR (test code = INR) 0.95 0.85-1.17 [facility] HospitalIqskycuAQFFVXHZDG5321-58-52 16:13:00 Test Item Value Reference Range Interpretation Comments PT (test code = PT) 12.7 s 12.0-14.7 [facility] HospitalYvuirafOVKEVFYRKW1184-10-32 16:13:00 Test Item Value Reference Range Interpretation Comments PTT (test code = PTT) 26.0 s 22.9-35.8 [facility]YimscyhIWCCSKOTLF0993-21-88 16:13:00 Test Item Value Reference Range Interpretation Comments Basophils # (test code 0.1 See_Comment [Aut omated message] The = Basophils #) system which generated this result tra nsmitted reference range : <=0.2. The reference r humberto was not used to int erpret this result as normal/abnormal . [facility] HospitalHjtqqmnECHFPNPBWI4847-53-28 16:13:00 Test Item Value Reference Range Interpretation Comments Monocytes # (test code 0.4 See_Comment [Aut omated message] The = Monocytes #) system which generated this result tra nsmitted reference range : <=0.8. The reference r humberto was not used to int erpret this result as normal/abnormal . [facility] HospitalOatwdshLMBPUGTEFQ5633-87-38 16:13:00 Test Item Value Reference Range Interpretation Comments Lymphocytes # (test code = Lymphocytes 1.5 1.0-5.5 #) [facility] HospitalNmuedqgXWEBJMLWSQ2363-22-15 16:13:00 Test Item Value Reference Range Interpretation Comments Eosinophils # (test code 0.1 See_Comment [A utomated message] The = Eosinophils #) system whic h generated this result tra nsmitted reference range : <=0.5. The reference r humberto was not used to int erpret this result as normal/abnormal . [facility]JhtwrgfBTRNMGLJBV8950-98-67 16:13:00 Test Item Value Reference Range Interpretation Comments CDC HIV 4th GEN (test Negative (11/29/14 11:13 code = CDC HIV 4th AM) GEN) [facility] [id number] 16:13:00 Test Item Value Reference Range Interpretation Comments Troponin-I (test code no gt See_Comment [Auto mated message] The = Troponin-I) system which g enerated this result transmit meghna reference range : <=0.40. The reference r humberto was not used to interpr et this result as amy l/abnormal. [facility] [id number] 16:13:00 Test Item Value Reference Range Interpretation Comments Total CK (test code = Total CK) 146 12-191 [facility]CHEM [id number] 16:13:00 Test Item Value Reference Range Interpretation Comments Phosphorus (test code = Phosphorus) 3.5 2.5-4.5 [facility]CHE[facility] [id number] 16:13:00 Test Item Value Reference Range Interpretation Comments Magnesium Lvl (test code = Magnesium 2.2 1.8-2.4 Lvl) [facility]MphekjhMUSUAMQBIGAF2035-92-45 16:13:00 Test Item Value Reference Range Interpretation Comments AGAP (test code = AGAP) 13.3 10.0-20.0 [facility] HospitalSqmcdnkCKIHORTUDUFR5615-86-61 16:13:00 Test Item Value Reference Range Interpretation Comments Creatinine Lvl (test code = Creatinine 0.6 0.5-1.4 Lvl) [facility] HospitalUaporbyYSMXKUCTXIKE2308-18-08 16:13:00 Test Item Value Reference Range Interpretation Comments BUN (test code = BUN) 17 7-22 [facility] HospitalIcmwhhcKCZPGHHPJEIW5499-32-61 16:13:00 Test Item Value Reference Range Interpretation Comments Glucose Lvl (test code = Glucose Lvl) 117 70-99 [facility] HospitalCxfdweaSGXOBEGLQJYO8836-17-01 16:13:00 Test Item Value Reference Range Interpretation Comments Sodium Lvl (test code = Sodium Lvl) 139 135-145 [facility] HospitalOncqmddPWJPUTNHYMGT5289-51-00 16:13:00 Test Item Value Reference Range Interpretation Comments Chloride Lvl (test code = Chloride Lvl) 104 95-109 [facility] HospitalYjyyqczIGLLKZEFZUYG6318-24-73 16:13:00 Test Item Value Reference Range Interpretation Comments Potassium Lvl (test code = Potassium 4.3 3.5-5.1 Lvl) [facility] HospitalOxlocnvXMMJXEALXHXT9074-96-60 16:13:00 Test Item Value Reference Range Interpretation Comments Calcium Lvl (test code = Calcium Lvl) 9.3 8.5-10.5 [facility] HospitalWyhfvnaBOBEDLCWEKYV7656-46-35 16:13:00 Test Item Value Reference Range Interpretation Comments CO2 (test code = CO2) 26 24-32 [facility] HospitalYqbaiixLVRRRXUUGFCR8499-24-85 16:13:00 Test Item Value Reference Range Interpretation Comments eGFR (test code = eGFR) 105 [facility] CenterMkdqgztDWNYUWLWQL2012-43-66 16:13:00 Test Item Value Reference Range Interpretation Comments MPV (test code = MPV) 8.2 7.4-10.4 [facility] HospitalCihajgcEGNDWVESKF2802-13-61 16:13:00 Test Item Value Reference Range Interpretation Comments MCHC (test code = MCHC) 32.3 32.0-36.0 [facility] HospitalZidoonkQADOXQAFGS6700-69-60 16:13:00 Test Item Value Reference Range Interpretation Comments Platelet (test code = Platelet) 340 133-450 [facility] HospitalZvsahbtRSKDLMXCHK6886-65-19 16:13:00 Test Item Value Reference Range Interpretation Comments RDW (test code = RDW) 16.7 11.5-14.5 [facility] HospitalSzpyznqVGECKDWOMX2054-85-59 16:13:00 Test Item Value Reference Range Interpretation Comments MCV (test code = MCV) 84.6 80.0-98.0 [facility] HospitalTlfsmlaYVFMVOMAQR0206-25-95 16:13:00 Test Item Value Reference Range Interpretation Comments Hct (test code = Hct) 39.5 36.0-48.0 [facility] HospitalJtegrwmWUDLZKKZFI3918-47-39 16:13:00 Test Item Value Reference Range Interpretation Comments MCH (test code = MCH) 27.4 pg 27.0-31.0 [facility] HospitalKbemudkKWUBDNDBTE1468-43-04 16:13:00 Test Item Value Reference Range Interpretation Comments RBC (test code = RBC) 4.66 4.20-5.40 [facility] HospitalDdhdabuKOXURVWBPS4777-43-83 16:13:00 Test Item Value Reference Range Interpretation Comments Hgb (test code = Hgb) 12.7 12.0-16.0 [facility] HospitalEfuyavbPWHDCZPTUG2421-54-42 16:13:00 Test Item Value Reference Range Interpretation Comments WBC (test code = WBC) 13.4 3.7-10.4 [facility] HospitalCxtelpcTBXGMWBIHN6735-24-68 16:13:00 Test Item Value Reference Range Interpretation Comments INR (test code = INR) 0.95 0.85-1.17 [facility] HospitalWbetcziLUYLBJNCYV9606-35-54 16:13:00 Test Item Value Reference Range Interpretation Comments PT (test code = PT) 12.7 s 12.0-14.7 [facility] HospitalBztleohDUEGNTAVVY8889-55-30 16:13:00 Test Item Value Reference Range Interpretation Comments PTT (test code = PTT) 26.0 s 22.9-35.8 [facility] HospitalNacgmweCMCTLNSNJH6818-00-27 16:13:00 Test Item Value Reference Range Interpretation Comments Basophils # (test code 0.1 See_Comment [Aut omated message] The = Basophils #) system which generated this result tra nsmitted reference range : <=0.2. The reference r humberto was not used to int erpret this result as normal/abnormal . [facility] HospitalNgdjmsfOYTFXIRXSM3428-20-57 16:13:00 Test Item Value Reference Range Interpretation Comments Monocytes # (test code 0.4 See_Comment [Aut omated message] The = Monocytes #) system which generated this result tra nsmitted reference range : <=0.8. The reference r humberto was not used to int erpret this result as normal/abnormal . [facility] HospitalEtzolchRAOBIJRJMF9279-51-06 16:13:00 Test Item Value Reference Range Interpretation Comments Lymphocytes # (test code = Lymphocytes 1.5 1.0-5.5 #) [facility] HospitalJzmvexwOBJBHTGOYA9787-32-87 16:13:00 Test Item Value Reference Range Interpretation Comments Eosinophils # (test code 0.1 See_Comment [A utomated message] The = Eosinophils #) system whic h generated this result tra nsmitted reference range : <=0.5. The reference r humberto was not used to int erpret this result as normal/abnormal . [facility] HospitalOkpnabqAGVQCYBSKA8379-59-82 16:13:00 Test Item Value Reference Range Interpretation Comments Segs-Bands # (test code = Segs-Bands #) 11.4 1.5-8.1 [facility] HospitalSuvqufrJLLILDHBES5485-94-99 16:13:00 Test Item Value Reference Range Interpretation Comments Segs (test code = Segs) 85.1 45.0-75.0 [facility] HospitalUbnyvmkEWOAKCXKBV5465-68-70 16:13:00 Test Item Value Reference Range Interpretation Comments Lymphocytes (test code = Lymphocytes) 10.8 20.0-40.0 [facility] HospitalCazpnyiWBPDXXRXSD9455-05-61 16:13:00 Test Item Value Reference Range Interpretation Comments Monocytes (test code = Monocytes) 3.0 2.0-12.0 [facility] HospitalGpdymyxLGDXDAVOVU2974-79-51 16:13:00 Test Item Value Reference Range Interpretation Comments Eosinophils (test code = 0.4 See_Comment [A utomated message] The Eosinophils) system which ge nerated this result tra nsmitted reference range : <=4.0. The reference r humberto was not used to int erpret this result as normal/abnormal . [facility] TexasUhgbiiaTBLUYEEGXP5019-92-62 16:13:00 Test Item Value Reference Range Interpretation Comments Basophils (test code = 0.7 See_Comment [Aut omated message] The Basophils) system which ge nerated this result tra nsmitted reference range : <=1.0. The reference r humberto was not used to int erpret this result as normal/abnormal . [facility] TexasCmfunnmXENUADVYFC3491-11-36 16:13:00 Test Item Value Reference Range Interpretation Comments CDC HIV 4th GEN (test Negative (11/29/14 11:13 code = CDC HIV 4th AM) GEN) [facility]CARDIAC [id number] 16:13:00 Test Item Value Reference Range Interpretation Comments Troponin-I (test code no gt See_Comment [Auto mated message] The = Troponin-I) system which g enerated this result transmit meghna reference range : <=0.40. The reference r humberto was not used to interpr et this result as amy l/abnormal. [facility] TexasExacterCARDIAC [id number] 16:13:00 Test Item Value Reference Range Interpretation Comments Total CK (test code = Total CK) 146 12-191 [facility] TexasExacterCHEM [id number] 16:13:00 Test Item Value Reference Range Interpretation Comments Phosphorus (test code = Phosphorus) 3.5 2.5-4.5 [facility]CHE[facility] [id number] 16:13:00 Test Item Value Reference Range Interpretation Comments Magnesium Lvl (test code = Magnesium 2.2 1.8-2.4 Lvl) [facility] TexasMcjptipPXSFIJHMXKGE6648-02-44 16:13:00 Test Item Value Reference Range Interpretation Comments AGAP (test code = AGAP) 13.3 10.0-20.0 [facility] TexasYwpwcdoIWECJUWSHFNG5449-36-91 16:13:00 Test Item Value Reference Range Interpretation Comments Creatinine Lvl (test code = Creatinine 0.6 0.5-1.4 Lvl) [facility] TexasFzmaldjKHPBACCIGJLF8651-24-07 16:13:00 Test Item Value Reference Range Interpretation Comments BUN (test code = BUN) 17 7-22 [facility]
[2023-02-14] MEDS ORDERED: METHYLPREDNISOLONE 125 MG INJ ONE (16:27)
[2023-02-14] MEDS ORDERED: ONDANSETRON 4 MG (ODT) TAB ONE (16:27)
[2023-02-14] MEDS ORDERED: NA CHLORIDE 0.9% 1,000 ML ONE (16:28)
--- NOTE | 2023-02-14 16:28 | RAD REPORT ---
EXAM DESCRIPTION: RAD - Chest Single View - 02/14/2023 4:21 pm CLINICAL HISTORY: COUGH Chest pain. COMPARISON: <Comparisons> FINDINGS: Portable technique limits examination quality. The lungs are grossly clear. The heart is normal in size. No displaced fractures.Cervical spine hardw are plate. IMPRESSION: No acute intrathoracic process suspected.
[2023-02-14 16:48] LABS: Absolute Lymphocytes (CBC) 1.8 K/uL (0.7-4.9); Hematocrit 37.5 % (36.0-45.0); MCV 87.3 fL (80-100); MPV 7.9 fL (7.6-11.3); Platelets 309 thou/uL (152-406)
[2023-02-14 16:49] LABS: Specific Gravity 1.028 (1.005-1.030); Urine Bacteria <20 /HPF (<20); Urine Bilirubin NEGATIVE (Negative); Urine Blood Negative (Negative); Urine Clarity Extremely Turbid (Clear); Urine Color Yellow (Yellow); Urine Glucose NEGATIVE (Negative); Urine Mucus Slight /HPF (None Seen); Urine Protein TRACE (Negative); Urine RBC <5 /HPF (None Seen); Urine Urobilinogen Normal (Normal); Urine pH 5.5 (5.0-7.0)
[2023-02-14 16:49] LABS: Protime INR 1.05
[2023-02-14 17:06] LABS: ALT/SGPT 21 U/L (13-56); AST/SGOT 11 U/L (15-37); Albumin 3.8 g/dL (3.4-5.0); Alkaline Phosphatase 166 U/L (45-117); BUN Blood Urea Nitrogen 11 mg/dL (7-18); Bicarbonate 29 mEq/L (21-32); Bilirubin Total 0.4 mg/dL (0.2-1.0); Glomerular Filtration Rate 91 ml/min (=/>90); Glucose Level 116 mg/dL (74-106); Magnesium 1.8 mg/dL (1.6-2.4); NT PRO-BNP 46 pg/mL (<125); Potassium 3.3 mEq/L (3.5-5.1); Protein, Total 7.8 g/dL (6.4-8.2); Sodium Level 137 mEq/L (136-145)
[2023-02-14 17:07] LABS: Bilirubin Direct < 0.1 mg/dL (0-0.2); Bilirubin Indirect, Calculated ND mg/dL (0.2-0.8); Troponin High Sensitivity < 3.0 pg/mL (<58.9)
--- NOTE | 2023-02-14 17:49 | EDPHYS ---
Physician Documentation [facility] Name: Venice Beltran Age: 62 yrs Sex: Female : 1960 Arrival Date: 02/14/2023 Time: 15:43 Bed 3 Private MD: ED Physician Saul Nuñez HPI: 02/14 17:41 This 62 yrs old Female presents to ER via Ambulatory with complaints of Cant sneha Talk, Cough. 17:41 The patient or guardian reports cough, described as mild, flu symptoms, arthralgias, sneha low-grade fever, myalgias. Onset: The symptoms/episode began/occurred 3 day(s) ago. Severity of symptoms: At their worst the symptoms were mild, in the emergency department the symptoms are unchanged. Modifying factors: The symptoms are alleviated by nothing. Associated signs and symptoms: Pertinent positives: fever, nausea, rhinorrhea, sore throat. The patient has not experienced similar symptoms in the past. Historical: - Allergies: 16:04 Codeine; ll1 - PMHx: 16:04 Diabetes - NIDDM; Hypercholesterolemia; Hypertensive disorder; Depression; PTSD; ll1 Bipolar disorder; - PSHx: 16:04 Cholecystectomy; knee and neck SX; section; partial hyst; ll1 - Immunization history:: Adult Immunizations up to date. - Social history:: Smoking status: Patient/guardian denies using tobacco. ROS: 17:41 Constitutional: Negative for fever, chills, and weight loss, Eyes: Negative for injury, sneha pain, redness, and discharge, ENT: Negative for injury, pain, and discharge, Neck: Negative for injury, pain, and swelling, Cardiovascular: Negative for chest pain, palpitations, and edema, Abdomen/GI: Negative for abdominal pain, nausea, vomiting, diarrhea, and constipation, Back: Negative for injury and pain, : Negative for injury, bleeding, discharge, and swelling, MS/Extremity: Negative for injury and deformity, Skin: Negative for injury, rash, and discoloration, Neuro: Negative for headache, weakness, numbness, tingling, and seizure, Psych: Negative for depression, anxiety, suicide ideation, homicidal ideation, and hallucinations, Allergy/Immunology: Negative for hives, rash, and allergies, Endocrine: Negative for neck swelling, polydipsia, polyuria, polyphagia, and marked weight changes, 17:41 ENT: Positive for hoarseness, 17:41 Respiratory: Positive for cough, with no reported sputum, Exam: 17:42 Constitutional: This is a well developed, well nourished patient who is awake, alert, sneha and in no acute distress. Head/Face: Normocephalic, atraumatic. Eyes: Pupils equal round and reactive to light, extra-ocular motions intact. Lids and lashes normal. Conjunctiva and sclera are non-icteric and not injected. Cornea within normal limits. Periorbital areas with no swelling, redness, or edema. ENT: Nares patent. No nasal discharge, no septal abnormalities noted. Tympanic membranes are normal and external auditory canals are clear. Oropharynx with no redness, swelling, or masses, exudates, or evidence of obstruction, uvula midline. Mucous membranes moist. Neck: Trachea midline, no thyromegaly or masses palpated, and no cervical lymphadenopathy. Supple, full range of motion without nuchal rigidity, or vertebral point tenderness. No Meningismus. Chest/axilla: Normal chest wall appearance and motion. Nontender with no deformity. No lesions are appreciated. Cardiovascular: Regular rate and rhythm with a normal S1 and S2. No gallops, murmurs, or rubs. Normal PMI, no JVD. No pulse deficits. Abdomen/GI: Soft, non-tender, with normal bowel sounds. No distension or tympany. No guarding or rebound. No evidence of tenderness throughout. Back: No spinal tenderness. No costovertebral tenderness. Full range of motion. Female : Normal external genitalia. Skin: Warm, dry with normal turgor. Normal color with no rashes, no lesions, and no evidence of cellulitis. MS/ Extremity: Pulses equal, no cyanosis. Neurovascular intact. Full, normal range of motion. Neuro: Awake and alert, GCS 15, oriented to person, place, time, and situation. Cranial nerves II-XII grossly intact. Motor strength 5/5 in all extremities. Sensory grossly intact. Cerebellar exam normal. Normal gait. Psych: Awake, alert, with orientation to person, place and time. Behavior, mood, and affect are within normal limits. 17:42 ECG was reviewed by the Attending Physician. 17:42 Respiratory: mild respiratory distress is noted, Respirations: normal, symetrical, no use of accessory muscles, no grunting, no evidence of nasal flaring, no appreciated paradoxical movements, no prolonged exhalations, no pursed lip breathing, no retractions, no shallow respirations, no splinting, no tachypnea, Vital Signs: 16:02 BP 122 / 67; Pulse 96; Resp 17; Temp 99; Pulse Ox 99% on R/A; Weight 78.93 kg; Height 5 ll1 ft. 3 in. ; Pain 5/10; 16:36 BP 108 / 77; Pulse 93; Resp 18; Pulse Ox 98% on R/A; ld1 17:26 BP 123 / 77; Pulse 93; Resp 18 S; Pulse Ox 99% on R/A; kc6 16:02 Body Mass Index 30.82 (78.93 kg, 160.02 cm) ll1 16:02 Pain Scale: Adult ll1 MDM: 15:57 Patient medically screened. sneha 17:46 Differential Diagnosis: Obstructed Airway Bronchitis Influenza Upper Respiratory sneha Infection Sinusitis Pharyngitis Otitis Media Asthma Exacerbation Viral Syndrome Pneumonia. Data reviewed: vital signs, nurses notes, lab test result(s), EKG, radiologic studies, plain films. Consideration of Admission/Observation Escalation of care including admission/observation considered. I considered the following discharge prescriptions or medication management in the emergency department Medications were administered in the Emergency Department. See MAR. Independent interpretation of the following test(s) in the Emergency Department X-Ray: My interpretation is CXR NEG. Test considered but Not performed: CT: NO CT SOFT TISSUE NECK. Historians other than the Patient: Spouse/Significant Other: WELL INFORMED. Care significantly affected by the following chronic conditions: Diabetes, Hypertension, Chronic Obstructive Pulmonary Disease, Obesity, BIPOLAR, DEPRESSION, PTSD. Counseling: I had a detailed discussion with the patient and/or guardian regarding the historical points, exam findings, and any diagnostic results supporting the discharge/admit diagnosis, lab results, radiology results, the need for outpatient follow up, for definitive care, a family practitioner. 02/14 16:00 Order name: Basic Metabolic Panel; Complete Time: 17:38 [facility] 02/14 16:00 Order name: CBC with Diff; Complete Time: 17:38 [facility] 02/14 16:00 Order name: LFT's; Complete Time: 17:38 [facility] 02/14 16:00 Order name: Magnesium; Complete Time: 17:38 [facility] 02/14 16:00 Order name: NT PRO-BNP; Complete Time: 17:38 [facility] 02/14 16:00 Order name: PT-INR; Complete Time: 17:38 [facility] 02/14 16:00 Order name: Troponin HS; Complete Time: 17:38 [facility] 02/14 16:00 Order name: CRP; Complete Time: 17:38 [facility] 02/14 16:00 Order name: Urinalysis w/ reflexes; Complete Time: 17:38 [facility] 02/14 16:00 Order name: Flu; Complete Time: 17:38 [facility] 02/14 16:00 Order name: COVID-19 SARS RT PCR; Complete Time: 17:38 [facility] 02/14 16:00 Order name: Strep [facility] 02/14 17:12 Order name: Throat Culture [facility] 02/14 16:00 Order name: XRAY Chest (1 view); Complete Time: 17:38 [facility] 02/14 16:00 Order name: EKG; Complete Time: 16:01 [facility] 02/14 16:00 Order name: Cardiac monitoring; Complete Time: 16:36 [facility] 02/14 16:00 Order name: EKG - Nurse/Tech; Complete Time: 16:36 [facility] 02/14 16:00 Order name: IV Saline Lock; Complete Time: 16:36 [facility] 02/14 16:00 Order name: Labs collected and sent; Complete Time: 16:36 [facility] 02/14 16:00 Order name: O2 Per Protocol; Complete Time: 16:11 [facility] 02/14 16:00 Order name: O2 Sat Monitoring; Complete Time: 16:11 [facility] EC:42 Rate is 91 beats/min. Rhythm is regular. QRS [place] is Normal. AK interval is normal. QRS sneha interval is normal. QT interval is normal. No Q waves. T waves are Normal. No ST changes noted. Clinical impression: NSR w/ Non-specific ST/T Changes and No evidence of ischemia. Interpreted by me. Reviewed by me. Administered Medications: 16:36 Drug: NS 0.9% IV 1000 ml IV at 1 bolus Per protocol; 1000 mL bolus Route: IV; Rate: 1 ld1 bolus; Site: right antecubital; 17:40 Follow up: Response: No adverse reaction; IV Status: Completed infusion; IV Intake: kc6 1000ml 16:36 Drug: MethylPrednisoLONE IVP 125 mg IVP once Route: IVP; Site: right antecubital; ld1 17:40 Follow up: Response: No adverse reaction kc6 17:50 Drug: LevOfloxacin PO 750 mg PO once Route: PO; kc6 17:50 Drug: predniSONE PO 40 mg PO once Route: PO; kc6 17:50 Drug: Famotidine IVP 20 mg IVP once; dilute with 10 mL 0.9% NaCl; give over 2 minutes kc6 Route: IVP; Site: right antecubital; Disposition Summary: 02/14/23 17:49 Discharge Ordered Notes: Location: Home sneha Problem: new sneha Symptoms: have improved sneha Condition: Stable sneha Diagnosis - Cough sneha - Acute upper respiratory infection, unspecified sneha - Acute laryngitis sneha - UTI/ Urinary tract infection, site not specified sneha - Hypokalemia sneha Followup: sneha - With: Private Physician - When: 2 - 3 days - Reason: Recheck today's complaints, Continuance of care, Re-evaluation by your physician Discharge Instructions: - Discharge Summary Sheet [facility] - Potassium Content of Foods sneha - Laryngitis sneha - Upper Respiratory Infection, Adult sneha - Cool Mist Vaporizer sneha - Urinary Tract Infection, Adult, Gbmq-er-Euxl sneha - Cough, Adult, Lhtl-lt-Nzys sneha - Cough, Adult sneha - Hypokalemia sneha - Laryngitis, Vvkp-be-Iymh [facility] Forms: - Medication Reconciliation Form [facility] - Thank You Letter [facility] - Antibiotic Education [facility] - Prescription Opioid Use [facility] - Patient Portal Instructions [facility] - Leadership Thank You Letter [facility] Prescriptions: - Tessalon Perles 100 mg Oral capsule - take 2 capsule ORAL route every 8 hours As needed; 36 capsule; Refills: 0, [facility] Product Selection Permitted - Medrol (Benji) 4 mg Oral Tablets, Dose Pack - take 1 tablet ORAL route as directed - follow package instructions; 1 packet; [facility] Refills: 0, Product Selection Permitted - levofloxacin 500 mg Oral tablet - take 1 tablet ORAL route once daily for 7 days; 7 tablet; Refills: 0, Product [facility] Selection Permitted Signatures: Dispatcher [employer] Saul Squires MD MD cha Lewis, Lynsay RN RN ll1 Sari Coburn RN RN ld1 Pattie Álvarez RN RN kc6 Corrections: (The following items were deleted from the chart) 16:11 16:01 CT-STROKE BRAIN W/O CONTRAST+CT.RAD.BRZ ordered. EDMS EDMS
--- NOTE | 2023-02-14 17:49 | ER ---
Nurse's Notes [facility] Name: Venice Beltran Age: 62 yrs Sex: Female : 1960 Arrival Date: 02/14/2023 Time: 15:43 Bed 3 Private MD: Diagnosis: Cough;Acute upper respiratory infection, unspecified;Acute laryngitis;UTI/ Urinary tract infection, site not specified;Hypokalemia Presentation: 02/14 16:02 Chief complaint: Patient states: Sore throat, cough, loss of voice since last night. ll1 Coronavirus screen: Vaccine status: Patient reports receiving the 2nd dose of the covid vaccine. Client denies travel out of the [place] in the last 14 days. congestion, cough unrelated to allergies, sore throat, Client presents with at least one sign or symptom that may indicate coronavirus-19. Standard/surgical mask placed on the client. Ebola Screen: Patient denies travel to an Ebola-affected area in the 21 days before illness onset. Initial Sepsis Screen: Does the patient meet any 2 criteria? No. Patient's initial sepsis screen is negative. Does the patient have a suspected source of infection? Yes: Productive cough/pneumonia. Risk Assessment: Do you want to hurt yourself or someone else? Patient reports no desire to harm self or others. Onset of symptoms was February 13, 2023. 16:02 Method Of Arrival: Ambulatory [facility] 16:02 Acuity: JOSE ANGEL 3 ll1 Triage Assessment: 16:05 General: Appears uncomfortable, ill, Behavior is calm, cooperative, appropriate for ll1 age. General: Reports feeling ill for fatigue for. Pain: Complains of pain in throat Pain currently is 5 out of 10 on a pain scale. Quality of pain is described as aching. EENT: Reports nasal congestion pain when swallowing. EENT: Reports loss of voice. Respiratory: Reports cough that is. Historical: - Allergies: 16:04 Codeine; ll1 - PMHx: 16:04 Diabetes - NIDDM; Hypercholesterolemia; Hypertensive disorder; Depression; PTSD; ll1 Bipolar disorder; - PSHx: 16:04 Cholecystectomy; knee and neck SX; section; partial hyst; ll1 - Immunization history:: Adult Immunizations up to date. - Social history:: Smoking status: Patient/guardian denies using tobacco. Screenin:36 [facility] ED Fall Risk Assessment (Adult) History of falling in the last 3 months, ld1 including since admission No falls in past 3 months (0 pts). Abuse screen: Denies threats or abuse. Denies injuries from another. Nutritional screening: No deficits noted. Tuberculosis screening: No symptoms or risk factors identified. Assessment: 16:36 General: Appears in no apparent distress. comfortable, Behavior is calm, cooperative, ld1 appropriate for age. Pain: Denies pain. Neuro: Level of Consciousness is awake, alert, obeys commands, Oriented to person, place, time, situation. Cardiovascular: Capillary refill < 3 seconds Patient's skin is warm and dry. Rhythm is sinus rhythm. Respiratory: Airway is patent Respiratory effort is even, unlabored. GI: Abdomen is round non-distended. : No signs and/or symptoms were reported regarding the genitourinary system. EENT: No signs and/or symptoms were reported regarding the EENT system. Reports sore throat since last night. Derm: No signs and/or symptoms reported regarding the dermatologic system. Musculoskeletal: No signs and/or symptoms reported regarding the musculoskeletal system. 17:26 Reassessment: Patient appears in no apparent distress at this time. No changes from kc6 previously documented assessment. Patient and/or family updated on plan of care and expected duration. Pain level reassessed. Patient is alert, oriented x 3, equal unlabored respirations, skin warm/dry/pink. Vital Signs: 16:02 BP 122 / 67; Pulse 96; Resp 17; Temp 99; Pulse Ox 99% on R/A; Weight 78.93 kg; Height 5 ll1 ft. 3 in. ; Pain 5/10; 16:36 BP 108 / 77; Pulse 93; Resp 18; Pulse Ox 98% on R/A; ld1 17:26 BP 123 / 77; Pulse 93; Resp 18 S; Pulse Ox 99% on R/A; kc6 16:02 Body Mass Index 30.82 (78.93 kg, 160.02 cm) ll1 16:02 Pain Scale: Adult ll1 ED Course: 15:53 Patient arrived in ED. mg5 15:56 Saul Nuñez MD is Attending Physician. sneha 16:04 Triage completed. ll1 16:05 Arm band placed on Patient placed in an exam room, on a stretcher. ll1 16:20 XRAY Chest (1 view) In Process Unspecified. EDMS 16:36 Patient has correct armband on for positive identification. Placed in gown. Bed in low ld1 position. Call light in reach. Side rails up X2. clinical research monitor on. Pulse ox on. NIBP on. Door closed. Noise minimized. Warm blanket given. 16:36 Urinalysis w/ reflexes Sent. ld1 16:36 Strep Sent. ld1 16:36 COVID-19 SARS RT PCR Sent. ld1 16:36 Flu Sent. ld1 16:36 No provider procedures requiring assistance completed. Inserted saline lock: 20 gauge ld1 in right antecubital area, using aseptic technique. Blood collected. 16:37 Pattie Álvarez, CHACHO is Primary Nurse. kc6 17:58 IV discontinued, intact, bleeding controlled, No redness/swelling at site. ld1 Administered Medications: 16:36 Drug: NS 0.9% IV 1000 ml IV at 1 bolus Per protocol; 1000 mL bolus Route: IV; Rate: 1 ld1 bolus; Site: right antecubital; 17:40 Follow up: Response: No adverse reaction; IV Status: Completed infusion; IV Intake: kc6 1000ml 16:36 Drug: MethylPrednisoLONE IVP 125 mg IVP once Route: IVP; Site: right antecubital; ld1 17:40 Follow up: Response: No adverse reaction kc6 17:50 Drug: LevOfloxacin PO 750 mg PO once Route: PO; kc6 17:50 Drug: predniSONE PO 40 mg PO once Route: PO; kc6 17:50 Drug: Famotidine IVP 20 mg IVP once; dilute with 10 mL 0.9% NaCl; give over 2 minutes kc6 Route: IVP; Site: right antecubital; Medication: 16:36 VIS not applicable for this client. ld1 Intake: 17:40 IV: 1000ml; Total: 1000ml. kc6 Outcome: 17:49 Discharge ordered by . sneha 17:58 Discharged to home ambulatory, with family, ld1 17:58 Condition: stable 17:58 Discharge instructions given to patient, family, Instructed on discharge instructions, follow up and referral plans. medication usage, Demonstrated understanding of instructions, follow-up care, medications, Prescriptions given X 3, 17:58 Patient left the ED. ld1 Signatures: Dispatcher [employer] Saul Squires MD MD cha Lewis, Lynsay, RN RN ll1 Sari Coburn RN RN ld1 Pattie Álvarez RN RN kc6 Isa Gomez 5
[2023-02-14] MEDS ORDERED: levoFLOXacin 750 MG TAB ONE (17:57)
[2023-02-14] MEDS ORDERED: FAMOTIDINE 20 MG/2 ML VIAL IV ONE (17:58)
[2023-02-14] MEDS ORDERED: predniSONE 20 MG TAB ONE (17:58)
[2023-02-14 18:10] VITALS: TEMP 99
[2023-02-14 18:13] VITALS: BP 123/77; O2SAT 99
--- NOTE | 2023-02-15 16:39 | EKG ---
Test Date: 2023-02-14 Test Time: 16:32:45 Motorboat Operator: MOIRA MEASUREMENT RESULTS: Intervals: Rate: 91 PA: 146 QRSD: 76 QT: 334 QTc: 410 Lester: P: 76 PA: 146 QRS: 32 T: 32 INTERPRETIVE STATEMENTS: Normal sinus rhythm Normal ECG Compared to ECG 09/28/2022 13:36:05 No significant changes Electronically Signed On 02-15-23 16:37:39 CDT by Massimo Rebolledo
== END 2023-02-14 17:58 | disposition home or self-care (01) ==
LOC: ER 15:43
DX: J06.9 Acute upper respiratory infection, unspecified (principal); J04.0 Acute laryngitis; N39.0 Urinary tract infection, site not specified; E87.6 Hypokalemia; Z20.822 Contact with and (suspected) exposure to COVID-19; Z88.5 Allergy status to narcotic agent
CPT/HCPCS: 96361; 93005; 87070; 85025; 81001; 80048; 36415; 83735; 85610; 80076; 87081; 84484; 83880; 87635; 86140; 87804 ×2; 71045; 96375; 96374; 99285; J7512; Q0162; J2930; J7030

== ENCOUNTER 2023-12-19 20:23 | Emergency (ER) | payer OTHER ==
[2023-12-19 21:31] LABS: Absolute Basophils 0.1 K/uL (0-0.5); Absolute Eosinophils 0.3 K/uL (0-0.5); Absolute Lymphocytes (CBC) 3.8 K/uL (0.7-4.9); Absolute Monocytes 0.7 K/uL (0.1-1.3); Absolute Neutrophil 5.2 K/uL (1.8-8.0); Basophils % 0.8 % (0-1.3); Eosinophils % 3.1 % (0-4.4); Hematocrit 38.4 % (36.0-45.0); Hemoglobin 12.9 g/dL (12.0-15.0); Lymphocytes % 37.4 % (15.3-44.8); MCH 28.8 pg (27.0-35.0); MCHC 33.7 g/dL (32.0-36.0); MCV 85.4 fL (80-100); Monocytes % 6.7 % (3.3-12.3); Nucleated Red Blood Cells % 0.1 % (0-0); Platelets 378 thou/uL (152-406)
[2023-12-19 21:40] LABS: Protime INR 1.17
[2023-12-19 21:41] LABS: ALT/SGPT 32 U/L (13-56); AST/SGOT 24 U/L (15-37); Albumin 4.3 g/dL (3.4-5.0); Albumin/Globulin Ratio 1.1 (1.1-1.8); Alkaline Phosphatase 116 U/L (45-117); Anion Gap 11.8 mEq/L (5.0-15.0); BUN Blood Urea Nitrogen 19 mg/dL (7-18); Bicarbonate 22 mEq/L (21-32); Bilirubin Direct 0.2 mg/dL (0-0.2); Bilirubin Indirect, Calculated 0.4 mg/dL (0.2-0.8); Bilirubin Total 0.6 mg/dL (0.2-1.0); Globulin 3.9 g/dL (2.3-3.5); Glomerular Filtration Rate 59 ml/min (=/>90); Glucose Level 105 mg/dL (74-106); Magnesium 1.7 mg/dL (1.6-2.4); NT PRO-BNP 20 pg/mL (<125); Potassium 2.8 mEq/L (3.5-5.1); Protein, Total 8.2 g/dL (6.4-8.2); Sodium Level 139 mEq/L (136-145)
[2023-12-19 21:42] LABS: Troponin High Sensitivity < 3.0 pg/mL (<58.9)
--- NOTE | 2023-12-19 21:50 | RAD REPORT ---
EXAM DESCRIPTION: CT - Head Brain Wo Cont - 12/19/2023 9:27 pm CLINICAL HISTORY: DIZZINESS COMPARISON: Head Brain Wo Cont dated 04/06/2019; CTFACIAL BONES W MPR dated 11/29/2014 TECHNIQUE: All CT scans are performed using dose optimization technique as appropriate and may inclu de automated exposure control or mA/KV adjustment according to patient size. FINDINGS: No intracranial hemorrhage, hydrocephalus or extra-axial fluid collection.No areas of brai n edema or evidence of midline shift. Age advanced cerebral atrophy. Right maxillary sinus opacification . The calvarium is intact. IMPRESSION: No acute intracranial abnormality.
--- NOTE | 2023-12-19 21:53 | RAD REPORT ---
EXAM DESCRIPTION: RAD - Chest Single View - 12/19/2023 9:24 pm CLINICAL HISTORY: CHEST PAIN COMPARISON: Chest Single View dated 08/26/2023; Chest Single View dated 02/14/2023; Chest Single View dated 09/28/2022; Chest Single View dated 04/06/2019 FINDINGS: Lines: None. Lungs: No evidence of edema or pneumonia. Pleural: No significant pleural effusions or pneumothorax. Cardiac: The heart size is within normal limits. Mediastinum: Within normal limits. Bones: No acute fractures. ACDF in the cervical spine . Other: None IMPRESSION: No acute cardiopulmonary disease.
--- NOTE | 2023-12-19 21:55 | ER ---
Nurse's Notes [facility] Name: Venice Beltran Age: 62 yrs Sex: Female : 1960 Arrival Date: 12/19/2023 Time: 20:23 Bed 8 Private MD: Diagnosis: Anxiety, hypokalemia Presentation: 12/18 20:37 Chief complaint: Patient states: Weakness and numbness on left arm, trouble talking, nj1 onset 3pm. Dizziness and shortness of breath since last Monday. Saw psychiatrist Monday and got medications changed. Had psychotic episode last night. Coronavirus screen: Vaccine status: Patient reports receiving the 2nd dose of the covid vaccine. Ebola Screen: Patient denies travel to an Ebola-affected area in the 21 days before illness onset. Initial Sepsis Screen: Does the patient meet any 2 criteria? HR > 90 bpm. No. Patient's initial sepsis screen is negative. Does the patient have a suspected source of infection? No. Patient's initial sepsis screen is negative. Risk Assessment: Do you want to hurt yourself or someone else? Patient reports no desire to harm self or others. Onset of symptoms was December 12, 2023. 20:37 Method Of Arrival: Ambulatory [facility] 20:37 Acuity: JOSE ANGEL 3 nj1 Historical: - Allergies: 20:41 Codeine; nj1 - PMHx: 20:41 Bipolar disorder; Depression; Diabetes - NIDDM; Hypercholesterolemia; Hypertensive nj1 disorder; PTSD; Psychosis (Unknown); - PSHx: 20:41 section; Cholecystectomy; knee and neck SX; partial hyst; nj1 - Immunization history:: Client reports receiving the 2nd dose of the Covid vaccine. - Infectious Disease History:: Denies. - Social history:: Smoking status: Patient/guardian denies using tobacco, the patient reports quitting approximately 3 years ago. Assessment: 21:07 General: Appears in no apparent distress. Behavior is calm, cooperative. Neuro: Reports jm12 dizziness. Cardiovascular: Reports lightheadedness. Cardiovascular: No deficits noted. Respiratory: No deficits noted. Respiratory: No deficits noted. GI: No deficits noted. No signs and/or symptoms were reported involving the gastrointestinal system. : No deficits noted. No signs and/or symptoms were reported regarding the genitourinary system. EENT: No deficits noted. No signs and/or symptoms were reported regarding the EENT system. Derm: No deficits noted. No signs and/or symptoms reported regarding the dermatologic system. Musculoskeletal: No deficits noted. No signs and/or symptoms reported regarding the musculoskeletal system. Vital Signs: 20:37 BP 146 / 82; Pulse 112; Resp 18; Temp 98.8; Pulse Ox 98% ; Weight 70.31 kg; Height 5 nj1 ft. 3 in. ; 22:31 BP 138 / 62; Pulse 91; Resp 16; Temp 98; Pulse Ox 100% ; Pain 0/10; jm12 20:37 Body Mass Index 27.46 (70.31 kg, 160.02 cm) nj1 22:31 Pain Scale: Adult [facility] ED Course: 20:26 Patient arrived in ED. im 20:27 Sally Gray MD is Attending Physician. sp3 20:41 Triage completed. nj1 20:42 Arm band placed on right wrist. nj1 21:15 Basic Metabolic Panel Sent. vk 21:15 CBC with Diff Sent. vk 21:15 LFT's Sent. vk 21:15 Troponin HS Sent. vk 21:15 PT-INR Sent. vk 21:15 NT PRO-BNP Sent. vk 21:15 Magnesium Sent. vk 21:15 Initial lab(s) drawn, by me, sent to lab. Inserted saline lock: 22 gauge in right vk antecubital area, using aseptic technique. Blood collected. Flushed with 10 mL NS. 21:16 EKG done, by ED staff. vk 21:26 XRAY Chest (1 view) In Process Unspecified. EDMS 21:29 CT Head Brain wo Cont In Process Unspecified. EDMS 22:32 IV discontinued, intact, bleeding controlled, No redness/swelling at site. Pressure 12 dressing applied. Administered Medications: 22:10 Drug: Ativan IVP 1 mg IVP once Route: IVP; Site: right antecubital; 12 22:10 Drug: Potassium Chloride PO 40 mEq PO once Route: PO; 12 Outcome: 21:55 Discharge ordered by . sp3 22:32 Discharged to home ambulatory, 12 22:32 Condition: good 22:32 Discharge instructions given to patient, Instructed on discharge instructions, follow up and referral plans. Demonstrated understanding of instructions, follow-up care, 22:32 Patient left the ED. jm12 Signatures: Dispatcher [employer] EDMS Sally Gray MD MD sp3 Carlotta Lo RN RN nj1 Clarisa Dougherty Vivian vk Markee, Jessica, CHACHO RN jm12 Corrections: (The following items were deleted from the chart) 20:43 20:37 Chief complaint: Patient states: Weakness and numbness on left arm, trouble nj1 talking, onset 3pm. Dizziness and shortness of breath since last Monday. Saw psychiatrist Monday and got medications changed. nj1
--- NOTE | 2023-12-19 21:55 | EDPHYS ---
Physician Documentation [facility] Name: Venice Beltran Age: 62 yrs Sex: Female : 1960 Arrival Date: 12/19/2023 Time: 20:23 Bed 8 Private MD: ED Physician Sally Gray HPI: 12/18 20:49 This 62 yrs old Female presents to ER via Ambulatory with complaints of sp3 Dizziness, Shortness Of Breath, Numbness Of Arm - left. 20:49 62-year-old female with history of bipolar disease, PTSD, diabetes, hyperlipidemia, sp3 hypertension now presents to the ED with chief complaint anxiety and "dizziness". Patient's psychiatrist recently took her off propranolol approximately 10 days ago. She denies any weakness, change in speech, chest pain, back pain, abdominal pain, vomiting, diarrhea, or any other signs or symptoms on ROS at this time. Upon heavy breathing, she does complain of bilateral hand tingling which subsides on its own. ROS otherwise negative.. Historical: - Allergies: 20:41 Codeine; nj1 - PMHx: 20:41 Bipolar disorder; Depression; Diabetes - NIDDM; Hypercholesterolemia; Hypertensive nj1 disorder; PTSD; Psychosis (Unknown); - PSHx: 20:41 section; Cholecystectomy; knee and neck SX; partial hyst; nj1 - Immunization history:: Client reports receiving the 2nd dose of the Covid vaccine. - Infectious Disease History:: Denies. - Social history:: Smoking status: Patient/guardian denies using tobacco, the patient reports quitting approximately 3 years ago. ROS: 20:50 Constitutional: Negative for fever, chills, and weight loss, Eyes: Negative for injury, sp3 pain, redness, and discharge, Neck: Negative for injury, pain, and swelling, Respiratory: Negative for shortness of breath, cough, wheezing, and pleuritic chest pain, Abdomen/GI: Negative for abdominal pain, nausea, vomiting, diarrhea, and constipation, Back: Negative for injury and pain, MS/Extremity: Negative for injury and deformity, Skin: Negative for injury, rash, and discoloration, Neuro: Negative for headache, weakness, numbness, tingling, and seizure, Allergy/Immunology: Negative for hives, rash, and allergies, Endocrine: Negative for neck swelling, polydipsia, polyuria, polyphagia, and marked weight changes, Hematologic/Lymphatic: Negative for swollen nodes, abnormal bleeding, and unusual bruising, 20:50 All other systems are negative, Exam: 20:51 Constitutional: This is a well developed, well nourished patient who is awake, alert, sp3 and in no acute distress. Head/Face: Normocephalic, atraumatic. Eyes: Pupils equal round and reactive to light, extra-ocular motions intact. Lids and lashes normal. Conjunctiva and sclera are non-icteric and not injected. Cornea within normal limits. Periorbital areas with no swelling, redness, or edema. Neck: Trachea midline, no thyromegaly or masses palpated, and no cervical lymphadenopathy. Supple, full range of motion without nuchal rigidity, or vertebral point tenderness. No Meningismus. Chest/axilla: Normal chest wall appearance and motion. Nontender with no deformity. No lesions are appreciated. Respiratory: Lungs have equal breath sounds bilaterally, clear to auscultation and percussion. No rales, rhonchi or wheezes noted. No increased work of breathing, no retractions or nasal flaring. Abdomen/GI: Soft, non-tender, with normal bowel sounds. No distension or tympany. No guarding or rebound. No evidence of tenderness throughout. Back: No spinal tenderness. No costovertebral tenderness. Full range of motion. Skin: Warm, dry with normal turgor. Normal color with no rashes, no lesions, and no evidence of cellulitis. 20:51 Cardiovascular: Tachycardia otherwise normal cardiac exam., 20:51 Psych: Patient very anxious. Denies suicidal ideation, homicidal ideation or psychosis.. 20:58 ECG was reviewed by the Attending Physician. EKG demonstrates sinus tachycardia 110 bpm sp3 with normal intervals, normal QRS, normal axis, nonspecific diffuse ST's ST changes without evidence of acute ischemia. Vital Signs: 20:37 BP 146 / 82; Pulse 112; Resp 18; Temp 98.8; Pulse Ox 98% ; Weight 70.31 kg; Height 5 nj1 ft. 3 in. ; 22:31 BP 138 / 62; Pulse 91; Resp 16; Temp 98; Pulse Ox 100% ; Pain 0/10; jm12 20:37 Body Mass Index 27.46 (70.31 kg, 160.02 cm) nj1 22:31 Pain Scale: Adult jm12 MDM: 20:43 Patient medically screened. sp3 20:52 Data reviewed: vital signs, nurses notes, lab test result(s), EKG, radiologic studies. sp3 ED course: 62-year-old female with extensive psychiatric history as well as medical history presents with anxiety and dizziness. Differential diagnosis includes anxiety, electrolyte abnormality, body reacting to not being on beta-juan, and to a lesser degree ACS, CVA, or other cardiovascular spectrum. Will obtain CT scan of the head, EKG, laboratory values, chest x-ray and also administer Ativan 1 mg IV. Clinically I am not highly suspicious for sepsis, shock, or any other critical process at this time.. 21:51 ED course: Monitor heart rate with multiple values now in the 90s. Potassium critically sp3 low and will be replaced. Total critical care 30 minutes including patient consultation, documentation and management.. 21:55 ED course: CT scan negative and remainder of labs also negative. Patient feels better. sp3 We will safely discharged home at this time.. 12/18 20:42 Order name: Basic Metabolic Panel; Complete Time: 21:51 sp3 12/18 20:42 Order name: CBC with Diff; Complete Time: 21:51 sp3 12/18 20:42 Order name: LFT's; Complete Time: 21:51 sp3 12/18 20:42 Order name: Magnesium; Complete Time: 21:51 sp3 12/18 20:42 Order name: NT PRO-BNP; Complete Time: 21:51 sp3 12/18 20:42 Order name: PT-INR; Complete Time: 21:51 sp3 12/18 20:42 Order name: Troponin HS; Complete Time: 21:51 sp3 12/18 20:42 Order name: XRAY Chest (1 view); Complete Time: 21:54 sp3 12/18 20:42 Order name: CT Head Brain wo Cont; Complete Time: 21:54 sp3 12/18 20:42 Order name: Cardiac monitoring; Complete Time: 21:15 sp3 12/18 20:42 Order name: EKG - Nurse/Tech; Complete Time: 21:15 sp3 12/18 20:42 Order name: IV Saline Lock; Complete Time: 21:16 sp3 12/18 20:42 Order name: Labs collected and sent; Complete Time: 21:15 sp3 12/18 20:42 Order name: O2 Per Protocol; Complete Time: 20:51 sp3 12/18 20:42 Order name: O2 Sat Monitoring; Complete Time: 20:51 sp3 Administered Medications: 22:10 Drug: Ativan IVP 1 mg IVP once Route: IVP; Site: right antecubital; jm12 22:10 Drug: Potassium Chloride PO 40 mEq PO once Route: PO; jm12 Disposition Summary: 12/19/23 21:55 Discharge Ordered Notes: Location: Home sp3 Condition: Stable sp3 Diagnosis - Anxiety, hypokalemia sp3 Followup: sp3 - With: Private Physician - When: Upon discharge from the Emergency Department - Reason: Continuance of care Discharge Instructions: - Discharge Summary Sheet sp3 - Hypokalemia sp3 - Managing Anxiety, Adult sp3 Forms: - Medication Reconciliation Form sp3 - Antibiotic Education sp3 - Prescription Opioid Use sp3 - Patient Portal Instructions sp3 - Leadership Thank You Letter sp3 Critical care time excluding procedures: 21:52 Critical care time: Bedside Care: 15 minutes, Consultation: 15 minutes. Total time: 30 sp3 minutes Signatures: Dispatcher [employer] EDSally Suggs MD MD sp3 Carlotta Lo RN RN nj1 Sarah العلي RN RN jm12 Corrections: (The following items were deleted from the chart) 20:43 20:43 Head Brain Wo Cont+CT.RAD.BRZ ordered. EDMS EDMS
[2023-12-19] MEDS ORDERED: POTASSIUM CL SA 10 MEQ TAB PO ONE (22:21)
[2023-12-19] MEDS ORDERED: LORazepam 2 MG/ML VIAL ONE (22:21)
[2023-12-20 08:39] VITALS: BP 138/62; TEMP 98; O2SAT 100
== END 2023-12-19 22:32 | disposition home or self-care (01) ==
LOC: ER 20:23
DX: F41.9 Anxiety disorder, unspecified (principal); E87.6 Hypokalemia
CPT/HCPCS: 36415; 70450; 71045; 80048; 80076; 83735; 83880; 84484; 85025; 85610; 93005